=== PATIENT | male | born 1975 | race Caucasian/White ===

== ENCOUNTER 2018-11-24 17:30 | Emergency (ER) | payer MEDICAID, SELFPAY ==
--- NOTE | 2018-11-24 17:30 | EKG12_ITS ---
Test Reason : DIZZY Blood Pressure : / mmHG Vent. Rate : 095 BPM Atrial Rate : 095 BPM P-R Int : 166 ms QRS Dur : 078 ms QT Int : 350 ms P-R-T Axes : 063 -09 030 degrees QTc Int : 439 ms Normal sinus rhythm Normal ECG Confirmed by EZE SALVADOR, HAILE ([id number]), assistant editor DAVONTE KRAMER ([id number]) on 11/27/2018 4:45:01 PM Referred By: JOSEFINA/ZHOU Confirmed By:HAILE LOO MD
[2018-11-24 17:32] VITALS: BP 133/93; PULSE 97; RESP 22; TEMP 36.6; O2SAT 99; BMI 31.7
--- NOTE | 2018-11-24 17:42 | ED.RN ---
PT NOW STATES HE SLIPPED AND FELL ON SNOW AT WORK, HIT HEAD. PREVIOUSLY STATES HE BLACKED OUT' AND FELL. AWARE.
--- NOTE | 2018-11-24 17:45 | CT_ITS ---
STUDY: CT CERVICAL SPINE WITHOUT CONTRAST REASON FOR EXAM: Male, 42 years old. Trauma, syncope. RADIATION DOSAGE (If Supplied By Facility): CTDIvol = ( 23.10 ) mGy, DLP = ( 566.89 ) mGycm TECHNIQUE: High resolution transaxial imaging was performed without contrast material. Sagittal and coronal images were reconstructed. Individualized dose optimization techniques were used for this CT. COMPARISON: 11/04/2017. FINDINGS: Normal craniovertebral junction. Normal anterior atlantoaxial articulation. Normal odontoid process. There is straightening of the normal cervical lordosis. Normal vertebral bodies and posterior osseous elements. C2-3: Normal endplates. Normal disc height and morphology. Normal central canal and intervertebral neuroforamina. C3-4: Normal endplates. Normal disc height and morphology. Normal central canal and intervertebral neuroforamina. C4-5: Normal endplates. Normal disc height and morphology. Normal central canal and intervertebral neuroforamina. C5-6: Normal endplates. Normal disc height and morphology. Normal central canal and intervertebral neuroforamina. C6-7: Normal endplates. Normal disc height and morphology. Normal central canal and intervertebral neuroforamina. C7-T1: Normal endplates. Normal disc height and morphology. Normal central canal and intervertebral neuroforamina. Normal visualized soft tissue structures. Previously noted interstitial prominence in the lung apices is markedly improved compared to the prior examination. CT/Spine Cervical without Contras IMPRESSION: 1. No evidence of trauma. Unremarkable CT of the cervical spine. Electronically Signed: Frances Gonzalez MD at 18:56 EST Tel , Service support ,
--- NOTE | 2018-11-24 17:45 | CT_ITS ---
STUDY: CT BRAIN WITHOUT CONTRAST REASON FOR EXAM: Male, 42 years old. Trauma, syncope. RADIATION DOSAGE (If Supplied By Facility): CTDIvol = ( 44.99 ) mGy, DLP = ( 829.85 ) mGycm TECHNIQUE: Transaxial CT imaging of the brain was performed without administration of intravenous contrast material. Individualized dose optimization techniques were used for this CT. COMPARISON: 11/04/2017. FINDINGS: Normal soft tissue structures. Normal calvarium. Normal size ventricles and extra-axial spaces for the patient's age. Normal white matter tracts of the cerebral hemispheres. Normal basal ganglia and thalami. Normal brainstem. Normal cerebellum. There is no intracranial hemorrhage. There are no findings of an acute ischemic infarction. Normal visualized paranasal sinuses. CT/Brain/Head without Contrast IMPRESSION: Normal unenhanced CT scan of the brain. Electronically Signed: Frances Gonzalez MD at 18:44 EST Tel , Service support ,
--- NOTE | 2018-11-24 18:00 | ED.VISSUMM ---
- ER Visit Summary Date of Service: 11/24/18 Chief Complaint: Fall History of Present Illness: The patient is a 42 M presenting after a fall. Patient states he was walking on snow at work and slipped and fell. He states he hit the back of his head. He is unsure but believes he may have briefly lost consciousness. He had no vomiting. He complains of low back pain as well. Denies other complaints. Physical Examination: Vitals are stable. Patient is afebrile. Alert no acute distress. HEENT exam is unremarkable. Neck is nontender Lungs are clear and equal bilaterally. Heart is regular rate and rhythm. Abdomen is soft nontender nondistended. Back: Mild lumbar tenderness, no step off Extremities are unremarkable. Skin is warm and dry. No focal neurologic deficit. Remainder of exam is unremarkable. Emergency Department Course and Treatment: CT head and neck show no acute process. X-ray lumbar spine shows no acute process. On reevaluation, patient is feeling improved. He is advised to follow-up with [facility] care. Advised return to ED for worsening complaints. Disposition: Discharge home Impression: Status post mechanical fall, closed head injury, lumbar strain This note was generated with [employer] dictation software. It may contain incorrect words, spelling, and punctuation that were not noted in review of the chart prior to signing ED Disposition - Plan for ED Patient: Disposition: Home or Assisted Living Chief Complaint: Fall Instructions: ED Head Injury Closed Referrals: [facility] [GROUP OF PHYSICIANS] -
--- NOTE | 2018-11-24 18:07 | RAD_ITS ---
STUDY: X-RAY - LUMBAR SPINE REASON FOR EXAM: Male, 42 years old. Low back pain after fall. TECHNIQUE: 3 view(s) of the lumbar spine were obtained. COMPARISON: None FINDINGS: Normal lumbar lordosis. There is no substantial scoliosis. There is a normal alignment of the vertebrae. Normal vertebral bodies and endplates. There is minimal intervertebral disc space narrowing at L5-S1 with small osteophytes. There is mild diffuse facet sclerosis. The soft tissue structures are unremarkable. RAD/Lumbar Spine 2 or 3 Views IMPRESSION: Mild lower lumbar spondylosis with no acute finding. Electronically Signed: Patricio Naylor MD at 19:07 EST , Service support ,
--- NOTE | 2018-11-24 19:13 | ED.DEP ---
ED Disposition - Plan for ED Patient: Disposition: Home or Assisted Living Chief Complaint: Fall Instructions: ED Head Injury Closed Referrals: Corporate,[facility] [GROUP OF PHYSICIANS] -
--- NOTE | 2018-11-24 19:14 | DCINST.ED_ITS ---
ED Disposition - Plan for ED Patient: Disposition: Home or Assisted Living Chief Complaint: Fall Instructions: ED Head Injury Closed Referrals: Corporate,[facility] [GROUP OF PHYSICIANS] -
--- NOTE | 2018-11-24 19:29 | ED.RN ---
Employer database checked, not in database. PT informed. FROI completed.
[2018-11-24 19:34] VITALS: PULSE 82; RESP 16; O2SAT 100
== END 2018-11-24 19:34 | disposition home or self-care (01) ==
PROVIDERS: Emergency Provider Emergency Medicine
DX: S09.90XA Unspecified injury of head, initial encounter (principal); S39.012A Strain of muscle, fascia and tendon of lower back, initial encounter; W00.9XXA Unspecified fall due to ice and snow, initial encounter; Y93.01 Activity, walking, marching and hiking; Y92.9 Unspecified place or not applicable; Y99.0 Civilian activity done for income or pay; E11.9 Type 2 diabetes mellitus without complications; Z79.4 Long term (current) use of insulin; Z72.0 Tobacco use
CPT/HCPCS: 70450; 72100; 72125; 93005; 99284

== ENCOUNTER 2018-11-27 21:42 | Inpatient (IN) | payer MEDICAID, SELFPAY ==
[2018-11-27 21:43] VITALS: BP 121/87; PULSE 105; RESP 14; TEMP 37; O2SAT 98; BMI 31.6
--- NOTE | 2018-11-27 22:45 | ED.VISSUMM ---
- ER Visit Summary Date of Service: 11/27/18 Chief Complaint: Dental abscess History of Present Illness: The patient is a 42 M who states that about 1 week ago he began to have pain and swelling over the left jaw. For the past couple days the swelling is gotten significantly worse. He is trying to hold off until he can go to the [facility] dentist. Unfortunately the swelling and pain is gotten to the point where he needed to be seen. He denies any fevers. No cardiac history. He is a diabetic. He notes the pain extends down along the neck. Physical Examination: Afebrile vital signs are stable Gen: Well-nourished well-developed Head: Normocephalic atraumatic Eyes: Perrl EOMI ENT: TMs clear no rhinorrhea moist mucous membranes there is a large amount of swelling along the left lower jaw this extends under the mandible into the submental space and down onto the anterior left neck. There is no overlying erythema. There is evidence of obvious poor dentition with some teeth decayed down to the bones. There is no extension of the swelling into the oral cavity. No trismus. The floor of the mouth appears soft Neck: Supple no lymphadenopathy no JVD nontender CVS: Regular rate rhythm no murmurs normal S1-S2 Respiratory: No distress clear to auscultation bilaterally chest nontender Abdomen: Soft nontender nondistended normal bowel sounds no masses Back: Nontender Extremity: Nontender no edema Skin: Normal color no rash Neuro: alert orientated ?3 CN II-XII intact normal strength sensation reflexes gait cerebellar Psych: Normal affect normal mood Test Results: CT demonstrates a 4 x 3.5 cm submandibular mass with necrotic center. Concerning for abscess. There are reactive nodes around it. White count is slightly elevated. His blood glucoses in the 300s. Emergency Department Course and Treatment: She received pain and nausea medicine. He also received Unasyn. CT results were discussed with ENT Dr. Calderon as well as hospitalist Dr. Pantoja. Our plan is admission IV antibiotics and ENT evaluation. At this point I do not see any evidence of Ernesto's angina or airway compromise. Impression: 1. Submandibular abscess This note was generated with [employer].comation software. It may contain incorrect words, spelling, and punctuation that were not noted in review of the chart prior to signing ED Disposition - Plan for ED Patient: Chief Complaint: Dental Referrals: Care Physician,No Primary [Primary Care Provider] -
[2018-11-27] MEDS: Ondansetron 4 MG/2 ML Vial IV (22:51)
[2018-11-27] MEDS: Morphine 4 MG/ML Syringe IV (22:51)
[2018-11-27 22:54] VITALS: BP 124/77; PULSE 98; RESP 16; TEMP 36.7; O2SAT 97
[2018-11-27 23:04] LABS: Absolute Lymphocyte Count 2.04 X10^3/ul (0.83-4.51); Absolute Neutrophil Count 10.1 X10^3/uL (2.0-7.7); Basophil# 0.02 X10^3/uL; Basophil% 0.2 % (0-1); Eosinophil# 0.06 X10^3/uL; Eosinophils% 0.5 % (0-5); Hematocrit 40.8 % (40-54); Hemoglobin 14.5 g/dl (13.0-16.5); Lymphocyte # 2.04 X10^3/ul (4.0); Lymphocyte % 15.5 % (19-41); Mean Corp Hgb Conc 35.5 g/gl (32-36); Mean Corpuscular Hgb 28.7 pg (27.0-32.0); Mean Corpuscular Volume 80.6 fL (80-94); Monocyte# 0.91 X10^3/uL; Monocyte% 6.9 % (0-10); Neutrophil # 10.07 X10^3/uL (2.7-7.7); Neutrophil % 76.6 % (47-70); Platelet Count 238 K/mm3 (150-450); RBC Distribution Width CV 12.8 % (11.6-14.6); Red Blood Count 5.06 M/mm3 (4.6-6.2); White Blood Count 13.1 K/mm3 (4.4-11.0)
--- NOTE | 2018-11-27 23:11 | CT_ITS ---
STUDY: CT SOFT TISSUE NECK WITH CONTRAST REASON FOR EXAM: Male, 42 years old. RADIATION DOSAGE (If Supplied By Facility): CTDIvol = ( 20.94 ) mGy, DLP = ( 727.04 ) mGycm TECHNIQUE: The patient was scanned in a multi-detector CT scanner. High resolution transaxial imaging was performed following intravenous administration of 100 ml of Isovue 300 contrast material. Sagittal and coronal images were reconstructed. Individualized dose optimization techniques were used for this CT. COMPARISON: None. FINDINGS: Normal bilateral parotid glands. Normal bilateral senior technical manager spaces. Normal bilateral parapharyngeal spaces. Normal bilateral carotid spaces. In the left side submandibular space there is a focal inhomogeneous loculated appearing mass with peripheral enhancement and central lucency measures 4.0 x 2.6 x 3.5 cm with surrounding edema. There are numerous left greater than right reactive appearing neck soft tissue lymph nodes. The Normal visualized nasopharynx. Normal retropharyngeal space. Normal perivertebral space. Normal visualized bilateral faucial tonsils. The visualized tongue, tongue base and oropharynx are normal. At each level there are reactive appearing lymph nodes especially in the submandibular space and periparotid space. Normal epiglottis, bilateral vallecula and hypopharynx. The pre-epiglottic and paraglottic adipose spaces are normal. Normal visualized bilateral piriform sinuses, aryepiglottic folds, vocal cords, and arytenoid-cricoid articulations. Normal subglottic trachea. Normal bilateral lobes of the thyroid gland. There is a pattern of interstitial thickening groundglass opacity. Normal visualized paranasal sinuses. There is mild degenerative change in the cervical spine. There is poor dentition. Within the left mandible there are 2 broken appearing teeth which do not appear to have the dental roots within the bone possibly the soft tissues. There is a similar pattern in the right mandible. There are numerous dental caries especially on the left side there are numerous left-sided dental caries as well as multiple left side maxillary periodontal abscesses. CT/Soft Tissue Neck WITH Contrast IMPRESSION: There is a 4 x 2.6 x 3.5 necrotic appearing mass within the left side submandibular region which most likely represents an abscess however necrotic lymph node could have this appearance. Given the amount of edema and infected lymph node is thought to be more likely. This is complicated by a left greater than right multiple maxillary dental caries and periodontal abscesses. Multiple reactive lymph nodes throughout the neck soft tissues especially on the left side see image #69 of the coronal views. Electronically Signed: Kira Recio MD at 0:46 EST Tel , Service support ,
[2018-11-27 23:12] LABS: POSITIVE COUNT NO; POSITIVE DIFFERENTIAL NO; POSITIVE MORPHOLOGY NO
[2018-11-27 23:16] LABS: Anion Gap 10 (5-15); BUN 18 mg/dL (7-18); BUN/Creat Ratio 18.7 RATIO (10-20); Chloride 97 mmol/L (98-107); Creatinine, Serum 0.96 mg/dL (0.70-1.30); EST Glomerular Filtration Rate 90 mL/min (>60); Est Glom Filt Rate - Afr Amer 109 mL/min (>60); Estimated Creatinine Clearance 95.99 ml/min; Glucose 351 mg/dL (74-106); Potassium 4.2 mmol/L (3.5-5.1); Sodium Level 134 mmol/L (136-145)
[2018-11-28] VITALS (23 sets, daily range): BP systolic 112–141; BP diastolic 72–85; PULSE 81–117; RESP 12–22; TEMP 36.6–37.3; O2SAT 93–100; BMI 31.6
--- NOTE | 2018-11-28 00:30 | HP.PCM_ITS ---
Problem List (1) Submandibular abscess Status: Acute (2) Diabetes mellitus, type II Status: Chronic Qualifiers: Diabetes mellitus residential insulin use: with keno terminal operator use Diabetes mellitus complication status: with unspecified complications Qualified Code(s): E11.8 - Type 2 diabetes mellitus with unspecified complications; Z79.4 - USP (current) use of insulin (3) History of tobacco use Status: Chronic History of Present Illness Date of Admission: 11/28/18 Chief Complaint: L neck edema, pain The patient is a 42 y/o M w/ PMHx: Diabetes mellitus type II, History of Tobacco use, History prior abscess s/p I+D (primarily skin) who presents to the [facility] ED on 11/28/17 with history of onset small tender bump to the left lateral neck starting on 11/21/17 which he notes progressively enlarged and worsened with onset over the last 24 hours severe edema, erythema, difficulty swallowing, fevers as well as elevated blood sugars. He notes that he normally has been purchasing his insulin from [employer] however once he was able to obtain insurance he needs a prescription and is yet to do so with a primary care physician noting any falls at the [facility]. He also of note does have very poor dentition denies specifically any overt dental pain that then led to this. In the ED work- up included T 98.6, heart rate 105, BP 121/87, respiratory rate 14, 98% on room air, CBC with WBC 13.1, hemoglobin 14.5, platelet 238 with left shift, BMP with sodium 134, chloride 97, glucose 351, CT soft tissue of the neck with a 4 x 2.6 x 3.5 necrotic appearing mass within the left side of the submandibular region possibly client relations representative of an abscess however necrotic lymph node could have th is appearance as well, gated by left greater than right multiple maxillary dental caries and periodontal abscesses, multiple reactive lymph nodes throughout the neck soft tissues especially on the left side. In the ED patient administered Zofran, morphine, Unasyn therapies. ENT, Dr. Calderon consulted and amenable to evaluating patient. Past Medical History Past Medical History (Chronic Problems): Chronic Problems Diabetes mellitus, type II (Chronic) History of tobacco use (Chronic) Chest pain (Chronic) Allergies No Known Allergies Allergy (Verified 11/27/18 21:46) Home Medications: Ambulatory Orders Medication Instructions Recorded Insulin NPH/Reg 70/30 [Novolin 12 units SC TID 11/27/18 70/30] Surgical History: - - Patient notes several incision and drainage of abscesses otherwise no other surgical interventions. Psychiatric History: No pertinent psych hx Lives: Spouse/ Significant Other Smoking Status: Former smoker - Quit tobacco remotely, 25 years prior. Tobacco Use: Non-smoker Alcohol: None Drugs: None - *Family History Maternal History Items: Diabetes, Heart Disease, Hypertension Paternal History Items: Diabetes, Heart Disease, Hypertension Review of Systems Constitutional: Reports: Anorexia, Fever, Malaise, Weakness, Fatigue. Denies: Chills, Weight Change HEENT: Reports: Difficulty Swallowing, Head Aches, Sore Throat. Denies: Sinus Congestion, Sinus Drainage Cardiovascular: Denies: Chest Pain, Palpitations Respiratory: Denies: Cough, Shortness of breath at rest, Sputum production Gastrointestinal: Denies: Abdominal Pain, Nausea, Vomiting Genitourinary: Denies: Dysuria Musculoskeletal: Denies: Joint Pain, Joint Tenderness Skin: Reports: Skin Changes. Denies: Rash, Wounds Neurological: Denies: Numbness, Tingling, Focal weakness Psychiatric: Denies: Anxiety, Depression, Homicidal Ideations, Suicidal Ideations Hematologic/ Lymphatic: Denies: Easy Bruising, Easy Bleeding VTE Information - Inpt Only VTE Present on Admission: No VTE Mechan Device Prophylaxis: SCD's VTE Pharm Prophylaxis ordered?: No Reason prophylaxis not ordered:: Medical Contraindication - Holding for OR. Patient Problems: Active and Suspected Problems Submandibular abscess (Acute) Subjective: Seated upright in ED bed, fatigued, notable left-sided neck swelling and appears uncomfortable. Objective: Physical Examination: General: awake, alert, oriented x 3 and cooperative, seated upright in the ED bed, uncomfortable appearing. Skin: normal color, turgor, no icterus, cyanosis, minimal erythema to the left lateral neck with notable severe edema, firm lateral neck region, tenderness to palpation, trismus, severely poor dentition. HEENT: AT/NC, EOMI, PERRLA, dry MM, trismus present, severely poor dentition, see skin, no carotid bruits or JVD noted however left side of the neck is very distorted secondary to acute presentation as noted. Lungs: CTA bilaterally, moderate effort, mild decrease BL bases, no rales, ronchi or wheezing. Heart: Regular rate and rhythm; no gallop, rub audible. Abdomen: soft, obese, NTTP, ND, normal BS, no HSM. Extremities: no cyanosis, clubbing, or edema. Neurological: patient awake, alert, oriented x 3; cognitive function intact; pupils equally reactive to light and accomodation; cranial nerves II-XII grossly normal, moving all 4 extremities, no focal deficits, strength severely globally decreased secondary to acute presentation. Psychiatric: affect appears fatigued, no acute evidence of depressive or anxiety feelings. - Physical Exam Vital Signs Temp Pulse Resp BP Pulse Ox 98.1 F 98 16 124/77 H 97 11/27/18 22:54 11/27/18 22:54 11/27/18 22:54 11/27/18 22:54 11/27/18 22:54 Oxygen Delivery Method Room Air Weight: 208 lb Body Mass Index (BMI) 31.6 Laboratory Tests Past 24 Hrs 11/27/18 11/27/18 23:00 23:00 WBC 13.1 H RBC 5.06 Hgb 14.5 Hct 40.8 MCV 80.6 MCH 28.7 MCHC 35.5 RDW 12.8 RDW Differential 37.0 Plt Count 238 MPV 9.0 Immature Gran % (Auto) 0.300 Neut % (Auto) 76.6 H Lymph % (Auto) 15.5 L [place] % (Auto) 6.9 Eos % (Auto) 0.5 Baso % (Auto) 0.2 Absolute Neuts (auto) 10.1 H Absolute Lymphs (auto) 2.04 Total Counted Not Reportable Sodium 134 L Potassium 4.2 Chloride 97 L Carbon Dioxide 27.0 Anion Gap 10 BUN 18 Creatinine 0.96 Estim Creat Clear Calc 95.99 Est GFR (MDRD) Af Amer 109 Est GFR (MDRD) Non-Af 90 BUN/Creatinine Ratio 18.7 Glucose 351 H Calcium 9.0 Assessment/Plan All Active Problems Submandibular abscess (Acute) The patient is a 42 y/o M w/ PMHx: Diabetes mellitus type II, History of Tobacco use, History prior abscess s/p I+D (primarily skin) who presents to the [facility] ED on 11/28/17 with history of onset small tender bump to the left lateral neck starting on 11/21/17 which he notes progressively enlarged and worsened with onset over the last 24 hours severe edema, erythema, difficulty swallowing, fevers as well as elevated blood sugars. (1) Left Submandibular Suspected Abscess w/ Poor Dentition: Will admit to [facility] on telemetry for close airway monitoring, maintain on IV unasyn, ENT consulted and will evaluate today for suspected OR needs, continue HOB parameters, monitor erythema outline with VS checks, NPO status, IVFs, PRN pain and antiemetic regimen. (2) Diabetes mellitus type II with Hyperglycemia: We will initiate low dose twice daily Levemir, hemoglobin A1c pending, n.p.o. status with every 6 hours accu checks w/ ISS, nutrition consultation for education and teaching. (3) Obesity: Weight loss and lifestyle changes encouraged. (4) History of Tobacco use: Encourage continued cessation. (5) GERD: IV Famotidine. (6) DVT prophylaxis: SCD, holding chemoprophylaxis for likely operative intervention. Code Visit Inpatient E&M: 77874 Init Hosp L3
[2018-11-28] MEDS: Morphine 4 MG/ML Syringe IV (01:32)
[2018-11-28 01:53] LABS: Magnesium 1.8 mg/dL (1.6-2.6)
[2018-11-28] MEDS: 0.9% Normal Saline 1,000 ML 125 ML IV ×4 (02:17→17:56)
[2018-11-28] MEDS: Insulin Lispro 100 UNIT/ML INSULN.PEN SC ×4 (02:34→17:54)
[2018-11-28 02:40] LABS: Bedside Glucose 289 mg/dL (70-110)
[2018-11-28] MEDS: Acetaminophen 325 MG Tablet 650 MG PO (03:29)
[2018-11-28] MEDS: oxyCODONE 5 MG Tablet PO (03:29)
[2018-11-28 04:10] LABS: Bedside Glucose 298 mg/dL (70-110)
[2018-11-28 06:07] LABS: Absolute Lymphocyte Count 1.95 X10^3/ul (0.83-4.51); Absolute Neutrophil Count 10.8 X10^3/uL (2.0-7.7); Basophil# 0.02 X10^3/uL; Basophil% 0.1 % (0-1); Eosinophil# 0.06 X10^3/uL; Eosinophils% 0.4 % (0-5); Lymphocyte # 1.95 X10^3/ul (4.0); Lymphocyte % 13.9 % (19-41); Mean Corp Hgb Conc 33.3 g/gl (32-36); Mean Platelet Vol. 9.2 fl (6.2-12.0); Monocyte# 1.18 X10^3/uL; Monocyte% 8.4 % (0-10); Neutrophil # 10.77 X10^3/uL (2.7-7.7); Neutrophil % 76.9 % (47-70); Platelet Count 197 K/mm3 (150-450)
[2018-11-28 06:18] LABS: POSITIVE COUNT NO; POSITIVE DIFFERENTIAL NO; POSITIVE MORPHOLOGY NO
[2018-11-28 06:20] LABS: Anion Gap 8 (5-15); BUN 13 mg/dL (7-18); BUN/Creat Ratio 14.9 RATIO (10-20); Calcium,Total 8.4 mg/dL (8.5-10.1); Chloride 101 mmol/L (98-107); Creatinine, Serum 0.87 mg/dL (0.70-1.30); EST Glomerular Filtration Rate 101 mL/min (>60); Est Glom Filt Rate - Afr Amer 122 mL/min (>60); Estimated Creatinine Clearance 105.92 ml/min; Glucose 287 mg/dL (74-106); Sodium Level 134 mmol/L (136-145)
[2018-11-28] MEDS: 0.9% NaCl Peripheral Flush Adult/Peds IV ×2 (06:25→22:25)
[2018-11-28] MEDS: Morphine 2 MG/ML Syringe IV ×5 (06:25→22:24)
[2018-11-28 07:00] LABS: Bedside Glucose 285 mg/dL (70-110)
[2018-11-28] MEDS: Ondansetron 4 MG/2 ML Vial IV ×2 (07:29→16:11)
[2018-11-28 07:43] LABS: Hemoglobin A1c 13.4 % (4.2-6.3)
--- NOTE | 2018-11-28 08:21 | NURSING ---
pt has significant facial and submandibular swelling which has been marked with surgical marker-that area has enlarged since his admission at 0200-placed on continuous pox at this time-pt is able to speak, although speech is altered-pt also able to swallow his own saliva at this time-pox on room air is 94% at this time-pt recently medicated for pain/nausea-will monitor-pt instructed to notify staff at once for increased pain, difficulty swallowing or breathing
--- NOTE | 2018-11-28 10:30 | CASEMGMT ---
RN CM GRINDING MACHINE OPERATOR PORTABLE CM to room to meet with patient for initial transition planning/care coordination assessment. RN DANNA introduced self and role at [facility]. Pt voices understanding and consents to assessment at this time. Pt resting in bed in no distress at this time. Pt is A/O at this time and answers all questions appropriately. Care providers, pharmacy, and demographics verified at this time. PCP: No PCP. Given list of local PCP's and also list from [employer] Website. Preferred Pharmacy: [facility] Insurance/Prescription Benefit: [employer]. States he just got [employer] this year. was unable to afford insulin prior to getting [employer]. has glucometer @ home and all the supplies for glucometer but does not have any insulin. Will need scripts on discharge for insulin and pen needles. Living Will/HPOA: does not have LW or HCPOA and is interested in talking with SW to complete forms. Provided pt with AD information. Living Arrangements: Lives with his girlfriend/significant other, daughter and son. Independent with personal ADL's. Girlfriend does most of cooking and cleaning. Transportation: Pt states drives self and states no transportation concerns at this time. DME: Denies using any DME and denies needs. has the following DME: Pt states no need for further DME at this time. HHC/SNF: Has never been to a SNF or used HHC services. CM to follow for discharge planning/needs. Pt voices no further concerns/needs at this time. Advised pt to ask for CM if any further questions/concerns/needs arise. Voices understanding. PLAN: TBD. May need IV antibiotics and dressing changes on discharge. Dulce BARKER RN, CM
--- NOTE | 2018-11-28 11:09 | CASEMGMT ---
Insurance Review for In-Network Facilities for [facility]: [facility] ([facility]), [facility], [place], [facility], [facility], [facility] ([facility]), [facility], [facility], [facility], [facility], and . Dulce BSN RN CM
--- NOTE | 2018-11-28 11:33 | CASEMGMT ---
SW assisted pt in completing LW/POA forms, SW gave pt the originals and copies, and copies placed on the chart. SERGE Durant, STARCH CRAB
[2018-11-28 11:46] LABS: Bedside Glucose 233 mg/dL (70-110)
[2018-11-28] MEDS: Ketorolac 15 MG/ML Vial IV ×2 (11:46→18:22)
--- NOTE | 2018-11-28 13:27 | NURSING ---
report given to josé miguel hernandez icu and pt transported to icu bed 4 on 2l
--- NOTE | 2018-11-28 13:39 | PCM.PN.BLA ---
Progress Note Asked to see the patient at the request of Dr. Joseph for respiratory distress. HPI: 42 yo white male presented to the ER last night with worsening neck swelling. He has had this since November 20. He was seen at urgent care and placed on amoxicilin. It was recommended that he also see a dentist. He was admitted last night. Dr. Calderon had agreed to see him. I was then called for a worsening respiratory status. Dr. Calderon has not seen the patient. Past Medical History Past Medical History (Chronic Problems): Chronic Problems Diabetes mellitus, type II (Chronic) Allergies No Known Allergies Allergy (Verified 11/27/18 21:46) Home Medications: Ambulatory Orders Medication Instructions Recorded Insulin NPH/Reg [Novolin 12 units SC TID 11/27/18 70] Surgical History: - - Incision and Drainage of scrotal and right arm abscess Psychiatric History: No pertinent psych hx Lives: Spouse/ Significant Other Smoking Status: Former smoker - Quit tobacco remotely, 25 years prior. Tobacco Use: Non-smoker Alcohol: None Drugs: None - *Family History Maternal History Items: Diabetes, Heart Disease, Hypertension Paternal History Items: Diabetes, Heart Disease, Hypertension Review of Systems Constitutional: Reports: Anorexia, Fever, Malaise, Weakness, Fatigue. Denies: Chills, Weight Change HEENT: Reports: Difficulty Swallowing, Head Aches, Sore Throat. Denies: Sinus Congestion, Sinus Drainage Cardiovascular: Denies: Chest Pain, Palpitations Respiratory: Denies: Cough, Shortness of breath at rest, Sputum production Gastrointestinal: Denies: Abdominal Pain, Nausea, Vomiting Genitourinary: Denies: Dysuria Musculoskeletal: Denies: Joint Pain, Joint Tenderness Skin: Reports: Skin Changes. Denies: Rash, Wounds Neurological: Denies: Numbness, Tingling, Focal weakness Psychiatric: Denies: Anxiety, Depression, Homicidal Ideations, Suicidal Ideations Hematologic/ Lymphatic: Denies: Easy Bruising, Easy Bleeding PE: awake alert NAD No stridor No stertor nose-No purulence M/OP several carried broken teeth. Floor of mouth is soft. Tongue is not retro or superiorly displaced. Oropharynx is normal. Neck 7x7 cm area of fluctuance and induration. The skin is minimally erythematous. CT Neck- abscess in the left submandibular space. No airway compromise. A: Submandibular space abscess No current upper airway obstruction P: I will be bringing the patient to the OR for incision and drainage. He understands the risks of nerve, vascular injury, reaccumulation of abscess, need for further surgery, scar as well as unforseen complications. He agrees to the procedure and wishes to proceed.
--- NOTE | 2018-11-28 14:20 | NURSING ---
1420 OR nurses at bedside to take patient down to surgery
--- NOTE | 2018-11-28 14:52 | PCM.PN.HOSP ---
Patient Problems: Active and Suspected Problems Submandibular abscess (Acute) Subjective: The patient was admitted after midnight for left submandibular swelling progressively worsening since November 20. Last night, patient had CT neck which shows moderate-sized necrotic appearing mass in the left submandibular region most likely abscess with necrotic lymph nodes. Patient also has dental caries mainly left maxillary and periodontal abscesses. T-max 99.2 Fahrenheit. Patient has odynophagia mild pain or difficulty in swallowing saliva. Extent of swelling, pain, tenderness and induration has increased since admission. Swelling seems firm to hard in consistency. Patient also mild short of breath when seen in the morning but no respiratory distress or dyspnea. No stridor. The patient was again seen in afternoon. Vitals/I&O's: Vital Signs Temp Pulse Resp BP Pulse Ox 98.7 F 97 20 H 127/79 H 96 11/28/18 13:15 11/28/18 13:30 11/28/18 13:30 11/28/18 13:30 11/28/18 13:30 Oxygen Flow Rate (L/min) 2 Oxygen Delivery Method Nasal Cannula Weight: 208 lb 15.971 oz Body Mass Index (BMI) 31.6 Intake and Output for Last 24 Hours 11/26/18 11/27/18 11/28/18 23:59 23:59 23:59 Intake Total 1063 / 1063 Output Total 900 / 900 Balance 163 / 163 General: Alert, Oriented x3, Cooperative HEENT: Atraumatic, PERRLA, EOMI, Normocephalic Neck: Supple, No JVD, Negative Carotid Bruits, - - Moderate size, single, hard to form left submandibular swelling, tender to touch with surrounding cellulitis. On per oral exam, deep structures of pharynx could not be visualized including soft palate, posterior part of tongue or uvula. Lungs: Clear to auscultation, No rhonchi, No wheeze, No rales, Short of Breath - Looks mild short of breath, - - No stridor. Cardiovascular: Regular rate, Regular Rhythm, Normal S1, Normal S2, No murmurs Abdomen: Bowel Sounds Present, Soft, Non Tender, Non-Distended Extremities: No edema, Capillary Refill Less than 3 Seconds Skin: No rashes, No breakdown Musculoskeletal: No Tenderness to Palpation of Joints or Extremities, Arthritic Changes Neurological: Cranial nerves II-XII grossly intact Psych/Mental Status: Normal Affect, Appropriate Laboratory Results 11/27/18 23:00: WBC 13.1 H, RBC 5.06, Hgb 14.5, Hct 40.8, MCV 80.6, MCH 28.7, MCHC 35.5, RDW 12.8, RDW Differential 37.0, Plt Count 238, MPV 9.0, Immature Gran % (Auto) 0.300, Neut % (Auto) 76.6 H, Lymph % (Auto) 15.5 L, [place] % (Auto) 6.9, Eos % (Auto) 0.5, Baso % (Auto) 0.2, Absolute Neuts (auto) 10.1 H, Absolute Lymphs (auto) 2.04, Total Counted Not Reportable 11/27/18 23:00: Sodium 134 L, Potassium 4.2, Chloride 97 L, Carbon Dioxide 27.0, Anion Gap 10, BUN 18, Creatinine 0.96, Estim Creat Clear Calc 95.99, Est GFR (MDRD) Af Amer 109, Est GFR (MDRD) Non-Af 90, BUN/Creatinine Ratio 18.7, Glucose 351 H, Calcium 9.0 11/27/18 23:00: Magnesium 1.8 11/28/18 02:23: POC Glucose 289 H 11/28/18 04:07: POC Glucose 298 H 11/28/18 05:30: WBC 14.0 H, RBC 5.00, Hgb 14.0, Hct 42.0, MCV 84.0, MCH 28.0, MCHC 33.3, RDW 13.0, RDW Differential 39.0, Plt Count 197, MPV 9.2, Immature Gran % (Auto) 0.300, Neut % (Auto) 76.9 H, Lymph % (Auto) 13.9 L, [place] % (Auto) 8.4, Eos % (Auto) 0.4, Baso % (Auto) 0.1, Absolute Neuts (auto) 10.8 H, Absolute Lymphs (auto) 1.95, Total Counted Not Reportable 11/28/18 05:30: Sodium 134 L, Potassium 4.0, Chloride 101, Carbon Dioxide 25.0, Anion Gap 8, BUN 13, Creatinine 0.87, Estim Creat Clear Calc 105.92, Est GFR (MDRD) Af Amer 122, Est GFR (MDRD) Non-Af 101, BUN/Creatinine Ratio 14.9, Glucose 287 H, Calcium 8.4 L 11/28/18 05:30: Hemoglobin A1c 13.4 H 11/28/18 06:19: POC Glucose 285 H 11/28/18 11:35: POC Glucose 233 H Current Medications Acetaminophen (Tylenol) 650 mg PO Q6H PRN PRN PRN Reason: Non-cardiac pain (mod-severe) Last Admin: 11/28/18 03:29 Dose: 650 mg Dextrose (D50w Syringe) 0 gm IV X1 PRN; Protocol PRN Reason: Hypoglycemia Glucagon () 1 mg IM .X1 PRN PRN Reason: Hypoglycemia Hydralazine HCl (Apresoline Iv) 10 mg IV Q4H PRN PRN PRN Reason: SBP > 160 Sodium Chloride () 1,000 mls @ 125 mls/hr IV .Q8H [facility] Last Admin: 11/28/18 11:16 Dose: 125 mls/hr Ampicillin Sodium/Sulbactam (Sodium 3 gm/ Sodium Chloride) 112 mls @ 150 mls/hr IV Q6 [facility] Last Admin: 11/28/18 11:17 Dose: 150 mls/hr Famotidine 20 mg/ Sodium (Chloride) 10 mls @ 300 mls/hr IV Q12 [facility] Last Admin: 11/28/18 11:17 Dose: 300 mls/hr Clindamycin Phosphate 600 mg/ (Dextrose) 54 mls @ 100 mls/hr IV Q8 [facility] Last Admin: 11/28/18 12:04 Dose: 100 mls/hr Insulin Glargine (Lantus (Bkc)) 10 units SC BID [facility] Last Admin: 11/28/18 11:17 Dose: Not Given Insulin Human Lispro (Humalog Kwikpen (Bkc)) 0 unit SC Q6 [facility]; Protocol Last Admin: 11/28/18 11:36 Dose: 3 units Ketorolac Tromethamine (Toradol) 15 mg IV Q6 [facility] Stop: 12/03/18 11:31 Last Admin: 11/28/18 11:46 Dose: 15 mg Magnesium Hydroxide (Milk Of Magnesia) 30 ml PO DAILY PRN PRN PRN Reason: Constipation Morphine Sulfate () 2 - 4 mg IV Q3H PRN PRN PRN Reason: PAIN Last Admin: 11/28/18 11:00 Dose: 2 mg Morphine Sulfate () 2 - 4 mg IV Q3H PRN PRN PRN Reason: PAIN Ondansetron HCl (Zofran) 4 mg IV Q8H PRN PRN PRN Reason: NAUSEA/VOMITING Last Admin: 11/28/18 07:29 Dose: 4 mg Oxycodone HCl (Oxyir) 5 - 10 mg PO Q4H PRN PRN PRN Reason: SEVERE PAIN (6-10/10) Last Admin: 11/28/18 03:29 Dose: 10 mg Sodium Chloride () 5 - 15 ml IV UD PRN PRN Reason: SALINE FLUSH Last Admin: 11/28/18 06:25 Dose: 5 ml Medical Necessity - Tobacco Use Smoking Status: Former smoker Tobacco Use: Non-smoker Assessment/Plan All Active Problems Submandibular abscess (Acute) The patient is a 42-year-old gentleman with history of type 2 diabetes mellitus after he had severe pancreatitis and probably he had a kidney failure for which he required dialysis at that time was admitted with progressive worsening of left submandibular swelling since November 20. Earlier he was seen at urgent care and was given amoxicillin but he did not respond. He also has many dental caries mainly on the left molar worse than right molar. 1. Left submandibular mass most probably abscess secondary to dental caries/periodontal abscesses: CT neck was done in ER which showed 4 x 2.6 x 3.5 cm necrotic appearing mass left side mandible region most likely abscess with possibility of necrotic lymph nodes. Multiple maxillary dental caries and periodontal abscesses left greater than right. This has worsened since morning with increasing this extent of pain, tenderness extent of cellulitis and induration. Patient is also mild short of breath which as per H&P, was not yesterday. Patient is moved to ICU. The nurse also called for concern of shortness of breath and evaluation for airway obstruction. There is no signs or symptoms of upper airway obstruction. No stridor. This was discussed with Dr. Mcgee. This was discussed with Dr. Calderon and he said he is about 2 hours also at the facility and he is not available until evening. This was then communicated to Dr. Sagastume who agreed to see the patient. Later, patient was seen by Dr. Sagastume and plan is taking to OR. Continue IV Unasyn. Clindamycin added. IV Toradol for anti-inflammatory effect. (2) Diabetes mellitus type II with Hyperglycemia: Patient A1c is 13.4. Blood sugar is uncontrolled, came with 351 glucose. Accu-Chek at before meals and at bedtime and cover with long-acting and short-acting insulin. 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 (3) Obesity: Weight loss and lifestyle changes encouraged. (4) History of Tobacco use: Encourage continued cessation. (5) GERD: IV Famotidine. (6) DVT prophylaxis: SCD, holding chemoprophylaxis for likely operative intervention. Total time spent in taking care of the patient including discussion with consultants, and intesivitst and patient and family about 60 min. Clinical Impression(s) from Imaging Studies Soft Tissue Neck CT 11/27/18 23:11 IMPRESSION: There is a 4 x 2.6 x 3.5 necrotic appearing mass within the left side submandibular region which most likely represents an abscess however necrotic lymph node could have this appearance. Given the amount of edema and infected lymph node is thought to be more likely. This is complicated by a left greater than right multiple maxillary dental caries and periodontal abscesses. Multiple reactive lymph nodes throughout the neck soft tissues especially on the left side see image #69 of the coronal views. Laboratory Results 11/27/18 23:00: WBC 13.1 H, RBC 5.06, Hgb 14.5, Hct 40.8, MCV 80.6, MCH 28.7, MCHC 35.5, RDW 12.8, RDW Differential 37.0, Plt Count 238, MPV 9.0, Immature Gran % (Auto) 0.300, Neut % (Auto) 76.6 H, Lymph % (Auto) 15.5 L, [place] % (Auto) 6.9, Eos % (Auto) 0.5, Baso % (Auto) 0.2, Absolute Neuts (auto) 10.1 H, Absolute Lymphs (auto) 2.04, Total Counted Not Reportable 11/27/18 23:00: Sodium 134 L, Potassium 4.2, Chloride 97 L, Carbon Dioxide 27.0, Anion Gap 10, BUN 18, Creatinine 0.96, Estim Creat Clear Calc 95.99, Est GFR (MDRD) Af Amer 109, Est GFR (MDRD) Non-Af 90, BUN/Creatinine Ratio 18.7, Glucose 351 H, Calcium 9.0 11/27/18 23:00: Magnesium 1.8 11/28/18 02:23: POC Glucose 289 H 11/28/18 04:07: POC Glucose 298 H. 11/28/18 05:30: WBC 14.0 H, RBC 5.00, Hgb 14.0, Hct 42.0, MCV 84.0, MCH 28.0, MCHC 33.3, RDW 13.0, RDW Differential 39.0, Plt Count 197, MPV 9.2, Immature Gran % (Auto) 0.300, Neut % (Auto) 76.9 H, Lymph % (Auto) 13.9 L, [place] % (Auto) 8.4, Eos % (Auto) 0.4, Baso % (Auto) 0.1, Absolute Neuts (auto) 10.8 H, Absolute Lymphs (auto) 1.95, Total Counted Not Reportable 11/28/18 05:30: Sodium 134 L, Potassium 4.0, Chloride 101, Carbon Dioxide 25.0, Anion Gap 8, BUN 13, Creatinine 0.87, Estim Creat Clear Calc 105.92, Est GFR (MDRD) Af Amer 122, Est GFR (MDRD) Non-Af 101, BUN/Creatinine Ratio 14.9, Glucose 287 H, Calcium 8.4 L 11/28/18 05:30: Hemoglobin A1c 13.4 H 11/28/18 06:19: POC Glucose 285 H 11/28/18 11:35: POC Glucose 233 H Code Visit Inpatient E&M: 29587 Subs Hosp L3
--- NOTE | 2018-11-28 15:00 | PN_ITS ---
Patient Problems: Active and Suspected Problems Submandibular abscess (Acute) Subjective: The patient was admitted after midnight for left submandibular swelling progressively worsening since November 20. Last night, patient had CT neck which shows moderate-sized necrotic appearing mass in the left submandibular region most likely abscess with necrotic lymph nodes. Patient also has dental caries mainly left maxillary and periodontal abscesses. T-max 99.2 Fahrenheit. Patient has odynophagia mild pain or difficulty in swallowing saliva. Extent of swelling, pain, tenderness and induration has increased since admission. Swelling seems firm to hard in consistency. Patient also mild short of breath when seen in the morning but no respiratory distress or dyspnea. No stridor. The patient was again seen in afternoon. Vitals/I&O's: Vital Signs Temp Pulse Resp BP Pulse Ox 98.7 F 97 20 H 127/79 H 96 11/28/18 13:15 11/28/18 13:30 11/28/18 13:30 11/28/18 13:30 11/28/18 13:30 Oxygen Flow Rate (L/min) 2 Oxygen Delivery Method Nasal Cannula Weight: 208 lb 15.971 oz Body Mass Index (BMI) 31.6 Intake and Output for Last 24 Hours 11/26/18 11/27/18 11/28/18 23:59 23:59 23:59 Intake Total 1063 / 1063 Output Total 900 / 900 Balance 163 / 163 General: Alert, Oriented x3, Cooperative HEENT: Atraumatic, PERRLA, EOMI, Normocephalic Neck: Supple, No JVD, Negative Carotid Bruits, - - Moderate size, single, hard to form left submandibular swelling, tender to touch with surrounding cellulitis. On per oral exam, deep structures of pharynx could not be visualized including soft palate, posterior part of tongue or uvula. Lungs: Clear to auscultation, No rhonchi, No wheeze, No rales, Short of Breath - Looks mild short of breath, - - No stridor. Cardiovascular: Regular rate, Regular Rhythm, Normal S1, Normal S2, No murmurs Abdomen: Bowel Sounds Present, Soft, Non Tender, Non-Distended Extremities: No edema, Capillary Refill Less than 3 Seconds Skin: No rashes, No breakdown Musculoskeletal: No Tenderness to Palpation of Joints or Extremities, Arthritic Changes Neurological: Cranial nerves II-XII grossly intact Psych/Mental Status: Normal Affect, Appropriate Laboratory Results 11/27/18 23:00: WBC 13.1 H, RBC 5.06, Hgb 14.5, Hct 40.8, MCV 80.6, MCH 28.7, MCHC 35.5, RDW 12.8, RDW Differential 37.0, Plt Count 238, MPV 9.0, Immature Gra n % (Auto) 0.300, Neut % (Auto) 76.6 H, Lymph % (Auto) 15.5 L, [place] % (Auto) 6.9, Eos % (Auto) 0.5, Baso % (Auto) 0.2, Absolute Neuts (auto) 10.1 H, Absolute Lymphs (auto) 2.04, Total Counted Not Reportable 11/27/18 23:00: Sodium 134 L, Potassium 4.2, Chloride 97 L, Carbon Dioxide 27.0, Anion Gap 10, BUN 18, Creatinine 0.96, Estim Creat Clear Calc 95.99, Est GFR (MDRD) Af Amer 109, Est GFR (MDRD) Non-Af 90, BUN/Creatinine Ratio 18.7, Glucose 351 H, Calcium 9.0 11/27/18 23:00: Magnesium 1.8 11/28/18 02:23: POC Glucose 289 H 11/28/18 04:07: POC Glucose 298 H 11/28/18 05:30: WBC 14.0 H, RBC 5.00, Hgb 14.0, Hct 42.0, MCV 84.0, MCH 28.0, MCHC 33.3, RDW 13.0, RDW Differential 39.0, Plt Count 197, MPV 9.2, Immature Gran % (Auto) 0.300, Neut % (Auto) 76.9 H, Lymph % (Auto) 13.9 L, [place] % (Auto) 8.4, Eos % (Auto) 0.4, Baso % (Auto) 0.1, Absolute Neuts (auto) 10.8 H, Absolute Lymphs (auto) 1.95, Total Counted Not Reportable 11/28/18 05:30: Sodium 134 L, Potassium 4.0, Chloride 101, Carbon Dioxide 25.0, Anion Gap 8, BUN 13, Creatinine 0.87, Estim Creat Clear Calc 105.92, Est GFR (MDRD) Af Amer 122, Est GFR (MDRD) Non-Af 101, BUN/Creatinine Ratio 14.9, Glucose 287 H, Calcium 8.4 L 11/28/18 05:30: Hemoglobin A1c 13.4 H 11/28/18 06:19: POC Glucose 285 H 11/28/18 11:35: POC Glucose 233 H Current Medications Acetaminophen (Tylenol) 650 mg PO Q6H PRN PRN PRN Reason: Non-cardiac pain (mod-severe) Last Admin: 11/28/18 03:29 Dose: 650 mg Dextrose (D50w Syringe) 0 gm IV X1 PRN; Protocol PRN Reason: Hypoglycemia Glucagon () 1 mg IM .X1 PRN PRN Reason: Hypoglycemia Hydralazine HCl (Apresoline Iv) 10 mg IV Q4H PRN PRN PRN Reason: SBP > 160 Sodium Chloride () 1,000 mls @ 125 mls/hr IV .Q8H [facility] Last Admin: 11/28/18 11:16 Dose: 125 mls/hr Ampicillin Sodium/Sulbactam (Sodium 3 gm/ Sodium Chloride) 112 mls @ 150 mls/hr IV Q6 [facility] Last Admin: 11/28/18 11:17 Dose: 150 mls/hr Famotidine 20 mg/ Sodium (Chloride) 10 mls @ 300 mls/hr IV Q12 [facility] Last Admin: 11/28/18 11:17 Dose: 300 mls/hr Clindamycin Phosphate 600 mg/ (Dextrose) 54 mls @ 100 mls/hr IV Q8 [facility] Last Admin: 11/28/18 12:04 Dose: 100 mls/hr Insulin Glargine (Lantus (Bkc)) 10 units SC BID [facility] Last Admin: 11/28/18 11:17 Dose: Not Given Insulin Human Lispro (Humalog Kwikpen (Bkc)) 0 unit SC Q6 [facility]; Protocol Last Admin: 11/28/18 11:36 Dose: 3 units Ketorolac Tromethamine (Toradol) 15 mg IV Q6 [facility] Stop: 12/03/18 11:31 Last Admin: 11/28/18 11:46 Dose: 15 mg Magnesium Hydroxide (Milk Of Magnesia) 30 ml PO DAILY PRN PRN PRN Reason: Constipation Morphine Sulfate () 2 - 4 mg IV Q3H PRN PRN PRN Reason: PAIN Last Admin: 11/28/18 11:00 Dose: 2 mg Morphine Sulfate () 2 - 4 mg IV Q3H PRN PRN PRN Reason: PAIN Ondansetron HCl (Zofran) 4 mg IV Q8H PRN PRN PRN Reason: NAUSEA/VOMITING Last Admin: 11/28/18 07:29 Dose: 4 mg Oxycodone HCl (Oxyir) 5 - 10 mg PO Q4H PRN PRN PRN Reason: SEVERE PAIN (6-10/10) Last Admin: 11/28/18 03:29 Dose: 10 mg Sodium Chloride () 5 - 15 ml IV UD PRN PRN Reason: SALINE FLUSH Last Admin: 11/28/18 06:25 Dose: 5 ml Medical Necessity - Tobacco Use Smoking Status: Former smoker Tobacco Use: Non-smoker Assessment/Plan All Active Problems Submandibular abscess (Acute) The patient is a 42-year-old gentleman with history of type 2 diabetes mellitus after he had severe pancreatitis and probably he had a kidney failure for which he required dialysis at that time was admitted with progressive worsening of left submandibular swelling since November 20. Earlier he was seen at urgent care and was given amoxicillin but he did not respond. He also has many dental caries mainly on the left molar worse than right molar. 1. Left submandibular mass most probably abscess secondary to dental caries/periodontal abscesses: CT neck was done in ER which showed 4 x 2.6 x 3.5 cm necrotic appearing mass left side mandible region most likely abscess with possibility of necrotic lymph nodes. Multiple maxillary dental caries and periodontal abscesses left greater than right. This has worsened since morning with increasing this extent of pain, tenderness extent of cellulitis and induration. Patient is also mild short of breath which as per H&P, was not yesterday. Patient is moved to ICU. The nurse also called for concern of shortness of b reath and evaluation for airway obstruction. There is no signs or symptoms of upper airway obstruction. No stridor. This was discussed with Dr. Mcgee. This was discussed with Dr. Calderon and he said he is about 2 hours also at the facility and he is not available until evening. This was then communicated to Dr. Sagastume who agreed to see the patient. Later, patient was seen by Dr. Sagastume and plan is taking to OR. Continue IV Unasyn. Clindamycin added. IV Toradol for anti-inflammatory effect. (2) Diabetes mellitus type II with Hyperglycemia: Patient A1c is 13.4. Blood sugar is uncontrolled, came with 351 glucose. Accu-Chek at before meals and at bedtime and cover with long-acting and short-acting insulin. 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 (3) Obesity: Weight loss and lifestyle changes encouraged. (4) History of Tobacco use: Encourage continued cessation. (5) GERD: IV Famotidine. (6) DVT prophylaxis: SCD, holding chemoprophylaxis for likely operative intervention. Total time spent in taking care of the patient including discussion with consultants, and intesivitst and patient and family about 60 min. Clinical Impression(s) from Imaging Studies Soft Tissue Neck CT 11/27/18 23:11 IMPRESSION: There is a 4 x 2.6 x 3.5 necrotic appearing mass within the left side submandibular region which most likely represents an abscess however necrotic lymph node could have this appearance. Given the amount of edema and infected lymph node is thought to be more likely. This is complicated by a left greater than right multiple maxillary dental caries and periodontal abscesses. Multiple reactive lymph nodes throughout the neck soft tissues especially on the left side see image #69 of the coronal views. Laboratory Results 11/27/18 23:00: WBC 13.1 H, RBC 5.06, Hgb 14.5, Hct 40.8, MCV 80.6, MCH 28.7, MCHC 35.5, RDW 12.8, RDW Differential 37.0, Plt Count 238, MPV 9.0, Immature Gran % (Auto) 0.300, Neut % (Auto) 76.6 H, Lymph % (Auto) 15.5 L, [place] % (Auto) 6.9, Eos % (Auto) 0.5, Baso % (Auto) 0.2, Absolute Neuts (auto) 10.1 H, Absolute Lymphs (auto) 2.04, Total Counted Not Reportable 11/27/18 23:00: Sodium 134 L, Potassium 4.2, Chloride 97 L, Carbon Dioxide 27.0, Anion Gap 10, BUN 18, Creatinine 0.96, Estim Creat Clear Calc 95.99, Est GFR (MDRD) Af Amer 109, Est GFR (MDRD) Non-Af 90, BUN/Creatinine Ratio 18.7, Glucose 351 H, Calcium 9.0 11/27/18 23:00: Magnesium 1.8 11/28/18 02:23: POC Glucose 289 H 11/28/18 04:07: POC Glucose 298 H. 11/28/18 05:30: WBC 14.0 H, RBC 5.00, Hgb 14.0, Hct 42.0, MCV 84.0, MCH 28.0, MCHC 33.3, RDW 13.0, RDW Differential 39.0, Plt Count 197, MPV 9.2, Immature Gran % (Auto) 0.300, Neut % (Auto) 76.9 H, Lymph % (Auto) 13.9 L, [place] % (Auto) 8.4, Eos % (Auto) 0.4, Baso % (Auto) 0.1, Absolute Neuts (auto) 10.8 H, Absolute Lymphs (auto) 1.95, Total Counted Not Reportable 11/28/18 05:30: Sodium 134 L, Potassium 4.0, Chloride 101, Carbon Dioxide 25.0, Anion Gap 8, BUN 13, Creatinine 0.87, Estim Creat Clear Calc 105.92, Est GFR (MDRD) Af Amer 122, Est GFR (MDRD) Non-Af 101, BUN/Creatinine Ratio 14.9, Glucose 287 H, Calcium 8.4 L 11/28/18 05:30: Hemoglobin A1c 13.4 H 11/28/18 06:19: POC Glucose 285 H 11/28/18 11:35: POC Glucose 233 H Code Visit Inpatient E&M: 02120 Subs Hosp L3
--- NOTE | 2018-11-28 15:12 | PCM.OPRPT ---
Report of Operation Date of Procedure: 11/28/18 Pre-Operative Diagnosis: left neck abscess Post-Operative Diagnosis: same Surgery/Procedure Performed:: Incision and drainage of left sumbanibular space abscess Description of Surgical Findings:: copious pus Type of Anesthesia:: General Anesthesiologist: Galo Gardner Specimen's removed: none Estimated Blood Loss (mL): minimal Description of Procedure: The patient was taken to the OR on 11/28/18. He was given sufficient general endotracheal anesthesia. The larynx was examined during intubation with the glidescope and found to be normal. The left neck was prepped and draped steriley. 1% lidocaine with epinephrine (1:[id number]) was injected into the skin. An incision was made 2 finger breadths below the mandible. A 3 cm incision was made with a 15 blade. Hemostasis was achieved with monopolar cautery. Sharp dissection was carried down to the platysma. The platysma was then incised with a 15 blade. A Crile was then inserted into the submandibular space. There was immediate extrusion of pus. This was cultured. Next, I inserted my finger into the submandibular space and loculations were broken up with blunt dissection. I then finger explored posteriorly behind the angle of the mandible. All pus was suctioned from the wound. Next, I irrigated the wound with copious amounts of saline. Hemostasis was achieved. I then inserted a 1/2 inch yolanda into the submandibular space. This was sewn to the skin with 3-0 Nylon. A sterile dressing was then applied. The patient was then awoken and extubated in the OR. He was brought to the ICU in stable condition. Blood loss minimal. Replacement none. Sponge, needle and instrument count were correct at the end of the procedure.
[2018-11-28 17:03] LABS: M R Staph aureus DNA By PCR Negative (Negative); Probe Check PASS; Specimen Processing Control PASS
[2018-11-28 18:06] LABS: Bedside Glucose 219 mg/dL (70-110)
[2018-11-29] VITALS (20 sets, daily range): BP systolic 108–146; BP diastolic 41–79; PULSE 79–108; RESP 10–22; TEMP 36.2–36.8; O2SAT 92–100
[2018-11-29] MEDS: 0.9% NaCl Peripheral Flush Adult/Peds IV ×2 (00:26→02:32)
[2018-11-29] MEDS: Ketorolac 15 MG/ML Vial IV ×5 (00:27→23:36)
[2018-11-29] MEDS: Insulin Lispro 100 UNIT/ML INSULN.PEN SC ×5 (00:30→22:13)
[2018-11-29 01:16] LABS: Bedside Glucose 205 mg/dL (70-110)
[2018-11-29] MEDS: Morphine 2 MG/ML Syringe IV ×2 (02:31→09:17)
[2018-11-29] MEDS: 0.9% Normal Saline 1,000 ML 125 ML IV (03:50)
[2018-11-29 04:04] LABS: Absolute Lymphocyte Count 0.92 X10^3/ul (0.83-4.51); Absolute Neutrophil Count 11.9 X10^3/uL (2.0-7.7); Basophil# 0.02 X10^3/uL; Basophil% 0.1 % (0-1); Hematocrit 39.8 % (40-54); Hemoglobin 13.5 g/dl (13.0-16.5); Lymphocyte # 0.92 X10^3/ul (4.0); Lymphocyte % 6.6 % (19-41); Mean Corp Hgb Conc 33.9 g/gl (32-36); Mean Corpuscular Hgb 28.3 pg (27.0-32.0); Mean Corpuscular Volume 83.4 fL (80-94); Mean Platelet Vol. 8.9 fl (6.2-12.0); Monocyte# 1.12 X10^3/uL; Neutrophil # 11.89 X10^3/uL (2.7-7.7); Neutrophil % 84.8 % (47-70); POSITIVE COUNT NO; POSITIVE DIFFERENTIAL NO; POSITIVE MORPHOLOGY NO; Platelet Count 231 K/mm3 (150-450); RBC Distribution Width CV 12.8 % (11.6-14.6); RBC Distribution Width SD 38.5 fl (35.1-43.9); Red Blood Count 4.77 M/mm3 (4.6-6.2)
[2018-11-29 04:19] LABS: Anion Gap 7 (5-15); BUN 13 mg/dL (7-18); BUN/Creat Ratio 15.3 RATIO (10-20); Calcium,Total 8.8 mg/dL (8.5-10.1); Chloride 101 mmol/L (98-107); Creatinine, Serum 0.85 mg/dL (0.70-1.30); EST Glomerular Filtration Rate 104 mL/min (>60); Est Glom Filt Rate - Afr Amer 126 mL/min (>60); Estimated Creatinine Clearance 108.41 ml/min; Glucose 202 mg/dL (74-106); Potassium 4.3 mmol/L (3.5-5.1); Sodium Level 137 mmol/L (136-145)
--- NOTE | 2018-11-29 09:03 | PCM.PN.HOSP ---
Patient Problems: Active and Suspected Problems Submandibular abscess (Acute) Subjective: The patient had left submandibular abscess, I and D yesterday. No fever or chills. Heart rate is controlled in the 90s. Pulse ox 98% on 4 L of oxygen Vitals/I&O's: Vital Signs Temp Pulse Resp BP Pulse Ox 97.9 F 98 18 119/71 98 11/29/18 04:00 11/29/18 08:00 11/29/18 08:00 11/29/18 08:00 11/29/18 08:00 Oxygen Flow Rate (L/min) 4 Oxygen Delivery Method Nasal Cannula Weight: 209 lb 7.026 oz Body Mass Index (BMI) 31.6 Intake and Output for Last 24 Hours 11/27/18 11/28/18 11/29/18 23:59 23:59 23:59 Intake Total 1383 / 1383 2158 / 2158 Output Total 1250 / 1250 1000 / 1000 Balance 133 / 133 1158 / 1158 General: Alert, Oriented x3, Cooperative HEENT: Atraumatic, PERRLA, EOMI, Normocephalic Neck: Supple, No JVD, Negative Carotid Bruits Lungs: No rhonchi, No wheeze, No rales, Diminished, - - No audible wheezing or stridor Cardiovascular: Regular rate, Regular Rhythm, Normal S1, Normal S2, No murmurs Abdomen: Bowel Sounds Present, Soft, Non Tender, Non-Distended Extremities: No edema, Capillary Refill Less than 3 Seconds Skin: No rashes, No breakdown Musculoskeletal: No Tenderness to Palpation of Joints or Extremities, Arthritic Changes Neurological: Cranial nerves II-XII grossly intact Psych/Mental Status: Normal Affect, Appropriate Laboratory Results 11/28/18 11:35: POC Glucose 233 H 11/28/18 15:50: MRSA (PCR) Negative 11/28/18 17:52: POC Glucose 219 H 11/29/18 00:25: POC Glucose 205 H 11/29/18 03:55: WBC 14.0 H, RBC 4.77, Hgb 13.5, Hct 39.8 L, MCV 83.4, MCH 28.3, MCHC 33.9, RDW 12.8, RDW Differential 38.5, Plt Count 231, MPV 8.9, Immature Gran % (Auto) 0.500, Neut % (Auto) 84.8 H, Lymph % (Auto) 6.6 L, [place] % (Auto) 8.0, Eos % (Auto) 0.0, Baso % (Auto) 0.1, Absolute Neuts (auto) 11.9 H, Absolute Lymphs (auto) 0.92, Total Counted Not Reportable 11/29/18 03:55: Sodium 137, Potassium 4.3, Chloride 101, Carbon Dioxide 29.0, Anion Gap 7, BUN 13, Creatinine 0.85, Estim Creat Clear Calc 108.41, Est GFR (MDRD) Af Amer 126, Est GFR (MDRD) Non-Af 104, BUN/Creatinine Ratio 15.3, Glucose 202 H, Calcium 8.8 Current Medications Acetaminophen (Tylenol) 650 mg PO Q6H PRN PRN PRN Reason: Non-cardiac pain (mod-severe) Last Admin: 11/28/18 03:29 Dose: 650 mg Dextrose (D50w Syringe) 0 gm IV X1 PRN; Protocol PRN Reason: Hypoglycemia Glucagon () 1 mg IM .X1 PRN PRN Reason: Hypoglycemia Hydralazine HCl (Apresoline Iv) 10 mg IV Q4H PRN PRN PRN Reason: SBP > 160 Sodium Chloride () 1,000 mls @ 125 mls/hr IV .Q8H [facility] Last Admin: 11/29/18 03:50 Dose: 125 mls/hr Ampicillin Sodium/Sulbactam (Sodium 3 gm/ Sodium Chloride) 112 mls @ 150 mls/hr IV Q6 [facility] Last Admin: 11/29/18 06:44 Dose: 150 mls/hr Famotidine 20 mg/ Sodium (Chloride) 10 mls @ 300 mls/hr IV Q12 [facility] Last Admin: 11/28/18 22:25 Dose: 300 mls/hr Clindamycin Phosphate 600 mg/ (Dextrose) 54 mls @ 100 mls/hr IV Q8 [facility] Last Admin: 11/29/18 06:14 Dose: 100 mls/hr Insulin Glargine (Lantus (Bkc)) 15 units SC BID [facility] Last Admin: 11/29/18 00:30 Dose: 15 u Insulin Human Lispro (Humalog Kwikpen (Bkc)) 0 unit SC Q6 [facility]; Protocol Last Admin: 11/29/18 06:14 Dose: 3 u Ketorolac Tromethamine (Toradol) 15 mg IV Q6 [facility] Stop: 12/03/18 11:31 Last Admin: 11/29/18 06:16 Dose: 15 mg Magnesium Hydroxide (Milk Of Magnesia) 30 ml PO DAILY PRN PRN PRN Reason: Constipation Morphine Sulfate () 2 - 4 mg IV Q3H PRN PRN PRN Reason: PAIN Last Admin: 11/29/18 02:31 Dose: 2 mg Morphine Sulfate () 2 - 4 mg IV Q3H PRN PRN PRN Reason: PAIN Ondansetron HCl (Zofran) 4 mg IV Q8H PRN PRN PRN Reason: NAUSEA/VOMITING Last Admin: 11/28/18 16:11 Dose: 4 mg Oxycodone HCl (Oxyir) 5 - 10 mg PO Q4H PRN PRN PRN Reason: SEVERE PAIN (6-10/10) Last Admin: 11/28/18 03:29 Dose: 10 mg Sodium Chloride () 5 - 15 ml IV UD PRN PRN Reason: SALINE FLUSH Last Admin: 11/29/18 02:32 Dose: 15 ml Medical Necessity - Tobacco Use Smoking Status: Former smoker Tobacco Use: Non-smoker Assessment/Plan All Active Problems Submandibular abscess (Acute) The patient is a 42-year-old gentleman with history of type 2 diabetes mellitus after he had severe pancreatitis and probably he had a kidney failure for which he required dialysis at that time was admitted with progressive worsening of left submandibular swelling since November 20. Earlier he was seen at urgent care and was given amoxicillin but he did not respond. He also has many dental caries mainly on the left molar worse than right molar. 1. Left submandibular mass most probably abscess secondary to dental caries/periodontal abscesses: CT neck was done in ER which showed 4 x 2.6 x 3.5 cm necrotic appearing mass left side mandible region most likely abscess with possibility of necrotic lymph nodes. Multiple maxillary dental caries and periodontal abscesses left greater than right. There is no signs or symptoms of upper airway obstruction. No stridor. Postop day 1. Continue Unasyn. DC clindamycin. Follow culture. (2) Diabetes mellitus type II with Hyperglycemia: Patient A1c is 13.4. Blood sugar is uncontrolled, came with 351 glucose. Accu-Chek at before meals and at bedtime and cover with long-acting and short-acting insulin. Titrate up the insulin. 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 (3) Obesity: Weight loss and lifestyle changes encouraged. (4) History of Tobacco use: Encourage continued cessation. (5) GERD: IV Famotidine. (6) DVT prophylaxis: lovenox 40 mg sq daily Clinical Impression(s) from Imaging Studies Soft Tissue Neck CT 11/27/18 23:11 IMPRESSION: There is a 4 x 2.6 x 3.5 necrotic appearing mass within the left side submandibular region which most likely represents an abscess however necrotic lymph node could have this appearance. Given the amount of edema and infected lymph node is thought to be more likely. This is complicated by a left greater than right multiple maxillary dental caries and periodontal abscesses. Multiple reactive lymph nodes throughout the neck soft tissues especially on the left side see image #69 of the coronal views. Laboratory Results 11/28/18 11:35: POC Glucose 233 H 11/28/18 15:50: MRSA (PCR) Negative 11/28/18 17:52: POC Glucose 219 H 11/29/18 00:25: POC Glucose 205 H 11/29/18 03:55: WBC 14.0 H, RBC 4.77, Hgb 13.5, Hct 39.8 L, MCV 83.4, MCH 28.3, MCHC 33.9, RDW 12.8, RDW Differential 38.5, Plt Count 231, MPV 8.9, Immature Gran % (Auto) 0.500, Neut % (Auto) 84.8 H, Lymph % (Auto) 6.6 L, [place] % (Auto) 8.0, Eos % (Auto) 0.0, Baso % (Auto) 0.1, Absolute Neuts (auto) 11.9 H, Absolute Lymphs (auto) 0.92, Total Counted Not Reportable 11/29/18 03:55: Sodium 137, Potassium 4.3, Chloride 101, Carbon Dioxide 29.0, Anion Gap 7, BUN 13, Creatinine 0.85, Estim Creat Clear Calc 108.41, Est GFR (MDRD) Af Amer 126, Est GFR (MDRD) Non-Af 104, BUN/Creatinine Ratio 15.3, Glucose 202 H, Calcium 8.8 Active Medications Acetaminophen (Tylenol) 650 mg PO Q6H PRN PRN PRN Reason: Non-cardiac pain (mod-severe) Last Admin: 11/28/18 03:29 Dose: 650 mg Dextrose (D50w Syringe) 0 gm IV X1 PRN; Protocol PRN Reason: Hypoglycemia Glucagon () 1 mg IM .X1 PRN PRN Reason: Hypoglycemia Hydralazine HCl (Apresoline Iv) 10 mg IV Q4H PRN PRN PRN Reason: SBP > 160 Sodium Chloride () 1,000 mls @ 125 mls/hr IV .Q8H [facility] Last Admin: 11/29/18 03:50 Dose: 125 mls/hr Ampicillin Sodium/Sulbactam (Sodium 3 gm/ Sodium Chloride) 112 mls @ 150 mls/hr IV Q6 [facility] Last Admin: 11/29/18 06:44 Dose: 150 mls/hr Famotidine 20 mg/ Sodium (Chloride) 10 mls @ 300 mls/hr IV Q12 [facility] Last Admin: 11/28/18 22:25 Dose: 300 mls/hr Clindamycin Phosphate 600 mg/ (Dextrose) 54 mls @ 100 mls/hr IV Q8 [facility] Last Admin: 11/29/18 06:14 Dose: 100 mls/hr Insulin Glargine (Lantus (Bkc)) 15 units SC BID [facility] Last Admin: 11/29/18 00:30 Dose: 15 u Insulin Human Lispro (Humalog Kwikpen (Bkc)) 0 unit SC Q6 [facility]; Protocol Last Admin: 11/29/18 06:14 Dose: 3 u Ketorolac Tromethamine (Toradol) 15 mg IV Q6 [facility] Stop: 12/03/18 11:31 Last Admin: 11/29/18 06:16 Dose: 15 mg Magnesium Hydroxide (Milk Of Magnesia) 30 ml PO DAILY PRN PRN PRN Reason: Constipation Morphine Sulfate () 2 - 4 mg IV Q3H PRN PRN PRN Reason: PAIN Last Admin: 11/29/18 02:31 Dose: 2 mg Morphine Sulfate () 2 - 4 mg IV Q3H PRN PRN PRN Reason: PAIN Ondansetron HCl (Zofran) 4 mg IV Q8H PRN PRN PRN Reason: NAUSEA/VOMITING Last Admin: 11/28/18 16:11 Dose: 4 mg Oxycodone HCl (Oxyir) 5 - 10 mg PO Q4H PRN PRN PRN Reason: SEVERE PAIN (-08/22) Last Admin: 11/28/18 03:29 Dose: 10 mg Sodium Chloride () 5 - 15 ml IV UD PRN PRN Reason: SALINE FLUSH Last Admin: 11/29/18 02:32 Dose: 15 ml Code Visit Inpatient E&M: 56755 Subs Hosp L3
--- NOTE | 2018-11-29 09:08 | PN_ITS ---
Patient Problems: Active and Suspected Problems Submandibular abscess (Acute) Subjective: The patient had left submandibular abscess, I and D yesterday. No fever or chills. Heart rate is controlled in the 90s. Pulse ox 98% on 4 L of oxygen Vitals/I&O's: Vital Signs Temp Pulse Resp BP Pulse Ox 97.9 F 98 18 119/71 98 11/29/18 04:00 11/29/18 08:00 11/29/18 08:00 11/29/18 08:00 11/29/18 08:00 Oxygen Flow Rate (L/min) 4 Oxygen Delivery Method Nasal Cannula Weight: 209 lb 7.026 oz Body Mass Index (BMI) 31.6 Intake and Output for Last 24 Hours 11/27/18 11/28/18 11/29/18 23:59 23:59 23:59 Intake Total 1383 / 1383 2158 / 2158 Output Total 1250 / 1250 1000 / 1000 Balance 133 / 133 1158 / 1158 General: Alert, Oriented x3, Cooperative HEENT: Atraumatic, PERRLA, EOMI, Normocephalic Neck: Supple, No JVD, Negative Carotid Bruits Lungs: No rhonchi, No wheeze, No rales, Diminished, - - No audible wheezing or stridor Cardiovascular: Regular rate, Regular Rhythm, Normal S1, Normal S2, No murmurs Abdomen: Bowel Sounds Present, Soft, Non Tender, Non-Distended Extremities: No edema, Capillary Refill Less than 3 Seconds Skin: No rashes, No breakdown Musculoskeletal: No Tenderness to Palpation of Joints or Extremities, Arthritic Changes Neurological: Cranial nerves II-XII grossly intact Psych/Mental Status: Normal Affect, Appropriate Laboratory Results 11/28/18 11:35: POC Glucose 233 H 11/28/18 15:50: MRSA (PCR) Negative 11/28/18 17:52: POC Glucose 219 H 11/29/18 00:25: POC Glucose 205 H 11/29/18 03:55: WBC 14.0 H, RBC 4.77, Hgb 13.5, Hct 39.8 L, MCV 83.4, MCH 28.3, MCHC 33.9, RDW 12.8, RDW Differential 38.5, Plt Count 231, MPV 8.9, Immature Gran % (Auto) 0.500, Neut % (Auto) 84.8 H, Lymph % (Auto) 6.6 L, [place] % (Auto) 8.0, Eos % (Auto) 0.0, Baso % (Auto) 0.1, Absolute Neuts (auto) 11.9 H, Absolute Lymphs (auto) 0.92, Total Counted Not Reportable 11/29/18 03:55: Sodium 137, Potassium 4.3, Chloride 101, Carbon Dioxide 29.0, Anion Gap 7, BUN 13, Creatinine 0.85, Estim Creat Clear Calc 108.41, Est GFR (MDRD) Af Amer 126, Est GFR (MDRD) Non-Af 104, BUN/Creatinine Ratio 15.3, Glucose 202 H, Calcium 8.8 Current Medications Acetaminophen (Tylenol) 650 mg PO Q6H PRN PRN PRN Reason: Non-cardiac pain (mod-severe) Last Admin: 11/28/18 03:29 Dose: 650 mg Dextrose (D50w Syringe) 0 gm IV X1 PRN; Protocol PRN Reason: Hypoglycemia Glucagon () 1 mg IM .X1 PRN PRN Reason: Hypoglycemia Hydralazine HCl (Apresoline Iv) 10 mg IV Q4H PRN PRN PRN Reason: SBP > 160 Sodium Chloride () 1,000 mls @ 125 mls/hr IV .Q8H [facility] Last Admin: 11/29/18 03:50 Dose: 125 mls/hr Ampicillin Sodium/Sulbactam (Sodium 3 gm/ Sodium Chloride) 112 mls @ 150 mls/hr IV Q6 [facility] Last Admin: 11/29/18 06:44 Dose: 150 mls/hr Famotidine 20 mg/ Sodium (Chloride) 10 mls @ 300 mls/hr IV Q12 [facility] Last Admin: 11/28/18 22:25 Dose: 300 mls/hr Clindamycin Phosphate 600 mg/ (Dextrose) 54 mls @ 100 mls/hr IV Q8 [facility] Last Admin: 11/29/18 06:14 Dose: 100 mls/hr Insulin Glargine (Lantus (Bkc)) 15 units SC BID [facility] Last Admin: 11/29/18 00:30 Dose: 15 u Insulin Human Lispro (Humalog Kwikpen (Bkc)) 0 unit SC Q6 [facility]; Protocol Last Admin: 11/29/18 06:14 Dose: 3 u Ketorolac Tromethamine (Toradol) 15 mg IV Q6 [facility] Stop: 12/03/18 11:31 Last Admin: 11/29/18 06:16 Dose: 15 mg Magnesium Hydroxide (Milk Of Magnesia) 30 ml PO DAILY PRN PRN PRN Reason: Constipation Morphine Sulfate () 2 - 4 mg IV Q3H PRN PRN PRN Reason: PAIN Last Admin: 11/29/18 02:31 Dose: 2 mg Morphine Sulfate () 2 - 4 mg IV Q3H PRN PRN PRN Reason: PAIN Ondansetron HCl (Zofran) 4 mg IV Q8H PRN PRN PRN Reason: NAUSEA/VOMITING Last Admin: 11/28/18 16:11 Dose: 4 mg Oxycodone HCl (Oxyir) 5 - 10 mg PO Q4H PRN PRN PRN Reason: SEVERE PAIN (6-10/10) Last Admin: 11/28/18 03:29 Dose: 10 mg Sodium Chloride () 5 - 15 ml IV UD PRN PRN Reason: SALINE FLUSH Last Admin: 11/29/18 02:32 Dose: 15 ml Medical Necessity - Tobacco Use Smoking Status: Former smoker Tobacco Use: Non-smoker Assessment/Plan All Active Problems Submandibular abscess (Acute) The patient is a 42-year-old gentleman with history of type 2 diabetes mellitus after he had severe pancreatitis and probably he had a kidney failure for which he required dialysis at that time was admitted with progressive worsening of left submandibular swelling since November 20. Earlier he was seen at urgent care and was given amoxicillin but he did not respond. He also has many dental caries mainly on the left molar worse than right molar. 1. Left submandibular mass most probably abscess secondary to dental caries/periodontal abscesses: CT neck was done in ER which showed 4 x 2.6 x 3.5 cm necrotic appearing mass left side mandible region most likely abscess with possibility of necrotic lymph nodes. Multiple maxillary dental caries and periodontal abscesses left greater than right. There is no signs or symptoms of upper airway obstruction. No stridor. Postop day 1. Continue Unasyn. DC clindamycin. Follow culture. (2) Diabetes mellitus type II with Hyperglycemia: Patient A1c is 13.4. Blood sugar is uncontrolled, came with 351 glucose. Accu-Chek at before meals and at bedtime and cover with long-acting and short-acting insulin. Titrate up the insulin. 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 (3) Obesity: Weight loss and lifestyle changes encouraged. (4) History of Tobacco use: Encourage continued cessation. (5) GERD: IV Famotidine. (6) DVT prophylaxis: lovenox 40 mg sq daily Clinical Impression(s) from Imaging Studies Soft Tissue Neck CT 11/27/18 23:11 IMPRESSION: There is a 4 x 2.6 x 3.5 necrotic appearing mass within the left side submandibular region which most likely represents an abscess however necrotic lymph node could have this appearance. Given the amount of edema and infected lymph node is thought to be more likely. This is complicated by a left greater than right multiple maxillary dental caries and periodontal abscesses. Multiple reactive lymph nodes throughout the neck soft tissues especially on the left side see image #69 of the coronal views. Laboratory Results 11/28/18 11:35: POC Glucose 233 H 11/28/18 15:50: MRSA (PCR) Negative 11/28/18 17:52: POC Glucose 219 H 11/29/18 00:25: POC Glucose 205 H 11/29/18 03:55: WBC 14.0 H, RBC 4.77, Hgb 13.5, Hct 39.8 L, MCV 83.4, MCH 28.3, MCHC 33.9, RDW 12.8, RDW Differential 38.5, Plt Count 231, MPV 8.9, Immature Gran % (Auto) 0.500, Neut % (Auto) 84.8 H, Lymph % (Auto) 6.6 L, [place] % (Auto) 8.0, Eos % (Auto) 0.0, Baso % (Auto) 0.1, Absolute Neuts (auto) 11.9 H, Absolute Lymphs (auto) 0.92, Total Counted Not Reportable 11/29/18 03:55: Sodium 137, Potassium 4.3, Chloride 101, Carbon Dioxide 29.0, Anion Gap 7, BUN 13, Creatinine 0.85, Estim Creat Clear Calc 108.41, Est GFR (MDRD) Af Amer 126, Est GFR (MDRD) Non-Af 104, BUN/Creatinine Ratio 15.3, Glucose 202 H, Calcium 8.8 Active Medications Acetaminophen (Tylenol) 650 mg PO Q6H PRN PRN PRN Reason: Non-cardiac pain (mod-severe) Last Admin: 11/28/18 03:29 Dose: 650 mg Dextrose (D50w Syringe) 0 gm IV X1 PRN; Protocol PRN Reason: Hypoglycemia Glucagon () 1 mg IM .X1 PRN PRN Reason: Hypoglycemia Hydralazine HCl (Apresoline Iv) 10 mg IV Q4H PRN PRN PRN Reason: SBP > 160 Sodium Chloride () 1,000 mls @ 125 mls/hr IV .Q8H [facility] Last Admin: 11/29/18 03:50 Dose: 125 mls/hr Ampicillin Sodium/Sulbactam (Sodium 3 gm/ Sodium Chloride) 112 mls @ 150 mls/hr IV Q6 [facility] Last Admin: 11/29/18 06:44 Dose: 150 mls/hr Famotidine 20 mg/ Sodium (Chloride) 10 mls @ 300 mls/hr IV Q12 [facility] Last Admin: 11/28/18 22:25 Dose: 300 mls/hr Clindamycin Phosphate 600 mg/ (Dextrose) 54 mls @ 100 mls/hr IV Q8 [facility] Last Admin: 11/29/18 06:14 Dose: 100 mls/hr Insulin Glargine (Lantus (Bkc)) 15 units SC BID [facility] Last Admin: 11/29/18 00:30 Dose: 15 u Insulin Human Lispro (Humalog Kwikpen (Bkc)) 0 unit SC Q6 [facility]; Protocol Last Admin: 11/29/18 06:14 Dose: 3 u Ketorolac Tromethamine (Toradol) 15 mg IV Q6 [facility] Stop: 12/03/18 11:31 Last Admin: 11/29/18 06:16 Dose: 15 mg Magnesium Hydroxide (Milk Of Magnesia) 30 ml PO DAILY PRN PRN PRN Reason: Constipation Morphine Sulfate () 2 - 4 mg IV Q3H PRN PRN PRN Reason: PAIN Last Admin: 11/29/18 02:31 Dose: 2 mg Morphine Sulfate () 2 - 4 mg IV Q3H PRN PRN PRN Reason: PAIN Ondansetron HCl (Zofran) 4 mg IV Q8H PRN PRN PRN Reason: NAUSEA/VOMITING Last Admin: 11/28/18 16:11 Dose: 4 mg Oxycodone HCl (Oxyir) 5 - 10 mg PO Q4H PRN PRN PRN Reason: SEVERE PAIN (-08/22) Last Admin: 11/28/18 03:29 Dose: 10 mg Sodium Chloride () 5 - 15 ml IV UD PRN PRN Reason: SALINE FLUSH Last Admin: 11/29/18 02:32 Dose: 15 ml Code Visit Inpatient E&M: [id number] Subs Hosp L3
[2018-11-29] MEDS: oxyCODONE 5 MG Tablet PO ×4 (09:17→22:33)
--- NOTE | 2018-11-29 10:38 | CASEMGMT ---
Pt needs a letter faxed to [facility] stating pt is here([phone]). SW spoke w/pt, confirmed this with him what information is needed. SW faxed the letter to [facility] and gave the pt a copy. No further social service needs are anticipated at this time. SERGE Durant, VIDEO GAME DEVELOPER
[2018-11-29 11:11] LABS: Bedside Glucose 193 mg/dL (70-110)
--- NOTE | 2018-11-29 11:49 | PCM.PN.BLA ---
Progress Note Pt. feels much better. He denies pressure/pain. AVSS Gm negative bacteria. MRSA nasal swab negative Neck-drain in place. Less erythema of the skin. I could not express anything through/around the drain. A: POD #1 s/p incision and drainage of left submandibular abscess P: I will leave the drain in for now. Continue Unasyn ambulate Blood sugar and asthma control per medicine advance diet to regular (ADA) transfer to floor
[2018-11-29] MEDS: 0.9% Normal Saline 1,000 ML 75 ML IV (13:58)
[2018-11-29] MEDS: Piperacil/Tazobactam 3.375 GM/50 ML ML IV ×2 (16:13→21:12)
[2018-11-29 17:16] LABS: Bedside Glucose 265 mg/dL (70-110)
[2018-11-29] MEDS: Acetaminophen 325 MG Tablet 650 MG PO (18:27)
[2018-11-29] MEDS: 0.9% NaCl IVPB Med Flush (250 mL) 15 ML IV (21:10)
[2018-11-29 22:20] LABS: Bedside Glucose 245 mg/dL (70-110)
[2018-11-30] VITALS (8 sets, daily range): BP systolic 105–119; BP diastolic 67–75; PULSE 76–94; RESP 16–20; TEMP 36.4–37; O2SAT 88–98
[2018-11-30] MEDS: oxyCODONE 5 MG Tablet PO ×4 (02:46→16:29)
[2018-11-30 04:11] LABS: Bedside Glucose 193 mg/dL (70-110)
[2018-11-30] MEDS: Acetaminophen 325 MG Tablet 650 MG PO ×2 (04:20→14:24)
[2018-11-30] MEDS: Ketorolac 15 MG/ML Vial IV ×3 (05:44→23:38)
[2018-11-30] MEDS: Piperacil/Tazobactam 3.375 GM/50 ML ML IV ×3 (05:53→21:28)
[2018-11-30] MEDS: Insulin Lispro 100 UNIT/ML INSULN.PEN SC ×4 (06:35→21:29)
[2018-11-30 06:45] LABS: Bedside Glucose 257 mg/dL (70-110)
[2018-11-30] MEDS: 0.9% Normal Saline 1,000 ML 75 ML IV ×2 (07:11→20:50)
[2018-11-30 07:50] LABS: Absolute Lymphocyte Count 1.59 X10^3/ul (0.83-4.51); Absolute Neutrophil Count 6.1 X10^3/uL (2.0-7.7); Basophil# 0.02 X10^3/uL; Basophil% 0.2 % (0-1); Eosinophil# 0.14 X10^3/uL; Eosinophils% 1.6 % (0-5); Hemoglobin 12.3 g/dl (13.0-16.5); Lymphocyte # 1.59 X10^3/ul (4.0); Mean Corp Hgb Conc 33.2 g/gl (32-36); Mean Corpuscular Volume 84.3 fL (80-94); Mean Platelet Vol. 8.7 fl (6.2-12.0); Monocyte# 0.91 X10^3/uL; Monocyte% 10.3 % (0-10); Neutrophil % 69.3 % (47-70); POSITIVE COUNT NO; POSITIVE DIFFERENTIAL NO; POSITIVE MORPHOLOGY NO; Platelet Count 234 K/mm3 (150-450); RBC Distribution Width CV 12.9 % (11.6-14.6); Red Blood Count 4.39 M/mm3 (4.6-6.2); White Blood Count 8.8 K/mm3 (4.4-11.0)
[2018-11-30 08:01] LABS: Anion Gap 8 (5-15); BUN 20 mg/dL (7-18); BUN/Creat Ratio 20.3 RATIO (10-20); Calcium,Total 8.5 mg/dL (8.5-10.1); Chloride 100 mmol/L (98-107); Creatinine, Serum 0.99 mg/dL (0.70-1.30); EST Glomerular Filtration Rate 88 mL/min (>60); Est Glom Filt Rate - Afr Amer 106 mL/min (>60); Estimated Creatinine Clearance 93.08 ml/min; Glucose 247 mg/dL (74-106); Potassium 3.8 mmol/L (3.5-5.1); Sodium Level 134 mmol/L (136-145)
[2018-11-30] MEDS: Famotidine 20 MG Tablet PO ×2 (09:28→21:29)
[2018-11-30 13:11] LABS: Bedside Glucose 325 mg/dL (70-110)
--- NOTE | 2018-11-30 15:44 | PCM.PN.HOSP ---
Patient Problems: Active and Suspected Problems Submandibular abscess (Acute) Subjective: Patient's left submandibular and facial swelling is better. No fever or chills. Vitals/I&O's: Vital Signs Temp Pulse Resp BP Pulse Ox 98.6 F 92 18 119/72 95 11/30/18 14:19 11/30/18 14:19 11/30/18 14:19 11/30/18 14:19 11/30/18 14:19 Oxygen Flow Rate (L/min) 1 Oxygen Delivery Method Nasal Cannula Weight: 219 lb 12.814 oz Body Mass Index (BMI) 31.6 Intake and Output for Last 24 Hours 11/28/18 11/29/18 11/30/18 23:59 23:59 23:59 Intake Total 1383 / 1383 4221 / 4221 2530 / 2530 Output Total 1250 / 1250 1800 / 1800 1075 / 1075 Balance 133 / 133 2421 / 2421 1455 / 1455 General: Alert, Oriented x3, Cooperative HEENT: Atraumatic, PERRLA, EOMI, Normocephalic Neck: Supple, No JVD, Negative Carotid Bruits, - - Left submandibular swelling. has small drain under dressing. Dressing is dry. Patient able to open mouth more than yesterday Lungs: Clear to auscultation, Normal air movement Cardiovascular: Regular rate, Regular Rhythm, No murmurs Abdomen: Bowel Sounds Present, Soft, Non Tender, Non-Distended Extremities: No edema, Capillary Refill Less than 3 Seconds Skin: No rashes, No breakdown Musculoskeletal: No Tenderness to Palpation of Joints or Extremities Neurological: Cranial nerves II-XII grossly intact Psych/Mental Status: Normal Affect, Appropriate Microbiology Past 72 Hours 11/28/18 14:49 Submandibular Abscess Gram Stain - Final 11/28/18 14:49 Submandibular Abscess Wound Culture - Preliminary Gram negative tanvi Laboratory Results 11/29/18 06:12: POC Glucose 193 H 11/29/18 16:15: POC Glucose 265 H 11/29/18 21:21: POC Glucose 245 H 11/30/18 06:34: POC Glucose 257 H 11/30/18 07:18: WBC 8.8, RBC 4.39 L, Hgb 12.3 L, Hct 37.0 L, MCV 84.3, MCH 28.0, MCHC 33.2, RDW 12.9, RDW Differential 39.0, Plt Count 234, MPV 8.7, Immature Gran % (Auto) 0.600, Neut % (Auto) 69.3, Lymph % (Auto) 18.0 L, [place] % (Auto) 10.3 H, Eos % (Auto) 1.6, Baso % (Auto) 0.2, Absolute Neuts (auto) 6.1, Absolute Lymphs (auto) 1.59, Total Counted Not Reportable 11/30/18 07:18: Sodium 134 L, Potassium 3.8, Chloride 100, Carbon Dioxide 26.0, Anion Gap 8, BUN 20 H, Creatinine 0.99, Estim Creat Clear Calc 93.08, Est GFR (MDRD) Af Amer 106, Est GFR (MDRD) Non-Af 88, BUN/Creatinine Ratio 20.3 H, Glucose 247 H, Calcium 8.5 11/30/18 12:21: POC Glucose 325 H Current Medications Acetaminophen (Tylenol) 650 mg PO Q6H PRN PRN PRN Reason: Non-cardiac pain (mod-severe) Last Admin: 11/30/18 14:24 Dose: 650 mg Dextrose (D50w Syringe) 0 gm IV X1 PRN; Protocol PRN Reason: Hypoglycemia Famotidine (Pepcid) 20 mg PO BID [facility] Last Admin: 11/30/18 09:28 Dose: 20 mg Glucagon () 1 mg IM .X1 PRN PRN Reason: Hypoglycemia Hydralazine HCl (Apresoline Iv) 10 mg IV Q4H PRN PRN PRN Reason: SBP > 160 Sodium Chloride () 1,000 mls @ 75 mls/hr IV .[id number] [facility] Last Admin: 11/30/18 07:11 Dose: 75 mls/hr Piperacillin Sod/Tazobactam Sod (Zosyn) 3.375 gm in 50 mls @ 12.5 mls/hr IV Q8 [facility] Last Admin: 11/30/18 14:13 Dose: 12.5 mls/hr Sodium Chloride () 250 mls @ 15 mls/hr IV .[id number] PRN PRN Reason: SALINE FLUSH Last Admin: 11/29/18 21:10 Dose: 15 mls/hr Insulin Glargine (Lantus (Bkc)) 20 units SC BID [facility] Last Admin: 11/30/18 09:29 Dose: 20 u Insulin Human Lispro (Humalog Kwikpen (Bk)) 0 unit SC ACHS [facility]; Protocol Last Admin: 11/30/18 12:23 Dose: 8 u Ketorolac Tromethamine (Toradol) 15 mg IV Q6 [facility] Stop: 12/03/18 11:31 Last Admin: 11/30/18 12:22 Dose: Not Given Magnesium Hydroxide (Milk Of Magnesia) 30 ml PO DAILY PRN PRN PRN Reason: Constipation Morphine Sulfate () 2 - 4 mg IV Q3H PRN PRN PRN Reason: PAIN Last Admin: 11/29/18 09:17 Dose: 2 mg Morphine Sulfate () 2 - 4 mg IV Q3H PRN PRN PRN Reason: PAIN Ondansetron HCl (Zofran) 4 mg IV Q8H PRN PRN PRN Reason: NAUSEA/VOMITING Last Admin: 11/28/18 16:11 Dose: 4 mg Oxycodone HCl (Oxyir) 5 - 10 mg PO Q4H PRN PRN PRN Reason: SEVERE PAIN (6-10/10) Last Admin: 11/30/18 12:27 Dose: 5 mg Sodium Chloride () 5 - 15 ml IV UD PRN PRN Reason: SALINE FLUSH Last Admin: 11/29/18 02:32 Dose: 15 ml Medical Necessity - Tobacco Use Smoking Status: Former smoker Tobacco Use: Non-smoker Assessment/Plan All Active Problems Submandibular abscess (Acute) The patient is a 42-year-old gentleman with history of type 2 diabetes mellitus after he had severe pancreatitis and probably he had a kidney failure for which he required dialysis at that time was admitted with progressive worsening of left submandibular swelling since November 20. Earlier he was seen at urgent care and was given amoxicillin but he did not respond. He also has many dental caries mainly on the left molar worse than right molar. 1. Left submandibular mass most probably abscess secondary to dental caries/periodontal abscesses: CT neck was done in ER which showed 4 x 2.6 x 3.5 cm necrotic appearing mass left side mandible region most likely abscess with possibility of necrotic lymph nodes. Multiple maxillary dental caries and periodontal abscesses left greater than right. There is no signs or symptoms of upper airway obstruction. No stridor. Postop day 2. Preliminary Gram stain of wound culture shows gram-negative rods. Based on that, antibiotic was changed to from Unasyn to Zosyn on 11/29. Discussed with ID today and agree with the plan. Follow the culture tomorrow. (2) Diabetes mellitus type II with Hyperglycemia: Patient A1c is 13.4. Blood sugar is uncontrolled, came with 351 glucose. Accu-Chek at before meals and at bedtime and cover with long-acting and short-acting insulin. Titrate up the insulin. 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 (3) Obesity: Weight loss and lifestyle changes encouraged. (4) History of Tobacco use: Encourage continued cessation. (5) GERD: IV Famotidine. (6) DVT prophylaxis: lovenox 40 mg sq daily Clinical Impression(s) from Imaging Studies Soft Tissue Neck CT 11/27/18 23:11 IMPRESSION: There is a 4 x 2.6 x 3.5 necrotic appearing mass within the left side submandibular region which most likely represents an abscess however necrotic lymph node could have this appearance. Given the amount of edema and infected lymph node is thought to be more likely. This is complicated by a left greater than right multiple maxillary dental caries and periodontal abscesses. Multiple reactive lymph nodes throughout the neck soft tissues especially on the left side see image #69 of the coronal views. Microbiology Past 72 Hours 11/28/18 14:49 Submandibular Abscess Gram Stain - Final 11/28/18 14:49 Submandibular Abscess Wound Culture - Preliminary Gram negative tanvi Laboratory Results 11/29/18 06:12: POC Glucose 193 H 11/29/18 16:15: POC Glucose 265 H 11/29/18 21:21: POC Glucose 245 H 11/30/18 06:34: POC Glucose 257 H 11/30/18 07:18: WBC 8.8, RBC 4.39 L, Hgb 12.3 L, Hct 37.0 L, MCV 84.3, MCH 28.0, MCHC 33.2, RDW 12.9, RDW Differential 39.0, Plt Count 234, MPV 8.7, Immature Gran % (Auto) 0.600, Neut % (Auto) 69.3, Lymph % (Auto) 18.0 L, [place] % (Auto) 10.3 H, Eos % (Auto) 1.6, Baso % (Auto) 0.2, Absolute Neuts (auto) 6.1, Absolute Lymphs (auto) 1.59, Total Counted Not Reportable 11/30/18 07:18: Sodium 134 L, Potassium 3.8, Chloride 100, Carbon Dioxide 26.0, Anion Gap 8, BUN 20 H, Creatinine 0.99, Estim Creat Clear Calc 93.08, Est GFR (MDRD) Af Amer 106, Est GFR (MDRD) Non-Af 88, BUN/Creatinine Ratio 20.3 H, Glucose 247 H, Calcium 8.5 11/30/18 12:21: POC Glucose 325 H Active Medications Acetaminophen (Tylenol) 650 mg PO Q6H PRN PRN PRN Reason: Non-cardiac pain (mod-severe) Last Admin: 11/28/18 03:29 Dose: 650 mg Dextrose (D50w Syringe) 0 gm IV X1 PRN; Protocol PRN Reason: Hypoglycemia Glucagon () 1 mg IM .X1 PRN PRN Reason: Hypoglycemia Hydralazine HCl (Apresoline Iv) 10 mg IV Q4H PRN PRN PRN Reason: SBP > 160 Sodium Chloride () 1,000 mls @ 125 mls/hr IV .Q8H [facility] Last Admin: 11/29/18 03:50 Dose: 125 mls/hr Ampicillin Sodium/Sulbactam (Sodium 3 gm/ Sodium Chloride) 112 mls @ 150 mls/hr IV Q6 [facility] Last Admin: 11/29/18 06:44 Dose: 150 mls/hr Famotidine 20 mg/ Sodium (Chloride) 10 mls @ 300 mls/hr IV Q12 [facility] Last Admin: 11/28/18 22:25 Dose: 300 mls/hr Clindamycin Phosphate 600 mg/ (Dextrose) 54 mls @ 100 mls/hr IV Q8 [facility] Last Admin: 11/29/18 06:14 Dose: 100 mls/hr Insulin Glargine (Lantus (Bkc)) 15 units SC BID [facility] Last Admin: 11/29/18 00:30 Dose: 15 u Insulin Human Lispro (Humalog Kwikpen (Bkc)) 0 unit SC Q6 [facility]; Protocol Last Admin: 11/29/18 06:14 Dose: 3 u Ketorolac Tromethamine (Toradol) 15 mg IV Q6 [facility] Stop: 12/03/18 11:31 Last Admin: 11/29/18 06:16 Dose: 15 mg Magnesium Hydroxide (Milk Of Magnesia) 30 ml PO DAILY PRN PRN PRN Reason: Constipation Morphine Sulfate () 2 - 4 mg IV Q3H PRN PRN PRN Reason: PAIN Last Admin: 11/29/18 02:31 Dose: 2 mg Morphine Sulfate () 2 - 4 mg IV Q3H PRN PRN PRN Reason: PAIN Ondansetron HCl (Zofran) 4 mg IV Q8H PRN PRN PRN Reason: NAUSEA/VOMITING Last Admin: 11/28/18 16:11 Dose: 4 mg Oxycodone HCl (Oxyir) 5 - 10 mg PO Q4H PRN PRN PRN Reason: SEVERE PAIN (6-10/10) Last Admin: 11/28/18 03:29 Dose: 10 mg Sodium Chloride () 5 - 15 ml IV UD PRN PRN Reason: SALINE FLUSH Last Admin: 11/29/18 02:32 Dose: 15 ml Code Visit Inpatient E&M: 83056 Subs Hosp L2
--- NOTE | 2018-11-30 15:48 | PN_ITS ---
Patient Problems: Active and Suspected Problems Submandibular abscess (Acute) Subjective: Patient's left submandibular and facial swelling is better. No fever or chills. Vitals/I&O's: Vital Signs Temp Pulse Resp BP Pulse Ox 98.6 F 92 18 119/72 95 11/30/18 14:19 11/30/18 14:19 11/30/18 14:19 11/30/18 14:19 11/30/18 14:19 Oxygen Flow Rate (L/min) 1 Oxygen Delivery Method Nasal Cannula Weight: 219 lb 12.814 oz Body Mass Index (BMI) 31.6 Intake and Output for Last 24 Hours 11/28/18 11/29/18 11/30/18 23:59 23:59 23:59 Intake Total 1383 / 1383 4221 / 4221 2530 / 2530 Output Total 1250 / 1250 1800 / 1800 1075 / 1075 Balance 133 / 133 2421 / 2421 1455 / 1455 General: Alert, Oriented x3, Cooperative HEENT: Atraumatic, PERRLA, EOMI, Normocephalic Neck: Supple, No JVD, Negative Carotid Bruits, - - Left submandibular swelling. has small drain under dressing. Dressing is dry. Patient able to open mouth more than yesterday Lungs: Clear to auscultation, Normal air movement Cardiovascular: Regular rate, Regular Rhythm, No murmurs Abdomen: Bowel Sounds Present, Soft, Non Tender, Non-Distended Extremities: No edema, Capillary Refill Less than 3 Seconds Skin: No rashes, No breakdown Musculoskeletal: No Tenderness to Palpation of Joints or Extremities Neurological: Cranial nerves II-XII grossly intact Psych/Mental Status: Normal Affect, Appropriate Microbiology Past 72 Hours 11/28/18 14:49 Submandibular Abscess Gram Stain - Final 11/28/18 14:49 Submandibular Abscess Wound Culture - Preliminary Gram negative tanvi Laboratory Results 11/29/18 06:12: POC Glucose 193 H 11/29/18 16:15: POC Glucose 265 H 11/29/18 21:21: POC Glucose 245 H 11/30/18 06:34: POC Glucose 257 H 11/30/18 07:18: WBC 8.8, RBC 4.39 L, Hgb 12.3 L, Hct 37.0 L, MCV 84.3, MCH 28.0, MCHC 33.2, RDW 12.9, RDW Differential 39.0, Plt Count 234, MPV 8.7, Immature Gran % (Auto) 0.600, Neut % (Auto) 69.3, Lymph % (Auto) 18.0 L, [place] % (Auto) 10.3 H, Eos % (Auto) 1.6, Baso % (Auto) 0.2, Absolute Neuts (auto) 6.1, Absolute Lymphs (auto) 1.59, Total Counted Not Reportable 11/30/18 07:18: Sodium 134 L, Potassium 3.8, Chloride 100, Carbon Dioxide 26.0, Anion Gap 8, BUN 20 H, Creatinine 0.99, Estim Creat Clear Calc 93.08, Est GFR (MDRD) Af Amer 106, Est GFR (MDRD) Non-Af 88, BUN/Creatinine Ratio 20.3 H, Glucose 247 H, Calcium 8.5 11/30/18 12:21: POC Glucose 325 H Current Medications Acetaminophen (Tylenol) 650 mg PO Q6H PRN PRN PRN Reason: Non-cardiac pain (mod-severe) Last Admin: 11/30/18 14:24 Dose: 650 mg Dextrose (D50w Syringe) 0 gm IV X1 PRN; Protocol PRN Reason: Hypoglycemia Famotidine (Pepcid) 20 mg PO BID [facility]PL[facility] BY [facility] Last Admin: 11/30/18 09:28 Dose: 20 mg Glucagon () 1 mg IM .X1 PRN PRN Reason: Hypoglycemia Hydralazine HCl (Apresoline Iv) 10 mg IV Q4H PRN PRN PRN Reason: SBP > 160 Sodium Chloride () 1,000 mls @ 75 mls/hr IV .[id number] REPLACED BY [facility] Last Admin: 11/30/18 07:11 Dose: 75 mls/hr Piperacillin Sod/Tazobactam Sod (Zosyn) 3.375 gm in 50 mls @ 12.5 mls/hr IV Q8 [facility]PL[facility] Last Admin: 11/30/18 14:13 Dose: 12.5 mls/hr Sodium Chloride () 250 mls @ 15 mls/hr IV .[id number] PRN PRN Reason: SALINE FLUSH Last Admin: 11/29/18 21:10 Dose: 15 mls/hr Insulin Glargine (Lantus (Bkc)) 20 units SC BID [facility]PL[facility] Last Admin: 11/30/18 09:29 Dose: 20 u Insulin Human Lispro (Humalog Kwikpen (Bk)) 0 unit SC ACHS [facility]PL[facility]; Protocol Last Admin: 11/30/18 12:23 Dose: 8 u Ketorolac Tromethamine (Toradol) 15 mg IV Q6 [facility] Stop: 12/03/18 11:31 Last Admin: 11/30/18 12:22 Dose: Not Given Magnesium Hydroxide (Milk Of Magnesia) 30 ml PO DAILY PRN PRN PRN Reason: Constipation Morphine Sulfate () 2 - 4 mg IV Q3H PRN PRN PRN Reason: PAIN Last Admin: 11/29/18 09:17 Dose: 2 mg Morphine Sulfate () 2 - 4 mg IV Q3H PRN PRN PRN Reason: PAIN Ondansetron HCl (Zofran) 4 mg IV Q8H PRN PRN PRN Reason: NAUSEA/VOMITING Last Admin: 11/28/18 16:11 Dose: 4 mg Oxycodone HCl (Oxyir) 5 - 10 mg PO Q4H PRN PRN PRN Reason: SEVERE PAIN (6-10/10) Last Admin: 11/30/18 12:27 Dose: 5 mg Sodium Chloride () 5 - 15 ml IV UD PRN PRN Reason: SALINE FLUSH Last Admin: 11/29/18 02:32 Dose: 15 ml Medical Necessity - Tobacco Use Smoking Status: Former smoker Tobacco Use: Non-smoker Assessment/Plan All Active Problems Submandibular abscess (Acute) The patient is a 42-year-old gentleman with history of type 2 diabetes mellitus after he had severe pancreatitis and probably he had a kidney failure for which he required dialysis at that time was admitted with progressive worsening of left submandibular swelling since November 20. Earlier he was seen at urgent care and was given amoxicillin but he did not respond. He also has many dental caries mainly on the left molar worse than right molar. 1. Left submandibular mass most probably abscess secondary to dental caries/periodontal abscesses: CT neck was done in ER which showed 4 x 2.6 x 3.5 cm necrotic appearing mass left side mandible region most likely abscess with possibility of necrotic lymph nodes. Multiple maxillary dental caries and periodontal abscesses left greater than right. There is no signs or symptoms of upper airway obstruction. No stridor. Postop day 2. Preliminary Gram stain of wound culture shows gram-negative rods. Based on that, antibiotic was changed to from Unasyn to Zosyn on 11/29. Discussed with ID today and agree with the plan. Follow the culture tomorrow. (2) Diabetes mellitus type II with Hyperglycemia: Patient A1c is 13.4. Blood sugar is uncontrolled, came with 351 glucose. Accu-Chek at before meals and at bedtime and cover with long-acting and short-acting insulin. Titrate up the insulin. 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 (3) Obesity: Weight loss and lifestyle changes encouraged. (4) History of Tobacco use: Encourage continued cessation. (5) GERD: IV Famotidine. (6) DVT prophylaxis: lovenox 40 mg sq daily Clinical Impression(s) from Imaging Studies Soft Tissue Neck CT 11/27/18 23:11 IMPRESSION: There is a 4 x 2.6 x 3.5 necrotic appearing mass within the left side submandibular region which most likely represents an abscess however necrotic lymph node could have this appearance. Given the amount of edema and infected lymph node is thought to be more likely. This is complicated by a left greater than right multiple maxillary dental caries and periodontal abscesses. Multiple reactive lymph nodes throughout the neck soft tissues especially on the left side see image #69 of the coronal views. Microbiology Past 72 Hours 11/28/18 14:49 Submandibular Abscess Gram Stain - Final 11/28/18 14:49 Submandibular Abscess Wound Culture - Preliminary Gram negative tanvi Laboratory Results 11/29/18 06:12: POC Glucose 193 H 11/29/18 16:15: POC Glucose 265 H 11/29/18 21:21: POC Glucose 245 H 11/30/18 06:34: POC Glucose 257 H 11/30/18 07:18: WBC 8.8, RBC 4.39 L, Hgb 12.3 L, Hct 37.0 L, MCV 84.3, MCH 28.0, MCHC 33.2, RDW 12.9, RDW Differential 39.0, Plt Count 234, MPV 8.7, Immature Gran % (Auto) 0.600, Neut % (Auto) 69.3, Lymph % (Auto) 18.0 L, [place] % (Auto) 10.3 H, Eos % (Auto) 1.6, Baso % (Auto) 0.2, Absolute Neuts (auto) 6.1, Absolute Lymphs (auto) 1.59, Total Counted Not Reportable 11/30/18 07:18: Sodium 134 L, Potassium 3.8, Chloride 100, Carbon Dioxide 26.0, Anion Gap 8, BUN 20 H, Creatinine 0.99, Estim Creat Clear Calc 93.08, Est GFR (MDRD) Af Amer 106, Est GFR (MDRD) Non-Af 88, BUN/Creatinine Ratio 20.3 H, Glucose 247 H, Calcium 8.5 11/30/18 12:21: POC Glucose 325 H Active Medications Acetaminophen (Tylenol) 650 mg PO Q6H PRN PRN PRN Reason: Non-cardiac pain (mod-severe) Last Admin: 11/28/18 03:29 Dose: 650 mg Dextrose (D50w Syringe) 0 gm IV X1 PRN; Protocol PRN Reason: Hypoglycemia Glucagon () 1 mg IM .X1 PRN PRN Reason: Hypoglycemia Hydralazine HCl (Apresoline Iv) 10 mg IV Q4H PRN PRN PRN Reason: SBP > 160 Sodium Chloride () 1,000 mls @ 125 mls/hr IV .Q8H REPLACED BY [facility] Last Admin: 11/29/18 03:50 Dose: 125 mls/hr Ampicillin Sodium/Sulbactam (Sodium 3 gm/ Sodium Chloride) 112 mls @ 150 mls/hr IV Q6 REPLACED BY [facility] Last Admin: 11/29/18 06:44 Dose: 150 mls/hr Famotidine 20 mg/ Sodium (Chloride) 10 mls @ 300 mls/hr IV Q12 REPLACED BY [facility] Last Admin: 11/28/18 22:25 Dose: 300 mls/hr Clindamycin Phosphate 600 mg/ (Dextrose) 54 mls @ 100 mls/hr IV Q8 REPLACED BY [facility] Last Admin: 11/29/18 06:14 Dose: 100 mls/hr Insulin Glargine (Lantus (Bkc)) 15 units SC BID REPLACED BY [facility] Last Admin: 11/29/18 00:30 Dose: 15 u Insulin Human Lispro (Humalog Kwikpen (Bkc)) 0 unit SC Q6 REPLACED BY [facility]; Protocol Last Admin: 11/29/18 06:14 Dose: 3 u Ketorolac Tromethamine (Toradol) 15 mg IV Q6 REPLACED BY [facility] Stop: 12/03/18 11:31 Last Admin: 11/29/18 06:16 Dose: 15 mg Magnesium Hydroxide (Milk Of Magnesia) 30 ml PO DAILY PRN PRN PRN Reason: Constipation Morphine Sulfate () 2 - 4 mg IV Q3H PRN PRN PRN Reason: PAIN Last Admin: 11/29/18 02:31 Dose: 2 mg Morphine Sulfate () 2 - 4 mg IV Q3H PRN PRN PRN Reason: PAIN Ondansetron HCl (Zofran) 4 mg IV Q8H PRN PRN PRN Reason: NAUSEA/VOMITING Last Admin: 11/28/18 16:11 Dose: 4 mg Oxycodone HCl (Oxyir) 5 - 10 mg PO Q4H PRN PRN PRN Reason: SEVERE PAIN (6-10/10) Last Admin: 11/28/18 03:29 Dose: 10 mg Sodium Chloride () 5 - 15 ml IV UD PRN PRN Reason: SALINE FLUSH Last Admin: 11/29/18 02:32 Dose: 15 ml Code Visit Inpatient E&M: [id number] Subs Hosp L2
--- NOTE | 2018-11-30 16:36 | PCM.PN.BLA ---
Progress Note The patient is complaining of a left tooth ache. His neck feels better avss wbc = 8.8 awake alert nad neck-dressing removed. Drain without any drainage. Drain was removed. 1/2 inch plain gauze was packed into the wound. A new dressing was placed. Less induration of the skin. No erythema. wound- gram negative rods A: POD #2 s/p incision and drainage of left submandibular abscess. Drain now removed and the wound was packed P: continue zosyn. Follow the cultures adjust with ID as necessary. Change the packing daily. He may be discharged from my standpoint whenever he is medically stable. Follow up with me in 2 weeks.
[2018-11-30 16:55] LABS: Bedside Glucose 237 mg/dL (70-110)
[2018-11-30 21:31] LABS: Bedside Glucose 286 mg/dL (70-110)
[2018-12-01 02:00] VITALS: BP 125/88; PULSE 78; RESP 18; TEMP 36.4; O2SAT 95
[2018-12-01] MEDS: Piperacil/Tazobactam 3.375 GM/50 ML ML IV (05:24)
[2018-12-01] MEDS: Ketorolac 15 MG/ML Vial IV (05:24)
[2018-12-01] MEDS: Insulin Lispro 100 UNIT/ML INSULN.PEN SC (06:47)
[2018-12-01 06:55] LABS: Bedside Glucose 241 mg/dL (70-110)
[2018-12-01 07:00] VITALS: O2SAT 95
[2018-12-01 07:32] LABS: Absolute Lymphocyte Count 1.74 X10^3/ul (0.83-4.51); Absolute Neutrophil Count 5.4 X10^3/uL (2.0-7.7); Basophil# 0.02 X10^3/uL; Basophil% 0.3 % (0-1); Eosinophil# 0.14 X10^3/uL; Eosinophils% 1.8 % (0-5); Hematocrit 35.5 % (40-54); Lymphocyte # 1.74 X10^3/ul (4.0); Lymphocyte % 21.9 % (19-41); Mean Corp Hgb Conc 33.8 g/gl (32-36); Mean Corpuscular Hgb 28.2 pg (27.0-32.0); Mean Corpuscular Volume 83.3 fL (80-94); Mean Platelet Vol. 8.9 fl (6.2-12.0); Monocyte# 0.57 X10^3/uL; Monocyte% 7.2 % (0-10); Neutrophil # 5.43 X10^3/uL (2.7-7.7); POSITIVE COUNT NO; POSITIVE DIFFERENTIAL NO; POSITIVE MORPHOLOGY NO; Platelet Count 206 K/mm3 (150-450); RBC Distribution Width CV 12.9 % (11.6-14.6); RBC Distribution Width SD 38.9 fl (35.1-43.9); Red Blood Count 4.26 M/mm3 (4.6-6.2)
[2018-12-01 07:50] VITALS: BP 117/81; PULSE 88; RESP 16; TEMP 36.6; O2SAT 94
[2018-12-01] MEDS: Famotidine 20 MG Tablet PO (07:55)
[2018-12-01 08:00] LABS: Bedside Glucose 205 mg/dL (70-110)
--- NOTE | 2018-12-01 09:56 | NURSING ---
taught girlfriend how to do dressing changes. girlfriend stated she can do it.
--- NOTE | 2018-12-01 10:11 | PCM.DC ---
- Discharge Diagnoses Current Active Problems: Current Active and Chronic Problems Submandibular abscess (Acute) Diabetes mellitus, type II (Chronic) History of tobacco use (Chronic) You will use the following diet at home:: Regular Your food should be the consistency of: Regular Discharge Activity: May not drive while taking narcotic pain medications. Weight Bearing Status: Weight bearing as tolerated Call your doctor if you observe: Fever of 101 or Higher, Inability to urinate, Shortness of breath, Swelling in the ankles, Chest pain, Prolonged hiccoughing, Increased palpitations (irregular heartbeat) Additional Instructions: CHANGE LEFT SUBMANDIBULAR I& D PACKING DAILY. Allergies/Adverse Reactions: Allergies No Known Allergies Allergy (Verified 11/27/18 21:46) Medications to take at Discharge Amoxicillin/Potassium Clav [Augmentin 875-125 Tablet] 1 each PO BID #14 tablet 12/01/18 Insulin NPH/Reg 70/30 [Novolin 70/30] 18 units SC TID #1 vial 12/01/18 Naproxen 1 tab PO BID PRN PRN #0 12/01/18 The following prescriptions were given: Amoxicillin/Potassium Clav [Augmentin 875-125 Tablet] 1 each PO BID #14 tablet Insulin NPH/Reg 70/30 [Novolin 70/30] 18 units SC TID #1 vial Primary Care Physician: Care Physician,No Primary [Primary Care Provider] - Please follow up with your Primary Care Physician in: in 1-2 week to control DM-2 Test Results: Test results from this visit will be discussed in further detail at your follow-up appointment, if applicable. Please Follow Up With: Jose Antonio Sagastume MD When: in 2 weeks Please Follow Up With: Harish Gorman MD
--- NOTE | 2018-12-01 10:16 | DCINST_ITS ---
- Discharge Diagnoses Current Active Problems: Current Active and Chronic Problems Submandibular abscess (Acute) Diabetes mellitus, type II (Chronic) History of tobacco use (Chronic) You will use the following diet at home:: Regular Your food should be the consistency of: Regular Discharge Activity: May not drive while taking narcotic pain medications. Weight Bearing Status: Weight bearing as tolerated Call your doctor if you observe: Fever of 101 or Higher, Inability to urinate, Shortness of breath, Swelling in the ankles, Chest pain, Prolonged hiccoughing, Increased palpitations (irregular heartbeat) Additional Instructions: CHANGE LEFT SUBMANDIBULAR I& D PACKING DAILY. Allergies/Adverse Reactions: Allergies No Known Allergies Allergy (Verified 11/27/18 21:46) Medications to take at Discharge Amoxicillin/Potassium Clav [Augmentin 875-125 Tablet] 1 each PO BID #14 tablet 12/01/18 Insulin NPH/Reg 70/30 [Novolin 70/30] 18 units SC TID #1 vial 12/01/18 Naproxen 1 tab PO BID PRN PRN #0 12/01/18 The following prescriptions were given: Amoxicillin/Potassium Clav [Augmentin 875-125 Tablet] 1 each PO BID #14 tablet Insulin NPH/Reg 70/30 [Novolin 70/30] 18 units SC TID #1 vial Primary Care Physician: Care Physician,No Primary [Primary Care Provider] - Please follow up with your Primary Care Physician in: in 1-2 week to control DM- 2 Test Results: Test results from this visit will be discussed in further detail at your follow- up appointment, if applicable. Please Follow Up With: Jose Antonio Sagastume MD When: in 2 weeks Please Follow Up With: Harish Gorman MD
--- NOTE | 2018-12-01 10:16 | DS.PCM_ITS ---
Discharge Date and Diagnosis Date of Admission: 11/28/18 Date of Discharge: 12/01/18 - Primary Discharge Diagnosis Active and Suspected Problems Submandibular abscess (Acute) - Secondary Discharge Diagnosis Chronic Problems Diabetes mellitus, type II (Chronic) History of tobacco use (Chronic) Chest pain (Chronic) Hospital Course and Treatment Summary of Care Provided: [] The patient is a 42-year-old gentleman with history of type 2 diabetes mellitus after he had severe pancreatitis and probably he had a kidney failure for which he required dialysis at that time was admitted with progressive worsening of left submandibular swelling since November 20. Earlier he was seen at urgent care and was given amoxicillin but he did not respond. He also has many dental caries mainly on the left molar worse than right molar. 1. Left submandibular mass most probably abscess secondary to dental caries/periodontal abscesses: CT neck was done in ER which showed 4 x 2.6 x 3.5 cm necrotic appearing mass left side mandible region most likely abscess with possibility of necrotic lymph nodes. Multiple maxillary dental caries and periodontal abscesses left greater than right. There was no signs or symptoms of upper airway obstruction. No stridor. Postop day 3. Preliminary Gram stain of wound culture shows gram-negative rods, most probably Salmonella. Based on that, antibiotic was changed to from Unasyn to Zosyn on 11/29. Discussed with ID Dr. Gorman and we agree on Augmentin 875 mg twice daily for 7 more days. Augmentin will cover Salmonella and a naerobes. (2) Diabetes mellitus type II with Hyperglycemia: Patient A1c is 13.4. Blood sugar was controlled. Accu-Chek at before meals and at bedtime and cover with long-acting and short-acting insulin. Titrate up the insulin. 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 Refill was given for insulin NPH/regular 70/30, 18 units subcutaneous 3 times daily with holding parameters. Scripts given for insulin needles. Follow with the PCP to further titrate the dose of insulin as per the glucose checks. (3) Obesity: Weight loss and lifestyle changes encouraged. (4) History of Tobacco use: Encourage continued cessation. (5) GERD: IV Famotidine. (6) DVT prophylaxis: lovenox 40 mg sq daily Discharge medication reconciliation done. Discharge follow-up instructions completed. Discharge process discussed with the patient and all questions were answered to patient's satisfaction. Follow-up with ENT Dr. Sagastume in 2 weeks. Follow-up with the ID in 1-2 weeks for wound culture. Total time spent, exact 35 minutes on discharge meds reconciliation, examination, review of imaging and blood test and discussion with the patient on follow-up instructions. Subjective: Seen and examined. Left submandibular swelling has much improved. No significant tenderness. No fever or chills. - Physical Exam General: Alert, Oriented x3, Cooperative HEENT: Atraumatic, PERRLA, EOMI, Normocephalic, - - Left submandibular swelling has decreased in size. Half inch plain gauze was packed yesterday. Packing to be changed daily. Drain was removed on 11/30/2018. Neck: Supple, No JVD, Negative Carotid Bruits Lungs: Clear to auscultation, Normal air movement Cardiovascular: Regular rate, Regular Rhythm, Normal S1, Normal S2, No murmurs Abdomen: Bowel Sounds Present, Soft, Non Tender Extremities: No edema, Capillary Refill Less than 3 Seconds Skin: No rashes, No breakdown Musculoskeletal: No Tenderness to Palpation of Joints or Extremities Neurological: Cranial nerves II-XII grossly intact, Deep Tendon Reflexes 2+/4 and Symmetrical, Neuro grossly intact, Motor Exam 5/5 strength throughout Psych/Mental Status: Normal Affect, Appropriate Vital Signs Temp Pulse Resp BP Pulse Ox 97.9 F 88 16 117/81 H 94 12/01/18 07:50 12/01/18 07:50 12/01/18 07:50 12/01/18 07:50 12/01/18 07:50 Oxygen Flow Rate (L/min) 1 Oxygen Delivery Method Room Air Weight: 223 lb 8.78 oz Body Mass Index (BMI) 31.6 Intake and Output for Last 24 Hours 11/29/18 11/30/18 12/01/18 23:59 23:59 23:59 Intake Total 4221 / 4221 4173 / 4173 615 / 615 Output Total 1800 / 1800 1425 / 1425 Balance 2421 / 2421 2748 / 2748 615 / 615 Microbiology Past 72 Hours 11/28/18 14:49 Gram Stain - Final Submandibular Abscess Wound Culture - Preliminary Gram negative tanvi Laboratory Tests Past 24 Hrs 12/01/18 06:55 WBC 8.0 RBC 4.26 L Hgb 12.0 L Hct 35.5 L MCV 83.3 MCH 28.2 MCHC 33.8 RDW 12.9 RDW Differential 38.9 Plt Count 206 MPV 8.9 Immature Gran % (Auto) 0.800 Neut % (Auto) 68.0 Lymph % (Auto) 21.9 [place] % (Auto) 7.2 Eos % (Auto) 1.8 Baso % (Auto) 0.3 Absolute Neuts (auto) 5.4 Absolute Lymphs (auto) 1.74 Total Counted Not Reportable POC Glucose 12/01/18 12/01/18 11/30/18 07:47 06:47 21:23 POC Glucose 205 H 241 H 286 H 11/30/18 11/30/18 16:35 12:21 POC Glucose 237 H 325 H Discharge Activity: May not drive while taking narcotic pain medications. Weight Bearing Status: Weight bearing as tolerated Call your doctor if you observe: Fever of 101 or Higher, Inability to urinate, Shortness of breath, Swelling in the ankles, Chest pain, Prolonged hiccoughing, Increased palpitations (irregular heartbeat) Home Medications: Medications to take at Discharge Amoxicillin/Potassium Clav [Augmentin 875-125 Tablet] 1 each PO BID #14 tablet 12/01/18 Insulin NPH/Reg 70/30 [Novolin 70/30] 18 units SC TID #1 vial 12/01/18 Naproxen 1 tab PO BID PRN PRN #0 12/01/18 Following Prescrptions Were Given to Patient: Amoxicillin/Potassium Clav [Augmentin 875-125 Tablet] 1 each PO BID #14 tablet Insulin NPH/Reg 70/30 [Novolin 70/30] 18 units SC TID #1 vial Primary Care Physician: Care Physician,No Primary [Primary Care Provider] - Please follow up with your Primary Care Physician in: in 1-2 week to control DM- 2 Please Follow Up With: Jose Antonio Sagastume MD When: in 2 weeks Please Follow Up With: Harish Gorman MD When: in 1 week Medical Necessity - Tobacco Use Smoking Status: Former smoker Tobacco Use: Non-smoker Meaningful Use Info Meaningful Use Diagnoses (Choose all that apply): None applicable Code Visit Inpatient E&M: 86445 Disch Hosp
== END 2018-12-01 11:28 | disposition home or self-care (01) | DRG 98 ==
LOC: ED 22:37 → MS2 11-28 01:32 → ICU 11-28 13:28 → MS2 11-29 13:49
PROVIDERS: Otolaryngology; Admitting Provider Family Medicine; Emergency Provider Emergency Medicine; Visit Provider Internal Medicine
PROC: 0J910ZZ Drainage of Face Subcutaneous Tissue and Fascia, Open Approach (ICD-10-PCS; CPT 42440; principal; 2018-11-28 13:00)
DX: K12.2 Cellulitis and abscess of mouth (principal); E11.65 Type 2 diabetes mellitus with hyperglycemia; K05.219 Aggressive periodontitis, localized, unspecified severity; K02.9 Dental caries, unspecified; E66.9 Obesity, unspecified; Z87.891 Personal history of nicotine dependence; Z68.31 Body mass index [BMI] 31.0-31.9, adult; Z79.4 Long term (current) use of insulin
CPT/HCPCS: 36415; 70491; 80048; 82962; 83036; 83735; 85025; 87070; 87075; 87077; 87186; 87205; 87641; 97802; 99282; J7030; J7040; J7050; Q9967; A4216; J0295; J2405; J3490

== ENCOUNTER 2019-07-17 00:08 | Inpatient (IN) | payer MEDICAID, SELFPAY ==
[2018-12-25 09:28] VITALS: BMI 31.6
[2019-07-17] VITALS (9 sets, daily range): BP systolic 107–135; BP diastolic 54–78; PULSE 70–99; RESP 16–20; TEMP 36.1–36.9; O2SAT 92–98; BMI 32.8; BMI 33.0
--- NOTE | 2019-07-17 00:32 | ED.DCSUM_ITS ---
History of Present Illness Chief Complaint: Abd Pain Narrative: This patient is a 43-year-old male who presents with sudden onset abdominal pain. This began about 1 hour ago. He states it just hurts and is unable to characterize the pain. It is all in the left lower quadrant and is nonradiating. It is severe. He had a small episode of emesis. He denies fevers diarrhea or any urinary symptoms such as dysuria frequency urgency. No history of prior similar symptoms. No history of kidney stones. No abdominal surgeries. He has a type II diabetic and denies any other medical history. Past Medical History - Allergies and Home Meds Allergies/Adverse Reactions: Allergies No Known Allergies Allergy (Verified 12/25/18 14:42) Primary Care Physician: Paris Chilel MD [Primary Care Provider] - Past Medical History: - - Diabetes Surgical History: - Smoking Status: Current every day smoker - Family History Maternal Family History: Family History (Last Reviewed 12/25/18 @ 14:44 by Dee Raygoza) Father Diabetes Mother CVA (cerebral vascular accident) Seizures Hypertension Family History: Reports: Diabetes, Heart Disease, Hypertension Paternal Family History: Family History (Last Reviewed 12/25/18 @ 14:44 by Dee Raygoza) Father Diabetes Mother CVA (cerebral vascular accident) Seizures Hypertension Family History: Reports: Diabetes, Heart Disease, Hypertension Review of Systems All systems negative except as indicated General: Denies: Fever Cardiovascular: Denies: Chest pain Respiratory: Denies: Dyspnea Gastrointestinal: Reports: Abdominal pain, Nausea, Vomiting. Denies: Diarrhea Genitourinary: Denies: Dysuria, Hematuria, Frequency Physical Exam Vital Signs/Narrative: Vital Signs Temp Pulse Resp BP Pulse Ox 07/17/19 00:08 96.9 F L 80 20 H 135/70 H 94 General: Well nourished Head: Normocephalic Eyes: EOMI ENT: Moist mucous membranes Neck: Supple Cardiovascular: Regular rate, Regular rhythm Respiratory: No distress, CTA bilaterally Abdomen: Soft, - - Left sided mid to lower abdominal tenderness without guarding without rebound Back: Nontender. Negative for: CVA tenderness Skin: Normal color Neurological: Alert Psychological: Normal affect Diagnostic/Tx/Re-eval Impressions Abdomen/Pelvis CT 07/17/19 00:32 IMPRESSION: 1. Mild acute pancreatitis, primarily involving the pancreatic body and tail, with no evidence of pseudocyst formation. 2. Ptotic midline right kidney. Electronically Signed: Uriel Flower MD at 1:25 EDT Tel , Service support , 07/17/19 00:32 Abdomen/Pelvis without Cont [CT] Stat Laboratory Results 07/17/19 07/17/19 07/17/19 00:41 00:41 00:50 WBC 16.2 H RBC 5.61 Hgb 17.7 H Hct 46.3 MCV 82.5 MCH 31.5 MCHC 38.2 H RDW Std Deviation 37.6 RDW Coeff of Wil 12.5 Plt Count 269 MPV 8.8 Immature Gran % (Auto) 0.400 Neut % (Auto) 64.1 Lymph % (Auto) 15.3 L [place] % (Auto) 17.5 H Eos % (Auto) 2.2 Baso % (Auto) 0.5 Absolute Neuts (auto) 10.4 H Absolute Lymphs (auto) 2.48 Nucleated RBC % 0 Sodium 134 L Potassium 4.5 Chloride 99 Carbon Dioxide 22.0 Anion Gap 13 BUN 20 H Creatinine 1.34 H Estim Creat Clear Calc 70.35 Est GFR (MDRD) Af Amer 74 Est GFR (MDRD) Non-Af 61 BUN/Creatinine Ratio 14.9 Glucose 455 H* Calcium 8.9 Total Bilirubin 0.50 AST 24 ALT 37 Alkaline Phosphatase 118 H Total Protein 7.9 Albumin 3.6 Globulin 4.3 H Albumin/Globulin Ratio 0.8 L Lipase 20235 H Urine Color Yellow Urine Clarity Clear Urine pH 6.0 Ur Specific [place] 1.015 Urine Protein 15 H Urine Glucose (UA) 1000 H Urine Ketones 5 H Urine Occult Blood 25 H Urine Nitrite Negative Urine Bilirubin Negative Urine Urobilinogen Normal Ur Leukocyte Esterase Negative Urine RBC 0-5 SEEN Urine WBC 0-5 SEEN Ur Squamous Epith Cells 0-5 SEEN Urine Bacteria RARE Urine Mucus 0 SEEN - Medical Decision Making Patient was initially treated with IV fluids morphine Zofran. He continued to complain of significant pain and was given IV Dilaudid with transient relief. His CT was read as mild pancreatitis. Labs returned as notable above with lipase of 10,314. Lab noted that his specimen was severely lipemic. I added on triglycerides which returned at 1341. This is likely the cause of his pancreatitis. He was given additional IV fluids as well as subcutaneous insulin. He continued to complain of pain and was given IV Toradol with market relief. Patient was discussed with the hospitalist and will be admitted. They requested that I speak to nephrology regarding possible dialysis. I spoke to Dr. Peterson who is on-call for nephrology who did not feel that patient required dialysis at this time. ED Disposition - Plan for ED Patient: Disposition: Acute Care Hospital [facility] Diagnosis: Pancreatitis Referrals: Paris Chilel MD [Primary Care Provider] -
--- NOTE | 2019-07-17 00:32 | CT_ITS ---
STUDY: CT ABDOMEN AND PELVIS WITHOUT CONTRAST REASON FOR EXAM: Male, 43 years old. Left-sided abdominal RADIATION DOSAGE (If Supplied By Facility): CTDIvol = ( 15.62 ) mGy, DLP = ( 850.92 ) mGycm TECHNIQUE: Transaxial images were obtained from the dome of the diaphragm to the symphysis pubis without oral contrast, and without intravenous contrast. Sagittal and coronal images were reconstructed. Individualized dose optimization techniques were used for this CT. COMPARISON: None. FINDINGS: Lung bases demonstrate mild dependent atelectasis versus scar formation. Normal visualized heart. Normal pericardium. Normal liver. Normal gallbladder and extrahepatic biliary system. Normal spleen. There is mild peripancreatic inflammatory stranding around involving the body and tail. No peripancreatic fluid collection. Normal bilateral adrenal glands. A ptopic midline right kidney is noted. No focal parenchymal lesion. No hydronephrosis. Normal left kidney. Normal ureters. Normal visualized stomach. Normal small intestine. Normal colon. The appendix is visualized and appears normal. Normal abdominal aorta. Normal inferior vena cava. Normal retroperitoneum. Normal urinary bladder. Normal abdominal wall. Normal osseous structures. CT/Abdomen/Pelvis without Cont IMPRESSION: 1. Mild acute pancreatitis, primarily involving the pancreatic body and tail, with no evidence of pseudocyst formation. 2. Ptotic midline right kidney. Electronically Signed: Uriel Flower MD at 1:25 EDT Tel , Service support ,
[2019-07-17] MEDS: Ondansetron 4 MG/2 ML Vial IV (00:35)
[2019-07-17] MEDS: 0.9% Normal Saline 1,000 ML 1000 ML IV (00:35)
[2019-07-17] MEDS: Morphine 4 MG/ML Syringe IV (00:35)
[2019-07-17 00:53] LABS: Absolute Lymphocyte Count 2.48 X10^3/uL (0.83-4.51); Absolute Neutrophil Count 10.4 X10^3/uL (2.0-7.7); Basophil# 0.08 X10^3/uL; Basophil% 0.5 % (0-1); Eosinophil# 0.35 X10^3/uL; Eosinophils% 2.2 % (0-5); Hematocrit 46.3 % (40-54); Lymphocyte # 2.48 X10^3/ul (4.0); Lymphocyte % 15.3 % (19-41); Mean Corpuscular Volume 82.5 fL (80-94); Mean Platelet Vol. 8.8 fl (6.2-12.0); Monocyte# 2.83 X10^3/uL; Monocyte% 17.5 % (0-10); NRBC Flagged by Analyzer 0 % (0-5); Neutrophil # 10.39 X10^3/uL (2.7-7.7); Neutrophil % 64.1 % (47-70); POSITIVE COUNT YES; POSITIVE DIFFERENTIAL YES; POSITIVE MORPHOLOGY YES; Platelet Count 269 K/mm3 (150-450); RBC Distribution Width CV 12.5 % (11.6-14.6); RBC Distribution Width SD 37.6 fl (35.1-43.9); Red Blood Count 5.61 M/mm3 (4.6-6.2); White Blood Count 16.2 K/mm3 (4.4-11.0)
[2019-07-17 00:54] LABS: Mucous, Urine 0 SEEN /hpf (<or=2+)
[2019-07-17 00:56] LABS: Color, Urine Yellow (Yellow); Glucose, Dipstick 1000 mg/dl (Normal); Ketone-Dipstick 5 mg/dl (Negative); Leukocyte Esterase-Dipstick Negative /ul (Negative); Nitrite-Dipstick Negative (Negative); Occult Blood-Urine 25 /ul (Negative); Protein-Dipstick 15 mg/dl (Negative); Specific Gravity, Urine 1.015 (1.002-1.030); Urine Bilirubin Dipstick Negative (Negative); Urine Clarity Clear (Clear); Urine Urobilinogen Normal (Normal)
[2019-07-17 01:03] LABS: Bacteria RARE /hpf (None Seen); Red Blood Cells-Urine 0-5 SEEN /hpf (0-5); Squamous Epithelial Cells - UA 0-5 SEEN /hpf (0-5); White Blood Cells 0-5 SEEN /hpf (0-5)
[2019-07-17 01:28] LABS: Hemoglobin 17.7 g/dL (13.0-16.5); Mean Corpuscular Hgb 31.5 pg (27.0-32.0)
[2019-07-17 01:29] LABS: Differential Indicated SCAN CRITERIA MET; Mean Corp Hgb Conc 38.2 g/dL (32-36)
[2019-07-17] MEDS: HYDROmorphone 1 MG/ML Syringe IV (01:41)
--- NOTE | 2019-07-17 01:58 | ED.RN ---
lab called with critical lab results. glucose 455. Dr. Hewitt made aware no new orders at this time
[2019-07-17 03:32] LABS: ALB/GLOB Ratio 0.8 RATIO (0.9-2.4); AST(SGOT) 24 U/L (15-37); Alanine Aminotransfer ALT/SGPT 37 U/L (16-61); Albumin, Serum 3.6 g/dL (3.2-5.0); Alkaline Phosphatase 118 U/L (45-117); Anion Gap 13 (5-15); BUN 20 mg/dL (7-18); BUN/Creat Ratio 14.9 RATIO (10-20); Calcium,Total 8.9 mg/dL (8.5-10.1); Chloride 99 mmol/L (98-107); Creatinine, Serum 1.34 mg/dL (0.70-1.30); EST Glomerular Filtration Rate 61 mL/min (>60); Est Glom Filt Rate - Afr Amer 74 mL/min (>60); Estimated Creatinine Clearance 70.35 ml/min; Globulin 4.3 g/dL (2.2-4.2); Glucose 455 mg/dL (74-106); Lipase 10314 U/L (73-393); Potassium 4.5 mmol/L (3.5-5.1); Protein, Total 7.9 g/dL (6.4-8.2); Sodium Level 134 mmol/L (136-145)
--- NOTE | 2019-07-17 03:46 | ED.RN ---
see down time charting 2 am to 4 am
--- NOTE | 2019-07-17 03:49 | ED.RN ---
REST OF PT CHART IS ON PAPER DUE TO DOWNTIME.
--- NOTE | 2019-07-17 04:07 | HP.PCM_ITS ---
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 His symptoms started about 35-40minutes after eating cheese steaks. Associated with his symptoms is nausea. Fearing that the cheese steak was causing his abdomen pain he induced vomiting with his finger x 2 times. He describes the pain as someone punching him. The pain is relieved a little by patient rocking himself in the bed. The pain is aggravated when he lies on his left side. The pain is non radiating. It has progressively been worsening. He is afraid of eating as even drinking so much water worsens his pain. He can tolerate drinking only a little water. Laboratory studies showed lipase of greater than 10,000. His blood was also noted to be severely lipemic so triglycerides were checked which was 1,341. CT was read as mild acute pancreatitis. No diarrhea. No fevers. No prior abdominal surgeries. Patient was initially treated with IV fluids and morphine with minimal change in pain. He was then given IV Dilaudid with transient relief and then IV Toradol. He is also been out of his long acting and short acting insulin for about 3 days. Glucose was 455 and he was given subcutaneous insulin. He has been out of his insulin because of financial issues and a change in his insurance. He has appointment scheduled with job and family services to help with his financial condition. Past Medical History Past Medical History (Chronic Problems): Chronic Problems (Last Reviewed 12/25/18 @ 14:44 by Dee Raygoza) Diabetes mellitus, type II (Chronic) History of tobacco use (Chronic) Chest pain (Chronic) Allergies No Known Allergies Allergy (Verified 12/25/18 14:42) Home Medications: Ambulatory Orders Medication Instructions Recorded Blood Sugar Diagnostic [FreeStyle 0 .ROUTE .MEDSUPPLY 07/17/19 Test] Blood Sugar Diagnostic [ReliOn 0 .ROUTE .MEDSUPPLY 07/17/19 Prime Test Strips] Insulin Glargine,Hum.rec.anlog 24 unit SUBCUT DAILY 07/17/19 [Basaglar KwikPen U-100 Insulin] Insulin Lispro [Humalog KwikPen 6 unit SUBCUT TID 07/17/19 Insulin] Lancets [Freestyle Lancets] 0 .ROUTE .MEDSUPPLY 07/17/19 Pen Needle, Diabetic [Pen Needle] 0 .ROUTE .MEDSUPPLY 07/17/19 Surgical History: Surgical History (Last Reviewed 07/17/19 @ 05:25 by aMged Rock MD) history of abscess removal x3 Surgical History: - Psychiatric History: No pertinent psych hx Lives: With Family Smoking Status: Current every day smoker Tobacco Use: Cigarettes Alcohol: None - *Family History Maternal Family History: Family History (Last Reviewed 07/17/19 @ 05:25 by Maged Rock MD) Father Diabetes Mother CVA (cerebral vascular accident) Seizures Hypertension History Items: Diabetes, Heart Disease, Hypertension Paternal Family History: Family History (Last Reviewed 07/17/19 @ 05:25 by Maged Rock MD) Father Diabetes Mother CVA (cerebral vascular accident) Seizures Hypertension History Items: Diabetes, Heart Disease, Hypertension Review of Systems Constitutional: Denies: Chills, Fever, Weight Change HEENT: Denies: Head Aches, Sinus Congestion, Sinus Drainage Cardiovascular: Denies: Chest Pain, Palpitations Respiratory: Denies: Cough, Shortness of breath at rest, Sputum production Gastrointestinal: Reports: Abdominal Pain, Nausea, Vomiting - Self-induced x2 Genitourinary: Denies: Dysuria Musculoskeletal: Denies: Joint Pain, Joint Tenderness Skin: Denies: Rash, Wounds Neurological: Denies: Numbness, Tingling, Focal weakness Psychiatric: Denies: Anxiety, Depression, Homicidal Ideations, Suicidal Ideations Hematologic/ Lymphatic: Denies: Easy Bruising, Easy Bleeding VTE Information - Inpt Only VTE Present on Admission: No VTE Mechan Device Prophylaxis: None VTE Pharm Prophylaxis ordered?: Yes Patient Problems: Active and Suspected Problems (Last Reviewed 12/25/18 @ 14:44 by Dee Raygoza) Pancreatitis (Acute) Acute hyperglycemia (Acute) - Physical Exam General: Alert, Oriented x3, Cooperative HEENT: Atraumatic, PERRLA, EOMI, Normocephalic Neck: Supple, No JVD, Negative Carotid Bruits Lungs: Clear to auscultation, Normal air movement Cardiovascular: Regular rate, No murmurs Abdomen: Bowel Sounds Present, Soft, Obese, Tender - Left lower quadrant Extremities: No edema, Capillary Refill Less than 3 Seconds Skin: No rashes, No breakdown Musculoskeletal: No Tenderness to Palpation of Joints or Extremities Neurological: Cranial nerves II-XII grossly intact Psych/Mental Status: Normal Affect, Appropriate Vital Signs Temp Pulse Resp BP Pulse Ox 96.9 F L 70 16 107/78 98 07/17/19 00:08 07/17/19 01:40 07/17/19 01:40 07/17/19 01:40 07/17/19 01:40 Oxygen Delivery Method Room Air Weight: 100.698 kg Body Mass Index (BMI) 32.8 Intake and Output for Last 24 Hours 07/15/19 07/16/19 07/17/19 23:59 23:59 23:59 Intake Total 1000 / 1000 Balance 1000 / 1000 Laboratory Tests Past 24 Hrs 07/17/19 07/17/19 07/17/19 00:41 00:41 00:41 WBC 16.2 H RBC 5.61 Hgb 17.7 H Hct 46.3 MCV 82.5 MCH 31.5 MCHC 38.2 H RDW Std Deviation 37.6 RDW Coeff of Wil 12.5 Plt Count 269 MPV 8.8 Immature Gran % (Auto) 0.400 Neut % (Auto) 64.1 Lymph % (Auto) 15.3 L [place] % (Auto) 17.5 H Eos % (Auto) 2.2 Baso % (Auto) 0.5 Absolute Neuts (auto) 10.4 H Absolute Lymphs (auto) 2.48 Nucleated RBC % 0 Sodium 134 L Potassium 4.5 Chloride 99 Carbon Dioxide 22.0 Anion Gap 13 BUN 20 H Creatinine 1.34 H Estim Creat Clear Calc 70.35 Est GFR (MDRD) Af Amer 74 Est GFR (MDRD) Non-Af 61 BUN/Creatinine Ratio 14.9 Glucose 455 H* Calcium 8.9 Total Bilirubin 0.50 AST 24 ALT 37 Alkaline Phosphatase 118 H Total Protein 7.9 Albumin 3.6 Globulin 4.3 H Albumin/Globulin Ratio 0.8 L Triglycerides Pending Lipase 57341 H Urine Color Urine Clarity Urine pH Ur Specific [place] Urine Protein Urine Glucose (UA) Urine Ketones Urine Occult Blood Urine Nitrite Urine Bilirubin Urine Urobilinogen Ur Leukocyte Esterase Urine RBC Urine WBC Ur Squamous Epith Cells Urine Bacteria Urine Mucus 07/17/19 00:50 WBC RBC Hgb Hct MCV MCH MCHC RDW Std Deviation RDW Coeff of Wil Plt Count MPV Immature Gran % (Auto) Neut % (Auto) Lymph % (Auto) [place] % (Auto) Eos % (Auto) Baso % (Auto) Absolute Neuts (auto) Absolute Lymphs (auto) Nucleated RBC % Sodium Potassium Chloride Carbon Dioxide Anion Gap BUN Creatinine Estim Creat Clear Calc Est GFR (MDRD) Af Amer Est GFR (MDRD) Non-Af BUN/Creatinine Ratio Glucose Calcium Total Bilirubin AST ALT Alkaline Phosphatase Total Protein Albumin Globulin Albumin/Globulin Ratio Triglycerides Lipase Urine Color Yellow Urine Clarity Clear Urine pH 6.0 Ur Specific [place] 1.015 Urine Protein 15 H Urine Glucose (UA) 1000 H Urine Ketones 5 H Urine Occult Blood 25 H Urine Nitrite Negative Urine Bilirubin Negative Urine Urobilinogen Normal Ur Leukocyte Esterase Negative Urine RBC 0-5 SEEN Urine WBC 0-5 SEEN Ur Squamous Epith Cells 0-5 SEEN Urine Bacteria RARE Urine Mucus 0 SEEN Assessment/Plan All Active Problems (Last Reviewed 12/25/18 @ 14:44 by Dee Raygoza) Pancreatitis (Acute) Acute hyperglycemia (Acute) Patient is a 43 year old with a significant medical history of DM; hypertriglyceridemia induced pancreatitis s/p apheresis who came in with sudden onset left lower abdominal pain 35-40minutes after eating cheese steaks; and with nausea; and found to have severely elevated glucose; lipase and triglyceride consistent with likely triglyceride induced pancreatitis. Acute Pancreatitis Likely etiologies from high triglycerides. Discussed emergency department doctor to notify nephrology. Per conversation between emergency department doctor and weapons system instrument mechanic, Dr. Peterson, patient is not a candidate of apheresis at this time. Patient denies alcoholism. We will keep patient n.p.o. and will check ultrasound of gallbladder. Patient does not have hypercalcemia. Reportedly at the emergency department Toradol could hold the patient's pain better than Dilaudid and morphine. Order to give patient PRN Toradol first and then if no relief morphine IV. Give normal saline the emergency department. We will continue patient on lactated Ringer's at 250 mL's per hour. Trend BMP. Diabetes mellitus with acute hyperglycemia. He reports home regimen of prandial insulin 12 units 3 times daily; and Basaglar 24 units daily. Reportedly he ran out of all insulin about 3 days ago. He could not afford new insulin because of insurance changes and finances. While n.p.o. we will start patient on long-acting insulin 10 units daily. Accu- Chek every 4 hours with correction scale insulin. On discharge patient may need help requiring insulin before his appointment with job and family services. Case management consult. Asthma Stable Reportedly he has not been able to afford his inhaler. PRN albuterol ordered here. Tobacco abuse Reportedly patient used to chew tobacco but after submandibular abscess and surgery he stopped chewing tobacco. He smokes cigarettes. He reported that he does not inhale the smoke. Smoking cessation discussed. The patient is welcoming to nicotine patch. Nicotine patch prescribed. DVT prophylaxis Subcutaneous Lovenox Code Visit Inpatient E&M: 95281 Init Hosp L3
--- NOTE | 2019-07-17 04:08 | US_ITS ---
STUDY: ABDOMINAL ULTRASOUND - RIGHT UPPER QUADRANT REASON FOR VISIT: Male, 43 years old. History of pancreatitis. TECHNIQUE: Ultrasound evaluation of the right upper quadrant was performed with real-time and static flores-scale imaging. TECHNICAL QUALITY: Adequate. COMPARISON: Comparison is made with prior ultrasound of the abdomen dated September 19, [address] scan done the pelvis dated July 17, 2019. FINDINGS: Liver: The liver is slightly enlarged and measures 18.4 cm. There is normal echogenicity of the liver. The bile ducts are within normal limits. There is hepatic color flow. The direction of portal flow is hepatopetal. There is no demonstrated mass lesion. Gallbladder: Normal distended gallbladder. The gallbladder wall measures 3.0 mm. There is a negative sonographic Meier's sign. There is no pericholecystic fluid. There are no gallstones. Common Bile Duct (C.B.D.): The common bile duct measures 3.1 mm. Pancreas: Normal size of the head, body and tail of the pancreas. There is increased echogenicity of the pancreas. There is no demonstrated pancreatic mass or cyst. Right Kidney: Normal size of the right kidney. The right kidney lies within the pelvis. The right kidney measures 11.8 cm x 4.3 cm x 4.3 cm. Normal renal cortex. The right cortex measures cm. There is no demonstrated renal mass or cyst. There is no right hydronephrosis. US/Abdomen Limited IMPRESSION: Mild hepatomegaly. Right pelvic kidney. Electronically Signed: Griffin Brito, at 11:22 EDT , Service support ,
[2019-07-17 04:14] LABS: Triglycerides 1341 mg/dL
[2019-07-17 04:34] LABS: Differential Comment SCANNED
[2019-07-17] MEDS: Lactated Ringers 1,000 ML 250 ML IV ×4 (04:37→16:28)
[2019-07-17 05:36] LABS: Bedside Glucose 388 mg/dL (70-110)
[2019-07-17] MEDS: 0.9% NaCl Peripheral Flush Adult/Peds IV ×3 (05:44→16:22)
[2019-07-17] MEDS: Insulin Lispro 100 UNIT/ML INSULN.PEN SC ×5 (05:45→21:41)
[2019-07-17] MEDS: Morphine 2 MG/ML Syringe IV ×2 (05:45→13:01)
[2019-07-17] MEDS: Ketorolac 15 MG/ML Vial IV ×2 (08:35→16:22)
[2019-07-17 10:16] LABS: Bedside Glucose 286 mg/dL (70-110)
[2019-07-17] MEDS: Enoxaparin 40 MG/0.4 ML Syringe SC (10:18)
[2019-07-17 10:41] LABS: Anion Gap 6 (5-15); BUN 17 mg/dL (7-18); BUN/Creat Ratio 12.8 RATIO (10-20); Calcium,Total 7.5 mg/dL (8.5-10.1); Chloride 99 mmol/L (98-107); Creatinine, Serum 1.33 mg/dL (0.70-1.30); EST Glomerular Filtration Rate 62 mL/min (>60); Est Glom Filt Rate - Afr Amer 75 mL/min (>60); Estimated Creatinine Clearance 70.88 ml/min; Glucose 377 mg/dL (74-106); Sodium Level 129 mmol/L (136-145)
--- NOTE | 2019-07-17 11:57 | PCM.PN.BLA ---
Progress Note Patient was admitted this morning with abdominal pain and is being managed as acute pancreatitis secondary to hypertriglyceridemia. He was seen and examined. Still complains of abdominal discomfort. Denies any vomiting. Blood sugars are uncontrolled Will start patient on statins Continue on IV fluids, n.p.o. status, continue on Lantus 10 units subcu, increase sliding scale to them to high dose insulin sliding scale Repeat blood work in a.m., including lipid profile If still high, will start patient on insulin drip and consider transfer for apheresis
[2019-07-17] MEDS: Atorvastatin Calcium 80 MG Tablet PO (13:10)
--- NOTE | 2019-07-17 13:38 | CASEMGMT ---
Assessment- Completed with patient Living situation- Patient lives with his significant other and 2 children in a 2 story home. PCP: Dr Chilel Specialists: None Pharmacy: [facility] DME: None ADL's/IADL's: Independent in all activities Past SNF/rehab: No Past HH: No LW: No POA: No Plan: SW spoke with patient about self pay status. He said he missed a meeting he was supposed to have with [employer] so they stopped his Medicaid. He said he has an appt next week to re-instate his Medicaid. He said he had some of his insulin left and when he ran out he was going to go to [facility] and get the over the counter insulin, but he ended up in the hospital. He denies any further d/c needs. SW will follow and assist with d/c meds if necessary. Luisa SLADE MSW
[2019-07-17 14:55] LABS: Pathologist Review Reviewed
[2019-07-17 14:56] LABS: Bedside Glucose 236 mg/dL (70-110)
[2019-07-17 15:02] LABS: Anion Gap 5 (5-15); BUN 15 mg/dL (7-18); BUN/Creat Ratio 13.4 RATIO (10-20); Calcium,Total 7.9 mg/dL (8.5-10.1); Chloride 102 mmol/L (98-107); Creatinine, Serum 1.12 mg/dL (0.70-1.30); EST Glomerular Filtration Rate 76 mL/min (>60); Est Glom Filt Rate - Afr Amer 91 mL/min (>60); Estimated Creatinine Clearance 84.17 ml/min; Glucose 322 mg/dL (74-106); Potassium 3.9 mmol/L (3.5-5.1); Sodium Level 134 mmol/L (136-145)
[2019-07-17 18:01] LABS: Bedside Glucose 215 mg/dL (70-110)
[2019-07-17 22:06] LABS: Bedside Glucose 249 mg/dL (70-110)
[2019-07-18] VITALS (14 sets, daily range): BP systolic 114–135; BP diastolic 57–80; PULSE 90–104; RESP 16–31; TEMP 36.7–37.1; O2SAT 92–97
[2019-07-18] MEDS: Insulin Lispro 100 UNIT/ML INSULN.PEN SC ×4 (02:06→14:19)
[2019-07-18 02:16] LABS: Bedside Glucose 201 mg/dL (70-110)
[2019-07-18 06:01] LABS: Bedside Glucose 181 mg/dL (70-110)
[2019-07-18 07:03] LABS: Absolute Lymphocyte Count 2.13 X10^3/uL (0.83-4.51); Absolute Neutrophil Count 11.5 X10^3/uL (2.0-7.7); Basophil# 0.03 X10^3/uL; Basophil% 0.2 % (0-1); Eosinophil# 0.19 X10^3/uL; Eosinophils% 1.3 % (0-5); Hematocrit 45.2 % (40-54); Lymphocyte # 2.13 X10^3/ul (4.0); Lymphocyte % 14.6 % (19-41); Mean Corp Hgb Conc 35.4 g/dL (32-36); Mean Corpuscular Hgb 29.4 pg (27.0-32.0); Mean Corpuscular Volume 83.1 fL (80-94); Mean Platelet Vol. 9.5 fl (6.2-12.0); Monocyte% 4.8 % (0-10); NRBC Flagged by Analyzer 0 % (0-5); Neutrophil # 11.49 X10^3/uL (2.7-7.7); Neutrophil % 78.6 % (47-70); Platelet Count 240 K/mm3 (150-450); RBC Distribution Width CV 12.9 % (11.6-14.6); RBC Distribution Width SD 38.7 fl (35.1-43.9); Red Blood Count 5.44 M/mm3 (4.6-6.2); White Blood Count 14.6 K/mm3 (4.4-11.0)
[2019-07-18] MEDS: Ketorolac 15 MG/ML Vial IV ×2 (08:42→23:06)
[2019-07-18] MEDS: 0.9% NaCl Peripheral Flush Adult/Peds IV ×2 (08:43→20:09)
[2019-07-18] MEDS: Enoxaparin 40 MG/0.4 ML Syringe SC (09:03)
[2019-07-18 10:11] LABS: Bedside Glucose 231 mg/dL (70-110)
[2019-07-18 10:43] LABS: ALB/GLOB Ratio 0.8 RATIO (0.9-2.4); AST(SGOT) 31 U/L (15-37); Alanine Aminotransfer ALT/SGPT 28 U/L (16-61); Alkaline Phosphatase 96 U/L (45-117); Anion Gap 8 (5-15); BUN 10 mg/dL (7-18); BUN/Creat Ratio 12.8 RATIO (10-20); Chloride 102 mmol/L (98-107); Cholesterol 265 mg/dL (200); Creatinine, Serum 0.78 mg/dL (0.70-1.30); EST Glomerular Filtration Rate 114 mL/min (>60); Est Glom Filt Rate - Afr Amer 138 mL/min (>60); Estimated Creatinine Clearance 120.85 ml/min; Globulin 3.7 g/dL (2.2-4.2); Glucose 216 mg/dL (74-106); High Density Lipoprotein 28 mg/dL; Lipase 569 U/L (73-393); Protein, Total 6.7 g/dL (6.4-8.2); Sodium Level 134 mmol/L (136-145); Triglycerides 1379 mg/dL
--- NOTE | 2019-07-18 13:59 | PN_ITS ---
<Massimo Smith - Last Filed: 07/18/19 13:59> Patient Problems: Active and Suspected Problems (Last Reviewed 12/25/18 @ 14:44 by Dee Raygoza) Pancreatitis (Acute) Acute hyperglycemia (Acute) Subjective: Pt was feeling much better this AM with no pain. He attempted to have a BM this AM and did develop mild LLQ pain, however he feels much better than when he came in. No SOB/Cough. No fever/chills. No Nausea/vomiting. Hx of hypertriglyceridemia pancreatitis, for which he has had aphoresis. He strongly prefers not to have this. He requests to advance his diet today. - Physical Exam General: Alert, Oriented x3, Cooperative HEENT: Atraumatic, PERRLA, EOMI, Normocephalic Neck: Supple, No JVD, Negative Carotid Bruits Lungs: Clear to auscultation, Normal air movement Cardiovascular: Regular rate, No murmurs Abdomen: Bowel Sounds Present, Soft, Tender - mild diffuse pain, worse LLQ. Extremities: No edema, Capillary Refill Less than 3 Seconds Skin: No rashes, No breakdown Musculoskeletal: No Tenderness to Palpation of Joints or Extremities Neurological: Cranial nerves II-XII grossly intact Psych/Mental Status: Normal Affect, Appropriate, Alert and oriented to time, place, person, mood and affect Vital Signs Temp Pulse Resp BP Pulse Ox 98.1 F 90 18 118/57 L 95 07/18/19 08:15 07/18/19 08:15 07/18/19 08:15 07/18/19 08:15 07/18/19 10:19 Oxygen Flow Rate (L/min) 2 Oxygen Delivery Method Room Air Weight: 223 lb 12.307 oz Body Mass Index (BMI) 33.0 Intake and Output for Last 24 Hours 07/16/19 07/17/19 07/18/19 23:59 23:59 23:59 Intake Total 4889.16 / 4889.16 Output Total 550 / 550 Balance 4339.16 / 4339.16 Laboratory Tests Past 24 Hrs 07/17/19 07/17/19 07/18/19 00:41 14:00 06:45 WBC RBC Hgb Hct MCV MCH MCHC RDW Std Deviation RDW Coeff of Wil Plt Count MPV Immature Gran % (Auto) Neut % (Auto) Lymph % (Auto) [place] % (Auto) Eos % (Auto) Baso % (Auto) Absolute Neuts (auto) Absolute Lymphs (auto) Nucleated RBC % Diff Path Review Reviewed Sodium 134 L Cancelled Potassium 3.9 Cancelled Chloride 102 Cancelled Carbon Dioxide 27.0 Cancelled Anion Gap 5 Cancelled BUN 15 Cancelled Creatinine 1.12 Cancelled Estim Creat Clear Calc 84.17 Cancelled Est GFR (MDRD) Af Amer 91 Cancelled Est GFR (MDRD) Non-Af 76 Cancelled BUN/Creatinine Ratio 13.4 Cancelled Glucose 322 H Cancelled Calcium 7.9 L Cancelled Total Bilirubin Cancelled AST Cancelled ALT Cancelled Alkaline Phosphatase Cancelled Total Protein Cancelled Albumin Cancelled Globulin Cancelled Albumin/Globulin Ratio Cancelled Triglycerides Cancelled Cholesterol Cancelled LDL Cholesterol Cancelled VLDL Cholesterol Cancelled HDL Cholesterol Cancelled Lipase Cancelled 07/18/19 07/18/19 06:45 09:05 WBC 14.6 H RBC 5.44 Hgb 16.0 Hct 45.2 MCV 83.1 MCH 29.4 MCHC 35.4 RDW Std Deviation 38.7 RDW Coeff of Wil 12.9 Plt Count 240 MPV 9.5 Immature Gran % (Auto) 0.500 Neut % (Auto) 78.6 H Lymph % (Auto) 14.6 L [place]odd[place] % (Auto) 4.8 Eos % (Auto) 1.3 Baso % (Auto) 0.2 Absolute Neuts (auto) 11.5 H Absolute Lymphs (auto) 2.13 Nucleated RBC % 0 Diff Path Review Sodium 134 L Potassium 4.0 Chloride 102 Carbon Dioxide 24.0 Anion Gap 8 BUN 10 Creatinine 0.78 Estim Creat Clear Calc 120.85 Est GFR (MDRD) Af Amer 138 Est GFR (MDRD) Non-Af 114 BUN/Creatinine Ratio 12.8 Glucose 216 H Calcium 8.0 L Total Bilirubin 1.80 H AST 31 ALT 28 Alkaline Phosphatase 96 Total Protein 6.7 Albumin 3.0 L Globulin 3.7 Albumin/Globulin Ratio 0.8 L Triglycerides 1379 H Cholesterol 265 H LDL Cholesterol TNP VLDL Cholesterol TNP HDL Cholesterol 28 L Lipase 569 H POC Glucose 07/18/19 07/18/19 07/18/19 09:52 05:54 02:05 POC Glucose 231 H 181 H 201 H 07/17/19 07/17/19 07/17/19 21:39 17:49 14:48 POC Glucose 249 H 215 H 236 H Medical Necessity - Tobacco Use Smoking Status: Current every day smoker Tobacco Use: Cigarettes Assessment/Plan All Active Problems (Last Reviewed 12/25/18 @ 14:44 by Dee Raygoza) Pancreatitis (Acute) Acute hyperglycemia (Acute) 1. Acute hypertriglyceridemia pancreatitis - this likely occurred 2/2 him stopping his insulin therapy 5 days prior to presentation. He states that he missed a medicaid meeting so his coverage was pulled. He ran out of insulin and could not afford to refill it due to this. He has been restarted on insulin and this will be titrated. He has a meeting in a week to reinstate his coverage, and should be able to get medications filled after that. We may be able to provide him with medications for home to cover until he gets medicaid back. Otherwise, he states he can afford to get the NPH/humulin 70/30 from [facility]. -Recheck trigs in AM. Lip down. -continue q4h ssi plus titrate up lantus dose. -WBC improved. -Pain greatly improved -Advance to clears. -plan to continue atorvastatin at DC. 2. DMt2 - plan as above. 3. HLD - FLP not accurate due to high trigs. statin started as above. DVT ppx: lovenox DC planning: trend trigs. Carefully advance diet. As above will likely need temporary medication assistance until he can get medicaid reinstated. This patient was seen by Massimo Smith PA-C under the supervision of Dr. Chung. <Sandy Chung - Last Filed: 07/18/19 16:32> - Physical Exam Vital Signs Temp Pulse Resp BP Pulse Ox 98.4 F 97 18 128/78 H 97 07/18/19 14:15 07/18/19 14:15 07/18/19 14:15 07/18/19 14:15 07/18/19 14:15 Oxygen Flow Rate (L/min) 2 Oxygen Delivery Method Room Air Weight: 101.5 kg Body Mass Index (BMI) 33.0 Intake and Output for Last 24 Hours 07/16/19 07/17/19 07/18/19 23:59 23:59 23:59 Intake Total 4889.16 / 4889.16 Output Total 550 / 550 Balance 4339.16 / 4339.16 Laboratory Tests Past 24 Hrs 07/18/19 07/18/19 07/18/19 06:45 06:45 09:05 WBC 14.6 H RBC 5.44 Hgb 16.0 Hct 45.2 MCV 83.1 MCH 29.4 MCHC 35.4 RDW Std Deviation 38.7 RDW Coeff of Wil 12.9 Plt Count 240 MPV 9.5 Immature Gran % (Auto) 0.500 Neut % (Auto) 78.6 H Lymph % (Auto) 14.6 L [place] % (Auto) 4.8 Eos % (Auto) 1.3 Baso % (Auto) 0.2 Absolute Neuts (auto) 11.5 H Absolute Lymphs (auto) 2.13 Nucleated RBC % 0 Sodium Cancelled 134 L Potassium Cancelled 4.0 Chloride Cancelled 102 Carbon Dioxide Cancelled 24.0 Anion Gap Cancelled 8 BUN Cancelled 10 Creatinine Cancelled 0.78 Estim Creat Clear Calc Cancelled 120.85 Est GFR (MDRD) Af Amer Cancelled 138 Est GFR (MDRD) Non-Af Cancelled 114 BUN/Creatinine Ratio Cancelled 12.8 Glucose Cancelled 216 H Calcium Cancelled 8.0 L Total Bilirubin Cancelled 1.80 H AST Cancelled 31 ALT Cancelled 28 Alkaline Phosphatase Cancelled 96 Total Protein Cancelled 6.7 Albumin Cancelled 3.0 L Globulin Cancelled 3.7 Albumin/Globulin Ratio Cancelled 0.8 L Triglycerides Cancelled 1379 H Cholesterol Cancelled 265 H LDL Cholesterol Cancelled TNP VLDL Cholesterol Cancelled TNP HDL Cholesterol Cancelled 28 L Lipase Cancelled 569 H 07/18/19 14:45 WBC RBC Hgb Hct MCV MCH MCHC RDW Std Deviation RDW Coeff of Wil Plt Count MPV Immature Gran % (Auto) Neut % (Auto) Lymph % (Auto) [place] % (Auto) Eos % (Auto) Baso % (Auto) Absolute Neuts (auto) Absolute Lymphs (auto) Nucleated RBC % Sodium 135 L Potassium 3.7 Chloride 102 Carbon Dioxide 29.0 Anion Gap 4 L BUN 10 Creatinine 0.78 Estim Creat Clear Calc 120.85 Est GFR (MDRD) Af Amer 139 Est GFR (MDRD) Non-Af 114 BUN/Creatinine Ratio 12.8 Glucose 203 H Calcium 8.0 L Total Bilirubin AST ALT Alkaline Phosphatase Total Protein Albumin Globulin Albumin/Globulin Ratio Triglycerides Cholesterol LDL Cholesterol VLDL Cholesterol HDL Cholesterol Lipase POC Glucose 07/18/19 07/18/19 07/18/19 16:08 14:16 09:52 POC Glucose 155 H 180 H 231 H 07/18/19 07/18/19 07/17/19 05:54 02:05 21:39 POC Glucose 181 H 201 H 249 H 07/17/19 17:49 POC Glucose 215 H Assessment/Plan This patient was seen in conjunction with ANIBAL Torres. I have independently interviewed and examined the patient and reviewed pertinent historical, laboratory, and other data. Please refer to ANIBAL Torres note for his patient's presentation, findings, and recommendations. I have reviewed and his note and concur with his documentation Patient feels much improved. He denied any abdominal discomfort. He is tolerating liquid diet. Denied any nausea or vomiting or diarrhea. Vitals are stable. Physical Exam: Gen: Comfortable, not pale, not jaundiced, flat affect CVS:HS I +II, regular, no murmurs RESP: Clinically clear to auscultation GI: BS present and normal, soft, mild left-sided abdominal tenderness mostly in the left upper quadrant and lower quadrant EXT:No edema ASSESSMENT: 1. Acute hypertriglyceridemia pancreatitis, history of aapheresis 4 years ago 2. Type II DM 3. Hypertriglyceridemia 4. DVT prophylaxis with Lovenox subcu Plan: Change patient to stepdown status Insulin drip at 0.1 units/kg; not for DKA-no titration intended Continue to monitor blood sugars q. 1h BMP every 4 to monitor for electrolyte imbalances Check lipid profile twice daily Stop insulin drip when triglycerides are less than 500 Code Visit Inpatient E&M: 86924 Subs Hosp L2
[2019-07-18 14:25] LABS: Bedside Glucose 180 mg/dL (70-110)
[2019-07-18] MEDS: Dextrose 5%/0.9% NaCl 1,000 ML 150 ML IV (15:59)
[2019-07-18 16:15] LABS: Bedside Glucose 155 mg/dL (70-110)
[2019-07-18 16:22] LABS: Anion Gap 4 (5-15); BUN 10 mg/dL (7-18); BUN/Creat Ratio 12.8 RATIO (10-20); Chloride 102 mmol/L (98-107); Creatinine, Serum 0.78 mg/dL (0.70-1.30); EST Glomerular Filtration Rate 114 mL/min (>60); Est Glom Filt Rate - Afr Amer 139 mL/min (>60); Estimated Creatinine Clearance 120.85 ml/min; Glucose 203 mg/dL (74-106); Potassium 3.7 mmol/L (3.5-5.1); Sodium Level 135 mmol/L (136-145)
[2019-07-18 17:00] LABS: Bedside Glucose 193 mg/dL (70-110)
[2019-07-18 18:10] LABS: Bedside Glucose 127 mg/dL (70-110)
[2019-07-18 19:05] LABS: Anion Gap 4 (5-15); BUN 9 mg/dL (7-18); BUN/Creat Ratio 10.3 RATIO (10-20); Calcium,Total 8.2 mg/dL (8.5-10.1); Chloride 104 mmol/L (98-107); Creatinine, Serum 0.88 mg/dL (0.70-1.30); EST Glomerular Filtration Rate 100 mL/min (>60); Est Glom Filt Rate - Afr Amer 122 mL/min (>60); Estimated Creatinine Clearance 107.12 ml/min; Glucose 113 mg/dL (74-106); Potassium 3.7 mmol/L (3.5-5.1); Sodium Level 136 mmol/L (136-145)
[2019-07-18 19:11] LABS: Bedside Glucose 75 mg/dL (70-110)
[2019-07-18 19:30] LABS: Triglycerides 1155 mg/dL
[2019-07-18] MEDS: Albuterol 2.5 MG/3 ML VIAL.NEB. INHALATION (19:30)
[2019-07-18] MEDS: Dextrose 50%-Water 25 GM/50 ML DISP.SYRIN IV (20:09)
[2019-07-18] MEDS: Furosemide 40 MG/4 ML Vial IV (20:09)
[2019-07-18 20:51] LABS: Bedside Glucose 119 mg/dL (70-110)
[2019-07-18] MEDS: Atorvastatin Calcium 80 MG Tablet PO (21:05)
[2019-07-18 21:11] LABS: Bedside Glucose 152 mg/dL (70-110)
[2019-07-18 22:06] LABS: Bedside Glucose 96 mg/dL (70-110)
[2019-07-18 22:10] LABS: High Density Lipoprotein 27 mg/dL
[2019-07-18 22:12] LABS: Cholesterol 291 mg/dL (200); Triglycerides 1082 mg/dL
[2019-07-18 23:11] LABS: Bedside Glucose 106 mg/dL (70-110)
[2019-07-18 23:32] LABS: Anion Gap 7 (5-15); BUN 7 mg/dL (7-18); BUN/Creat Ratio 7.7 RATIO (10-20); Calcium,Total 8.1 mg/dL (8.5-10.1); Chloride 101 mmol/L (98-107); Creatinine, Serum 0.91 mg/dL (0.70-1.30); EST Glomerular Filtration Rate 96 mL/min (>60); Est Glom Filt Rate - Afr Amer 116 mL/min (>60); Estimated Creatinine Clearance 103.59 ml/min; Glucose 123 mg/dL (74-106); Potassium 3.7 mmol/L (3.5-5.1); Sodium Level 135 mmol/L (136-145)
[2019-07-19] VITALS (21 sets, daily range): BP systolic 106–126; BP diastolic 66–93; PULSE 72–91; RESP 14–24; TEMP 36.1–37; O2SAT 92–97
[2019-07-19 00:11] LABS: Bedside Glucose 124 mg/dL (70-110)
[2019-07-19 01:06] LABS: Bedside Glucose 124 mg/dL (70-110)
[2019-07-19 02:16] LABS: Bedside Glucose 125 mg/dL (70-110)
[2019-07-19 03:06] LABS: Bedside Glucose 150 mg/dL (70-110)
[2019-07-19 03:15] LABS: Absolute Neutrophil Count 7.7 X10^3/uL (2.0-7.7); Basophil# 0.05 X10^3/uL; Basophil% 0.5 % (0-1); Eosinophil# 0.19 X10^3/uL; Eosinophils% 1.8 % (0-5); Hematocrit 43.1 % (40-54); Hemoglobin 15.1 g/dL (13.0-16.5); Lymphocyte % 19.5 % (19-41); Mean Corpuscular Hgb 29.2 pg (27.0-32.0); Mean Corpuscular Volume 83.4 fL (80-94); Mean Platelet Vol. 9.2 fl (6.2-12.0); Monocyte# 0.67 X10^3/uL; Monocyte% 6.2 % (0-10); NRBC Flagged by Analyzer 0 % (0-5); Neutrophil # 7.71 X10^3/uL (2.7-7.7); Neutrophil % 71.6 % (47-70); Platelet Count 161 K/mm3 (150-450); RBC Distribution Width SD 39.2 fl (35.1-43.9); Red Blood Count 5.17 M/mm3 (4.6-6.2); White Blood Count 10.8 K/mm3 (4.4-11.0)
[2019-07-19] MEDS: Dextrose 5%/0.9% NaCl 1,000 ML 75 ML IV (03:23)
[2019-07-19 04:06] LABS: Bedside Glucose 141 mg/dL (70-110)
[2019-07-19 04:15] LABS: Albumin, Serum 2.7 g/dL (3.2-5.0); BUN 7 mg/dL (7-18); Creatinine, Serum 0.87 mg/dL (0.70-1.30); EST Glomerular Filtration Rate 101 mL/min (>60); Est Glom Filt Rate - Afr Amer 122 mL/min (>60); Estimated Creatinine Clearance 108.35 ml/min; Globulin 3.4 g/dL (2.2-4.2); Glucose 141 mg/dL (74-106); Protein, Total 6.1 g/dL (6.4-8.2)
[2019-07-19 04:16] LABS: ALB/GLOB Ratio 0.8 RATIO (0.9-2.4); AST(SGOT) 21 U/L (15-37); Alanine Aminotransfer ALT/SGPT 25 U/L (16-61); Alkaline Phosphatase 98 U/L (45-117); Anion Gap 11 (5-15); Calcium,Total 7.5 mg/dL (8.5-10.1); Chloride 102 mmol/L (98-107); Cholesterol 307 mg/dL (200); High Density Lipoprotein 29 mg/dL; Lipase 223 U/L (73-393); Sodium Level 139 mmol/L (136-145); Triglycerides 920 mg/dL
[2019-07-19] MEDS: Potassium Chloride 40 MEQ in Dextrose 5%/0.9% NaCl 1,000 ML 75 ML IV (05:08)
[2019-07-19 05:25] LABS: Bedside Glucose 119 mg/dL (70-110)
[2019-07-19 06:06] LABS: Bedside Glucose 127 mg/dL (70-110)
[2019-07-19 07:01] LABS: Bedside Glucose 105 mg/dL (70-110)
[2019-07-19] MEDS: Enoxaparin 40 MG/0.4 ML Syringe SC (08:12)
[2019-07-19 08:36] LABS: Bedside Glucose 154 mg/dL (70-110)
[2019-07-19 09:06] LABS: Bedside Glucose 163 mg/dL (70-110)
[2019-07-19 09:32] LABS: Anion Gap 6 (5-15); BUN 8 mg/dL (7-18); BUN/Creat Ratio 9.8 RATIO (10-20); Calcium,Total 8.2 mg/dL (8.5-10.1); Chloride 104 mmol/L (98-107); Creatinine, Serum 0.81 mg/dL (0.70-1.30); EST Glomerular Filtration Rate 109 mL/min (>60); Est Glom Filt Rate - Afr Amer 132 mL/min (>60); Estimated Creatinine Clearance 116.38 ml/min; Glucose 106 mg/dL (74-106); Potassium 3.5 mmol/L (3.5-5.1); Sodium Level 137 mmol/L (136-145)
[2019-07-19 11:00] LABS: Bedside Glucose 109 mg/dL (70-110)
[2019-07-19 11:06] LABS: Bedside Glucose 185 mg/dL (70-110)
[2019-07-19 12:15] LABS: Bedside Glucose 189 mg/dL (70-110)
--- NOTE | 2019-07-19 12:24 | CASEMGMT ---
Addendum entered by Luisa Killian 07/19/19 15:17: DORIS let patient know about medications at [facility] pharmacy and that [facility] can assist 1 time a year. SW let him know someone will have to go to pharmacy tomorrow and last picker the medications before 1p. Luisa MARTÍNEZ Original Note: Patient will be discharged on insulin and he does not have insurance. SW will utilize [facility] prescription assistance program. He will be discharged tomorrow, which is Monday so physician sent his prescriptions to [facility] Pharmacy today. Someone will have to go to [facility] Pharmacy Saturday before 1p to last picker the prescriptions. DORIS passed this along to RN. Luisa MARTÍNEZ
[2019-07-19 13:00] LABS: Bedside Glucose 179 mg/dL (70-110)
[2019-07-19 13:19] LABS: Anion Gap 7 (5-15); BUN 8 mg/dL (7-18); BUN/Creat Ratio 8.6 RATIO (10-20); Calcium,Total 8.1 mg/dL (8.5-10.1); Chloride 103 mmol/L (98-107); Cholesterol 254 mg/dL (200); Creatinine, Serum 0.93 mg/dL (0.70-1.30); EST Glomerular Filtration Rate 94 mL/min (>60); Est Glom Filt Rate - Afr Amer 114 mL/min (>60); Estimated Creatinine Clearance 101.36 ml/min; Glucose 177 mg/dL (74-106); High Density Lipoprotein 27 mg/dL; Potassium 3.9 mmol/L (3.5-5.1); Sodium Level 136 mmol/L (136-145); Triglycerides 483 mg/dL
--- NOTE | 2019-07-19 13:46 | PN_ITS ---
Patient Problems: Active and Suspected Problems (Last Reviewed 12/25/18 @ 14:44 by Dee Raygoza) Pancreatitis (Acute) Acute hyperglycemia (Acute) Subjective: Patient was seen and examined. He feels improved. He is able to tolerate his diet with any problems. Started on insulin drip for hypertriglyceridemia. Had episodes of hypoglycemia, resolved with D50 and with increase in his diet. Vitals/I&O's: Vital Signs Temp Pulse Resp BP Pulse Ox 98.3 F 80 20 H 106/66 93 07/19/19 12:00 07/19/19 12:00 07/19/19 12:00 07/19/19 12:00 07/19/19 12:00 Oxygen Flow Rate (L/min) 2 Oxygen Delivery Method Room Air Weight: 101.5 kg Body Mass Index (BMI) 33.0 Finger Stick Blood Glucose 189 Intake and Output for Last 24 Hours 07/17/19 07/18/19 07/19/19 23:59 23:59 23:59 Intake Total 4889.16 / 4889.16 986.48 / 1144.22 1259.94 / 1259.94 Output Total 550 / 550 1200 / 1200 Balance 4339.16 / 4339.16 -213.52 / -55.78 1259.94 / 1259.94 General: Alert, Oriented x3, Cooperative, No apparent distress HEENT: Atraumatic, PERRLA, EOMI, Normocephalic Oral: Moist Mucosa Neck: Supple Lungs: Clear to auscultation, Normal air movement Cardiovascular: Regular rate, Regular Rhythm, Normal S1, Normal S2, No murmurs Abdomen: Bowel Sounds Present, Soft, Non Tender, Non-Distended, No Hepato- splenomegaly Extremities: No edema Skin: No rashes Musculoskeletal: No Tenderness to Palpation of Joints or Extremities Lymphatic: No Cervical, Supraclavicular, or Inguinal Adenopathy Neurological: Cranial nerves II-XII grossly intact, Neuro grossly intact Psych/Mental Status: Normal Affect, Appropriate Laboratory Results 07/18/19 14:16: POC Glucose 180 H 07/18/19 14:45: Sodium 135 L, Potassium 3.7, Chloride 102, Carbon Dioxide 29.0, Anion Gap 4 L, BUN 10, Creatinine 0.78, Estim Creat Clear Calc 120.85, Est GFR (MDRD) Af Amer 139, Est GFR (MDRD) Non-Af 114, BUN/Creatinine Ratio 12.8, Glucose 203 H, Calcium 8.0 L 07/18/19 16:08: POC Glucose 155 H 07/18/19 16:56: POC Glucose 193 H 07/18/19 18:03: POC Glucose 127 H 07/18/19 18:20: Sodium 136, Potassium 3.7, Chloride 104, Carbon Dioxide 28.0, Anion Gap 4 L, BUN 9, Creatinine 0.88, Estim Creat Clear Calc 107.12, Est GFR (MDRD) Af Amer 122, Est GFR (MDRD) Non-Af 100, BUN/Creatinine Ratio 10.3, Glucose 113 H, Calcium 8.2 L 07/18/19 18:20: Triglycerides 1155 H 07/18/19 18:20: Triglycerides 1082 H, Cholesterol 291 H, LDL Cholesterol TNP, VLDL Cholesterol TNP, HDL Cholesterol 27 L 07/18/19 19:03: POC Glucose 75 07/18/19 20:00: POC Glucose 119 H 07/18/19 21:04: POC Glucose 152 H 07/18/19 22:01: POC Glucose 96 07/18/19 22:52: Sodium 135 L, Potassium 3.7, Chloride 101, Carbon Dioxide 27.0, Anion Gap 7, BUN 7, Creatinine 0.91, Estim Creat Clear Calc 103.59, Est GFR (MDRD) Af Amer 116, Est GFR (MDRD) Non-Af 96, BUN/Creatinine Ratio 7.7 L, Glucose 123 H, Calcium 8.1 L 07/18/19 23:05: POC Glucose 106 07/19/19 00:04: POC Glucose 124 H 07/19/19 01:01: POC Glucose 124 H 07/19/19 01:59: POC Glucose 125 H 07/19/19 02:55: WBC 10.8, RBC 5.17, Hgb 15.1, Hct 43.1, MCV 83.4, MCH 29.2, MCHC 35.0, RDW Std Deviation 39.2, RDW Coeff of Wil 13.0, Plt Count 161, MPV 9.2, Immature Gran % (Auto) 0.400, Neut % (Auto) 71.6 H, Lymph % (Auto) 19.5, [place] % (Auto) 6.2, Eos % (Auto) 1.8, Baso % (Auto) 0.5, Absolute Neuts (auto) 7.7, Absolute Lymphs (auto) 2.10, Nucleated RBC % 0 07/19/19 02:55: Sodium 139, Potassium 3.0 L, Chloride 102, Carbon Dioxide 26.0, Anion Gap 11, BUN 7, Creatinine 0.87, Estim Creat Clear Calc 108.35, Est GFR (MDRD) Af Amer 122, Est GFR (MDRD) Non-Af 101, BUN/Creatinine Ratio 8.0 L, Glucose 141 H, Calcium 7.5 L, Total Bilirubin 1.30 H, AST 21, ALT 25, Alkaline Phosphatase 98, Total Protein 6.1 L, Albumin 2.7 L, Globulin 3.4, Albumin/Globulin Ratio 0.8 L, Triglycerides 920 H, Cholesterol 307 H, LDL Cholesterol TNP, VLDL Cholesterol TNP, HDL Cholesterol 29 L, Lipase 223 07/19/19 02:59: POC Glucose 150 H 07/19/19 04:01: POC Glucose 141 H 07/19/19 05:00: POC Glucose 119 H 07/19/19 06:00: POC Glucose 127 H 07/19/19 06:43: Sodium 137, Potassium 3.5, Chloride 104, Carbon Dioxide 27.0, Anion Gap 6, BUN 8, Creatinine 0.81, Estim Creat Clear Calc 116.38, Est GFR (MDRD) Af Amer 132, Est GFR (MDRD) Non-Af 109, BUN/Creatinine Ratio 9.8 L, Glucose 106, Calcium 8.2 L 07/19/19 06:56: POC Glucose 105 07/19/19 08:09: POC Glucose 154 H 07/19/19 09:01: POC Glucose 163 H 07/19/19 09:57: POC Glucose 109 07/19/19 10:58: POC Glucose 185 H 07/19/19 11:03: Sodium 136, Potassium 3.9, Chloride 103, Carbon Dioxide 26.0, Anion Gap 7, BUN 8, Creatinine 0.93, Estim Creat Clear Calc 101.36, Est GFR (MDRD) Af Amer 114, Est GFR (MDRD) Non-Af 94, BUN/Creatinine Ratio 8.6 L, Glucose 177 H, Calcium 8.1 L, Triglycerides 483 H, Cholesterol 254 H, LDL Cholesterol TNP, VLDL Cholesterol TNP, HDL Cholesterol 27 L 07/19/19 11:56: POC Glucose 189 H 07/19/19 12:58: POC Glucose 179 H Current Medications Albuterol Sulfate (Ventolin Aerosols) 2.5 mg INHALATION Q2H PRN PRN PRN Reason: sob/wheezing Last Admin: 07/18/19 19:30 Dose: 2.5 mg Documented by: Atorvastatin Calcium (Lipitor) 80 mg PO QHS [facility] Last Admin: 07/18/19 21:05 Dose: 80 mg Documented by: Dextrose (D50w Syringe) 0 gm IV X1 PRN; Protocol PRN Reason: Hypoglycemia Dextrose (D50w Syringe) 0 gm IV X1 PRN; Protocol PRN Reason: Hypoglycemia Enoxaparin Sodium (Lovenox) 40 mg SC DAILY@1000 [facility]CI Last Admin: 07/19/19 08:12 Dose: 40 mg Documented by: Glucagon () 1 mg IM .X1 PRN PRN Reason: Hypoglycemia Glucagon () 1 mg IM .X1 PRN PRN Reason: Hypoglycemia Guaifenesin (Mucinex) 600 mg PO BID PRN PRN Reason: COUGH Insulin Glargine (Lantus (Bkc)) 24 units SC QHS [facility] Insulin Human Lispro (Humalog Kwikpen (Bkc)) 6 unit SC BREAKFAST [facility]CI Insulin Human Lispro (Humalog Kwikpen (Bkc)) 6 unit SC DINNER [facility]CI Insulin Human Lispro (Humalog Kwikpen (Bkc)) 6 unit SC LUNCH [facility]CI Insulin Human Lispro (Humalog Kwikpen (Bkc)) 0 unit SC ACHS [facility]; Protocol Ketorolac Tromethamine (Toradol) 15 mg IV Q6H PRN PRN PRN Reason: PAIN Stop: 07/22/19 04:06 Last Admin: 07/18/19 23:06 Dose: 15 mg Documented by: Nicotine (Nicoderm Cq (Pbkc)) 21 mg TRANSDERM. DAILY [facility] Last Admin: 07/19/19 08:12 Dose: 21 mg Documented by: Ondansetron HCl (Zofran) 4 mg IV Q8H PRN PRN PRN Reason: NAUSEA/VOMITING Sodium Chloride () 10 - 40 ml IV UD PRN PRN Reason: SALINE FLUSH Last Admin: 07/18/19 20:09 Dose: 20 ml Documented by: Medical Necessity - Tobacco Use Smoking Status: Current every day smoker Tobacco Use: Cigarettes Assessment/Plan All Active Problems (Last Reviewed 12/25/18 @ 14:44 by Dee Raygoza) Pancreatitis (Acute) Acute hyperglycemia (Acute) 1. Acute hypertriglyceridemia pancreatitis, history of apheresis 4 years ago, admitting triglyceride of 1349 Started on insulin drip, triglycerides this morning is 483, insulin drip discontinued Continue on statins, repeat lipid profile in a.m. 2. Type II DM, off insulin drip, will resume on home insulin Lantus with pre- meal lispro, continue with blood sugar checks with insulin sliding scale 3. Hypokalemia, resolved, recheck in a.m. 4. DVT prophylaxis with Lovenox subcu Code Visit Inpatient E&M: 78665 Subs Hosp L2
[2019-07-19] MEDS: Insulin Lispro 100 UNIT/ML INSULN.PEN SC ×2 (16:21→23:14)
[2019-07-19] MEDS: Insulin Lispro 100 UNIT/ML INSULN.PEN 6 UNIT SC (16:21)
[2019-07-19 16:41] LABS: Bedside Glucose 168 mg/dL (70-110)
[2019-07-19] MEDS: Atorvastatin Calcium 80 MG Tablet PO (23:13)
[2019-07-19 23:26] LABS: Bedside Glucose 257 mg/dL (70-110)
[2019-07-20 03:00] VITALS: PULSE 83
[2019-07-20 04:20] VITALS: BP 100/69; PULSE 79; RESP 16; TEMP 36.6; O2SAT 93
[2019-07-20 06:18] LABS: Anion Gap 9 (5-15); BUN 10 mg/dL (7-18); BUN/Creat Ratio 11.8 RATIO (10-20); Calcium,Total 8.3 mg/dL (8.5-10.1); Chloride 104 mmol/L (98-107); Cholesterol 336 mg/dL (200); Creatinine, Serum 0.85 mg/dL (0.70-1.30); EST Glomerular Filtration Rate 104 mL/min (>60); Est Glom Filt Rate - Afr Amer 126 mL/min (>60); Glucose 227 mg/dL (74-106); High Density Lipoprotein 24 mg/dL; Potassium 4.4 mmol/L (3.5-5.1); Sodium Level 138 mmol/L (136-145); Triglycerides 743 mg/dL
[2019-07-20 07:00] VITALS: PULSE 83
[2019-07-20 07:35] VITALS: O2SAT 91
[2019-07-20 08:01] VITALS: BP 106/71; PULSE 84; RESP 14; TEMP 36.6; O2SAT 93
[2019-07-20] MEDS: Insulin Lispro 100 UNIT/ML INSULN.PEN SC (08:07)
[2019-07-20] MEDS: Insulin Lispro 100 UNIT/ML INSULN.PEN 6 UNIT SC (08:07)
[2019-07-20] MEDS: Enoxaparin 40 MG/0.4 ML Syringe SC (08:08)
[2019-07-20 08:16] LABS: Bedside Glucose 232 mg/dL (70-110)
--- NOTE | 2019-07-20 11:22 | DCINST_ITS ---
- Discharge Diagnoses Current Active Problems: Current Active and Chronic Problems (Last Reviewed 12/25/18 @ 14:44 by Dee Raygoza) Pancreatitis (Acute) Acute hyperglycemia (Acute) You will use the following diet at home:: Calorie/Carbohydrate Controlled (specify 1200, 1400, etc) - 1800 meg/day, Other - Very low fat, low carb, low calorie Your food should be the consistency of: Regular Your liquids should be the consistency of: Regular/Thin Discharge Activity: Return to Normal Activity Allergies/Adverse Reactions: Allergies No Known Allergies Allergy (Verified 12/25/18 14:42) Medications to take at Discharge Blood Sugar Diagnostic [Freestyle Test Strips] 0 .ROUTE .MEDSUPPLY 07/17/19 Blood Sugar Diagnostic [Relion Prime Test Strips] 0 .ROUTE .MEDSUPPLY 07/17/19 Lancets [Freestyle Lancets] 0 .ROUTE .MEDSUPPLY 07/17/19 Atorvastatin Calcium [Lipitor] 80 mg PO QHS 30 Days #30 tab 07/19/19 Nicotine [Nicoderm Cq] 21 mg TRANSDERM. DAILY 30 Days #30 patch 07/19/19 Pen Needle, Diabetic [Pen Needle] 1 ndl SUBCUT ACHS #1 box 07/19/19 Insulin Glargine [Lantus SoloStar Pen] 24 units SUBCUT QHS #1 pen 07/20/19 Insulin Lispro [Humalog KwikPen] 6 unit SUBCUT TID #1 insuln.pen 07/20/19 The following prescriptions were given: Insulin Lispro [Humalog KwikPen] 6 unit SUBCUT TID #1 insuln.pen Transmission Status: Pending to [facility] Insulin Glargine [Lantus SoloStar Pen] 24 units SUBCUT QHS #1 pen Transmission Status: Pending to [facility] Atorvastatin Calcium [Lipitor] 80 mg PO QHS 30 Days #30 tab Transmission Status: Received by [facility] Nicotine [Nicoderm Cq] 21 mg TRANSDERM. DAILY 30 Days #30 patch Pen Needle, Diabetic [Pen Needle] 1 ndl SUBCUT ACHS #1 box Transmission Status: Received by [facility] Primary Care Physician: Paris Chilel MD [Primary Care Provider] - Please follow up with your Primary Care Physician in: 1 week Test Results: Test results from this visit will be discussed in further detail at your follow- up appointment, if applicable. Proposed Discharge Date: 07/20/19
--- NOTE | 2019-07-20 14:19 | PCM.DC.SUM ---
<Massimo Smith - Last Filed: 07/20/19 14:19> Discharge Date and Diagnosis Date of Admission: 07/17/19 Date of Discharge: 07/20/19 - Primary Discharge Diagnosis Acute pancreatitis 2/2 hypertriglyceridemia T2DM with poor control HLD Nicotine abuse - Secondary Discharge Diagnosis Chronic Problems (Last Reviewed 12/25/18 @ 14:44 by Dee Raygoza) Diabetes mellitus, type II (Chronic) History of tobacco use (Chronic) Chest pain (Chronic) Hospital Course and Treatment Imaging Results: CT/Abdomen/Pelvis without Cont IMPRESSION: 1. Mild acute pancreatitis, primarily involving the pancreatic body and tail, with no evidence of pseudocyst formation. 2. Ptotic midline right kidney. US/Abdomen Limited IMPRESSION: Mild hepatomegaly. Right pelvic kidney. Operations: None Procedures: None Summary of Care Provided: Hospital Course: The patient is a 43 year old M with past medical history of poorly controlled diabetes, pancreatitis secondary to hypertriglyceridemia that has previously required a pheresis, who presented to the emergency room with severe abdominal pain similar to prior episodes of pancreatitis. He had severely elevated lipase as well as triglycerides of 1300, and CT of the abdomen consistent with pancreatitis. He was admitted to the PCU for acute pancreatitis secondary to hypertriglyceridemia, he was placed on insulin, statin, and given supportive care with IV fluids and made n.p.o. He did well overnight with improvement in his nausea vomiting abdominal pain. Is able to be advanced to clears without difficulty. His triglycerides were slow to respond to treatment. He was temporarily placed on an insulin drip. This was able to be discontinued and he was transitioned back to his home insulin doses. He admitted that he had stopped taking short and long-acting insulin about a week prior. This was because he is insurance lapsed and he cannot afford to fill his prescription. He had a plan to have his insurance reinstated at a meeting in the next several weeks. As we were able to slowly advance his diet back to normal diet with restrictions on greasy and fatty foods, and limited caloric and carbohydrate intake, and as he had no further abdominal pain, nausea or vomiting, we felt him appropriate for discharge. We were able to provide him with a months worth of insulin at his per previous home dose to cover him until he is able to get his insurance back. He was also prescribed liptor and fenofibrate. He was discharged home in stable condition. He will need follow-up with his PCP in 1 week. This patient was seen by Massimo Smith PA-C under the supervision of Doctor Sheldon. [] - Physical Exam General: Alert, Oriented x3, Cooperative HEENT: Atraumatic, PERRLA, EOMI, Normocephalic Neck: Supple, No JVD, Negative Carotid Bruits Lungs: Clear to auscultation, Normal air movement Cardiovascular: Regular rate, No murmurs Abdomen: Bowel Sounds Present, Soft, Non Tender Extremities: No edema, Capillary Refill Less than 3 Seconds Skin: No rashes, No breakdown Musculoskeletal: No Tenderness to Palpation of Joints or Extremities Neurological: Cranial nerves II-XII grossly intact Psych/Mental Status: Normal Affect, Appropriate, Alert and oriented to time, place, person, mood and affect Vital Signs Temp Pulse Resp BP Pulse Ox 97.8 F 84 14 106/71 93 07/20/19 08:01 07/20/19 08:01 07/20/19 08:01 07/20/19 08:01 07/20/19 08:01 Oxygen Flow Rate (L/min) 2 Oxygen Delivery Method Room Air Weight: 223 lb 12.307 oz Body Mass Index (BMI) 33.0 Finger Stick Blood Glucose 189 Intake and Output for Last 24 Hours 07/18/19 07/19/19 07/20/19 23:59 23:59 23:59 Intake Total 986.48 / 1144.22 3050.97 / 3050.97 200 / 200 Output Total 1200 / 1200 Balance -213.52 / -55.78 3050.97 / 3050.97 200 / 200 Laboratory Tests Past 24 Hrs 07/20/19 05:25 Sodium 138 Potassium 4.4 Chloride 104 Carbon Dioxide 25.0 Anion Gap 9 BUN 10 Creatinine 0.85 Estim Creat Clear Calc 110.90 Est GFR (MDRD) Af Amer 126 Est GFR (MDRD) Non-Af 104 BUN/Creatinine Ratio 11.8 Glucose 227 H Calcium 8.3 L Triglycerides 743 H Cholesterol 336 H LDL Cholesterol TNP VLDL Cholesterol TNP HDL Cholesterol 24 L POC Glucose 07/20/19 07/19/19 07/19/19 08:06 23:12 16:17 POC Glucose 232 H 257 H 168 H Discharge Diet: Low fat/ Low Cholesterol, 1800 Calorie Control Diet, 2000 mg Sodium Diet, - - low fat diet Discharge Activity: Return to Normal Activity Home Medications: Medications to take at Discharge Blood Sugar Diagnostic [Freestyle Test Strips] 0 .ROUTE .MEDSUPPLY 07/17/19 Blood Sugar Diagnostic [Relion Prime Test Strips] 0 .ROUTE .MEDSUPPLY 07/17/19 Lancets [Freestyle Lancets] 0 .ROUTE .MEDSUPPLY 07/17/19 Atorvastatin Calcium [Lipitor] 80 mg PO QHS 30 Days #30 tab 07/19/19 Nicotine [Nicoderm Cq] 21 mg TRANSDERM. DAILY 30 Days #30 patch 07/19/19 Pen Needle, Diabetic [Pen Needle] 1 ndl SUBCUT ACHS #1 box 07/19/19 Fenofibrate 50 mg PO DAILY #30 cap 07/20/19 Insulin Glargine [Lantus SoloStar Pen] 24 units SUBCUT QHS #1 pen 07/20/19 Insulin Lispro [Humalog KwikPen] 6 unit SUBCUT TID #1 insuln.pen 07/20/19 Following Prescrptions Were Given to Patient: Fenofibrate 50 mg PO DAILY #30 cap Transmission Status: Received by [facility] Insulin Lispro [Humalog KwikPen] 6 unit SUBCUT TID #1 insuln.pen Transmission Status: Received by [facility] Insulin Glargine [Lantus SoloStar Pen] 24 units SUBCUT QHS #1 pen Transmission Status: Received by [facility] Atorvastatin Calcium [Lipitor] 80 mg PO QHS 30 Days #30 tab Transmission Status: Received by [facility] Nicotine [Nicoderm Cq] 21 mg TRANSDERM. DAILY 30 Days #30 patch Pen Needle, Diabetic [Pen Needle] 1 ndl SUBCUT ACHS #1 box Transmission Status: Received by [facility] Primary Care Physician: Paris Chilel MD [Primary Care Provider] - Please follow up with your Primary Care Physician in: 1 week Please Follow Up With: Paris Chilel MD Disposition: Home Minutes spent on discharge:: 35 Patient Condition:: Stable Medical Necessity - Tobacco Use Smoking Status: Current every day smoker Tobacco Use: Cigarettes Meaningful Use Info Meaningful Use Diagnoses (Choose all that apply): None applicable <[place] - Last Filed: 07/20/19 14:52> Discharge Date and Diagnosis - Secondary Discharge Diagnosis Chronic Problems (Last Reviewed 12/25/18 @ 14:44 by Dee Raygoza) Diabetes mellitus, type II (Chronic) History of tobacco use (Chronic) Chest pain (Chronic) Hospital Course and Treatment Summary of Care Provided: This patient was seen in conjunction with ANIBAL Torres. I have independently interviewed and examined the patient and reviewed pertinent historical, laboratory, and other data. Please refer to ANIBAL Torres note for his patient's presentation, findings, and recommendations. I have reviewed and his note and concur with his documentation 43-year-old male with past medical history of type II DM, insulin-dependent, history of triglyceride-induced pancreatitis status post apheresis, who presented to the emergency room with severe abdominal pain. Admitted to having missed a couple of days of his insulin as well as he has been eating lots of cheese sticks. He had elevated lipase more than 10,000 on admission, his triglycerides was 1349. CT scan of the abdomen showed acute pancreatitis. Patient was admitted to the telemetry floor and started on IV fluids and conservative management for acute pancreatitis. Patient was started on statins and insulin. His repeat lipase was 563. His triglycerides remained elevated at 1379. Patient was started on insulin drip with improvement in his triglyceride 12/17/1982. He was taken off the insulin drip and continued on his home insulin. Social work and case management were consulted to assist with medication assistance at discharge. Patient was given 1 month supply of his insulins. He continued to improve and was gradually advanced on his diet. Seen by dietitian and a low-fat diet as well as moderate exercises with recommended On the day of discharge, patient was seen and examined. He denied any complaints. Physical Exam: Gen: Appears comfortable, not pale, not jaundiced CVS:HS I +II, regular, no murmurs RESP: CTA GI: BS present and normal, soft, nontender, no palpable organs EXT:No edema LATH TIER: Grossly intact - Physical Exam Vital Signs Temp Pulse Resp BP Pulse Ox 97.8 F 84 14 106/71 93 07/20/19 08:01 07/20/19 08:01 07/20/19 08:01 07/20/19 08:01 07/20/19 08:01 Oxygen Flow Rate (L/min) 2 Oxygen Delivery Method Room Air Weight: 101.5 kg Body Mass Index (BMI) 33.0 Finger Stick Blood Glucose 189 Intake and Output for Last 24 Hours 07/18/19 07/19/19 07/20/19 23:59 23:59 23:59 Intake Total 986.48 / 1144.22 3050.97 / 3050.97 200 / 200 Output Total 1200 / 1200 Balance -213.52 / -55.78 3050.97 / 3050.97 200 / 200 Laboratory Tests Past 24 Hrs 07/20/19 05:25 Sodium 138 Potassium 4.4 Chloride 104 Carbon Dioxide 25.0 Anion Gap 9 BUN 10 Creatinine 0.85 Estim Creat Clear Calc 110.90 Est GFR (MDRD) Af Amer 126 Est GFR (MDRD) Non-Af 104 BUN/Creatinine Ratio 11.8 Glucose 227 H Calcium 8.3 L Triglycerides 743 H Cholesterol 336 H LDL Cholesterol TNP VLDL Cholesterol TNP HDL Cholesterol 24 L POC Glucose 07/20/19 07/19/19 07/19/19 08:06 23:12 16:17 POC Glucose 232 H 257 H 168 H Code Visit Inpatient E&M: 84656 Disch Hosp
--- NOTE | 2019-07-22 15:19 | CASEMGMT ---
ANTONIO CM DC PHONE CALL DC DATE: 07/21/19 DC Disposition: Home Diagnosis on Discharge: pancreatitis LACE/STRATA: 09/15 Attempted call to phone. Voicemail is full and cannot leave message. Lilly HAGENN RN ACM
== END 2019-07-20 11:45 | disposition home or self-care (01) | DRG 440 ==
LOC: ED 03:50 → PCU 04:08
PROVIDERS: Physician Assistant; Admitting Provider Hospitalist; Emergency Provider Emergency Medicine; Family Provider Internal Medicine; PCP Internal Medicine; Visit Provider Internal Medicine
DX: K85.90 Acute pancreatitis without necrosis or infection, unspecified (principal); E11.65 Type 2 diabetes mellitus with hyperglycemia; E78.1 Pure hyperglyceridemia; E87.6 Hypokalemia; E78.5 Hyperlipidemia, unspecified; F17.210 Nicotine dependence, cigarettes, uncomplicated; Z79.4 Long term (current) use of insulin
CPT/HCPCS: 36415; 74176; 76705; 80048; 80053; 80061; 81001; 82962; 83690; 84478; 85025; 94640; 97803; 99284; 99406; J7030; J7120; A4216; J1940; J2405

== ENCOUNTER → 2019-08-15 11:49 | Outpatient (CLI) | payer MEDICAID, SELFPAY ==
[2019-08-14 16:48] VITALS: BMI 33.0
[2019-08-15 14:20] LABS: Cholesterol 110 mg/dL (200); High Density Lipoprotein 26 mg/dL; Lipase 141 U/L (73-393); Triglycerides 228 mg/dL; Very Low Density Lipoprotein 46 mg/dL (5-40)
[2019-08-15 14:24] LABS: Microalbumin,Random Urine 27.6 mg/L (NO RANGE EST.); Microalbumin:Creatinine Ratio 13.7 mg/g CRE (<30 mg/g CRE)
== END ==
PROVIDERS: Family Provider Internal Medicine; PCP Internal Medicine; Visit Provider Nurse Practitioner Family
DX: K85.90 Acute pancreatitis without necrosis or infection, unspecified (principal); E11.9 Type 2 diabetes mellitus without complications; E78.5 Hyperlipidemia, unspecified
CPT/HCPCS: 36415; 80061; 82043; 82570; 83690

== ENCOUNTER 2020-01-23 11:19 | Outpatient (RCR) | payer MEDICAID, SELFPAY ==
[2020-01-07 14:51] VITALS: BMI 33.0
== END 2020-01-23 23:59 | disposition home or self-care (01) ==
LOC: DC 11:19
PROVIDERS: PCP Internal Medicine; Visit Provider Nurse Practitioner Family
DX: Z71.3 Dietary counseling and surveillance (principal); E11.9 Type 2 diabetes mellitus without complications
CPT/HCPCS: G0108

== ENCOUNTER 2020-01-24 21:59 | Inpatient (IN) | payer MEDICAID, SELFPAY ==
[2020-01-07 14:51] VITALS: BMI 33.0
[2020-01-24 21:59] VITALS: BP 109/60; PULSE 88; RESP 18; TEMP 36.1; O2SAT 96; BMI 32.0
--- NOTE | 2020-01-24 22:09 | ED.DCSUM_ITS ---
History of Present Illness Chief Complaint: Abd Pain Detail of Chief Complaint: Acute epigastric left upper quadrant pain with nausea and vomiting Informant: Patient Onset: Yesterday Context: Sudden Onset Timing: Continuous, Waxes and wanes Quality: Pain Location: Epigastrium and left upper quadrant Current Severity: Moderate Maximum Severity: Severe Worsened by: Nothing Relieved by: Nothing Associated Symptoms: Nausea and vomiting x2 Narrative: Patient is a 44-year-old male with history of diabetes, elevated triglycerides, hypertension and pancreatitis secondary to elevated triglyceride levels. He has had 2 prior admissions for pancreatitis. He states this pain feels similar. He denies cardiac or respiratory symptoms. He denies fever or chills. He denies dysuria, frequency, urgency or hematuria. He has taken nothing for the pain nor anything for the nausea or vomiting. Prior similar symptoms: Yes Recent Illness/Hospitalization: No - Past Medical History (1) Hypertension Status: Chronic (2) Hypertriglyceridemia Status: Chronic (3) Pancreatitis Status: Chronic (4) Diabetes mellitus, type II Status: Chronic Past Medical History - Allergies and Home Meds Allergies/Adverse Reactions: Allergies No Known Allergies Allergy (Verified 01/24/20 22:02) Primary Care Physician: Paris Chilel MD [Primary Care Provider] - Prior records reviewed: Yes Surgical History: - Lives: Roommate Smoking Status: Former smoker - States has not had a cigarette in 3 weeks. Alcohol: None Drugs: None - Family History Maternal Family History: Family History (Last Reviewed 12/26/19 @ 14:16 by Bebe Richardson) Father Diabetes Mother CVA (cerebral vascular accident) Seizures Hypertension Family History: Reports: Diabetes, Heart Disease, Hypertension Paternal Family History: Family History (Last Reviewed 12/26/19 @ 14:16 by Bebe Richardson) Father Diabetes Mother CVA (cerebral vascular accident) Seizures Hypertension Family History: Reports: Diabetes, Heart Disease, Hypertension Review of Systems General: Denies: Chills, Fever, Malaise, Subjective, Sweats, Weight loss, - ENT: Denies: Rhinorrhea, Sore throat Cardiovascular: Denies: Chest pain, Palpitations Respiratory: Denies: Dyspnea, Cough, Dyspnea on exertion Gastrointestinal: Reports: Abdominal pain, Nausea, Vomiting. Denies: Diarrhea, Constipation, Melena, Hematochezia, -, - Genitourinary: Denies: Dysuria, Hematuria, Frequency Musculoskeletal: Denies: Myalgias, Arthralgias, Neck pain, Back pain, Swelling, Extremity Pain, -, - Skin: Denies: Rash, Wounds Neurological: Denies: Headache, Weakness, Numbness Endocrine: Denies: Polyuria, Polydipsia Physical Exam Vital Signs/Narrative: Vital Signs Temp Pulse Resp BP Pulse Ox 01/24/20 21:59 97 F L 88 18 109/60 96 General: Well developed, Obese, No Acute Distress, Acute Distress Head: Normocephalic, Atraumatic Eyes: Perrl, EOMI. Negative for: Pale conjunctiva, Scleral icterus ENT: No rhinorrhea, TM's clear. Negative for: Nasal congestion, Sinus tenderness Neck: Supple, Nontender, No lymphadenopathy, No JVD Cardiovascular: Regular rate, Regular rhythm, No murmurs, Normal S1, Normal S2 Respiratory: No distress, CTA bilaterally, Chest nontender Abdomen: Soft, Nondistended, No masses, Tender, Guarding - Epigastrium and left upper quadrant, Hypoactive bowel sounds. Negative for: Nontender, Normal bowel sounds, Hepatomegaly, Splenomegaly, Mass, Pulsatile mass, Ventral hernia, Umbilical hernia Rectal: Deferred Back: Nontender, Normal Inspection. Negative for: CVA tenderness Extremities: Nontender, No edema Skin: Normal color, No rash, No Trauma. Negative for: Cyanosis, Diaphoresis, Jaundice Neurological: Alert, Oriented x3, Cranial nerves II-XII grossly intact, Normal Strength, Normal Sensation, Normal Gait Psychological: Normal affect, Normal Mood Diagnostic/Tx/Re-eval 01/25/20 00:00 Abdomen/Pelvis WITH Contrast [CT] Stat Laboratory Results 01/24/20 01/24/20 22:17 22:17 WBC 15.7 H RBC 5.80 Hgb 17.4 H Hct 47.5 MCV 81.9 MCH 30.0 MCHC 36.6 H RDW Std Deviation 38.2 RDW Coeff of Wil 13.1 Plt Count 280 MPV 9.3 Immature Gran % (Auto) 0.800 Neut % (Auto) 72.6 H Lymph % (Auto) 18.9 L [place] % (Auto) 5.6 Eos % (Auto) 1.7 Baso % (Auto) 0.4 Absolute Neuts (auto) 11.4 H Absolute Lymphs (auto) 2.98 Nucleated RBC % 0 Sodium Cancelled Potassium Cancelled Chloride Cancelled Carbon Dioxide Cancelled Anion Gap Cancelled BUN Cancelled Creatinine Cancelled Estim Creat Clear Calc Cancelled Est GFR (MDRD) Af Amer Cancelled Est GFR (MDRD) Non-Af Cancelled BUN/Creatinine Ratio Cancelled Glucose Cancelled Calcium Cancelled Total Bilirubin Cancelled AST Cancelled ALT Cancelled Alkaline Phosphatase Cancelled Total Protein Cancelled Albumin Cancelled Globulin Cancelled Albumin/Globulin Ratio Cancelled Lipase Cancelled White count is elevated with shift. There is no bandemia. Lab informed me that the lipase is normal. The hemolysis is probably secondary to the lipemia. Because of the amount of pain with nausea vomiting elevated white count CT of the abdomen pelvis was ordered to determine cause of his pain and reason for leukocytosis. Case was turned over to the night physician Dr. Topher Toro. - Medical Decision Making Based on patient's history and physical exam IV was established. He received IV antiemetic and opiate analgesia. Appropriate blood work was obtained to assess for pancreatitis. And to rule out other causes. Because of elevated white count with significant upper abdominal pain and normal lipase CT of the abdomen and pelvis was obtained with contrast. ED Disposition - Plan for ED Patient: Referrals: Paris Chilel MD [Primary Care Provider] -
[2020-01-24] MEDS: Ondansetron 4 MG/2 ML Vial IV (22:20)
[2020-01-24] MEDS: Morphine 4 MG/ML Syringe IV (22:20)
[2020-01-24 22:29] LABS: Absolute Lymphocyte Count 2.98 X10^3/uL (0.83-4.51); Absolute Neutrophil Count 11.4 X10^3/uL (2.0-7.7); Basophil# 0.07 X10^3/uL; Basophil% 0.4 % (0-1); Eosinophil# 0.26 X10^3/uL; Eosinophils% 1.7 % (0-5); Hematocrit 47.5 % (40-54); Hemoglobin 17.4 g/dL (13.0-16.5); Lymphocyte # 2.98 X10^3/ul (4.0); Lymphocyte % 18.9 % (19-41); Mean Corp Hgb Conc 36.6 g/dL (32-36); Mean Corpuscular Volume 81.9 fL (80-94); Mean Platelet Vol. 9.3 fl (6.2-12.0); Monocyte# 0.88 X10^3/uL; Monocyte% 5.6 % (0-10); NRBC Flagged by Analyzer 0 % (0-5); Neutrophil # 11.43 X10^3/uL (2.7-7.7); Neutrophil % 72.6 % (47-70); Platelet Count 280 K/mm3 (150-450); RBC Distribution Width CV 13.1 % (11.6-14.6); RBC Distribution Width SD 38.2 fl (35.1-43.9); White Blood Count 15.7 K/mm3 (4.4-11.0)
[2020-01-24 23:02] VITALS: BP 124/75; PULSE 81; RESP 18; TEMP 36.8; O2SAT 93
[2020-01-24] MEDS: morphine 8 MG/ML Syringe 6 MG IV (23:33)
[2020-01-24 23:45] VITALS: O2SAT 89
[2020-01-24 23:59] VITALS: BP 113/76; PULSE 78; RESP 20; TEMP 36.9; O2SAT 95
[2020-01-25] VITALS (12 sets, daily range): BP systolic 98–126; BP diastolic 54–87; PULSE 76–88; RESP 13–20; TEMP 36.4–37.1; O2SAT 92–97; BMI 31.6
--- NOTE | 2020-01-25 | CT_ITS ---
STUDY: CT ABDOMEN AND PELVIS WITH CONTRAST REASON FOR EXAM: Male, 44 years old. N/V SINCE YESTERDAY, ELEVATED WBC, MID TO LEFT SIDE ABD PAIN, HX CHRONIC PANCREATITIS, DIAB, HTN RADIATION DOSAGE (If Supplied By Facility): CTDIvol = ( 15.75 ) mGy, DLP = ( 1203.90 ) mGycm TECHNIQUE: Transaxial images were obtained from the dome of the diaphragm to the symphysis pubis without oral contrast. Oral and amp; IV Gastrografin and amp; 100mL Isovue-300 was administered. Sagittal and coronal images were reconstructed. Individualized dose optimization techniques were used for this CT. COMPARISON: None. FINDINGS: Lung bases reveal bilateral lower lobe, middle lobe and right lower lobe diffuse interstitial opacities consistent with interstitial pneumonitis. There is mild bilateral subpleural atelectasis. This appears slightly progressed in the interval. The visualized portions of the heart are within normal limits. Normal liver. Normal gallbladder and extrahepatic biliary system. Mild splenomegaly, spleen measuring 16.4 cm in AP dimension otherwise normal spleen. There is diffuse enlargement of the pancreas with tal-pancreatic edema suggesting acute pancreatitis. Normal bilateral adrenal glands. Doses of the right kidney otherwise normal right kidney. Normal left kidney. Normal visualized stomach. Normal small intestine. Normal colon. The appendix is visualized and appears normal. Normal abdominal aorta. Normal inferior vena cava. Normal retroperitoneum. Normal urinary bladder. Normal visualized prostate gland. Normal abdominal wall. Normal osseous structures. CT/Abdomen/Pelvis WITH Contrast IMPRESSION: Pancreatitis as described. No evidence of necrosis, cyst or mass. No abscess. No acute appendicitis. No bowel obstruction. Electronically Signed: Nilda Payton MD at 1:51 EDT , Service support ,
[2020-01-25 00:16] LABS: ALB/GLOB Ratio 0.7 RATIO (0.9-2.4); Albumin, Serum 2.9 g/dL (3.2-5.0); Alkaline Phosphatase 83 U/L (45-117); Anion Gap 4 (5-15); BUN 12 mg/dL (7-18); BUN/Creat Ratio 13.4 RATIO (10-20); Calcium,Total 7.7 mg/dL (8.5-10.1); Chloride 102 mmol/L (98-107); EST Glomerular Filtration Rate 97 mL/min (>60); Est Glom Filt Rate - Afr Amer 118 mL/min (>60); Estimated Creatinine Clearance 103.65 ml/min; Glucose 335 mg/dL (74-106); Lipase 185 U/L (73-393); Protein, Total 6.9 g/dL (6.4-8.2); Sodium Level 132 mmol/L (136-145)
[2020-01-25 01:35] LABS: Alanine Aminotransfer ALT/SGPT 39 U/L (16-61)
--- NOTE | 2020-01-25 02:11 | PCM.HP.STD ---
Problem List (1) Acute pancreatitis Status: Acute Qualifiers: Pancreatitis type: unspecified pancreatitis type (2) Acute bronchitis, unspecified Status: Suspected Qualifiers: Bronchitis organism: unspecified organism Qualified Code(s): J20.9 - Acute bronchitis, unspecified (3) Hypertension Status: Chronic Qualifiers: Hypertension type: essential hypertension Qualified Code(s): I10 - Essential (primary) hypertension (4) Hypertriglyceridemia Status: Chronic (5) Diabetes mellitus, type II Status: Chronic Qualifiers: Diabetes mellitus longterm insulin use: with adjunct faculty for medical terminology use Diabetes mellitus complication status: with other specified complication Qualified Code(s): E11.69 - Type 2 diabetes mellitus with other specified complication; Z79.4 - longterm (current) use of insulin (6) History of tobacco use Status: Chronic History of Present Illness Date of Admission: 01/25/20 Chief Complaint: Abdominal pain The patient is a 44 y/o M w/ PMHx: Tobacco use, History of Pancreatitis secondary to hypertriglyceridemia, Diabetes mellitus type I, HTN, HLD, Obesity, Asthma who presents to the [facility] ED on 01/24/20 with history of onset acute left upper quadrant although primarily epigastric region abdominal pain, 10/10 severity, sharp with associated nausea and occasional emesis noted to wax and wane x 24 hours ranging from severe to moderate in nature with no improvement with any specific interventions noting that it feels similar to prior presentations with pancreatitis prompting ED presentation for evaluation. Patient does state that he was recently ill approximately 2 weeks prior with upper respiratory infection with cough, mildly productive with fever and chills at that time but notes it is improved although some coughing still noted while in the ED. Work-up in the ED included T 97, heart rate 88, BP 109/60, respiratory rate 18, 96% on room air, CBC with WBC 15.7, hemoglobin 17.4, platelet 280 with left shift, CMP with sodium 132, glucose 335, lipase 185, CT abdomen and pelvis with bilateral lower lobe, middle lobe and right lower lobe diffuse interstitial opacities consistent with interstitial pneumonitis, mild bilateral subpleural atelectasis, mild splenomegaly, diffuse enlargement of the pancreas and peripancreatic edema suggestive of acute pancreatitis with no evidence of necrosis, cyst or mass. In the ED patient ministered Zofran, morphine x 2 rounds, normal saline. Past Medical History Past Medical History (Chronic Problems): Chronic Problems (Last Reviewed 12/26/19 @ 14:19 by Bebe Richardson) Hypertension (Chronic) Hypertriglyceridemia (Chronic) Asthma (Chronic) Pancreatitis (Chronic) Diabetes (Chronic) Pancreatitis (Chronic) Diabetes mellitus, type II (Chronic) History of tobacco use (Chronic) Chest pain (Chronic) Medical History: Medical History (Last Reviewed 12/26/19 @ 14:19 by Bebe Richardson) Asthma (Chronic) J45.909 Pancreatitis (Chronic) K85.90 Diabetes (Chronic) E11.9 Allergies No Known Allergies Allergy (Verified 01/24/20 22:02) Home Medications: Ambulatory Orders Medication Instructions Recorded Blood Sugar Diagnostic [Relion 0 .ROUTE .MEDSUPPLY 07/17/19 Prime Test Strips] Lancets [Freestyle Lancets] 0 .ROUTE .MEDSUPPLY 07/17/19 Pen Needle, Diabetic [Pen Needle] 1 ndl SUBCUT ACHS #1 box 07/19/19 albuterol sulfate 90 mcg/actuation 2 puff INHALATION Q6H 08/14/19 aerosol inhaler atorvastatin 80 mg tablet 80 mg PO QHS 30 Days #90 tab 08/14/19 blood sugar diagnostic See Rx Instructions .ROUTE 08/14/19 .MEDSUPPLY #100 ea blood-glucose meter See Rx Instructions .ROUTE 08/14/19 .MEDSUPPLY #1 ea lancets 28 gauge See Rx Instructions .ROUTE 08/14/19 .MEDSUPPLY #200 ea fenofibrate 54 mg tablet 54 mg PO DAILY #90 tab 08/15/19 pen needle, diabetic 31 gauge x See Rx Instructions .ROUTE 08/16/1903/28 .MEDSUPPLY #100 ea insulin glargine 100 unit/mL (3 30 unit SUBCUT QHS 90 Days #27 ml 09/11/19 mL) subcutaneous pen lisinopril 2.5 mg tablet 2.5 mg PO DAILY #90 tab 09/11/19 insulin syringe-needle U-100 0.3 See Rx Instructions .ROUTE 11/01/19 mL 31 gauge x 03/28 .MEDSUPPLY #100 ea insulin lispro 100 unit/mL 12 unit SC QAC #15 ml 01/07/20 subcutaneous pen Surgical History: Surgical History (Last Reviewed 12/26/19 @ 14:16 by Bebe Richardson) history of abscess removal x3 Surgical History: - - Prior I+D x 3. Psychiatric History: No pertinent psych hx Lives: Roommate Smoking Status: Former smoker - Patient quit ~ 3 weeks prior to current presentation. Tobacco Use: Cigarettes Alcohol: None Drugs: None - *Family History Maternal Family History: Family History (Last Reviewed 12/26/19 @ 14:16 by Bebe Richardson) Father Diabetes Mother CVA (cerebral vascular accident) Seizures Hypertension History Items: Diabetes, Heart Disease, Hypertension Paternal Family History: Family History (Last Reviewed 12/26/19 @ 14:16 by Bebe Richardson) Father Diabetes Mother CVA (cerebral vascular accident) Seizures Hypertension History Items: Diabetes, Heart Disease, Hypertension Review of Systems Constitutional: Reports: Malaise, Weakness, Fatigue. Denies: Chills, Fever, Weight Change HEENT: Denies: Head Aches, Sinus Congestion, Sinus Drainage Cardiovascular: Denies: Chest Pain, Palpitations Respiratory: Reports: Cough - 2 weeks prior, improved., Shortness of Breath - 2 weeks prior, improved., Shortness of breath upon exertion - 2 weeks prior, improved., Sputum production - 2 weeks prior, improved.. Denies: Shortness of breath at rest Gastrointestinal: Reports: Abdominal Pain, Nausea, Vomiting Genitourinary: Denies: Dysuria Musculoskeletal: Reports: Back Pain, Joint Pain. Denies: Joint Tenderness Skin: Denies: Rash, Wounds Neurological: Denies: Numbness, Tingling, Focal weakness Psychiatric: Denies: Anxiety, Depression, Homicidal Ideations, Suicidal Ideations Hematologic/ Lymphatic: Denies: Easy Bruising, Easy Bleeding VTE Information - Inpt Only VTE Present on Admission: No VTE Mechan Device Prophylaxis: SCD's VTE Pharm Prophylaxis ordered?: Yes Patient Problems: Active and Suspected Problems (Last Reviewed 12/26/19 @ 14:19 by Bebe Richardson) Acute pancreatitis (Acute) Abdominal pain (Acute) Subjective: Seated upright in ED bed, fatigued appearing, no acute distress. Objective: Physical Examination: General: awake, alert, oriented x 3 and cooperative, seated upright in the ED bed, fatigued appearance. Skin: normal color, turgor, no icterus, cyanosis. HEENT: AT/NC, EOMI, PERRLA, mildly dry MM, no carotid bruits or JVD noted. Lungs: Diminished breath sounds throughout, greater bases, some coughing elicited with deep inspiratory requests, no rales, ronchi or wheezing. Heart: Regular rate and rhythm; no gallop, rub audible. Abdomen: soft, primarily epigastric discomfort with palpation, no rebound or guarding specifically, ND, normal BS, no HSM. Extremities: no cyanosis, clubbing, or edema. Neurological: patient awake, alert, oriented x 3; cognitive function intact; pupils equally reactive to light and accomodation; cranial nerves II-XII grossly normal, moving all 4 extremities, no focal deficits, strength moderately global decrease secondary to acute presentation. Psychiatric: affect appears fatigued, no acute evidence of depressive or anxiety feelings. - Physical Exam Vitals/I&O's: Vital Signs Temp Pulse Resp BP Pulse Ox 98.7 F 81 15 105/75 94 01/25/20 01:00 01/25/20 01:48 01/25/20 01:48 01/25/20 01:48 01/25/20 01:48 Oxygen Flow Rate (L/min) 2 Oxygen Delivery Method Nasal Cannula Weight: 217 lb Body Mass Index (BMI) 32.0 Finger Stick Blood Glucose 189 Intake and Output for Last 24 Hours 01/23/20 01/24/20 01/25/20 23:59 23:59 23:59 Intake Total 500 / 500 Balance 500 / 500 Laboratory Results 01/24/20 22:17: WBC 15.7 H, RBC 5.80, Hgb 17.4 H, Hct 47.5, MCV 81.9, MCH 30.0, MCHC 36.6 H, RDW Std Deviation 38.2, RDW Coeff of Wil 13.1, Plt Count 280, MPV 9.3, Immature Gran % (Auto) 0.800, Neut % (Auto) 72.6 H, Lymph % (Auto) 18.9 L, Wake % (Auto) 5.6, Eos % (Auto) 1.7, Baso % (Auto) 0.4, Absolute Neuts (auto) 11.4 H, Absolute Lymphs (auto) 2.98, Nucleated RBC % 0 01/24/20 22:17: Sodium Cancelled, Potassium Cancelled, Chloride Cancelled, Carbon Dioxide Cancelled, Anion Gap Cancelled, BUN Cancelled, Creatinine Cancelled, Estim Creat Clear Calc Cancelled, Est GFR (MDRD) Af Amer Cancelled, Est GFR (MDRD) Non-Af Cancelled, BUN/Creatinine Ratio Cancelled, Glucose Cancelled, Calcium Cancelled, Total Bilirubin Cancelled, AST Cancelled, ALT Cancelled, Alkaline Phosphatase Cancelled, Total Protein Cancelled, Albumin Cancelled, Globulin Cancelled, Albumin/Globulin Ratio Cancelled, Lipase Cancelled 01/24/20 23:02: Sodium 132 L, Potassium TNP, Chloride 102, Carbon Dioxide 26.0, Anion Gap 4 L, BUN 12, Creatinine 0.90, Estim Creat Clear Calc 103.65, Est GFR (MDRD) Af Amer 118, Est GFR (MDRD) Non-Af 97, BUN/Creatinine Ratio 13.4, Glucose 335 H, Calcium 7.7 L, Total Bilirubin 0.90, AST TNP, ALT 39, Alkaline Phosphatase 83, Total Protein 6.9, Albumin 2.9 L, Globulin 4.0, Albumin/Globulin Ratio 0.7 L, Lipase 185 Assessment/Plan All Active Problems (Last Reviewed 12/26/19 @ 14:19 by Bebe Richardson) Acute pancreatitis (Acute) Abdominal pain (Acute) Acute hyperglycemia (Acute) The patient is a 44 y/o M w/ PMHx: Tobacco use, History of Pancreatitis secondary to hypertriglyceridemia, Diabetes mellitus type I, HTN, HLD, Obesity, Asthma who presents to the [facility] ED on 01/24/20 with history of onset acute left upper quadrant although primarily epigastric region abdominal pain, 10/10 severity, sharp with associated nausea and occasional emesis noted to wax and wane x 24 hours ranging from severe to moderate in nature with no improvement with any specific interventions noting that it feels similar to prior presentations with pancreatitis. 1. Acute pancreatitis w/ abdominal pain, N/V: Will admit to [facility], maintain on IVFs, NPO, IV protonix, IV/po pain control, trend lipase, CMP. 07/17/2019 abdominal ultrasound no obvious gallbladder disease with CT abdomen pelvis at that time demonstrating mild acute pancreatitis primarily involving the pancreatic body and tail with no evidence of pseudocyst formation now w/ repeat CT as noted w/ diffuse enlargement of the pancreas and peripancreatic edema suggestive of acute pancreatitis with no evidence of necrosis, cyst or mass. Patient has denied alcohol consumption is a risk for pancreatitis. FLP obtained 08/15/2019 with triglycerides 228, total cholesterol 110, LDL 38, VLDL 46, HDL 26. Requesting repeat FLP in AM. Given recurrent presentation and triglycerides really not that marketed may need to consider upper endoscopy as additional evaluation for etiology for pancreatitis. 2. Incidental pneumonitis likely secondary to Recent Acute Viral Syndrome/bronchitis: CT abdomen pelvis with concurrently noted bilateral lower lobe, middle lobe and right lower lobe diffuse interstitial opacities consistent with interstitial pneumonitis as well as mild bilateral subpleural atelectasis, will encourage head of bed, I-S, PRN albuterol and ATC duoneb therapies with continued oxygen with wean as tolerated to room air. 3. Diabetes mellitus type I: Continue home insulin regimen, NPO status given presentation, while NPO q 6 hour accu checks w/ ISS. Patient has upcoming visit noted with Dr. Klnie, endocrinology on 02/20/2020. 4. Hypertension: Continue home regimen including lisinopril, PRN hydralazine. 5. Hyperlipidemia with Notable hypertriglyceridemia: Continue home statin and fenofibrate regimen. AM FLP. 6. Chronic asthma: We will encourage head of bed, I-S, PRN albuterol. 7. Tobacco Abuse: Encouraged continued cessation as notes ~ 3 weeks tobacco cigarette free, inpatient consultation per RT, NR if desired. 8. GERD: Maintained on IV protonix as noted. 9. DVT prophylaxis: SCDs, Lovenox. Inpatient E&M: 12352 Init Hosp L3
[2020-01-25] MEDS: Morphine 4 MG/ML Syringe IV (02:31)
[2020-01-25] MEDS: 0.9% Normal Saline 1,000 ML 150 ML IV ×3 (02:39→19:35)
--- NOTE | 2020-01-25 02:46 | ED.VISSUMM ---
- ER Visit Summary Date of Service: 01/25/20 Chief Complaint: [] History of Present Illness: The patient is a 44 M [] Physical Examination: [] Test Results: [] Emergency Department Course and Treatment: Patient signed out to me follow-up on CT scan. Results noted acute pancreatitis. His labs were normal. History of 2 episodes of pancreatitis in the past due to high triglyceride. Denies alcohol history. Reevaluation still reports 8 out of 10 pain. Additional morphine given along with IV fluids continued. I spoke with hospitalist, Dr. Pantoja for admission. Treatment Plan: [] Disposition: Admission Impression: 1. Acute pancreatitis 2. Abdominal pain This note was generated with [employer] dictation software. It may contain incorrect words, spelling, and punctuation that were not noted in review of the chart prior to signing ED Disposition - Plan for ED Patient: Disposition: Acute Care [facility] Diagnosis: Acute pancreatitis, Abdominal pain
[2020-01-25] MEDS: 0.9% Normal Saline 1,000 ML 999 ML IV (04:42)
[2020-01-25] MEDS: Ketorolac 15 MG/ML Vial IV ×3 (04:42→20:04)
[2020-01-25] MEDS: Ondansetron 4 MG/2 ML Vial IV (04:42)
[2020-01-25] MEDS: 0.9% Saline Lock 10 ML Syringe IV ×2 (04:43→04:49)
[2020-01-25] MEDS: Insulin Lispro 100 UNIT/ML INSULN.PEN SC ×4 (06:39→22:23)
[2020-01-25 06:41] LABS: Bedside Glucose 247 mg/dL (70-110)
[2020-01-25 07:10] LABS: Absolute Lymphocyte Count 2.61 X10^3/uL (0.83-4.51); Absolute Neutrophil Count 12.1 X10^3/uL (2.0-7.7); Basophil# 0.04 X10^3/uL; Basophil% 0.2 % (0-1); Eosinophil# 0.16 X10^3/uL; Hematocrit 45.7 % (40-54); Hemoglobin 15.6 g/dL (13.0-16.5); Lymphocyte # 2.61 X10^3/ul (4.0); Lymphocyte % 16.2 % (19-41); Mean Corp Hgb Conc 34.1 g/dL (32-36); Mean Corpuscular Hgb 28.4 pg (27.0-32.0); Mean Corpuscular Volume 83.1 fL (80-94); Mean Platelet Vol. 9.3 fl (6.2-12.0); Monocyte# 1.13 X10^3/uL; NRBC Flagged by Analyzer 0 % (0-5); Neutrophil # 12.07 X10^3/uL (2.7-7.7); Platelet Count 225 K/mm3 (150-450); RBC Distribution Width CV 13.5 % (11.6-14.6); RBC Distribution Width SD 40.5 fl (35.1-43.9); White Blood Count 16.1 K/mm3 (4.4-11.0)
[2020-01-25] MEDS: Ipratropium/Albuterol Sulfate 3 ML AMPUL.NEB INHALATION ×3 (07:15→19:54)
[2020-01-25 09:19] LABS: ALB/GLOB Ratio 0.8 RATIO (0.9-2.4); AST(SGOT) 29 U/L (15-37); Alanine Aminotransfer ALT/SGPT 32 U/L (16-61); Albumin, Serum 3.1 g/dL (3.2-5.0); Alkaline Phosphatase 82 U/L (45-117); Anion Gap 6 (5-15); BUN 10 mg/dL (7-18); BUN/Creat Ratio 12.3 RATIO (10-20); Calcium,Total 8.2 mg/dL (8.5-10.1); Chloride 103 mmol/L (98-107); Cholesterol 188 mg/dL (200); Creatinine, Serum 0.81 mg/dL (0.70-1.30); EST Glomerular Filtration Rate 109 mL/min (>60); Est Glom Filt Rate - Afr Amer 132 mL/min (>60); Estimated Creatinine Clearance 115.17 ml/min; Glucose 284 mg/dL (74-106); High Density Lipoprotein 22 mg/dL; Lipase 280 U/L (73-393); Potassium 4.8 mmol/L (3.5-5.1); Protein, Total 7.1 g/dL (6.4-8.2); Sodium Level 136 mmol/L (136-145); Triglycerides 942 mg/dL
[2020-01-25] MEDS: Enoxaparin 40 MG/0.4 ML Syringe SC (10:13)
[2020-01-25] MEDS: Fenofibrate 48 MG Tablet PO (10:13)
[2020-01-25 12:26] LABS: Bedside Glucose 237 mg/dL (70-110)
--- NOTE | 2020-01-25 15:12 | CM.UR ---
RN CM Assessment Introduced role of RN CM to patient. Patient is alert and able to participate in RN CM Assessment. Care providers, pharmacy, and demographics verified. No family at bedside. Presentation: abd pain Admit Dx: Acute pancreatitis Re-Admit: no Barriers/Issues: none PCP: Dr. Chilel Preferred Pharmacy: [facility] Insurance: [facility] medicaid Rx Benefit: Yes LNOK: Alessio, Son LW/HPOA: None, declines additional information Living Arrangements: 2 story home with significant other and 2 children. ADL?s: independent Transportation: independent, denies any transportation concerns. DME: None DME co: no preference HHC: None SNF: None Goal: Home DC PLAN: Home Katharina Barajas RN, CCM.
[2020-01-25 16:26] LABS: Bedside Glucose 197 mg/dL (70-110)
[2020-01-25] MEDS: Atorvastatin Calcium 80 MG Tablet PO (22:22)
[2020-01-25 22:36] LABS: Bedside Glucose 250 mg/dL (70-110)
[2020-01-26 02:21] VITALS: BP 109/62; PULSE 94; RESP 16; TEMP 36.8; O2SAT 93
[2020-01-26] MEDS: 0.9% Normal Saline 1,000 ML 150 ML IV ×2 (02:24→09:13)
[2020-01-26] MEDS: Ketorolac 15 MG/ML Vial IV (05:04)
[2020-01-26] MEDS: Insulin Lispro 100 UNIT/ML INSULN.PEN SC (06:49)
[2020-01-26 07:06] LABS: Bedside Glucose 240 mg/dL (70-110)
[2020-01-26 07:27] VITALS: PULSE 90; RESP 18; O2SAT 91
[2020-01-26] MEDS: Ipratropium/Albuterol Sulfate 3 ML AMPUL.NEB INHALATION (07:27)
[2020-01-26 07:50] VITALS: BP 104/63; PULSE 89; RESP 16; TEMP 36.4; O2SAT 94
[2020-01-26] MEDS: Enoxaparin 40 MG/0.4 ML Syringe SC (08:06)
[2020-01-26] MEDS: Fenofibrate 145 MG Tablet PO (08:06)
[2020-01-26] MEDS: Lisinopril 2.5 MG Tablet PO (08:08)
--- NOTE | 2020-01-26 10:49 | PCM.DC ---
- Discharge Diagnoses Current Active Problems: Current Active and Chronic Problems (Last Reviewed 12/26/19 @ 14:19 by Bebe Richardson) Acute pancreatitis (Acute) Abdominal pain (Acute) You will use the following diet at home:: Calorie/Carbohydrate Controlled (specify 1200, 1400, etc) - low fat Your food should be the consistency of: Regular Your liquids should be the consistency of: Regular/Thin Discharge Activity: Return to Normal Activity Call your doctor if you observe: Fever of 101 or Higher, Shortness of breath, Dizziness, Fainting spells, Swelling in the ankles, Chest pain, Increased palpitations (irregular heartbeat) Allergies/Adverse Reactions: Allergies No Known Allergies Allergy (Verified 01/25/20 04:40) Medications to take at Discharge Blood Sugar Diagnostic [Relion Prime Test Strips] 0 .ROUTE .MEDSUPPLY 07/17/19 Lancets [Freestyle Lancets] 0 .ROUTE .MEDSUPPLY 07/17/19 Pen Needle, Diabetic [Pen Needle] 1 ndl SUBCUT ACHS #1 box 07/19/19 albuterol sulfate 90 mcg/actuation aerosol inhaler 2 puff INHALATION Q6H PRN 08/14/19 atorvastatin 80 mg tablet 80 mg PO QHS 30 Days #90 tab 08/14/19 blood sugar diagnostic See Rx Instructions .ROUTE .MEDSUPPLY #100 ea 08/14/19 blood-glucose meter See Rx Instructions .ROUTE .MEDSUPPLY #1 ea 08/14/19 lancets 28 gauge See Rx Instructions .ROUTE .MEDSUPPLY #200 ea 08/14/19 pen needle, diabetic 31 gauge x 03/28 See Rx Instructions .ROUTE .MEDSUPPLY #100 ea 08/16/19 insulin glargine 100 unit/mL (3 mL) subcutaneous pen 30 unit SUBCUT QHS 90 Days #27 ml 09/11/19 lisinopril 2.5 mg tablet 2.5 mg PO DAILY #90 tab 09/11/19 insulin syringe-needle U-100 0.3 mL 31 gauge x 5 See Rx Instructions .ROUTE .MEDSUPPLY #100 ea 11/01/19 insulin lispro 100 unit/mL subcutaneous pen 12 unit SC QAC #15 ml 01/07/20 Fenofibrate [Tricor] 145 mg PO DAILY@0800 #30 tab 01/26/20 The following prescriptions were given: Fenofibrate [Tricor] 145 mg PO DAILY@0800 #30 tab Transmission Status: Pending to [id number] Primary Care Physician: Paris Chilel MD [Primary Care Provider] - Please follow up with your Primary Care Physician in: 3-5 days Test Results: Test results from this visit will be discussed in further detail at your follow-up appointment, if applicable.
--- NOTE | 2020-01-26 10:52 | DS.PCM_ITS ---
Discharge Date and Diagnosis - Problem List Patient Problems: Active and Suspected Problems (Last Reviewed 12/26/19 @ 14:19 by Bebe Richardson) Acute pancreatitis (Acute) Abdominal pain (Acute) Date of Admission: 01/25/20 Date of Discharge: 01/26/20 - Primary Discharge Diagnosis Active and Suspected Problems (Last Reviewed 12/26/19 @ 14:19 by Bebe Richardson) Acute pancreatitis (Acute) Abdominal pain (Acute) - Secondary Discharge Diagnosis Chronic Problems (Last Reviewed 12/26/19 @ 14:19 by Bebe Richardson) Hypertension (Chronic) Hypertriglyceridemia (Chronic) Asthma (Chronic) Pancreatitis (Chronic) Diabetes (Chronic) Pancreatitis (Chronic) Diabetes mellitus, type II (Chronic) History of tobacco use (Chronic) Chest pain (Chronic) Hospital Course and Treatment Imaging Results: CT Abd/Pelvis: IMPRESSION: Pancreatitis as described. No evidence of necrosis, cyst or mass. No abscess. No acute appendicitis. No bowel obstruction. Consults: None Operations: None Procedures: None Summary of Care Provided: Per HPI: The patient is a 44 y/o M w/ PMHx: Tobacco use, History of Pancreatitis secondary to hypertriglyceridemia, Diabetes mellitus type I, HTN, HLD, Obesity, Asthma who presents to the [facility] ED on 01/24/20 with history of onset acute left upper quadrant although primarily epigastric region abdominal pain, 10/10 severity, sharp with associated nausea and occasional emesis noted to wax and wane x 24 hours ranging from severe to moderate in nature with no improvement with any specific interventions noting that it feels similar to prior presentations with pancreatitis prompting ED presentation for evaluation. Patient does state that he was recently ill approximately 2 weeks prior with upper respiratory infection with cough, mildly productive with fever and chills at that time but notes it is improved although some coughing still noted while in the ED. Work-up in the ED included T 97, heart rate 88, BP 109/60, respiratory rate 18, 96% on room air, CBC with WBC 15.7, hemoglobin 17.4, platelet 280 with left shift, CMP with sodium 132, glucose 335, lipase 185, CT abdomen and pelvis with bilateral lower lobe, middle lobe and right lower lobe diffuse interstitial opacities consistent with interstitial pneumonitis, mild bilateral subpleural atelectasis, mild splenomegaly, diffuse enlargement of the pancreas and peripancreatic edema suggestive of acute pancreatitis with no evidence of necrosis, cyst or mass. In the ED patient ministered Zofran, morphine x 2 rounds, normal saline. Hospital Course: 1. Acute pancreatitis secondary to hypertriglyceridemia/incidental pneumonitis likely secondary to an acute viral [id number] male with recurrent pancreatitis presents with another episode of pancreatitis likely related to hypertriglyceridemia as his triglycerides were greater than 900. His fenofibrate was increased to 145 mg p.o. which he was discharged on. Yesterday he felt much better want to go home however at that time he had not tried to eat yet. So he had both dinner last night and breakfast this morning and states that his pain is completely normal. He denies having any fever and vital signs confirm that, will obtain a CBC just to make sure that his white count is trending down however this should hold up and discharge. He states that he is feeling fine and he will absolutely wants to go home today. I did discuss with him the risks and benefits of discharge today and the type of diet that he can follow which is a low-fat diet, he expressed understanding and states that he will follow-up with his primary care doctor this week if he can get in. As for his incidental pneumonitis, no treatment is necessary at this time as he is not short of breath or coughing, he did have a viral illness about 2 weeks ago that has been resolving. 2. His other medical diagnoses were evaluated and his home medications were continued where appropriate Patient Problems: Active and Suspected Problems (Last Reviewed 12/26/19 @ 14:19 by Bebe Richardson) Acute pancreatitis (Acute) Abdominal pain (Acute) - Physical Exam Vitals/I&O's: Vital Signs Temp Pulse Resp BP Pulse Ox 97.6 F L 89 16 104/63 94 01/26/20 07:50 01/26/20 07:50 01/26/20 07:50 01/26/20 07:50 01/26/20 07:50 Oxygen Flow Rate (L/min) 2 Oxygen Delivery Method Room Air Weight: 213 lb 13.574 oz Body Mass Index (BMI) 31.6 Finger Stick Blood Glucose 189 Intake and Output for Last 24 Hours 01/24/20 01/25/20 01/26/20 23:59 23:59 23:59 Intake Total 500 / 500 3667.5 / 3667.5 2252.5 / 2252.5 Output Total 800 / 800 1000 / 1000 Balance 500 / 500 2867.5 / 2867.5 1252.5 / 1252.5 General: Alert, Oriented x3, Cooperative, No apparent distress HEENT: Atraumatic, PERRLA, EOMI, Normocephalic Oral: Moist Mucosa Neck: Supple, No JVD Lungs: Clear to auscultation, Normal air movement, No rhonchi, No wheeze, No rales, Diminished Cardiovascular: Regular rate, Regular Rhythm, Normal S1, Normal S2, No murmurs Abdomen: Soft, Non Tender, Non-Distended, No Hepato-splenomegaly Extremities: No edema, Capillary Refill Less than 3 Seconds Skin: No rashes, No breakdown Neurological: Neuro grossly intact, Sensory exam intact to light touch and pain Psych/Mental Status: Normal Affect, Appropriate Laboratory Results 01/25/20 12:12: POC Glucose 237 H 01/25/20 16:14: POC Glucose 197 H 01/25/20 22:21: POC Glucose 250 H 01/26/20 06:46: POC Glucose 240 H Current Medications Acetaminophen (Tylenol) 650 mg PO Q6H PRN PRN PRN Reason: Pain Score 1-10/Temp > 100.7 F Al Hydroxide/Mg Hydroxide (Mylanta Ii) 30 ml PO Q6H PRN PRN PRN Reason: Gastric Burning Albuterol Sulfate (Ventolin Aerosols) 2.5 mg INHALATION Q2H PRN PRN PRN Reason: Dyspnea, wheezing Albuterol/Ipratropium (Duoneb) 3 ml INHALATION Q6HWA.RT [facility] Last Admin: 01/26/20 07:27 Dose: 3 ml Documented by: Atorvastatin Calcium (Lipitor) 80 mg PO QHS [facility] Last Admin: 01/25/20 22:22 Dose: 80 mg Documented by: Enoxaparin Sodium (Lovenox) 40 mg SC DAILY [facility] Last Admin: 01/26/20 08:06 Dose: 40 mg Documented by: Fenofibrate (Tricor) 145 mg PO DAILY@0800 [facility] Last Admin: 01/26/20 08:06 Dose: 145 mg Documented by: Glucagon () 1 mg IM .X1 PRN PRN Reason: Hypoglycemia Guaifenesin (Robitussin) 20 ml PO Q4H PRN PRN PRN Reason: COUGH Hydralazine HCl (Apresoline Iv) 10 mg IV Q4H PRN PRN PRN Reason: SBP > 160 Hydromorphone HCl (Dilaudid Inj) 0.5 mg IV Q4H PRN PRN PRN Reason: Pain Score 6-10/10 Sodium Chloride () 1,000 mls @ 150 mls/hr IV .Q6H40M [facility] Last Admin: 01/26/20 09:13 Dose: 150 mls/hr Documented by: Pantoprazole Sodium 40 mg/ (Sodium Chloride) 110 mls @ 330 mls/hr IV Q12 [facility] Last Infusion: 01/26/20 08:33 Dose: Infused Documented by: Dextrose (Dextrose 10%-Water) 250 mls @ 999 mls/hr IV .Q16M PRN; Protocol PRN Reason: HYPOGLYCEMIA Insulin Glargine (Lantus ([facility])) 30 units SC QHS [facility] Last Admin: 01/25/20 22:23 Dose: 30 units Documented by: Insulin Human Lispro (Humalog Kwikpen ([facility])) 0 unit SC [facility]; Protocol Last Admin: 01/26/20 06:49 Dose: 3 units Documented by: Ketorolac Tromethamine (Toradol ([facility])) 15 mg IV Q8H [facility] Stop: 01/26/20 12:31 Last Admin: 01/26/20 05:04 Dose: 15 mg Documented by: Lisinopril (Zestril) 2.5 mg PO DAILY [facility] Last Admin: 01/26/20 08:08 Dose: 2.5 mg Documented by: Magnesium Hydroxide (Milk Of Magnesia) 30 ml PO DAILY PRN PRN PRN Reason: Constipation Ondansetron HCl (Zofran) 4 mg IV Q8H PRN PRN PRN Reason: NAUSEA/VOMITING Last Admin: 01/25/20 04:42 Dose: 4 mg Documented by: Oxycodone HCl (Oxyir) 10 mg PO Q4H PRN PRN PRN Reason: Pain Score 4-5/10 Prochlorperazine Edisylate (Compazine Iv) 5 mg IV Q4H PRN PRN PRN Reason: Breakthrough nausea/vomiting Psyllium Hydrophilic Mucilloid (Metamucil) 1 packet PO DAILY PRN PRN PRN Reason: Constipation Senna/Docusate Sodium (Senokot-S, Snehal-Colace) 2 tablet PO BID PRN PRN PRN Reason: Constipation Sodium Chloride () 10 - 40 ml IV UD PRN PRN Reason: SALINE FLUSH Last Admin: 01/25/20 04:49 Dose: 10 ml Documented by: Temazepam (Restoril) 15 mg PO QHS PRN PRN PRN Reason: INSOMNIA Throat Lozenges (Cepacol Sore Throat Lozenge) 1 lozenge MUCOUS MEM Q2H PRN PRN PRN Reason: SORE THROAT Discharge Activity: Return to Normal Activity Call your doctor if you observe: Fever of 101 or Higher, Shortness of breath, Dizziness, Fainting spells, Swelling in the ankles, Chest pain, Increased palpitations (irregular heartbeat) Home Medications: Medications to take at Discharge Blood Sugar Diagnostic [Relion Prime Test Strips] 0 .ROUTE .MEDSUPPLY 07/17/19 Lancets [Freestyle Lancets] 0 .ROUTE .MEDSUPPLY 07/17/19 Pen Needle, Diabetic [Pen Needle] 1 ndl SUBCUT ACHS #1 box 07/19/19 albuterol sulfate 90 mcg/actuation aerosol inhaler 2 puff INHALATION Q6H PRN 08/14/19 atorvastatin 80 mg tablet 80 mg PO QHS 30 Days #90 tab 08/14/19 blood sugar diagnostic See Rx Instructions .ROUTE .MEDSUPPLY #100 ea 08/14/19 blood-glucose meter See Rx Instructions .ROUTE .MEDSUPPLY #1 ea 08/14/19 lancets 28 gauge See Rx Instructions .ROUTE .MEDSUPPLY #200 ea 08/14/19 pen needle, diabetic 31 gauge x 03/28 See Rx Instructions .ROUTE .MEDSUPPLY #100 ea 08/16/19 insulin glargine 100 unit/mL (3 mL) subcutaneous pen 30 unit SUBCUT QHS 90 Days #27 ml 09/11/19 lisinopril 2.5 mg tablet 2.5 mg PO DAILY #90 tab 09/11/19 insulin syringe-needle U-100 0.3 mL 31 gauge x 03/28 See Rx Instructions .ROUTE .MEDSUPPLY #100 ea 11/01/19 insulin lispro 100 unit/mL subcutaneous pen 12 unit SC QAC #15 ml 02/25/20 Fenofibrate [Tricor] 145 mg PO DAILY@0800 #30 tab 01/26/20 Following Prescrptions Were Given to Patient: Fenofibrate [Tricor] 145 mg PO DAILY@0800 #30 tab Transmission Status: Pending to [id number] Primary Care Physician: Paris Chilel MD [Primary Care Provider] - Please follow up with your Primary Care Physician in: 3-5 days Disposition: Home Minutes spent on discharge:: 35 Patient Condition:: Stable Medical Necessity - Tobacco Use Smoking Status: Former smoker Tobacco Use: Cigarettes Meaningful Use Info Meaningful Use Diagnoses (Choose all that apply): None applicable Inpatient E&M: 55276 Disch Hosp
[2020-01-26 11:17] LABS: Absolute Neutrophil Count 4.7 X10^3/uL (2.0-7.7); Basophil% 0.4 % (0-1); Eosinophils% 3.5 % (0-5); Hematocrit 41.3 % (40-54); Hemoglobin 13.8 g/dL (13.0-16.5); Lymphocyte # 2.33 X10^3/ul (4.0); Mean Corp Hgb Conc 33.4 g/dL (32-36); Mean Corpuscular Hgb 27.9 pg (27.0-32.0); Mean Corpuscular Volume 83.6 fL (80-94); Mean Platelet Vol. 9.2 fl (6.2-12.0); Monocyte% 5.4 % (0-10); Neutrophil # 4.67 X10^3/uL (2.7-7.7); Neutrophil % 60.1 % (47-70); Platelet Count 208 K/mm3 (150-450); RBC Distribution Width CV 13.6 % (11.6-14.6); RBC Distribution Width SD 41.7 fl (35.1-43.9); Red Blood Count 4.94 M/mm3 (4.6-6.2); White Blood Count 7.8 K/mm3 (4.4-11.0)
[2020-01-26 11:18] LABS: Absolute Lymphocyte Count 2.33 X10^3/uL (0.83-4.51); Basophil# 0.03 X10^3/uL; Eosinophil# 0.27 X10^3/uL; Monocyte# 0.42 X10^3/uL; NRBC Flagged by Analyzer 0 % (0-5)
== END 2020-01-26 11:21 | disposition home or self-care (01) | DRG 282 ==
LOC: ED 01-25 00:07 → MS3 01-25 02:40
PROVIDERS: Emergency Medicine; Admitting Provider Family Medicine; Emergency Provider Emergency Medicine; PCP Internal Medicine; Visit Provider Family Medicine
DX: K85.90 Acute pancreatitis without necrosis or infection, unspecified (principal); E78.1 Pure hyperglyceridemia; J45.909 Unspecified asthma, uncomplicated; I10 Essential (primary) hypertension; J18.9 Pneumonia, unspecified organism; E11.9 Type 2 diabetes mellitus without complications; Z87.891 Personal history of nicotine dependence; Z79.4 Long term (current) use of insulin
CPT/HCPCS: 36415; 74177; 80053; 80061; 82962; 83690; 85025; 94640; 97802; 99251; 99283; 99406; J7030; Q9967; A4216; G0463; J2405

== ENCOUNTER 2020-05-12 09:59 | Emergency (ER) | payer MEDICAID, SELFPAY ==
[2020-01-25 04:23] VITALS: BMI 31.6
[2020-05-12 09:59] VITALS: BP 138/93; PULSE 95; RESP 18; TEMP 36.3; O2SAT 97; BMI 32.5
--- NOTE | 2020-05-12 10:12 | CT_ITS ---
STUDY: CT ABDOMEN AND PELVIS WITH CONTRAST REASON FOR EXAM: Male, 44 years old. ABD PAIN, N/V, PANCREATITIS RADIATION DOSAGE (If Supplied By Facility): CTDIvol = ( 16.24 ) mGy, DLP = ( 1208.27 ) mGycm TECHNIQUE: Transaxial images were obtained from the dome of the diaphragm to the symphysis pubis without oral contrast. IV 100mL Isovue-300 was administered. Sagittal and coronal images were reconstructed. Individualized dose optimization techniques were used for this CT. COMPARISON: Comparison is made with prior study dated January 25, 2020. FINDINGS: Minimal residual increased markings at the lung bases. This has improved as compared to prior study. The visualized portions of the heart are within normal limits. There is decreased attenuation of the liver consistent with steatosis. Mild megaly. Normal gallbladder and extrahepatic biliary system. There is mild splenomegaly. Normal pancreas. Normal bilateral adrenal glands. There is a right pelvic kidney. This goes along the midline. Normal left kidney. There is a small hiatal hernia. There is a 2.5 cm x 3.9 cm diverticulum in the second portion of the duodenum. Normal small intestine. Normal colon. The appendix is visualized and appears normal. Normal abdominal aorta. Normal inferior vena cava. There is borderline retroperitoneal lymphadenopathy with enlarged nodes no greater than 10mm in the short axis diameter. Normal urinary bladder. Normal abdominal wall. Normal osseous structures. CT/Abdomen/Pelvis W IV Cont ONLY IMPRESSION: Mild hepatosplenomegaly. Fatty infiltration of the liver. 2.5 cm x 3.9 cm diverticulum in the second portion of the duodenum. Right pelvic kidney. Electronically Signed: Griffin Brito, at 11:22 EDT , Service support ,
[2020-05-12] MEDS: 0.9% Normal Saline 1,000 ML 1000 ML IV (10:22)
[2020-05-12] MEDS: Ondansetron 4 MG/2 ML Vial IV (10:22)
[2020-05-12] MEDS: Morphine 4 MG/ML Syringe IV (10:22)
[2020-05-12 10:25] LABS: Absolute Lymphocyte Count 2.48 X10^3/uL (0.83-4.51); Absolute Neutrophil Count 9.1 X10^3/uL (2.0-7.7); Basophil# 0.04 X10^3/uL; Basophil% 0.3 % (0-1); Eosinophil# 0.14 X10^3/uL; Eosinophils% 1.1 % (0-5); Hematocrit 50.5 % (40-54); Hemoglobin 17.3 g/dL (13.0-16.5); Lymphocyte # 2.48 X10^3/ul (4.0); Lymphocyte % 19.9 % (19-41); Mean Corp Hgb Conc 34.3 g/dL (32-36); Mean Corpuscular Hgb 28.5 pg (27.0-32.0); Mean Corpuscular Volume 83.3 fL (80-94); Mean Platelet Vol. 9.2 fl (6.2-12.0); Monocyte# 0.69 X10^3/uL; Monocyte% 5.5 % (0-10); NRBC Flagged by Analyzer 0 % (0-5); Neutrophil % 72.9 % (47-70); Platelet Count 219 K/mm3 (150-450); RBC Distribution Width CV 12.7 % (11.6-14.6); RBC Distribution Width SD 38.1 fl (35.1-43.9); Red Blood Count 6.06 M/mm3 (4.6-6.2); White Blood Count 12.5 K/mm3 (4.4-11.0)
[2020-05-12 10:32] LABS: Prothrombin Time (Protime)PT. 12.5 SECONDS (11.7-14.9)
[2020-05-12 10:33] LABS: Partial Thromboplast Time 28.8 Seconds (24.1-36.2)
[2020-05-12 10:54] LABS: ALB/GLOB Ratio 0.8 RATIO (0.9-2.4); AST(SGOT) 21 U/L (15-37); Alanine Aminotransfer ALT/SGPT 35 U/L (16-61); Albumin, Serum 3.8 g/dL (3.2-5.0); Alkaline Phosphatase 103 U/L (45-117); Anion Gap 8 (5-15); BUN 14 mg/dL (7-18); BUN/Creat Ratio 14.5 RATIO (10-20); Calcium,Total 8.8 mg/dL (8.5-10.1); Chloride 98 mmol/L (98-107); Creatinine, Serum 0.97 mg/dL (0.70-1.30); EST Glomerular Filtration Rate 89 mL/min (>60); Est Glom Filt Rate - Afr Amer 108 mL/min (>60); Estimated Creatinine Clearance 96.17 ml/min; Globulin 4.5 g/dL (2.2-4.2); Glucose 325 mg/dL (74-106); Lipase 246 U/L (73-393); Potassium 4.4 mmol/L (3.5-5.1); Protein, Total 8.3 g/dL (6.4-8.2); Sodium Level 133 mmol/L (136-145)
--- NOTE | 2020-05-12 11:42 | ED.DCSUM_ITS ---
- ER Visit Summary Date of Service: 05/12/20 Chief Complaint: Abdominal pain History of Present Illness: The patient is a 44 M with periumbilical and epigastric abdominal pain. Symptoms started yesterday and were worse today. Associate with nausea vomiting. Similar symptoms in the past with pancreatitis. He also has a history of diabetes, hypertension, hyperlipidemia. Denies any urinary symptoms. Denies any weakness or numbness. Denies fevers or chills. Physical Examination: Afebrile and vital signs unremarkable. Patient appears uncomfortable but not toxic or in distress. Skin is normal in color without pallor or jaundice. Heart regular rate and rhythm. No respiratory distress. Abdomen is tender in the epigastric and periumbilical regions. Skin is normal. Test Results: White count is 12.5. He has had intermittent elevated white counts. Sodium 133, glucose 325, total bilirubin 1.9. He has had elevated bilirubins. Lipase normal. Coags normal. CT showed mild hepatosplenomegaly, fatty liver, duodenal diverticulum, and right pelvic kidney. Emergency Department Course and Treatment: Patient was treated with fluids, morphine, Zofran while awaiting results. Work-up as above was all fairly u nremarkable. Nothing to explain his epigastric pain or periumbilical pain. Patient was advised that his numbers may change. His imaging results may change based on the progression of his illness. If he has new or worsening issues, he should return. He will be prescribed Zofran and naproxen. Monitor for new or worsening issues. Follow-up with primary care for recheck and repeat blood work. Return right away if worse. Treatment Plan: As above Disposition: Discharge Impression: Abdominal pain This note was generated with [employer] dictation software. It may contain incorrect words, spelling, and punctuation that were not noted in review of the chart prior to signing ED Disposition - Plan for ED Patient: Referrals: Paris Chilel MD [Primary Care Provider] -
--- NOTE | 2020-05-12 11:44 | ED.DEP ---
ED Disposition - Plan for ED Patient: Instructions: ED Unknown Causes of Abdominal Pain Male Prescriptions: Naproxen [Naprosyn] 500 mg PO BID PRN #20 tab Prescription Printed Ondansetron [Zofran Odt] 4 mg PO Q8H PRN PRN #10 tab PRN Reason: Nausea Prescription Printed Referrals: Parsi Chilel MD [Primary Care Provider] -
[2020-05-12 11:53] VITALS: BP 139/80; PULSE 79; RESP 16; O2SAT 98
--- NOTE | 2020-05-12 11:54 | ED.RN ---
IV DC'ED, CATHETER INTACT, SMALL GAUZE DRESSING PLACED. DISCHARGE INSTRUCTIONS GIVEN TO AND REVIEWED WITH PATIENT, PATIENT DENIES QUESTIONS OR CONCERNS AND VOICES UNDERSTANDING OF DISCHARGE INSTRUCTIONS. PT AMBULATES OUT OF ROOM WITHOUT DIFFICULTY.
== END 2020-05-12 11:54 | disposition home or self-care (01) ==
LOC: ED 10:52
PROVIDERS: Emergency Provider Emergency Medicine; PCP Internal Medicine
DX: R10.13 Epigastric pain (principal); I10 Essential (primary) hypertension; E78.5 Hyperlipidemia, unspecified; E11.9 Type 2 diabetes mellitus without complications; Z79.4 Long term (current) use of insulin
CPT/HCPCS: 74177; 80053; 83690; 85025; 85610; 85730; 96361; 96374; 96375; 99283; J7030; A4216; J2405

== ENCOUNTER 2020-09-06 02:49 | Emergency (ER) | payer MEDICAID, SELFPAY ==
[2020-09-06 02:50] VITALS: BP 121/86; PULSE 100; RESP 19; TEMP 36.1; O2SAT 96; BMI 30.9
--- NOTE | 2020-09-06 03:38 | ED.VISSUMM ---
- ER Visit Summary Date of Service: 09/06/20 Chief Complaint: Abdominal pain History of Present Illness: The patient is a 44 M who presents with abdominal pain that is been getting worse for the past 2 days. Patient states the pain became acutely worse tonight. Patient describes the pain as stabbing. Patient states the pain is over the left mid abdomen. Patient states the pain feels similar to prior episodes of pancreatitis. Patient admits to nausea but denies any vomiting. Patient denies any diarrhea, melena, or hematochezia. Patient denies any dysuria or hematuria. Patient admits to subjective fevers but did not take his temperature. Patient states nothing makes his pain better or worse. Physical Examination: Vital signs are stable. Patient is afebrile. Patient is in no acute distress. Oral mucosa is pink and moist. Neck is supple. Trachea is midline. There is no JVD. Heart was regular rate and rhythm. Lungs are clear and equal bilaterally. Abdomen is soft. Bowel sounds are normal. There is left mid abdominal tenderness. There is no rebound or guarding noted. Cranial nerves II through XII are intact. There are no focal motor or sensory deficits noted. Extremities are intact. There is no calf tenderness or edema. Test Results: CBC shows a mild leukocytosis of 13.8. Comprehensive metabolic profile showed an elevated glucose of 566. Sodium was 123 and chloride was 91. CO2 was slightly low at 18. Anion gap was normal. Lipase was slightly elevated at 760. Urinalysis showed ketones of 150 but no evidence of urinary tract infection. Serum ketones were negative. Emergency Department Course and Treatment: Patient was given IV fluids, morphine, and Zofran here. Patient was given a dose of Humalog here. Patient was feeling better on reevaluation. Patient was instructed to follow-up with his primary care physician in 5 to 7 days. Patient was instructed to eat a bland diet and avoid sugars. Patient understood and was agreeable with the plan. All questions were answered. Disposition: Discharge home Impression: 1. Abdominal pain 2. Hyperglycemia This note was generated with [employer] software. It may contain incorrect words, spelling, and punctuation that were not noted in review of the chart prior to signing ED Disposition - Plan for ED Patient: Disposition: Home or Assisted Living Diagnosis: Abdominal pain, Acute hyperglycemia, Diabetes mellitus, type II Instructions: ED Diabetic Hyperglycemia, ED Unknown Causes of Abdominal Pain Male Referrals: Paris Chilel MD [Primary Care Provider] - 3-5 Days
[2020-09-06] MEDS: Morphine 4 MG/ML Syringe IV (03:47)
[2020-09-06] MEDS: 0.9% Normal Saline 1,000 ML 1000 ML IV (03:47)
[2020-09-06] MEDS: Ondansetron 4 MG/2 ML Vial IV (03:47)
[2020-09-06 03:54] LABS: Absolute Lymphocyte Count 2.67 X10^3/uL (0.83-4.51); Absolute Neutrophil Count 11.8 X10^3/uL (2.0-7.7); Basophil# 0.04 X10^3/uL; Basophil% 0.3 % (0-1); Eosinophil# 0.24 X10^3/uL; Eosinophils% 1.5 % (0-5); Lymphocyte # 2.67 X10^3/ul (4.0); Lymphocyte % 17.1 % (19-41); Monocyte# 0.76 X10^3/uL; Monocyte% 4.9 % (0-10); Neutrophil # 11.79 X10^3/uL (2.7-7.7); Neutrophil % 75.7 % (47-70)
[2020-09-06 04:37] LABS: Bacteria 0 SEEN /hpf (None Seen); Mucous, Urine 0 SEEN /hpf (<or=2+); Red Blood Cells-Urine 0 SEEN /hpf (0-5); White Blood Cells 0 SEEN /hpf (0-5)
[2020-09-06 04:42] LABS: Color, Urine Yellow (Yellow); Glucose, Dipstick 1000 mg/dl (Normal); Leukocyte Esterase-Dipstick 25 /ul (Negative); Nitrite-Dipstick Negative (Negative); Occult Blood-Urine 10 /ul (Negative); Protein-Dipstick Negative (Negative); Specific Gravity, Urine 1.015 (1.002-1.030); Urine Bilirubin Dipstick Negative (Negative); Urine Clarity Clear (Clear); Urine Urobilinogen Normal (Normal)
[2020-09-06 04:46] LABS: Ketone-Dipstick 150 mg/dl (Negative); Squamous Epithelial Cells - UA 0-5 SEEN /hpf (0-5)
[2020-09-06 04:54] LABS: Mean Platelet Vol. 10.6 fl (6.2-12.0)
[2020-09-06 04:55] VITALS: BP 135/91; PULSE 91; RESP 15; O2SAT 91
[2020-09-06 04:56] LABS: POSITIVE COUNT NO; POSITIVE MORPHOLOGY NO
[2020-09-06 04:57] LABS: Hemoglobin 15.9 g/dL (13.0-16.5); Red Blood Count 5.61 M/mm3 (4.6-6.2); White Blood Count 13.8 K/mm3 (4.4-11.0)
[2020-09-06 04:58] LABS: Hematocrit 46.4 % (40-54); Mean Corp Hgb Conc 34.3 g/dL (32-36); Mean Corpuscular Hgb 28.3 pg (27.0-32.0); Mean Corpuscular Volume 82.7 fL (80-94); Platelet Count 261 K/mm3 (150-450); RBC Distribution Width CV 37.6 % (11.6-14.6); RBC Distribution Width SD 12.5 fl (35.1-43.9)
[2020-09-06 05:36] LABS: Alanine Aminotransfer ALT/SGPT 36 U/L (16-61); Anion Gap 14 (5-15); Chloride 91 mmol/L (98-107); Creatinine, Serum 1.39 mg/dL (0.70-1.30); EST Glomerular Filtration Rate 59 mL/min (>60); Est Glom Filt Rate - Afr Amer 71 mL/min (>60); Estimated Creatinine Clearance 67.11 ml/min; Glucose 566 mg/dL (74-106); Lipase 760 U/L (73-393); Potassium 4.6 mmol/L (3.5-5.1); Sodium Level 123 mmol/L (136-145)
[2020-09-06 05:40] LABS: ALB/GLOB Ratio 0.7 RATIO (0.9-2.4); AST(SGOT) 41 U/L (15-37); Albumin, Serum 3.3 g/dL (3.2-5.0); Alkaline Phosphatase 118 U/L (45-117); BUN 11 mg/dL (7-18); BUN/Creat Ratio 7.9 RATIO (10-20); Calcium,Total 8.7 mg/dL (8.5-10.1); Globulin 4.5 g/dL (2.2-4.2); Protein, Total 7.8 g/dL (6.4-8.2)
[2020-09-06] MEDS: Insulin Lispro 100 UNIT/ML INSULN.PEN 15 UNIT SC (05:58)
[2020-09-06] MEDS: Acetaminophen 500 MG Tablet 1000 MG PO (06:02)
[2020-09-06 06:50] LABS: Bedside Glucose 289 mg/dL (70-110)
[2020-09-06 06:55] VITALS: BP 130/78; PULSE 90; RESP 16; O2SAT 97
== END 2020-09-06 06:56 | disposition home or self-care (01) ==
PROVIDERS: Emergency Provider Emergency Medicine; PCP Internal Medicine
DX: R10.9 Unspecified abdominal pain (principal); E11.65 Type 2 diabetes mellitus with hyperglycemia; F17.200 Nicotine dependence, unspecified, uncomplicated; Z79.4 Long term (current) use of insulin
CPT/HCPCS: 80053; 81001; 82009; 82962; 83690; 85025; 96374; 96375; 99282; J7030; A4216; J2405

== ENCOUNTER 2021-01-12 01:40 | Emergency (ER) | payer MEDICAID, SELFPAY ==
[2021-01-12 01:40] VITALS: BP 128/74; PULSE 94; RESP 18; TEMP 36.9; O2SAT 96; BMI 30.9
--- NOTE | 2021-01-12 01:51 | RAD_ITS ---
STUDY: X-RAY CHEST REASON FOR EXAM: Male, 45 years old. cough TECHNIQUE: Single AP portable view of the chest. COMPARISON: 11/04/2017 FINDINGS: Adequately inflated lungs with stable chronic interstitial lung markings. No acute airspace disease. There is no demonstrated pleural abnormality. Normal size heart. Normal mediastinum and courtney. Normal visualized pulmonary arteries. Normal visualized aortic arch and descending thoracic aorta. Normal visualized thoracic spine. Normal visualized ribs, clavicles, and shoulders. There is no demonstrated abnormality of the visualized soft tissue structures of the upper abdomen. RAD/Chest 1 View (Portable) IMPRESSION: No acute findings Electronically Signed: Aleksander Thurston DO at 2:27 EST Tel , Service support ,
--- NOTE | 2021-01-12 01:52 | ED.DCSUM_ITS ---
History of Present Illness Chief Complaint: General Illness Informant: Patient Onset: Yesterday Context: Gradual Onset Current Severity: Mild Maximum Severity: Moderate Narrative: Patient presents secondary to feeling ill. He states he woke on the morning of January 11 with body aches and feeling dizzy. He did have some vomiting. No diarrhea. He states he felt like he was running a fever but when he touched his face he felt cold. No temperature was taken. He reports a mild cough. - Past Medical History (1) Asthma Status: Chronic (2) Diabetes Status: Chronic (3) Hypertension Status: Chronic (4) Hypertriglyceridemia Status: Chronic (5) Pancreatitis Status: Chronic Past Medical History - Allergies and Home Meds Allergies/Adverse Reactions: Allergies No Known Allergies Allergy (Verified 01/12/21 01:43) Primary Care Physician: Paris Chilel MD [Primary Care Provider] - Prior records reviewed: Yes Surgical History: - - Prior I+D x 3. Lives: Spouse/ Significant Other Smoking Status: Former smoker - Family History Maternal Family History: Family History (Last Reviewed 12/26/19 @ 14:16 by Bebe Richardson) Father Diabetes Mother CVA (cerebral vascular accident) Seizures Hypertension Family History: Reports: Diabetes, Heart Disease, Hypertension Paternal Family History: Family History (Last Reviewed 12/26/19 @ 14:16 by Bebe Richardson) Father Diabetes Mother CVA (cerebral vascular accident) Seizures Hypertension Family History: Reports: Diabetes, Heart Disease, Hypertension Review of Systems General: Denies: Chills, Fever Eyes: Denies: Visual changes - bilaterally ENT: Denies: Bilateral ear pain Cardiovascular: Denies: Chest pain Respiratory: Reports: Cough. Denies: Dyspnea Gastrointestinal: Reports: Abdominal pain, Nausea, Vomiting. Denies: Diarrhea Genitourinary: Denies: Dysuria Musculoskeletal: Reports: Myalgias. Denies: Swelling, Extremity Pain Skin: Denies: Rash Neurological: Denies: Headache Hematologic: Denies: Easy bruising, Easy bleeding Allergy: Denies: Uticaria Physical Exam Vital Signs/Narrative: Vital Signs Temp Pulse Resp BP Pulse Ox 01/12/21 01:40 98.4 F 94 18 128/74 H 96 Inital Vital Signs reviewed: Yes General: Well nourished, Well developed Head: Normocephalic ENT: Moist mucous membranes Neck: Supple Cardiovascular: Regular rate, Regular rhythm Respiratory: No distress, CTA bilaterally Abdomen: Soft, Nontender, Hypoactive bowel sounds Extremities: Nontender Skin: Normal color Neurological: Alert, Oriented x3 Psychological: Normal affect Diagnostic/Tx/Re-eval Chest X-Ray - ED: 1 View, Read by ED Physician, Normal, Heart, Lungs, Mediastinum Impressions Chest X-Ray 01/12/21 01:51 IMPRESSION: No acute findings Electronically Signed: Aleksander Thurston DO at 2:27 EST Tel , Service support , 01/12/21 01:51 Chest 1 View (Portable) [RAD] Stat 01/12/21 02:05 Mucosa - Nose SARS-CoV-2 Antigen (Rapid) - Final Laboratory Results 01/12/21 01/12/21 01/12/21 02:00 02:00 02:33 WBC 16.5 H RBC 5.38 Hgb 15.5 Hct 41.9 MCV 82.2 MCH 29.9 MCHC 37.0 H RDW Std Deviation 37.2 RDW Coeff of Wil 12.3 Plt Count 296 MPV 9.1 Immature Gran % (Auto) 0.600 Neut % (Auto) 69.4 Lymph % (Auto) 13.5 L [place] % (Auto) 15.2 H Eos % (Auto) 0.8 Baso % (Auto) 0.5 Absolute Neuts (auto) 11.4 H Absolute Lymphs (auto) 2.23 Nucleated RBC % 0 Differential Comment SCANNED Diff Path Review May foll Atypical Lymphocytes RARE Sodium 129 L Potassium 4.1 Chloride 93 L Carbon Dioxide 22.0 Anion Gap 14 BUN 17 Creatinine 1.08 Estim Creat Clear Calc 85.47 Est GFR (MDRD) Af Amer 95 Est GFR (MDRD) Non-Af 78 BUN/Creatinine Ratio 15.7 Glucose 472 H* Calcium 8.5 Total Bilirubin 1.00 Direct Bilirubin 0.09 AST 20 ALT 35 Alkaline Phosphatase 98 Total Protein 7.3 Albumin 3.4 Globulin 3.9 Lipase 400 H Urine Color Yellow Urine Clarity Clear Urine pH 6.0 Ur Specific [place] 1.015 Urine Protein Negative Urine Glucose (UA) 1000 H Urine Ketones 50 H Urine Occult Blood 10 H Urine Nitrite Negative Urine Bilirubin Negative Urine Urobilinogen Normal Ur Leukocyte Esterase Negative Urine RBC 0-5 SEEN Urine WBC 0 SEEN Ur Squamous Epith Cells 0 SEEN Urine Bacteria 0 SEEN Urine Mucus 0 SEEN - Medical Decision Making Patient was given a dose of Toradol and Zofran. Blood sugar did return elevated at 470. He was given a liter of IV fluid. On repeat exam patient states he feels much improved. Blood sugars dropped 100 points. He states he would rather take his insulin at home. Repeat abdominal examination reveals no focal tenderness. Lungs are clear on auscultation. Patient be given a prescription for Zofran and will follow up with his PCP. Return instructions are provided. ED Disposition - Plan for ED Patient: Disposition: Home or Assisted Living Diagnosis: Hyperglycemia, Viral syndrome, Vomiting Instructions: ED Vomiting (Adult), ED Viral Syndrome (Adult), ED Diabetic Hyperglycemia Prescriptions: Ondansetron [Zofran Odt] 4 mg PO Q8H PRN PRN #10 tab PRN Reason: Nausea Transmission Status: Pending to [id number] Referrals: Paris Chilel MD [Primary Care Provider] - 3-5 Days if not improving
[2021-01-12 02:06] LABS: Absolute Lymphocyte Count 2.23 X10^3/uL (0.83-4.51); Absolute Neutrophil Count 11.4 X10^3/uL (2.0-7.7); Basophil# 0.09 X10^3/uL; Basophil% 0.5 % (0-1); Eosinophil# 0.13 X10^3/uL; Eosinophils% 0.8 % (0-5); Lymphocyte # 2.23 X10^3/ul (4.0); Lymphocyte % 13.5 % (19-41); Mean Corpuscular Volume 82.2 fL (80-94); Mean Platelet Vol. 9.1 fl (6.2-12.0); Monocyte% 15.2 % (0-10); NRBC Flagged by Analyzer 0 % (0-5); Neutrophil # 11.44 X10^3/uL (2.7-7.7); Neutrophil % 69.4 % (47-70); POSITIVE COUNT YES; POSITIVE DIFFERENTIAL YES; POSITIVE MORPHOLOGY YES; Platelet Count 296 K/mm3 (150-450); RBC Distribution Width CV 12.3 % (11.6-14.6); RBC Distribution Width SD 37.2 fl (35.1-43.9); Red Blood Count 5.38 M/mm3 (4.6-6.2); White Blood Count 16.5 K/mm3 (4.4-11.0)
[2021-01-12] MEDS: Ondansetron 4 MG/2 ML Vial IV (02:09)
[2021-01-12] MEDS: Ketorolac 30 MG/ML Syringe IV (02:10)
[2021-01-12 02:40] LABS: Bacteria 0 SEEN /hpf (None Seen); Mucous, Urine 0 SEEN /hpf (<or=2+); Squamous Epithelial Cells - UA 0 SEEN /hpf (0-5); White Blood Cells 0 SEEN /hpf (0-5)
[2021-01-12 02:42] LABS: Color, Urine Yellow (Yellow); Glucose, Dipstick 1000 mg/dl (Normal); Ketone-Dipstick 50 mg/dl (Negative); Leukocyte Esterase-Dipstick Negative /ul (Negative); Nitrite-Dipstick Negative (Negative); Occult Blood-Urine 10 /ul (Negative); Protein-Dipstick Negative (Negative); Specific Gravity, Urine 1.015 (1.002-1.030); Urine Bilirubin Dipstick Negative (Negative); Urine Clarity Clear (Clear); Urine Urobilinogen Normal (Normal)
[2021-01-12 02:51] LABS: Red Blood Cells-Urine 0-5 SEEN /hpf (0-5)
[2021-01-12 02:58] LABS: AST(SGOT) 20 U/L (15-37); Alanine Aminotransfer ALT/SGPT 35 U/L (16-61); Albumin, Serum 3.4 g/dL (3.2-5.0); Alkaline Phosphatase 98 U/L (45-117); Anion Gap 14 (5-15); BUN 17 mg/dL (7-18); BUN/Creat Ratio 15.7 RATIO (10-20); Bilirubin, Direct 0.09 mg/dL (0.00-0.30); Calcium,Total 8.5 mg/dL (8.5-10.1); Chloride 93 mmol/L (98-107); Creatinine, Serum 1.08 mg/dL (0.70-1.30); EST Glomerular Filtration Rate 78 mL/min (>60); Est Glom Filt Rate - Afr Amer 95 mL/min (>60); Estimated Creatinine Clearance 85.47 ml/min; Globulin 3.9 g/dL (2.2-4.2); Glucose 472 mg/dL (74-106); Lipase 400 U/L (73-393); Potassium 4.1 mmol/L (3.5-5.1); Protein, Total 7.3 g/dL (6.4-8.2); Sodium Level 129 mmol/L (136-145)
[2021-01-12 02:59] LABS: Differential Indicated SCAN CRITERIA MET
[2021-01-12 03:00] LABS: Hemoglobin 15.5 g/dL (13.0-16.5)
[2021-01-12 03:29] LABS: Differential Comment SCANNED
[2021-01-12] MEDS: 0.9% Normal Saline 1,000 ML 999 ML IV (03:29)
[2021-01-12 03:32] LABS: Atypical Lymphocyte RARE %
[2021-01-12 04:19] VITALS: BP 107/74; PULSE 75; RESP 15; O2SAT 95
[2021-01-12 05:06] VITALS: BP 105/76; PULSE 82; RESP 15; O2SAT 93
[2021-01-12 05:06] LABS: Bedside Glucose 378 mg/dL (70-110)
[2021-01-12 07:25] LABS: Hematocrit 44.2 % (40-54); Mean Corp Hgb Conc 35.1 g/dL (32-36); Mean Corpuscular Hgb 28.8 pg (27.0-32.0)
[2021-01-12 13:20] LABS: Pathologist Review Reviewed
== END 2021-01-12 05:09 | disposition home or self-care (01) ==
PROVIDERS: Emergency Provider Emergency Medicine; PCP Internal Medicine
DX: R73.9 Hyperglycemia, unspecified (principal); B34.9 Viral infection, unspecified; R11.10 Vomiting, unspecified; Z87.891 Personal history of nicotine dependence
CPT/HCPCS: 71045; 80048; 80076; 81001; 82962; 83690; 85025; 87426; 96374; 96375; 99284; J7030; A4216; J2405

== ENCOUNTER 2021-08-13 17:06 | Inpatient (IN) | payer MEDICAID, SELFPAY ==
[2021-08-13] VITALS (11 sets, daily range): BP systolic 104–128; BP diastolic 63–79; PULSE 79–96; RESP 14–35; TEMP 35.8–37.3; O2SAT 82–97; BMI 28.0; BMI 27.3
--- NOTE | 2021-08-13 18:05 | EKG12_ITS ---
Test Reason : CP Blood Pressure : / mmHG Vent. Rate : 089 BPM Atrial Rate : 089 BPM P-R Int : 148 ms QRS Dur : 080 ms QT Int : 378 ms P-R-T Axes : 073 093 050 degrees QTc Int : 459 ms Normal sinus rhythm Inferior infarct , age undetermined Poor R wave progression Abnormal ECG Confirmed by LIANA SALVADOR, TEGAN ([id number]), index editor PACO GLASS ([id number]) on 08/16/2021 1:16:12 PM Referred By: SHAE Confirmed By:TEGAN GAINES MD
[2021-08-13 18:13] LABS: Hematocrit 45.2 % (40-54); Hemoglobin 15.7 g/dL (13.0-16.5); Mean Corp Hgb Conc 34.7 g/dL (32-36); Mean Corpuscular Hgb 27.7 pg (27.0-32.0); Mean Corpuscular Volume 79.9 fL (80-94); POSITIVE MORPHOLOGY YES; Platelet Count 124 K/mm3 (150-450); RBC Distribution Width CV 13.6 % (11.6-14.6); RBC Distribution Width SD 39.7 fl (35.1-43.9); Red Blood Count 5.66 M/mm3 (4.6-6.2); White Blood Count 5.8 K/mm3 (4.4-11.0)
--- NOTE | 2021-08-13 18:20 | RAD_ITS ---
EXAM: XR CHEST, 1 VIEW CLINICAL INDICATION: cough TECHNIQUE: Frontal view of the chest. This report was created using [employer] report generation technology. COMPARISON: 01-31 FINDINGS: LUNGS AND PLEURAL SPACES: Pneumonia. Diffuse bilateral infiltrates. No pneumothorax. No effusion. HEART: Unremarkable. Cardiac silhouette not enlarged. MEDIASTINUM: Central airways and mediastinal contour are unremarkable. BONES/JOINTS: Unremarkable. SOFT TISSUES: Unremarkable. RAD/Chest 1 View (Portable) IMPRESSION: Pneumonia. Electronically Signed: Federico Ibanez MD at 18:35 EDT , Service support ,
[2021-08-13 18:24] LABS: ALB/GLOB Ratio 0.5 RATIO (0.9-2.4); AST(SGOT) 41 U/L (15-37); Alanine Aminotransfer ALT/SGPT 24 U/L (16-61); Albumin, Serum 2.7 g/dL (3.2-5.0); Alkaline Phosphatase 92 U/L (45-117); Anion Gap 17 (5-15); BUN 16 mg/dL (7-18); Calcium,Total 8.8 mg/dL (8.5-10.1); Chloride 86 mmol/L (98-107); Creatinine, Serum 0.94 mg/dL (0.70-1.30); EST Glomerular Filtration Rate 92 mL/min (>60); Est Glom Filt Rate - Afr Amer 111 mL/min (>60); Estimated Creatinine Clearance 98.19 ml/min; Globulin 5.2 g/dL (2.2-4.2); Glucose 313 mg/dL (74-106); Potassium 3.8 mmol/L (3.5-5.1); Protein, Total 7.9 g/dL (6.4-8.2); Sodium Level 124 mmol/L (136-145)
[2021-08-13 18:30] LABS: Lactic Acid 2.4 mmol/L (0.4-1.9)
[2021-08-13] MEDS: dexAMETHasone 10 MG/ML Vial IV (18:38)
[2021-08-13 18:57] LABS: Scan Smear per Review Criteria MANUAL DIFF
[2021-08-13 18:58] LABS: Differential Indicated MANUAL DIFF
[2021-08-13 19:03] LABS: Atypical Lymphocyte RARE %; Blast 1 % (0-0); Lymphocyte 8 % (19-41); Monocyte 9 % (0-10); Neutrophil-Band 25 % (0-5); Neutrophil-Segmented 57 % (47-70); Platelet Estimate SLT DEC (ADEQ); Red Cell Morphology NORM C+C NORMAL (NORM C&C); Total Cells Counted 100 (MANUAL DIFF)
[2021-08-13 19:06] LABS: Absolute Lymphocyte Count 0.46 X10^3/uL (0.83-4.51); Absolute Neutrophil Count 4.8 X10^3/uL (2.0-7.7)
[2021-08-13 19:11] LABS: Allen Test Positive; Base Excess -6 mmol/L (-2 to +2); Bicarbonate 18.4 mmol/L (22-26); Blood Gas Specimen Type ART; O2 Delivery Device Cannula; PO2 77 mmHG (75-100); SITE L Radial; SO2 96 % (95-99); Total Carbon Dioxide 19 mmol/L; pCO2 27.5 mmHg (35-45); pH 7.43 (7.35-7.45)
--- NOTE | 2021-08-13 19:21 | EX.ED.DYSGE1 ---
HPI History of Present Illness Chief Complaint: Shortness of Breath Informant: patient Onset/Context/Timing Onset: Days (Onset August 11) Context: Sudden Onset Timing: Continuous and Waxes and wanes Quality: Respiratory, GI and generalized Location: Previously documented Current Severity: Moderate Maximum Severity: Severe Worsened by: Dyspnea on exertion Relieved by: Nothing Associated Symptoms Associated Symptoms: Per HPI Narrative Narrative: Patient is a 45-year-old male with history of type 2 diabetes, pancreatitis, hypertriglyceridemia, tobacco abuse and asthma who presents with symptoms consistent with Covid. States onset of symptoms was August 11. He complains of headache, myalgias, arthralgias. He reports headache without photophobia or neck pain. He reports rhinorrhea, congestion and sore throat. He denies auditory or ocular symptoms. He does have loss of smell. He denies pleuritic chest pain. Does report shortness of breath and shortness of breath with activity. He denies history of VTE. Denies leg pain, swelling discoloration. He does report GI symptoms. He states he has not had any to eat or drink in 24 hours. He has not checked his blood sugar. Prior similar symptoms: No Recent Illness/Hospitalization: No [facility] Medical History (Updated 08/13/21 @ 22:[address] Clifton Warren MD) Asthma Diabetes Pancreatitis Home Medications blood sugar diagnostic 07/17/19 [History Last Taken Unknown] lancets 07/17/19 [History Last Taken Unknown] pen needle, diabetic #1 box 07/19/19 [Rx Last Taken Unknown] atorvastatin 80 mg tablet 80 mg PO QHS 30 Days #90 tab 08/14/19 [Rx Last Taken 01/24/20 17:00] blood sugar diagnostic #100 ea 08/14/19 [Rx Last Taken Unknown] blood-glucose meter #1 ea 08/14/19 [Rx Last Taken Unknown] lancets 28 gauge #200 ea 08/14/19 [Rx Last Taken Unknown] insulin syringe-needle U-100 0.3 mL 31 gauge x 03/28 #100 ea 11/01/19 [Rx Last Taken Unknown] albuterol sulfate 90 mcg/actuation aerosol inhaler 2 puff INHALATION Q6H PRN #8.5 g 08/19/20 [Rx Last Taken Unknown] fenofibrate nanocrystallized 145 mg tablet 145 mg PO DAILY@0800 #90 tab 08/19/20 [Rx Last Taken Unknown] insulin glargine 100 unit/mL (3 mL) subcutaneous pen 30 unit SUBCUT QHS 90 Days #27 ml 08/19/20 [Rx Last Taken Unknown] insulin lispro 100 unit/mL subcutaneous pen 15 unit SUBCUT QA #15 ml 08/19/20 [Rx Last Taken Unknown] lisinopril 2.5 mg tablet 2.5 mg PO DAILY #90 tab 08/19/20 [Rx Last Taken Unknown] pen needle, diabetic 31 gauge x 5/16 #100 ea 08/19/20 [Rx Last Taken Unknown] Allergy/AdvReac Type Severity Reaction Status Date / Time No Known Allergies Allergy Verified 08/13/21 17:15 Family History Father Diabetes Mother CVA (cerebral vascular accident) Seizures Hypertension Surgical History history of abscess removal Social History Smoking Status: Former smoker how long ago did patient quit smokin Months ago ( 07/01) alcohol intake: never substance use type: does not use what type of physical activity do you participate in: none seatbelt use: always do you feel safe at home: Yes ROS ROS ED Constitutional Constitutional ED: Reports chills, fever(s), subjective and sweats; Denies weight loss Eyes Eyes: Denies blurry vision, change in vision or diplopia ENT ENT ED: Reports ear pain, rhinorrhea and sore throat Cardiovascular Cardiovascular: Reports palpitations; Denies chest pain, orthopnea or paroxysmal nocturnal dyspnea Respiratory/Chest Respiratory/Chest: Reports cough, dyspnea and dyspnea on exertion; Denies orthopnea, paroxysmal nocturnal dyspnea or sputum Gastrointestinal Gastrointestinal: Reports abdominal pain, diarrhea and nausea; Denies constipation or melena Genitourinary Genitourinary ED: Denies dysuria, hematuria or urinary frequency Musculoskeletal Musculoskeletal: Reports arthralgias and myalgias; Denies back pain or neck pain Integumentary Denies rash Neurologic Neurologic: Reports headache(s) and weakness; Denies paresthesias Endocrine Endocrinology: Denies polydipsia, polyphagia or polyuria Allergic/Immunologic Allergic/Immunologic ED: Denies urticaria EXAM Physical Exam Const Vital Signs: 08/13/21 17:15 08/13/21 17:49 08/13/21 17:55 Temperature 98.9 F 98.9 F Temperature Source Temporal Temporal Pulse Rate 95 91 Respiratory Rate 21 H 28 H Respiratory Effort Short of Breath Respiratory Depth Deep Respiratory Pattern Tachypnea Blood Pressure 123/74 H 123/74 H Blood Pressure Mean 90 90 Pulse Ox 82 95 Oxygen Delivery Method Room Air Nasal Cannula Room Air Oxygen Flow Rate (L/min) 4 08/13/21 18:22 08/13/21 19:55 08/13/21 20:40 Temperature 97.6 F L 98.5 F 99.2 F H Temperature Source Temporal Temporal Oral Pulse Rate 96 89 84 Respiratory Rate 25 H 35 H 29 H Respiratory Effort Respiratory Depth Respiratory Pattern Blood Pressure 128/79 H 120/73 121/72 H Blood Pressure Mean 95 88 88 Pulse Ox 97 91 95 Oxygen Delivery Method Nasal Cannula Nasal Cannula Nasal Cannula Oxygen Flow Rate (L/min) 4 5 5 08/13/21 21:42 Temperature 98.9 F Temperature Source Oral Pulse Rate 80 Respiratory Rate 35 H Respiratory Effort Respiratory Depth Respiratory Pattern Blood Pressure 110/63 Blood Pressure Mean 78 Pulse Ox 94 Oxygen Delivery Method Nasal Cannula Oxygen Flow Rate (L/min) 5 Positive well nourished and well developed General Appearance ED: well developed, diaphoretic and other Patient does not appear well. He is breathing much more rapidly than 25 times a minute. HEENT HEENT Narrative: Head is atraumatic normocephalic. Nares patent. Ears normal. Posterior pharyngeal erythema exudate. Mucosa is dry. Eyes PERRL and EOMs intact bilaterally General Eye ED: Negative for pale conjunctiva or scleral icterus Neck no lymphadenopathy, supple and no JVD General: Negative for tenderness Chest Wall inspection of chest normal and palpation of chest normal Resp No normal respiratory effort and No clear to auscultation bilaterally Auscultation: rales bilateral base Cardio regular rhythm, S1 normal heart sound, S2 normal heart sound and no murmurs Rate: tachycardic GI normal to inspection, nondistended, normoactive bowel sounds and non-distended Palpation: soft and tender other (Minimal diffuse) Back/Spine no CVA tenderness Thoracic Spine / Upper Back: Negative for paraspinal muscle tenderness Extremity normal to inspection General Extremety ED: Negative for edema or tenderness General Extremity: Negative for edema Neuro oriented x3, CN's II-XII intact bilaterally and no sensory deficits noted Sensorium / Orientation: Negative for alert Motor Exam: strength 5/5 throughout Psych mental status grossly normal Skin no rashes or lesions noted and no wounds MDM MDM MDM Narrative Medical decision making narrative: Concern patient has Covid. ABG was obtained assess acid-base status specialist is diabetic and his PO2. CBC to assess white count and H&H. Electrolyte panel was obtained to assess anion gap, glucose and potassium since he is complaining of diarrhea. He will receive a fluid bolus. Chest x-ray to confirm suspicion for Covid pneumonia. Lab Data Attestation: I reviewed the patient's lab results. Lab results narrative: White count is normal however lab is reporting 1 blast cell. There is 57 neutrophils 25 bands. Sodium is 124. Will obtain serum and urine osmole to assess for SIADH. Lactate is elevated 2.4. ABG reveals a metabolic acidosis with respiratory compensation and an increased AA gradient. Labs: Laboratory Results - last 24 hr 08/13/21 08/13/21 08/13/21 17:40 17:40 17:40 WBC 5.8 RBC 5.66 Hgb 15.7 Hct 45.2 MCV 79.9 L MCH 27.7 MCHC 34.7 RDW Std Deviation 39.7 RDW Coeff of Wil 13.6 Plt Count 124 L MPV 10.0 Immature Gran % (Auto) DIESEL ENGINE ERECTOR Neut % (Auto) DIESEL ENGINE ERECTOR Lymph % (Auto) DIESEL ENGINE ERECTOR Noble % (Auto) DIESEL ENGINE ERECTOR Eos % (Auto) DIESEL ENGINE ERECTOR Baso % (Auto) DIESEL ENGINE ERECTOR Absolute Neuts (auto) 4.8 Absolute Lymphs (auto) 0.46 L Total Counted 100 Neutrophils % (Manual) 57 Band Neutrophils % 25 H Lymphocytes % (Manual) 8 L Monocytes % (Manual) 9 Blast Cells % 1 H* Nucleated RBC % DIESEL ENGINE ERECTOR Diff Path Review May foll Atypical Lymphocytes RARE Platelet Estimate SLT DEC RBC Morphology NORM C+C Sodium 124 L Potassium 3.8 Chloride 86 L Carbon Dioxide 21.0 Anion Gap 17 H BUN 16 Creatinine 0.94 Estim Creat Clear Calc 98.19 Est GFR (MDRD) Af Amer 111 Est GFR (MDRD) Non-Af 92 BUN/Creatinine Ratio 17.0 Glucose 313 H Serum Osmolality Lactic Acid 2.4 H* Calcium 8.8 Total Bilirubin 1.20 H AST 41 H ALT 24 Alkaline Phosphatase 92 Total Protein 7.9 Albumin 2.7 L Globulin 5.2 H Albumin/Globulin Ratio 0.5 L Urine Osmolality 08/13/21 08/13/21 20:27 21:39 WBC RBC Hgb Hct MCV MCH MCHC RDW Std Deviation RDW Coeff of Wil Plt Count MPV Immature Gran % (Auto) Neut % (Auto) Lymph % (Auto) [place] % (Auto) Eos % (Auto) Baso % (Auto) Absolute Neuts (auto) Absolute Lymphs (auto) Total Counted Neutrophils % (Manual) Band Neutrophils % Lymphocytes % (Manual) Monocytes % (Manual) Blast Cells % Nucleated RBC % Diff Path Review Atypical Lymphocytes Platelet Estimate RBC Morphology Sodium Potassium Chloride Carbon Dioxide Anion Gap BUN Creatinine Estim Creat Clear Calc Est GFR (MDRD) Af Amer Est GFR (MDRD) Non-Af BUN/Creatinine Ratio Glucose Serum Osmolality 288 Lactic Acid Calcium Total Bilirubin AST ALT Alkaline Phosphatase Total Protein Albumin Globulin Albumin/Globulin Ratio Urine Osmolality 869 ABG Data ABG results: ABG 08/13/21 19:05 Specimen Type ART Sample Site L Radial pH 7.43 Bicarbonate Actual 18.4 L Total CO2 19 Base Excess -6 L O2 Saturation 96 ABG pCO2 27.5 L ABG pO2 77 Vickey Test Positive O2 Delivery Device Cannula Liter Flow 4.0 Radiography Chest X-Ray - ED: 1 View (Bilateral interstitial pneumonia consistent with Covid. Since she has bands will obtain blood cultures and will start antibiotics since the Covid test is not available.) Diagnostic Testing: Radiology Impression Chest X-Ray 08/13/21 18:20 IMPRESSION: Pneumonia. Electronically Signed: Federico Ibanez MD at 18:35 EDT , Service support , EKG Initial EKG: Attestation: I personally reviewed and interpreted this EKG as follows: Interpretation: Sinus Rhythm (Normal sinus rhythm rate of 89. DC interval 148 ms. Cures duration 80 ms per QT duration 378 ms. [employer] is normal. The computer is reading inferior infarct of undetermined age. This is artifact.) Critical Care Time Critical Care Time: Yes Critical care time (excluding procedures): 30-74 minutes (37 minutes), Including time spent: (History, physical, documentation, patient laboratory results and x-ray, initiation of therapy), Discussing w/Patient &/or Family/Application Support Manager, Discussing w/Consultants and Arranging Admission or Transfer Discharge Plan Dx/Rx/DC Orders Clinical Impression: Pneumonia due to 2019-nCoV, Severe sepsis with acute organ dysfunction, Acute hyponatremia, SIADH (syndrome of inappropriate ADH production) Disposition Disposition: Acute Care [facility]
[2021-08-13 21:11] LABS: Osmolality, Serum 288 mOsm/KG (275-295)
[2021-08-13 22:00] LABS: Osmolality, Urine 869 mOsm/KG
[2021-08-13 22:08] LABS: Reflex Lactate? Y
--- NOTE | 2021-08-13 22:31 | HP.PCM.HOS_ITS ---
HPI - General General Date of Admission: 08/13/21 Date of Service: 08/13/21 Chief Complaint: Covid-like symptoms HPI Narrative MICHAEL DIGGS, is a 45 M with a significant history of diabetes mellitus who presents to emergency department with 4-day history of progressively worsening covid-like symptoms. He describes symptoms as shortness of breath; dry cough; fatigue; malaise; subjective fever; chills; post emesis cough; chest pressure; d iarrhea; dysgeusia and anorexia. He denies anosmia. Patient is unvaccinated for COVID-19 virus. [facility] Medical History Asthma Diabetes Pancreatitis Home Medications blood sugar diagnostic 07/17/19 [History Last Taken Unknown] lancets 07/17/19 [History Last Taken Unknown] pen needle, diabetic #1 box 07/19/19 [Rx Last Taken Unknown] atorvastatin 80 mg tablet 80 mg PO QHS 30 Days #90 tab 08/14/19 [Rx Last Taken 01/24/20 17:00] blood sugar diagnostic #100 ea 08/14/19 [Rx Last Taken Unknown] blood-glucose meter #1 ea 08/14/19 [Rx Last Taken Unknown] lancets 28 gauge #200 ea 08/14/19 [Rx Last Taken Unknown] insulin syringe-needle U-100 0.3 mL 31 gauge x 5/16 #100 ea 11/01/19 [Rx Last Taken Unknown] albuterol sulfate 90 mcg/actuation aerosol inhaler 2 puff INHALATION Q6H PRN #8.5 g 08/19/20 [Rx Last Taken Unknown] fenofibrate nanocrystallized 145 mg tablet 145 mg PO DAILY@0800 #90 tab 08/19/20 [Rx Last Taken Unknown] insulin glargine 100 unit/mL (3 mL) subcutaneous pen 30 unit SUBCUT QHS 90 Days #27 ml 08/19/20 [Rx Last Taken Unknown] insulin lispro 100 unit/mL subcutaneous pen 15 unit SUBCUT QAC #15 ml 08/19/20 [Rx Last Taken Unknown] lisinopril 2.5 mg tablet 2.5 mg PO DAILY #90 tab 08/19/20 [Rx Last Taken Unknown] pen needle, diabetic 31 gauge x 5/16 #100 ea 08/19/20 [Rx Last Taken Unknown] Allergy/AdvReac Type Severity Reaction Status Date / Time No Known Allergies Allergy Verified 08/13/21 17:15 Family History Father Diabetes Mother CVA (cerebral vascular accident) Seizures Hypertension Surgical History history of abscess removal Social History Smoking Status: Former smoker how long ago did patient quit smokin Months ago ( 07/01) alcohol intake: never substance use type: does not use what type of physical activity do you participate in: none seatbelt use: always do you feel safe at home: Yes ROS ROS Narrative Constitutional: Reports subjective fever, chills, fatigue, anorexia. Denies change in weight Eyes: Denies blurry vision, change in eye color, change in vision, discharge from eye(s), double vision, erythema, eye pain, loss of vision or other HEENT: Denies abnormal hearing, dysphagia, ear pain, epistaxis, , hearing loss, nasal congestion, nasal discharge, post nasal drip, sinus pressure, sore throat or other Cardiovascular: Reports chest pressure denies chest pain. Denies palpitation. Respiratory/Chest: Reports dry cough. Reports shortness of breath Gastrointestinal: Reports vomiting. Reports diarrhea. Denies abdominal pain. Genitourinary: Denies burning urination, difficulty urinating, dysuria, hematuria, nocturia, urinary frequency, urinary hesitancy, urinary incontinence, urinary urgency or other Musculoskeletal: Reports myalgia. Denies arthralgias. Neurologic: Denies abnormal gait, abnormal speech, confusion, disequilibrium, dizziness, focal weakness, headache(s), numbness, paresthesias, seizure-like activity, seizures, syncope, tingling, tremor(s) or other Psychiatric: Denies anxiety, depression, homicidal ideation, suicidal ideation or other Endocrinology: Denies change in body appearance, cold intolerance, excessive sweating, heat intolerance, polydipsia, polyuria or other Hematologic/Lymphatic: Denies anemia, easy bleeding, easy bruising, lymphadenopathy or other Integumentary: Denies rashes Allergic/Immunologic: Denies rhinitis, hives, eczema, asthma or other Vital Signs Vital Signs Vital Signs: 08/13/21 17:15 08/13/21 17:49 08/13/21 17:55 Temperature 98.9 F 98.9 F Temperature Source Temporal Temporal Pulse Rate 95 91 Respiratory Rate 21 H 28 H Respiratory Effort Short of Breath Respiratory Depth Deep Respiratory Pattern Tachypnea Blood Pressure 123/74 H 123/74 H Blood Pressure Mean 90 90 Pulse Ox 82 95 Oxygen Delivery Method Room Air Nasal Cannula Room Air Oxygen Flow Rate (L/min) 4 08/13/21 18:22 08/13/21 19:55 08/13/21 20:40 Temperature 97.6 F L 98.5 F 99.2 F H Temperature Source Temporal Temporal Oral Pulse Rate 96 89 84 Respiratory Rate 25 H 35 H 29 H Respiratory Effort Respiratory Depth Respiratory Pattern Blood Pressure 128/79 H 120/73 121/72 H Blood Pressure Mean 95 88 88 Pulse Ox 97 91 95 Oxygen Delivery Method Nasal Cannula Nasal Cannula Nasal Cannula Oxygen Flow Rate (L/min) 4 5 5 08/13/21 21:42 08/13/21 22:29 Temperature 98.9 F 98.5 F Temperature Source Oral Oral Pulse Rate 80 82 Respiratory Rate 35 H 25 H Respiratory Effort Respiratory Depth Respiratory Pattern Blood Pressure 110/63 113/76 Blood Pressure Mean 78 88 Pulse Ox 94 93 Oxygen Delivery Method Nasal Cannula Nasal Cannula Oxygen Flow Rate (L/min) 5 5 Weight Weight: 86.183 kg Body Mass Index (BMI) 28.0 Physical Exam Narrative Physical exam: General: Patient looks sick. Head: Normocephalic, atraumatic, no tenderness Eyes: PERRLA, EOMI ENT, no trauma, moist mucous membranes, no rhinorrhea Neck: Nontender, full range of motion, no spinal tenderness, deformities, step- off CVS: Regular rate and rhythm. S1-S2 present. No murmur, gallop or rub. Respiratory : Tachypnea and rales. Abdomen: Soft, nontender, nondistended, normal bowel sounds, no masses : Deferred Back: Nontender, no CVA tenderness, no midline spinal tenderness, deformities, step-offs Extremities: Nontender full range of motion, no trauma Skin: Normal color, no trauma, abrasions Neuro: Alert, oriented, cranial nerves II through XII grossly intact. Psychiatry: Normal mood. Normal affect. Results Lab / Micro Data Result Diagrams: 08/13/21 17:40 08/13/21 17:40 Labs: Laboratory Results - last 24 hr 08/13/21 17:40: WBC 5.8, RBC 5.66, Hgb 15.7, Hct 45.2, MCV 79.9 L, MCH 27.7, MCHC 34.7, RDW Std Deviation 39.7, RDW Coeff of Wil 13.6, Plt Count 124 L, MPV 10.0, Immature Gran % (Auto) WIRE HARNESS DESIGN ENGINEER, Neut % (Auto) WIRE HARNESS DESIGN ENGINEER, Lymph % (Auto) WIRE HARNESS DESIGN ENGINEER, [place] % (Auto) WIRE HARNESS DESIGN ENGINEER, Eos % (Auto) WIRE HARNESS DESIGN ENGINEER, Baso % (Auto) WIRE HARNESS DESIGN ENGINEER, Absolute Neuts (auto) 4.8, Absolu te Lymphs (auto) 0.46 L, Total Counted 100, Neutrophils % (Manual) 57, Band N eutrophils % 25 H, Lymphocytes % (Manual) 8 L, Monocytes % (Manual) 9, Blast Cells % 1 H*, Nucleated RBC % WIRE HARNESS DESIGN ENGINEER, Diff Path Review May foll, Atypical Lymphocytes RARE, Platelet Estimate SLT DEC, RBC Morphology NORM C+C 08/13/21 17:40: Sodium 124 L, Potassium 3.8, Chloride 86 L, Carbon Dioxide 21.0, Anion Gap 17 H, BUN 16, Creatinine 0.94, Estim Creat Clear Calc 98.19, Est GFR (MDRD) Af Amer 111, Est GFR (MDRD) Non-Af 92, BUN/Creatinine Ratio 17.0, Glucose 313 H, Calcium 8.8, Total Bilirubin 1.20 H, AST 41 H, ALT 24, Alkaline Phosphatase 92, Total Protein 7.9, Albumin 2.7 L, Globulin 5.2 H, Albumin/Globulin Ratio 0.5 L 08/13/21 17:40: Lactic Acid 2.4 H* 08/13/21 20:27: Serum Osmolality 288 08/13/21 21:39: Urine Osmolality 869 Micro: Microbiology 08/13/21 21:15 Nasal Secretion SARS-CoV-2 Antigen (Rapid) - Final SARS-CoV-2 (COVID 19) ABG Data ABG results: ABG 08/13/21 19:05 Specimen Type ART Sample Site L Radial pH 7.43 Bicarbonate Actual 18.4 L Total CO2 19 Base Excess -6 L O2 Saturation 96 ABG pCO2 27.5 L ABG pO2 77 Vickey Test Positive O2 Delivery Device Cannula Liter Flow 4.0 Radiology Impression Chest X-Ray 08/13/21 18:20 IMPRESSION: Pneumonia. Electronically Signed: Federico Ibanez MD at 18:35 EDT , Service support , Assessment & Plan Assessment/Plan (1) Severe sepsis with acute organ dysfunction: (2) Pneumonia due to 2019-nCoV: (3) Acute hyponatremia: (4) SIADH (syndrome of inappropriate ADH production): (5) Diabetes: QUALIFIERS: Diabetes mellitus complication status: with other specified complication Diabetes mellitus remote computer terminal operator insulin use: unspecified remote computer terminal operator insulin use status Diabetes mellitus type: type 2 Qualified Code(s): E11.69 - Type 2 diabetes mellitus with other specified complication PLAN: Severe sepsis with acute organ dysfunction secondary to pneumonia due to COVID-19 virus/Acute hypoxemic respiratory failure secondary to SARS- COV 2 Oxygen saturation of 82% on room air requiring supplemental oxygen by nasal cannula. Supplemental oxygen continued. Tachypnea with respiratory rate as high as 35. Actual chest x-ray image was independently interpreted. Bilateral infiltrates noted. Rapid Covid antigen positive at the emergency department. Received Decadron at the emergency department and continued. Estimated creatinine clearance is 98.19. AST is mildly elevated at 41. ALT is 24. Total bilirubin 1.2. Liver biochemistry is appropriate to begin remdesivir. Remde sivir ordered. Trend CMP. CBC showed white count of 5.8. Bandemia of 25%. Report also showed blast cells of 1%. [facility] doctor reportedly called lab and reported that the 1% blast cell was an error. Lactic acid 2.4; trend D-dimer ordered. Procalcitonin ordered. Received ceftriaxone and azithromycin at the emergency department. With bandemia ceftriaxone and azithromycin will be continued. Received Decadron at the emergency department and continued. Tylenol for fever Mucinex ordered. Loperamide for diarrhea. Hyponatremia Review of emergent department labs showed sodium of 124. Corrected for glucose sodium is 127. Likely secondary to SIADH Check uric acid urine osmolarity and serum sodium ordered in the ED Check urine sodium Urine osmolality 869. Serum osmolality 288. Urine osmolality fits SIADH. However urine sodium is low for SIADH Placed on fluid restriction. Gentle normal saline ordered. Trend BMP. Diabetes mellitus Patient with hyperglycemia on presentation With Decadron anticipate blood glucose will increase. Home basal insulin continued. Accu-Chek QA CHS with correction scale insulin ordered. Lisinopril continued. Blood pressure is appropriate. Hyperlipidemia Fenofibrate continue. DVT prophylaxis: Subcutaneous Lovenox ordered. Charges/Coding Visit Charges Inpatient E&M: 32086 Init Hosp L3
[2021-08-13 22:40] LABS: Urine Sodium 11 mmol/L (Not Establ.)
[2021-08-13 23:05] LABS: Lactic Acid 1.2 mmol/L (0.4-1.9)
--- NOTE | 2021-08-13 23:14 | PCS.PANDOC ---
PANDEMIC DOCUMENTATION INITIATED: Date: 06/28/2021 Time: 190
[2021-08-13] MEDS: 0.9% Normal Saline 1,000 ML 60 ML IV (23:18)
[2021-08-13 23:34] LABS: Procalcitonin 0.36 ng/mL (0.00-0.09)
[2021-08-14] VITALS (9 sets, daily range): BP systolic 93–104; BP diastolic 57–68; PULSE 65–79; RESP 18–28; TEMP 35.6–36.5; O2SAT 93–96
[2021-08-14] MEDS: Acetaminophen 325 MG Tablet 650 MG PO ×3 (00:12→12:44)
[2021-08-14] MEDS: guaiFENesin 1,200 MG Tablet 1200 MG PO ×3 (00:37→20:59)
[2021-08-14] MEDS: Glucagon 1 MG/ML Syringe IM (00:38)
[2021-08-14 01:01] LABS: D-Dimer Quantitative (DVT/PE) 4.26 FEU/ug/m (0.27-0.49)
--- NOTE | 2021-08-14 03:23 | NURSING ---
EMERGENCY DOCUMENTATION
--- NOTE | 2021-08-14 03:27 | NURSING ---
PT TAKEN TO CT SCAN FOR ELEVATED DDIMER
--- NOTE | 2021-08-14 03:49 | CT_ITS ---
STUDY: CTA CHEST REASON FOR EXAM: Male, 45 years old. Elevated d-dimer, cough RADIATION DOSAGE (If Supplied By Facility): CTDIvol = ( 12.79 ) mGy, DLP = ( 426.15 ) mGycm TECHNIQUE: The examination was performed with the intravenous administration of IV 100mL Isovue-370. Post-processing of the angiographic images was performed, with multiplanar reformation and 3D reconstruction. Individualized dose optimization techniques were used for this CT. COMPARISON: None. FINDINGS: Normal enhancement of the main pulmonary artery and right and left pulmonary arteries. Normal enhancement of the bilateral peripheral pulmonary arteries. There is no demonstrated pulmonary embolism. Normal thoracic aorta and visualized great vessels. There is no demonstrated aortic dissection. Normal heart and pericardium. Normal mediastinum. Prominent bilateral hilar lymph nodes, likely reactive. Normal visualized trachea and bronchi. The lungs are well expanded. Diffuse bilateral patchy and groundglass densities with intralobular septal thickening. Normal pleura. Normal chest wall structures. Normal osseous structures. Normal visualized upper abdomen. CT/CTA Chest W/WO Contrast IMPRESSION: Diffuse bilateral multifocal pneumonia. Normal CTA chest examination, without a demonstrated pulmonary embolism or arterial dissection. Electronically Signed: Narinder Reeder MD at 5:45 EDT Tel , Service support ,
[2021-08-14 07:00] LABS: Absolute Lymphocyte Count 1.05 X10^3/uL (0.83-4.51); Absolute Neutrophil Count 3.4 X10^3/uL (2.0-7.7); Basophil# 0.04 X10^3/uL; Basophil% 0.8 % (0-1); Hemoglobin 14.6 g/dL (13.0-16.5); Lymphocyte # 1.05 X10^3/ul (0.83-4.51); Lymphocyte % 21.3 % (19-41); Mean Corp Hgb Conc 32.4 g/dL (32-36); Mean Corpuscular Volume 83.3 fL (80-94); Mean Platelet Vol. 9.6 fl (6.2-12.0); Monocyte# 0.35 X10^3/uL; Monocyte% 7.1 % (0-10); NRBC Flagged by Analyzer 0 % (0-5); Neutrophil % 68.8 % (47-70); POSITIVE MORPHOLOGY YES; Platelet Count 133 K/mm3 (150-450); RBC Distribution Width CV 13.8 % (11.6-14.6); RBC Distribution Width SD 41.8 fl (35.1-43.9); White Blood Count 4.9 K/mm3 (4.4-11.0)
[2021-08-14 07:26] LABS: ALB/GLOB Ratio 0.5 RATIO (0.9-2.4); AST(SGOT) 35 U/L (15-37); Alanine Aminotransfer ALT/SGPT 22 U/L (16-61); Albumin, Serum 2.3 g/dL (3.2-5.0); Alkaline Phosphatase 85 U/L (45-117); Anion Gap 17 (5-15); BUN 21 mg/dL (7-18); BUN/Creat Ratio 20.8 RATIO (10-20); Calcium,Total 8.7 mg/dL (8.5-10.1); Chloride 90 mmol/L (98-107); Creatinine, Serum 1.01 mg/dL (0.70-1.30); EST Glomerular Filtration Rate 84 mL/min (>60); Est Glom Filt Rate - Afr Amer 102 mL/min (>60); Estimated Creatinine Clearance 91.39 ml/min; Globulin 4.9 g/dL (2.2-4.2); Glucose 355 mg/dL (74-106); Potassium 4.6 mmol/L (3.5-5.1); Protein, Total 7.2 g/dL (6.4-8.2); Sodium Level 129 mmol/L (136-145)
[2021-08-14 07:30] LABS: Differential Indicated SCAN CRITERIA MET
--- NOTE | 2021-08-14 07:52 | PCM.PN.HOSP ---
Subjective Subjective And admitted with generalized flulike symptoms of headache, myalgia, arthralgia, rhinorrhea and sore throat. Shortness of breath and dyspnea on exertion and dry cough, subjective fever, GI symptoms vomiting, dysgeusia and anorexia. Multiple comorbidities including type 2 diabetes mellitus, pancreatitis, hypertriglyceridemia, cigarette smoking and asthma. Patient on 4 L of oxygen. Objective Data Objective Data Vital Signs: Vital Signs Temp Pulse Resp BP Pulse Ox 97.2 F L 74 20 H 104/57 L 95 08/14/21 07:00 08/14/21 07:00 08/14/21 07:00 08/14/21 07:00 08/14/21 07:00 Oxygen Flow Rate (L/min) 4 Oxygen Delivery Method Nasal Cannula Weight: 185 lb 10.067 oz Body Mass Index (BMI) 27.3 Intake & Output: Intake and Output for Last 24 Hours 08/12/21 08/13/21 08/14/21 23:59 23:59 23:59 Intake Total 805 / 805 1050 / 1050 Output Total 1450 / 1450 Balance 805 / 805 -400 / -400 Lab / Micro Data Result Diagrams: 08/14/21 06:50 08/14/21 06:50 Labs: Laboratory Results - last 24 hr 08/13/21 17:40: WBC 5.8, RBC 5.66, Hgb 15.7, Hct 45.2, MCV 79.9 L, MCH 27.7, MCHC 34.7, RDW Std Deviation 39.7, RDW Coeff of Wil 13.6, Plt Count 124 L, MPV 10.0, Immature Gran % (Auto) ULTIMATE HOOPS SCOREBOARD OPERATOR, Neut % (Auto) ULTIMATE HOOPS SCOREBOARD OPERATOR, Lymph % (Auto) ULTIMATE HOOPS SCOREBOARD OPERATOR, [place] % (Auto) ULTIMATE HOOPS SCOREBOARD OPERATOR, Eos % (Auto) ULTIMATE HOOPS SCOREBOARD OPERATOR, Baso % (Auto) ULTIMATE HOOPS SCOREBOARD OPERATOR, Absolute Neuts (auto) 4.8, Absolute Lymphs (auto) 0.46 L, Total Counted 100, Neutrophils % (Manual) 57, Band Neutrophils % 25 H, Lymphocytes % (Manual) 8 L, Monocytes % (Manual) 9, Blast Cells % 1 H*, Nucleated RBC % ULTIMATE HOOPS SCOREBOARD OPERATOR, Diff Path Review May foll, Atypical Lymphocytes RARE, Platelet Estimate SLT DEC, RBC Morphology NORM C+C 08/13/21 17:40: Sodium 124 L, Potassium 3.8, Chloride 86 L, Carbon Dioxide 21.0, Anion Gap 17 H, BUN 16, Creatinine 0.94, Estim Creat Clear Calc 98.19, Est GFR (MDRD) Af Amer 111, Est GFR (MDRD) Non-Af 92, BUN/Creatinine Ratio 17.0, Glucose 313 H, Calcium 8.8, Total Bilirubin 1.20 H, AST 41 H, ALT 24, Alkaline Phosphatase 92, Total Protein 7.9, Albumin 2.7 L, Globulin 5.2 H, Albumin/Globulin Ratio 0.5 L 08/13/21 17:40: Lactic Acid 2.4 H* 08/13/21 17:40: Uric Acid 4.0 08/13/21 17:50: D-Dimer Quant (PE/DVT) 4.26 H* 08/13/21 20:27: Serum Osmolality 288 08/13/21 20:27: Procalcitonin 0.36 H 08/13/21 21:39: Urine Osmolality 869 08/13/21 21:39: Ur Random Sodium 11 08/13/21 22:33: Lactic Acid 1.2 08/14/21 06:50: WBC 4.9, RBC 5.40, Hgb 14.6, Hct 45.0, MCV 83.3, MCH 27.0, MCHC 32.4 D, RDW Std Deviation 41.8, RDW Coeff of Wil 13.8, Plt Count 133 L, MPV 9.6, Immature Gran % (Auto) 2.000 H, Neut % (Auto) 68.8, Lymph % (Auto) 21.3, [place] % (Auto) 7.1, Eos % (Auto) 0.0, Baso % (Auto) 0.8, Absolute Neuts (auto) 3.4, Absolute Lymphs (auto) 1.05, Nucleated RBC % 0 08/14/21 06:50: Sodium 129 L, Potassium 4.6, Chloride 90 L, Carbon Dioxide 22.0, Anion Gap 17 H, BUN 21 H, Creatinine 1.01, Estim Creat Clear Calc 91.39, Est GFR (MDRD) Af Amer 102, Est GFR (MDRD) Non-Af 84, BUN/Creatinine Ratio 20.8 H, Glucose 355 H, Calcium 8.7, Total Bilirubin 0.70, AST 35, ALT 22, Alkaline Phosphatase 85, Total Protein 7.2, Albumin 2.3 L, Globulin 4.9 H, Albumin/Globulin Ratio 0.5 L Micro: Microbiology 08/13/21 21:15 Nasal Secretion SARS-CoV-2 Antigen (Rapid) - Final SARS-CoV-2 (COVID 19) ABG Data ABG results: ABG 08/13/21 19:05 Specimen Type ART Sample Site L Radial pH 7.43 Bicarbonate Actual 18.4 L Total CO2 19 Base Excess -6 L O2 Saturation 96 ABG pCO2 27.5 L ABG pO2 77 Vickey Test Positive O2 Delivery Device Cannula Liter Flow 4.0 Radiography Diagnostic Testing: Radiology Impression Chest X-Ray 08/13/21 18:20 IMPRESSION: Pneumonia. Electronically Signed: Federico Ibanez MD at 18:35 EDT , Service support , Chest CTA 08/14/21 03:49 IMPRESSION: Diffuse bilateral multifocal pneumonia. Normal CTA chest examination, without a demonstrated pulmonary embolism or arterial dissection. Electronically Signed: Narinder Reeder MD at 5:45 EDT Tel , Service support , Physical Exam Narrative General: Alert, Oriented x3, Cooperative HEENT: Atraumatic, PERRLA, EOMI, Normocephalic Oral: No Gingival or Mucosal Lesions/ Ulcerations Neck: Supple, No JVD, Negative Carotid Bruits Lungs: Mild respiratory distress. Air entry diminished in bilateral lung bases. Bibasilar crepitations present. Cardiovascular: Regular rate, Regular Rhythm, Normal S1, Normal S2, No murmurs Abdomen: Bowel Sounds Present, Soft, Non Tender, Non-Distended : No renal angle tenderness. No suprapubic tenderness. Extremities: No edema, Capillary Refill Less than 3 Seconds Skin: No rashes, No breakdown Musculoskeletal: No Tenderness to Palpation of Joints or Extremities Neurological: Cranial nerves II-XII grossly intact, DTR 2+/4 and Symmetrical, Neuro grossly intact Psych/Mental Status: Normal Affect, Appropriate. Assessment & Plan Assessment/Plan (1) Severe sepsis with acute organ dysfunction: (2) Pneumonia due to 2019-nCoV: (3) Acute hyponatremia: (4) SIADH (syndrome of inappropriate ADH production): (5) Diabetes: QUALIFIERS: Diabetes mellitus complication status: with other specified complication Diabetes mellitus extermination supervisor insulin use: unspecified extermination supervisor insulin use status Diabetes mellitus type: type 2 Qualified Code(s): E11.69 - Type 2 diabetes mellitus with other specified complication PLAN: 1. Severe sepsis with acute organ dysfunction (respiratory failure with tachypnea and hypoxia and respiratory distress) secondary to pneumonia due to COVID-19 virus/Acute hypoxemic respiratory failure secondary to SARS- COV 2: On Decadron and IV remdesivir. Discussed with ID Dr. Uriel Eisenberg currently he does not meet criteria for baricitinib. CBC shows bandemia 25%, blast cell 1% suggestive of marked left shift from severe sepsis. Lactic acid and D-dimer elevated. Procalcitonin elevated 0.36. On ceftriaxone and azithromycin. Mucinex incentive spirometry and Pep. 2. Hypotonic hypovolemic hyponatremia: Urine osmolarity very high as compared to serum sodium suggestive of severe dehydration or SIADH. Lisinopril discontinued as blood pressure is on lower side. 1 L normal saline bolus ordered. Urine sodium 11, on lower side. 1 L of normal saline bolus ordered. Repeat BMP. If there is appropriate increase in serum sodium, hyponatremia is due to hypovolemia as it fits the clinical scenario. Diabetes mellitus type II: On Decadron. Home basal insulin continued. Accu-Chek QA CHS with correction scale insulin ordered. Hyperlipidemia Fenofibrate held. DVT prophylaxis: Subcutaneous Lovenox ordered. Charges/Coding Visit Charges Inpatient E&M: 35456 Subs Hosp L2
[2021-08-14] MEDS: Insulin Lispro 100 UNIT/ML INSULN.PEN SC ×4 (09:01→20:58)
[2021-08-14] MEDS: Insulin Lispro 100 UNIT/ML INSULN.PEN 15 UNIT SC ×3 (09:01→17:03)
[2021-08-14] MEDS: dexAMETHasone 2 MG TABLET 6 MG PO (09:02)
[2021-08-14] MEDS: Enoxaparin 30 MG/0.3 ML Syringe SC ×2 (09:02→20:59)
[2021-08-14] MEDS: 0.9% Normal Saline 1,000 ML 999 ML IV (09:02)
[2021-08-14 09:25] LABS: Bedside Glucose 404 mg/dL (70-110)
[2021-08-14 10:10] LABS: Differential Comment SCANNED; Reactive Lymphocyte 1+
[2021-08-14 13:01] LABS: Bedside Glucose 332 mg/dL (70-110)
--- NOTE | 2021-08-14 13:15 | CASEMGMT ---
RN DANNA SYSTEM VALIDATION ENGINEER CM to room to meet with patient for initial transition planning/care coordination assessment. ANTONIO CLAY introduced self and role at [facility]. Pt voices understanding and consents to assessment at this time. Pt sitting up in recliner chair in no distress at this time. Pt is A/O at this time and answers all questions appropriately. Care providers, pharmacy, and demographics verified/updated at this time. PCP: Dr Chiell Specialists: none Preferred Pharmacy: [facility] Insurance: [facility] Prescription Benefit: Yes Living Will/HPOA: Pt does not currently have LW/HCPOA and declines info at this time. Pt made aware that he can contact SW as an out-pt and make appt in the future if he decides he would like to talk with someone about this or would like to utilize [facility] social work for advanced directive completion. LNOK: Pt has 2 sons and 2 dtrs. Pt states he would want his son, Alessio to be POA Living Arrangements: Lives w/his son, Alessio, in one-story home w/no steps to enter. Pt states his son has not been ill. Family can assist w/bringing groceries/supplies if needed. Pt independent prior to recent illness w/COVID. Transportation: Pt states drives self and states no transportation concerns at this time. Son also drives. DME: States has the following DME: Pt does not have pulse ox. RN DANNA recommended he get a pulse ox. Pt states he used to have a glucometer, but lost it. Pt may need oxygen @ d/c. Discussed this w/pt. He was made aware [facility] is only DME co in network w/his insurance and pt agreeable to same. Pt states no need for further DME at this time. HHC/SNF: No hx of either. Pt declines need for HHC. Pt wishes to return home and states has no concerns with going home at time of discharge. CM to follow for home oxygen needs and any further discharge planning/needs. Pt voices no further concerns/needs at this time. Advised pt to ask for CM if any further questions/concerns/needs arise. Voices understanding. PLAN: Home w/discharge plans in place. Pt may need home Oxygen @ d/c. [facility] only DME co in network w/pt's insurance. Green sheet on chart w/instructions for Home O2 set up, if pt qualifies for O2 @ d/c. Pt may need script for glucometer. Dulce BSN RN CM
[2021-08-14] MEDS: 0.9% Normal Saline 1,000 ML 60 ML IV (15:23)
[2021-08-14 16:19] LABS: Anion Gap 12 (5-15); BUN 22 mg/dL (7-18); BUN/Creat Ratio 31.9 RATIO (10-20); Calcium,Total 8.5 mg/dL (8.5-10.1); Chloride 96 mmol/L (98-107); Creatinine, Serum 0.69 mg/dL (0.70-1.30); EST Glomerular Filtration Rate 131 mL/min (>60); Est Glom Filt Rate - Afr Amer 159 mL/min (>60); Estimated Creatinine Clearance 133.77 ml/min; Glucose 312 mg/dL (74-106); Potassium 4.1 mmol/L (3.5-5.1); Sodium Level 131 mmol/L (136-145)
[2021-08-14 17:15] LABS: Bedside Glucose 287 mg/dL (70-110)
[2021-08-14] MEDS: Atorvastatin Calcium 80 MG Tablet PO (20:59)
[2021-08-14] MEDS: MELATONIN 3 MG TABLET PO (21:10)
[2021-08-14] MEDS: INHALER, ASSIST DEVICES 1 EACH SPACER INHALATION (21:12)
[2021-08-14 21:36] LABS: Bedside Glucose 295 mg/dL (70-110)
[2021-08-15] VITALS (12 sets, daily range): BP systolic 90–113; BP diastolic 61–68; PULSE 59–73; RESP 16–23; TEMP 36.1–36.9; O2SAT 89–96
[2021-08-15] MEDS: Benzonatate 100 MG Capsule PO ×2 (00:41→19:58)
[2021-08-15] MEDS: Ondansetron 4 MG/2 ML Vial IV (00:41)
[2021-08-15] MEDS: 0.9% Saline Lock 10 ML Syringe IV (00:48)
[2021-08-15 06:01] LABS: Absolute Lymphocyte Count 1.24 X10^3/uL (0.83-4.51); Absolute Neutrophil Count 9.7 X10^3/uL (2.0-7.7); Basophil# 0.03 X10^3/uL; Basophil% 0.2 % (0-1); Hematocrit 39.7 % (40-54); Hemoglobin 13.3 g/dL (13.0-16.5); Lymphocyte # 1.24 X10^3/ul (0.83-4.51); Lymphocyte % 10.3 % (19-41); Mean Corp Hgb Conc 33.5 g/dL (32-36); Mean Corpuscular Hgb 27.4 pg (27.0-32.0); Mean Corpuscular Volume 81.7 fL (80-94); Mean Platelet Vol. 9.6 fl (6.2-12.0); Monocyte# 0.87 X10^3/uL; Monocyte% 7.2 % (0-10); NRBC Flagged by Analyzer 0 % (0-5); Neutrophil # 9.74 X10^3/uL (2.7-7.7); Neutrophil % 80.8 % (47-70); POSITIVE MORPHOLOGY YES; Platelet Count 182 K/mm3 (150-450); RBC Distribution Width SD 40.9 fl (35.1-43.9); Red Blood Count 4.86 M/mm3 (4.6-6.2); White Blood Count 12.1 K/mm3 (4.4-11.0)
[2021-08-15] MEDS: 0.9% Normal Saline 1,000 ML 60 ML IV (06:04)
[2021-08-15 06:15] LABS: Differential Indicated SCAN CRITERIA MET
[2021-08-15 06:30] LABS: ALB/GLOB Ratio 0.5 RATIO (0.9-2.4); AST(SGOT) 28 U/L (15-37); Alanine Aminotransfer ALT/SGPT 19 U/L (16-61); Albumin, Serum 2.1 g/dL (3.2-5.0); Alkaline Phosphatase 72 U/L (45-117); Anion Gap 8 (5-15); BUN 16 mg/dL (7-18); BUN/Creat Ratio 28.4 RATIO (10-20); Calcium,Total 8.6 mg/dL (8.5-10.1); Chloride 99 mmol/L (98-107); Creatinine, Serum 0.56 mg/dL (0.70-1.30); EST Glomerular Filtration Rate 165 mL/min (>60); Est Glom Filt Rate - Afr Amer 200 mL/min (>60); Estimated Creatinine Clearance 164.83 ml/min; Globulin 4.2 g/dL (2.2-4.2); Glucose 320 mg/dL (74-106); Potassium 3.9 mmol/L (3.5-5.1); Protein, Total 6.3 g/dL (6.4-8.2); Sodium Level 132 mmol/L (136-145)
[2021-08-15 06:42] LABS: Differential Comment SCANNED
[2021-08-15] MEDS: Insulin Lispro 100 UNIT/ML INSULN.PEN 15 UNIT SC ×2 (08:42→11:18)
[2021-08-15] MEDS: Insulin Lispro 100 UNIT/ML INSULN.PEN SC ×4 (08:43→21:10)
[2021-08-15] MEDS: dexAMETHasone 2 MG TABLET 6 MG PO (08:44)
[2021-08-15] MEDS: guaiFENesin 1,200 MG Tablet 1200 MG PO (08:44)
[2021-08-15] MEDS: Enoxaparin 30 MG/0.3 ML Syringe SC ×2 (08:44→21:09)
[2021-08-15 09:06] LABS: Bedside Glucose 284 mg/dL (70-110)
[2021-08-15] MEDS: Acetaminophen 325 MG Tablet 650 MG PO ×2 (11:24→19:58)
[2021-08-15 11:35] LABS: Bedside Glucose 372 mg/dL (70-110)
--- NOTE | 2021-08-15 13:55 | PCM.PN.HOSP ---
Subjective Subjective On 15 L of oxygen. Patient short of breath. Objective Data Objective Data Vital Signs: Vital Signs Temp Pulse Resp BP Pulse Ox 98.5 F 73 20 H 98/68 93 08/15/21 08:00 08/15/21 08:00 08/15/21 08:00 08/15/21 08:00 08/15/21 08:00 Oxygen Flow Rate (L/min) 15 Oxygen Delivery Method Nasal Cannula Weight: 185 lb 10.067 oz Body Mass Index (BMI) 27.3 Intake & Output: Intake and Output for Last 24 Hours 08/13/21 08/14/21 08/15/21 23:59 23:59 23:59 Intake Total 805 / 805 4262 / 4262 1541 / 1541 Output Total 2775 / 2775 800 / 800 Balance 805 / 805 1487 / 1487 741 / 741 Lab / Micro Data Result Diagrams: 08/15/21 05:36 08/15/21 05:36 Labs: Laboratory Results - last 24 hr 08/14/21 15:35: Sodium 131 L, Potassium 4.1, Chloride 96 L, Carbon Dioxide 23.0, Anion Gap 12, BUN 22 H, Creatinine 0.69 L, Estim Creat Clear Calc 133.77, Est GFR (MDRD) Af Amer 159, Est GFR (MDRD) Non-Af 131, BUN/Creatinine Ratio 31.9 H, Glucose 312 H, Calcium 8.5 08/14/21 17:00: POC Glucose 287 H 08/14/21 20:57: POC Glucose 295 H 08/15/21 05:36: WBC 12.1 H, RBC 4.86, Hgb 13.3, Hct 39.7 L, MCV 81.7, MCH 27.4, MCHC 33.5, RDW Std Deviation 40.9, RDW Coeff of Wil 14.0, Plt Count 182, MPV 9.6, Immature Gran % (Auto) 1.500 H, Neut % (Auto) 80.8 H, Lymph % (Auto) 10.3 L, [place] % (Auto) 7.2, Eos % (Auto) 0.0, Baso % (Auto) 0.2, Absolute Neuts (auto) 9.7 H, Absolute Lymphs (auto) 1.24, Nucleated RBC % 0, Differential Comment SCANNED 08/15/21 05:36: Sodium 132 L, Potassium 3.9, Chloride 99, Carbon Dioxide 25.0, Anion Gap 8, BUN 16, Creatinine 0.56 L, Estim Creat Clear Calc 164.83, Est GFR (MDRD) Af Amer 200, Est GFR (MDRD) Non-Af 165, BUN/Creatinine Ratio 28.4 H, Glucose 320 H, Calcium 8.6, Total Bilirubin 0.60, AST 28, ALT 19, Alkaline Phosphatase 72, Total Protein 6.3 L, Albumin 2.1 L, Globulin 4.2, Albumin/Globulin Ratio 0.5 L 08/15/21 08:34: POC Glucose 284 H 08/15/21 11:17: POC Glucose 372 H Micro: Microbiology 08/13/21 21:15 Nasal Secretion SARS-CoV-2 Antigen (Rapid) - Final SARS-CoV-2 (COVID 19) Physical Exam Narrative General: Alert, Oriented x3, Cooperative HEENT: Atraumatic, PERRLA, EOMI, Normocephalic Oral: No Gingival or Mucosal Lesions/ Ulcerations Neck: Supple, No JVD, Negative Carotid Bruits Lungs: Air entry diminished in bilateral lung bases. Bilateral crepitations present. Mild respiratory distress with tachypnea and hypoxia Cardiovascular: Regular rate, Regular Rhythm, Normal S1, Normal S2, No murmurs Abdomen: Bowel Sounds Present, Soft, Non Tender, Non-Distended : No renal angle tenderness. No suprapubic tenderness. Extremities: No edema, Capillary Refill Less than 3 Seconds Skin: No rashes, No breakdown Musculoskeletal: No Tenderness to Palpation of Joints or Extremities Neurological: Cranial nerves II-XII grossly intact, DTR 2+/4 and Symmetrical, Neuro grossly intact Psych/Mental Status: Normal Affect, Appropriate. Assessment & Plan Assessment/Plan (1) Severe sepsis with acute organ dysfunction: (2) Pneumonia due to 2019-nCoV: (3) Acute hyponatremia: (4) SIADH (syndrome of inappropriate ADH production): (5) Diabetes: QUALIFIERS: Diabetes mellitus type: type 2 Diabetes mellitus custodial insulin use: unspecified custodial insulin use status Diabetes mellitus complication status: with other specified complication Qualified Code(s): E11.69 - Type 2 diabetes mellitus with other specified complication PLAN: 1. Severe sepsis with acute organ dysfunction (respiratory failure with tachypnea and hypoxia and respiratory distress) secondary to pneumonia due to COVID-19 virus/Acute hypoxemic respiratory failure secondary to SARS- COV 2: On Decadron and IV remdesivir. Discussed with ID Dr. Uriel Eisenberg currently he does not meet criteria for baricitinib. CBC shows bandemia 25%, blast cell 1% suggestive of marked left shift from severe sepsis. Lactic acid and D-dimer elevated. Procalcitonin elevated 0.36. On ceftriaxone and azithromycin. Mucinex incentive spirometry and Pep. 08/15: Leukocytosis 2. Hypotonic hypovolemic hyponatremia: Urine osmolarity very high as compared to serum sodium suggestive of severe dehydration or SIADH. Lisinopril discontinued as blood pressure is on lower side. 1 L normal saline bolus ordered. Urine sodium 11, on lower side. 1 L of normal saline bolus given. Serum sodium 132. His previous serum sodium on baseline also 132 and 133 in April 2020 and January 2020. 3. Diabetes mellitus type II: On Decadron. Home basal insulin continued. Glucose is high. Insulin dose titrated up. Accu-Chek QA CHS with correction scale insulin ordered. Hyperlipidemia Fenofibrate held. DVT prophylaxis: Subcutaneous Lovenox ordered. Charges/Coding Visit Charges Inpatient E&M: 02710 Subs Hosp L2
[2021-08-15] MEDS: 0.9% Normal Saline 1,000 ML 100 ML IV (14:28)
[2021-08-15] MEDS: Insulin Lispro 100 UNIT/ML INSULN.PEN 22 UNIT SC (16:53)
[2021-08-15 17:00] LABS: Bedside Glucose 270 mg/dL (70-110)
[2021-08-15] MEDS: Atorvastatin Calcium 80 MG Tablet PO (21:09)
[2021-08-15 21:40] LABS: Bedside Glucose 306 mg/dL (70-110)
[2021-08-16] VITALS (11 sets, daily range): BP systolic 93–107; BP diastolic 65–73; PULSE 58–81; RESP 15–20; TEMP 36.1–37; O2SAT 92–95
[2021-08-16] MEDS: 0.9% Normal Saline 1,000 ML 60 ML IV ×2 (04:33→17:42)
[2021-08-16] MEDS: guaiFENesin 10 ML UDC (200MG/10ML) PO (06:20)
[2021-08-16 06:30] LABS: Bedside Glucose 320 mg/dL (70-110)
[2021-08-16 07:42] LABS: Absolute Lymphocyte Count 1.06 X10^3/uL (0.83-4.51); Absolute Neutrophil Count 6.3 X10^3/uL (2.0-7.7); Basophil# 0.03 X10^3/uL; Basophil% 0.4 % (0-1); Hematocrit 37.4 % (40-54); Hemoglobin 12.5 g/dL (13.0-16.5); Lymphocyte # 1.06 X10^3/ul (0.83-4.51); Lymphocyte % 12.6 % (19-41); Mean Corp Hgb Conc 33.4 g/dL (32-36); Mean Corpuscular Hgb 27.9 pg (27.0-32.0); Mean Corpuscular Volume 83.5 fL (80-94); Mean Platelet Vol. 9.4 fl (6.2-12.0); Monocyte# 0.76 X10^3/uL; NRBC Flagged by Analyzer 0 % (0-5); Neutrophil # 6.33 X10^3/uL (2.7-7.7); Neutrophil % 75.1 % (47-70); POSITIVE MORPHOLOGY YES; Platelet Count 203 K/mm3 (150-450); RBC Distribution Width SD 42.7 fl (35.1-43.9); Red Blood Count 4.48 M/mm3 (4.6-6.2); White Blood Count 8.4 K/mm3 (4.4-11.0)
[2021-08-16 07:47] LABS: Differential Indicated SCAN CRITERIA MET
[2021-08-16 08:10] LABS: ALB/GLOB Ratio 0.5 RATIO (0.9-2.4); AST(SGOT) 25 U/L (15-37); Alanine Aminotransfer ALT/SGPT 20 U/L (16-61); Albumin, Serum 2.1 g/dL (3.2-5.0); Alkaline Phosphatase 73 U/L (45-117); Anion Gap 10 (5-15); BUN 12 mg/dL (7-18); BUN/Creat Ratio 20.2 RATIO (10-20); Calcium,Total 8.3 mg/dL (8.5-10.1); Chloride 99 mmol/L (98-107); Creatinine, Serum 0.59 mg/dL (0.70-1.30); EST Glomerular Filtration Rate 156 mL/min (>60); Est Glom Filt Rate - Afr Amer 188 mL/min (>60); Estimated Creatinine Clearance 156.45 ml/min; Glucose 311 mg/dL (74-106); Potassium 3.6 mmol/L (3.5-5.1); Protein, Total 6.1 g/dL (6.4-8.2); Sodium Level 135 mmol/L (136-145)
[2021-08-16 08:22] LABS: Platelet Estimate ADEQUATE (ADEQ); Red Cell Morphology NORM C+C NORMAL (NORM C&C)
[2021-08-16] MEDS: dexAMETHasone 2 MG TABLET 6 MG PO (09:37)
[2021-08-16] MEDS: Insulin Lispro 100 UNIT/ML INSULN.PEN SC ×4 (09:38→20:53)
[2021-08-16] MEDS: Insulin Lispro 100 UNIT/ML INSULN.PEN 22 UNIT SC ×3 (09:38→17:39)
[2021-08-16] MEDS: Enoxaparin 30 MG/0.3 ML Syringe SC ×2 (09:39→20:52)
[2021-08-16 09:50] LABS: Bedside Glucose 325 mg/dL (70-110)
[2021-08-16 10:06] LABS: Hemoglobin A1c > 14.0 % (3.8-5.6)
[2021-08-16 11:21] LABS: Bedside Glucose 368 mg/dL (70-110)
--- NOTE | 2021-08-16 13:44 | PCM.CONS.GEN ---
Assessment & Plan Assessment/Plan (1) Pneumonia due to 2019-nCoV: PLAN: With hypoxia. Sx started 08/11. Isolate for 20 days, ending 08/30/21. Recommend vaccine once out of isol. On dex, remdesivir. Feeling better, O2 down to 8L. CT neg for PE. A1c over 14. Will stop azithro/ceftriaxone. Will follow, thank you HPI Consult Data Date of Consult: 08/16/21 HPI Narrative HPI Narrative: MICHAEL DIGGS, is a 45 M who presented 08/13 with sx starting 08/11, c/o headache, aches, congestion, change in taste, cough. Works with [employer], unvaccinated. Admitted, started on dex, remdesivir, azithro/ceftriaxone. Feeling better. Full ROS performed and neg except as noted above. [facility] Medical History Asthma Diabetes Pancreatitis Home Medications blood sugar diagnostic 07/17/19 [History Last Taken Unknown] lancets 07/17/19 [History Last Taken Unknown] pen needle, diabetic #1 box 07/19/19 [Rx Last Taken Unknown] atorvastatin 80 mg tablet 80 mg PO QHS 30 Days #90 tab 08/14/19 [Rx Last Taken 01/24/20 17:00] blood sugar diagnostic #100 ea 08/14/19 [Rx Last Taken Unknown] blood-glucose meter #1 ea 08/14/19 [Rx Last Taken Unknown] lancets 28 gauge #200 ea 08/14/19 [Rx Last Taken Unknown] insulin syringe-needle U-100 0.3 mL 31 gauge x 16 #100 ea 11/01/19 [Rx Last Taken Unknown] albuterol sulfate 90 mcg/actuation aerosol inhaler 2 puff INHALATION Q6H PRN #8.5 g 08/19/20 [Rx Last Taken Unknown] fenofibrate nanocrystallized 145 mg tablet 145 mg PO DAILY@0800 #90 tab 08/19/20 [Rx Last Taken Unknown] insulin glargine 100 unit/mL (3 mL) subcutaneous pen 30 unit SUBCUT QHS 90 Days #27 ml 08/19/20 [Rx Last Taken Unknown] insulin lispro 100 unit/mL subcutaneous pen 15 unit SUBCUT QAC #15 ml 08/19/20 [Rx Last Taken Unknown] lisinopril 2.5 mg tablet 2.5 mg PO DAILY #90 tab 08/19/20 [Rx Last Taken Unknown] pen needle, diabetic 31 gauge x 03/28 #100 ea 08/19/20 [Rx Last Taken Unknown] Allergy/AdvReac Type Severity Reaction Status Date / Time No Known Allergies Allergy Verified 08/13/21 17:15 Family History Father Diabetes Mother CVA (cerebral vascular accident) Seizures Hypertension Surgical History history of abscess removal Social History Smoking Status: Former smoker how long ago did patient quit smokin Months ago ( 07/01) alcohol intake: never substance use type: does not use what type of physical activity do you participate in: none seatbelt use: always do you feel safe at home: Yes Physical Exam Const alert, oriented x3 and no apparent distress General Appearance: cooperative Exam Limitations: no limitations HEENT normocephalic and head/scalp atraumatic Eyes PERRL and EOMs intact bilaterally Neck supple and No nodes Resp clear to auscultation bilaterally Auscultation: diminished lung sounds Cardio regular rate and regular rhythm GI normal to inspection, nondistended, normoactive bowel sounds Extremity no clubbing, cyanosis or edema Skin no rashes or lesions noted Neuro CN's II-XII intact bilaterally Lab / Micro Data Result Diagrams: 08/16/21 07:20 08/16/21 07:20 Labs: Laboratory Results - last 24 hr 08/15/21 16:52: POC Glucose 270 H 08/15/21 21:08: POC Glucose 306 H 08/16/21 06:24: POC Glucose 320 H 08/16/21 07:20: WBC 8.4, RBC 4.48 L, Hgb 12.5 L, Hct 37.4 L, MCV 83.5, MCH 27.9, MCHC 33.4, RDW Std Deviation 42.7, RDW Coeff of Wil 14.0, Plt Count 203, MPV 9.4, Immature Gran % (Auto) 2.900 H, Neut % (Auto) 75.1 H, Lymph % (Auto) 12.6 L, [place] % (Auto) 9.0, Eos % (Auto) 0.0, Baso % (Auto) 0.4, Absolute Neuts (auto) 6.3, Absolute Lymphs (auto) 1.06, Nucleated RBC % 0, Platelet Estimate ADEQUATE, RBC Morphology NORM C+C 08/16/21 07:20: Sodium 135 L, Potassium 3.6, Chloride 99, Carbon Dioxide 26.0, Anion Gap 10, BUN 12, Creatinine 0.59 L, Estim Creat Clear Calc 156.45, Est GFR (MDRD) Af Amer 188, Est GFR (MDRD) Non-Af 156, BUN/Creatinine Ratio 20.2 H, Glucose 311 H, Calcium 8.3 L, Total Bilirubin 0.70, AST 25, ALT 20, Alkaline Phosphatase 73, Total Protein 6.1 L, Albumin 2.1 L, Globulin 4.0, Albumin/Globulin Ratio 0.5 L 08/16/21 07:20: Hemoglobin A1c > 14.0 H 08/16/21 09:29: POC Glucose 325 H 08/16/21 11:01: POC Glucose 368 H
--- NOTE | 2021-08-16 13:45 | PN.HOSP_ITS ---
Subjective Subjective Patient seen and examined. He thinks he is doing much better and feels his shortness of breath has improved. He was to be discharged home in the next 24 to 48 hours because he feels he is well enough. Of note, patient was on 10 L of oxygen at time of review. He denies any chest pain, palpitations, dizziness, na usea vomiting or diarrhea. Review of systems otherwise negative. Objective Data Objective Data Vital Signs: Vital Signs Temp Pulse Resp BP Pulse Ox 98.6 F 81 18 105/73 93 08/16/21 09:30 08/16/21 09:30 08/16/21 09:30 08/16/21 09:30 08/16/21 09:50 Oxygen Flow Rate (L/min) 8 Oxygen Delivery Method Nasal Cannula Weight: 185 lb 10.067 oz Body Mass Index (BMI) 27.3 Intake & Output: Intake and Output for Last 24 Hours 08/14/21 08/15/21 08/16/21 23:59 23:59 23:59 Intake Total 4262 / 4262 2857.67 / 3057.67 1150 / 1150 Output Total 2775 / 2775 800 / 1500 1200 / 1200 Balance 1487 / 1487 2057.67 / 1557.67 -50 / -50 Lab / Micro Data Result Diagrams: 08/16/21 07:20 08/16/21 07:20 Labs: Laboratory Results - last 24 hr 08/15/21 16:52: POC Glucose 270 H 08/15/21 21:08: POC Glucose 306 H 08/16/21 06:24: POC Glucose 320 H 08/16/21 07:20: WBC 8.4, RBC 4.48 L, Hgb 12.5 L, Hct 37.4 L, MCV 83.5, MCH 27.9, MCHC 33.4, RDW Std Deviation 42.7, RDW Coeff of Wil 14.0, Plt Count 203, MPV 9. 4, Immature Gran % (Auto) 2.900 H, Neut % (Auto) 75.1 H, Lymph % (Auto) 12.6 L, [place] % (Auto) 9.0, Eos % (Auto) 0.0, Baso % (Auto) 0.4, Absolute Neuts (auto) 6.3, Absolute Lymphs (auto) 1.06, Nucleated RBC % 0, Platelet Estimate ADEQUATE, RBC Morphology NORM C+C 08/16/21 07:20: Sodium 135 L, Potassium 3.6, Chloride 99, Carbon Dioxide 26.0, Anion Gap 10, BUN 12, Creatinine 0.59 L, Estim Creat Clear Calc 156.45, Est GFR (MDRD) Af Amer 188, Est GFR (MDRD) Non-Af 156, BUN/Creatinine Ratio 20.2 H, Glucose 311 H, Calcium 8.3 L, Total Bilirubin 0.70, AST 25, ALT 20, Alkaline Phosphatase 73, Total Protein 6.1 L, Albumin 2.1 L, Globulin 4.0, Albumin/Globulin Ratio 0.5 L 08/16/21 07:20: Hemoglobin A1c > 14.0 H 08/16/21 09:29: POC Glucose 325 H 08/16/21 11:01: POC Glucose 368 H Micro: Microbiology 08/13/21 21:15 Nasal Secretion SARS-CoV-2 Antigen (Rapid) - Final SARS-CoV-2 (COVID 19) Physical Exam Const alert, oriented x3 and no apparent distress Exam Limitations: no limitations HEENT head/scalp atraumatic and moist oral mucous membranes Head and Scalp: normocephalic Eyes PERRL and EOMs intact bilaterally Neck no lymphadenopathy and supple Resp Resp Narrative: diminished breath sounds bibasally, no wheezes or crackles. On 10L of oxygen by nasal canula Cardio regular rate, regular rhythm, S1 normal heart sound, S2 normal heart sound and no murmurs GI normal to inspection, nondistended, normoactive bowel sounds, soft to palpation, non-tender and non-distended Extremity normal to inspection, full ROM and no clubbing, cyanosis or edema Peripheral Pulses: Yes pulses 2+ throughout Skin no rashes or lesions noted Neuro oriented x3, CN's II-XII intact bilaterally and moves all extremities Sensorium / Orientation: awake and alert Psych Psych Narrative: agitated Assessment & Plan Assessment/Plan (1) Pneumonia due to 2019-nCoV: (2) Acute respiratory failure with hypoxia: PLAN: #Acute hypoxic respiratory failure due to covid 19 pneumonia * on remdesivir and decadron * ID on board * on 10L of oxygen today; was on 15L previously * titrate oxygen to maintain sats >90% * breathing treatment with bronchodilators. Titrate oxygen to maintain sats >90% * on ceftriaxone and azithromycin for superimposed pneumonia; these were discontinued per ID * per ID, to isolate for 20 days, starting 08/11/2021/ * #COVID 19 pneumonia: as above #Acute hypotonic hypovolemic hyponatremia: resolving. Na is 135 today #Type 2 Diabetes melllitus * on home insulin lantus 30 units QHS * ISS. Accuchecks ACHS * * #Hyperlipidemia: on statin. #Hypertension: on lisinopril. DVT prophylaxis: lovenox Charges/Coding Visit Charges Inpatient E&M: 47870 Subs Hosp L3
[2021-08-16 14:46] LABS: Pathologist Review Reviewed
[2021-08-16 17:51] LABS: Bedside Glucose 399 mg/dL (70-110)
[2021-08-16] MEDS: Atorvastatin Calcium 80 MG Tablet PO (20:52)
[2021-08-16] MEDS: Acetaminophen 325 MG Tablet 650 MG PO (21:03)
[2021-08-16 22:20] LABS: Bedside Glucose 331 mg/dL (70-110)
[2021-08-17] VITALS (8 sets, daily range): BP systolic 101–122; BP diastolic 68–79; PULSE 62–75; RESP 16–20; TEMP 35.9–36.8; O2SAT 85–96
[2021-08-17 07:06] LABS: Absolute Lymphocyte Count 1.35 X10^3/uL (0.83-4.51); Absolute Neutrophil Count 5.8 X10^3/uL (2.0-7.7); Basophil# 0.05 X10^3/uL; Basophil% 0.6 % (0-1); Hematocrit 36.9 % (40-54); Hemoglobin 12.2 g/dL (13.0-16.5); Lymphocyte # 1.35 X10^3/ul (0.83-4.51); Lymphocyte % 16.2 % (19-41); Mean Corp Hgb Conc 33.1 g/dL (32-36); Mean Corpuscular Hgb 27.5 pg (27.0-32.0); Mean Corpuscular Volume 83.1 fL (80-94); Mean Platelet Vol. 9.4 fl (6.2-12.0); Monocyte% 8.4 % (0-10); NRBC Flagged by Analyzer 0 % (0-5); Neutrophil % 69.9 % (47-70); POSITIVE MORPHOLOGY YES; Platelet Count 227 K/mm3 (150-450); RBC Distribution Width CV 13.9 % (11.6-14.6); RBC Distribution Width SD 42.1 fl (35.1-43.9); Red Blood Count 4.44 M/mm3 (4.6-6.2); White Blood Count 8.3 K/mm3 (4.4-11.0)
[2021-08-17 07:17] LABS: Differential Indicated SCAN CRITERIA MET
[2021-08-17 07:45] LABS: ALB/GLOB Ratio 0.6 RATIO (0.9-2.4); AST(SGOT) 27 U/L (15-37); Alanine Aminotransfer ALT/SGPT 23 U/L (16-61); Albumin, Serum 2.1 g/dL (3.2-5.0); Alkaline Phosphatase 77 U/L (45-117); Anion Gap 5 (5-15); BUN 10 mg/dL (7-18); BUN/Creat Ratio 14.1 RATIO (10-20); Calcium,Total 7.6 mg/dL (8.5-10.1); Chloride 100 mmol/L (98-107); Creatinine, Serum 0.71 mg/dL (0.70-1.30); EST Glomerular Filtration Rate 127 mL/min (>60); Est Glom Filt Rate - Afr Amer 153 mL/min (>60); Globulin 3.7 g/dL (2.2-4.2); Glucose 244 mg/dL (74-106); Potassium 3.6 mmol/L (3.5-5.1); Protein, Total 5.8 g/dL (6.4-8.2); Sodium Level 136 mmol/L (136-145)
[2021-08-17] MEDS: Enoxaparin 30 MG/0.3 ML Syringe SC ×2 (08:05→21:04)
[2021-08-17] MEDS: dexAMETHasone 2 MG TABLET 6 MG PO (08:05)
[2021-08-17] MEDS: Insulin Lispro 100 UNIT/ML INSULN.PEN 22 UNIT SC ×3 (08:06→16:42)
[2021-08-17] MEDS: Insulin Lispro 100 UNIT/ML INSULN.PEN SC ×4 (08:06→21:05)
[2021-08-17] MEDS: Acetaminophen 325 MG Tablet 650 MG PO (08:17)
[2021-08-17] MEDS: 0.9% Normal Saline 1,000 ML 60 ML IV (11:38)
[2021-08-17 11:50] LABS: Bedside Glucose 198 mg/dL (70-110)
[2021-08-17 11:56] LABS: Bedside Glucose 335 mg/dL (70-110)
--- NOTE | 2021-08-17 16:20 | PN.HOSP_ITS ---
Subjective Subjective Patient seen and examined. He was upset this morning to because he was wondering why he was still in the hospital and wants to be discharged home. He feels his shortness of breath is improved and states he needs to go home to take care of his animals. Review of symptoms otherwise negative.He is on 3L of oxygen. Objective Data Objective Data Vital Signs: Vital Signs Temp Pulse Resp BP Pulse Ox 96.6 F L 71 18 101/74 91 08/17/21 14:00 08/17/21 14:00 08/17/21 14:00 08/17/21 14:00 08/17/21 14:00 Oxygen Flow Rate (L/min) [ 5 AMBULATING with Oxygen #3] Oxygen Flow Rate (L/min) [ 4 AMBULATING with Oxygen #2] Oxygen Flow Rate (L/min) [ 3 AMBULATING with Oxygen #1] Oxygen Flow Rate (L/min) 3 Oxygen Delivery Method Nasal Cannula Weight: 185 lb 10.067 oz Body Mass Index (BMI) 27.3 Intake & Output: Intake and Output for Last 24 Hours 08/15/21 08/16/21 08/17/21 23:59 23:59 23:59 Intake Total 2857.67 / 3057.67 2429 / 2669 1360 / 1360 Output Total 800 / 1500 1200 / 2550 2800 / 2800 Balance 2057.67 / 1557.67 1229 / 119 -1440 / -1440 Lab / Micro Data Result Diagrams: 08/17/21 06:28 08/17/21 06:28 Labs: Laboratory Results - last 24 hr 08/16/21 17:37: POC Glucose 399 H 08/16/21 20:48: POC Glucose 331 H 08/17/21 06:28: WBC 8.3, RBC 4.44 L, Hgb 12.2 L, Hct 36.9 L, MCV 83.1, MCH 27.5, MCHC 33.1, RDW Std Deviation 42.1, RDW Coeff of Wil 13.9, Plt Count 227, MPV 9.4, Immature Gran % (Auto) 4.900 H, Neut % (Auto) 69.9, Lymph % (Auto) 16.2 L, [place] % (Auto) 8.4, Eos % (Auto) 0.0, Baso % (Auto) 0.6, Absolute Neuts (auto) 5.8, Absolute Lymphs (auto) 1.35, Nucleated RBC % 0 08/17/21 06:28: Sodium 136, Potassium 3.6, Chloride 100, Carbon Dioxide 31.0, Anion Gap 5, BUN 10, Creatinine 0.71, Estim Creat Clear Calc 130.00, Est GFR ( RD) Af Amer 153, Est GFR (MDRD) Non-Af 127, BUN/Creatinine Ratio 14.1, Glucose 244 H, Calcium 7.6 L, Total Bilirubin 0.70, AST 27, ALT 23, Alkaline Phosphatase 77, Total Protein 5.8 L, Albumin 2.1 L, Globulin 3.7, Albumin/Globulin Ratio 0.6 L 08/17/21 08:03: POC Glucose 198 H 08/17/21 11:36: POC Glucose 335 H Micro: Microbiology 08/13/21 19:42 Blood Culture (Wb) - Anticubital Left Blood Culture - Preliminary No growth in 48 hours. 08/13/21 21:15 Nasal Secretion SARS-CoV-2 Antigen (Rapid) - Final SARS-CoV-2 (COVID 19) Physical Exam Const alert, oriented x3 and no apparent distress Exam Limitations: no limitations HEENT head/scalp atraumatic and moist oral mucous membranes Head and Scalp: normocephalic Eyes PERRL and EOMs intact bilaterally Neck no lymphadenopathy and supple Resp Resp Narrative: diminished breath sounds bibasally, no wheezes or crackles. On 3L of oxygen by nasal canula Cardio regular rate, regular rhythm, S1 normal heart sound, S2 normal heart sound and no murmurs GI normal to inspection, nondistended, normoactive bowel sounds, soft to palpation, non-tender and non-distended Extremity normal to inspection, full ROM and no clubbing, cyanosis or edema Peripheral Pulses: Yes pulses 2+ throughout Skin no rashes or lesions noted Neuro oriented x3, CN's II-XII intact bilaterally and moves all extremities Sensorium / Orientation: awake and alert Psych Psych Narrative: still agitated Assessment & Plan Assessment/Plan (1) Pneumonia due to 2019-nCoV: (2) Acute respiratory failure with hypoxia: PLAN: #Acute hypoxic respiratory failure due to covid 19 pneumonia * on remdesivir and decadron * ID on board * down to 3L of oxygen today; was 87% on 5L of oxygen with ambulation. * titrate oxygen to maintain sats >90% * breathing treatment with bronchodilators. * per ID, to isolate for 20 days, starting 08/11/2021/ * #COVID 19 pneumonia: as above #Acute hypotonic hypovolemic hyponatremia: resolving. Na is 136 today #Type 2 Diabetes melllitus * on home insulin lantus 30 units QHS * ISS. Accuchecks ACHS * #Hyperlipidemia: on statin. #Hypertension: on lisinopril. DVT prophylaxis: lovenox Disposition: for likely DC tomorrow Charges/Coding Visit Charges Inpatient E&M: 16800 Subs Hosp L2
[2021-08-17 16:56] LABS: Bedside Glucose 345 mg/dL (70-110)
[2021-08-17] MEDS: Atorvastatin Calcium 80 MG Tablet PO (21:04)
[2021-08-17 21:20] LABS: Bedside Glucose 313 mg/dL (70-110)
[2021-08-18 00:45] VITALS: BP 111/77; PULSE 55; RESP 16; TEMP 36.4; O2SAT 93
--- NOTE | 2021-08-18 03:40 | NURSING ---
Pt transferred to [facility]. This RN called report to [facility] admission discharge rn.
[2021-08-18] MEDS: 0.9% Normal Saline 1,000 ML 60 ML IV (04:02)
[2021-08-18 04:03] VITALS: BP 130/82; PULSE 61; RESP 18; TEMP 36.7; O2SAT 96
[2021-08-18 07:47] LABS: Hematocrit 37.4 % (40-54); Hemoglobin 12.6 g/dL (13.0-16.5); Mean Corp Hgb Conc 33.7 g/dL (32-36); Mean Corpuscular Hgb 27.4 pg (27.0-32.0); Mean Corpuscular Volume 81.3 fL (80-94); POSITIVE COUNT YES; POSITIVE MORPHOLOGY YES; Platelet Count 277 K/mm3 (150-450); RBC Distribution Width CV 13.9 % (11.6-14.6); RBC Distribution Width SD 40.6 fl (35.1-43.9); White Blood Count 9.9 K/mm3 (4.4-11.0)
[2021-08-18 08:03] VITALS: BP 109/76; PULSE 58; RESP 18; TEMP 36.4; O2SAT 95
[2021-08-18 08:05] LABS: Differential Indicated MANUAL DIFF
[2021-08-18] MEDS: dexAMETHasone 2 MG TABLET 6 MG PO (08:11)
[2021-08-18] MEDS: Acetaminophen 325 MG Tablet 650 MG PO (08:15)
[2021-08-18] MEDS: Enoxaparin 30 MG/0.3 ML Syringe SC (08:15)
[2021-08-18 08:21] VITALS: O2SAT 95
[2021-08-18 08:29] LABS: ALB/GLOB Ratio 0.6 RATIO (0.9-2.4); AST(SGOT) 30 U/L (15-37); Alanine Aminotransfer ALT/SGPT 31 U/L (16-61); Albumin, Serum 2.2 g/dL (3.2-5.0); Alkaline Phosphatase 75 U/L (45-117); Anion Gap 7 (5-15); BUN 10 mg/dL (7-18); BUN/Creat Ratio 14.6 RATIO (10-20); Calcium,Total 8.6 mg/dL (8.5-10.1); Chloride 96 mmol/L (98-107); Creatinine, Serum 0.68 mg/dL (0.70-1.30); EST Glomerular Filtration Rate 132 mL/min (>60); Est Glom Filt Rate - Afr Amer 160 mL/min (>60); Estimated Creatinine Clearance 135.74 ml/min; Glucose 211 mg/dL (74-106); Potassium 3.4 mmol/L (3.5-5.1); Protein, Total 6.2 g/dL (6.4-8.2); Sodium Level 136 mmol/L (136-145)
[2021-08-18] MEDS: Insulin Lispro 100 UNIT/ML INSULN.PEN SC ×3 (08:39→16:51)
[2021-08-18] MEDS: Insulin Lispro 100 UNIT/ML INSULN.PEN 22 UNIT SC ×3 (08:39→16:50)
[2021-08-18 08:51] LABS: Bedside Glucose 198 mg/dL (70-110)
[2021-08-18 08:54] LABS: Lymphocyte 22 % (19-41); Metamyelocyte 1 % (0-1); Monocyte 5 % (0-10); Myelocyte 1 % (0-0); Neutrophil-Band 1 % (0-5); Neutrophil-Segmented 70 % (47-70); Platelet Estimate ADEQUATE (ADEQ); Red Cell Morphology NORM C+C NORMAL (NORM C&C); Total Cells Counted 100 (MANUAL DIFF)
[2021-08-18 08:55] LABS: Absolute Lymphocyte Count 2.17 X10^3/uL (0.83-4.51)
[2021-08-18 10:34] VITALS: O2SAT 87; O2SAT 90; O2SAT 91
--- NOTE | 2021-08-18 11:07 | CASEMGMT ---
Addendum entered by Jayne Rizvi 08/18/21 15:49: TC to [employer] who states that the O2 has not been sent out yet. This RN CM should receive a tc within an hour for ETA. Addendum entered by Jayne Rizvi 08/18/21 14:59: Pt nurse Oksana notified this RN CM that pt is now agreeable to HHC. Provided pt with a list of HHC providers including quality and resource use data and consistent with the patient?s preferred geographic region, medical needs, and insurance network. Pt has no preferred provider. RN CM made tc to [facility], [place] at this time and faxed referral. Awaiting acceptance. Addendum entered by Jayne Rizvi 08/18/21 12:46: TC to [employer] per rep pt O2 is set to go out within the hour. Addendum entered by Jayne Rizvi 08/18/21 12:33: Pt is aware that he will need to call the O2 company when he arrives home to have the O2 concentrator set up. Pt verbalizes understanding. Addendum entered by Jayne Rizvi 08/18/21 12:32: Spoke with nurse Gandhi who has concerns regarding patient going home with O2. Pt is also in need of a glucometer, made aware. Oksana also states patient is concerned with not having a way to get home. TC to volunteer services for the hospital van, they do not transport COVID patients. RN CM discussed with patient options of having [facility] for education regarding O2, assessment and DM education. Pt quickly and adamantly declines. Original Note: Pt qualifies for home O2, faxed referral to [employer] TC to them, spoke with Sena. She states once referral received, they will deliver portable to the patient in the hospital.
--- NOTE | 2021-08-18 12:34 | CASEMGMT ---
Addendum entered by Glenys Nichols 08/18/21 16:13: DORIS updated pt that [facility] will take pt home and SW discussed [employer] with pt. Addendum entered by Glenys Nichols 08/18/21 15:43: SW did provide RN with [employer] number to give to pt in the event pt needs food delivered to his home. Addendum entered by Glenys Nichols 08/18/21 15:31: SW did speak with pt about he would need to be in insolation/quarantine when he returns home. Pt states that he needed to go to the store today. SW again told pt that he will need to isolate/quarantine when he returns home. Pt asked if he could get food delivered to his home and this worker informed pt that yes he can get food delivered to his home. Pt asked how he is going to get a paycheck if he can't work. SW informed pt that he will need to check with his boss about pt having COVID and go from there. Pt states understanding. Addendum entered by Glenys Nichols 08/18/21 13:12: DORIS placed a call to [employer] and spoke with Halima. Halima does state pt has transportation benefits under his [facility] insurance. DORIS arranged transportation through [facility] for taxi/regular vehicle. DORIS did inform Halima that pt is COVID+, is on oxygen. [employer] [id number]. [employer] states they have anywhere between 1-4 hours to find a provider to transport pt. [employer]ima states the provider should call [facility] but if a provider doesn't call [facility] soon then this worker can call [facility] again. DORIS updated Halima that pt's oxygen is not being delivered until 2:00pm or later, transportation cannot come to get pt before Oxygen is delivered. DORIS updated RN. DORIS in to speak with pt. DORIS introduced self and role at [facility]. SW informed pt that this worker is trying to arrange transportation for pt home. Pt states he will just walk home. SW informed pt that that is not the recommendation. DORIS spoke with pt about how this worker called pt's [facility] and he does have transportation benefits. SW is not sure if pt will get a bill for COVID charges or not. Pt checked his wallet, states he has $27. Pt states he called his work/boss and asked for a truck to be delivered but states since he has to be off work, his boss will not provide truck for pt to use to get home. SW asked pt about his children, specifically about Alessio since pt reported to RN CM that Alessio lives with him and also drives. Pt states Alessio doensn't have a license, doensn't have a car. SW asked pt about his other three children. Pt states none of his children drive. SW informed pt that [facility] stated it could take 1-4 hours to get a provider for pt, this worker will update him when [facility] confirms a provider for transportation. Pt states understanding. SW updated RN. SW waiting for [facility] to find a provider to transport pt home. Original Note: Social Work Note Pt is stating he has no transportation home. DORIS reviewed chart, there is a son Alessio listed in demographics and per RN CM assessment, pt has four children total. SW asked RN to ask pt about his children transporting pt home. DORIS called [employer], they do provide transportation for COVID patients but it is an extra $50 on top of the fare almanza. SW to continue to work on transportation home. Glenys Nichols INBOUND INGREDIENT LOGISTICS SPECIALIST, INSTRUCTIONAL WRITER
--- NOTE | 2021-08-18 13:22 | DS.PCM_ITS ---
Providers Date of Admission: 08/13/21 Primary Care Physician: Dr. Paris Chilel MD Consultations 08/14/21 13:08 Consult: Infectious Disease Routine Consulting Provider: Saravanan Eisenberg Reason for Consult: covid 19, hypxoia EMERGENT Consult: No MD Notified: Yes Date Notified: 08/14/21 Time Notified: 13:08 Method of Notification: Verbal Reason For Visit: SARS COV 2 Diagnosis Discharge Diagnosis (1) Pneumonia due to 2019-nCoV: Status: Acute Code(s): U07.1 - COVID-19; J12.82 - Pneumonia due to coronavirus disease 2019 (2) Acute respiratory failure with hypoxia: Status: Acute Code(s): J96.01 - Acute respiratory failure with hypoxia Medications at Discharge Home Medications blood sugar diagnostic 07/17/19 lancets 07/17/19 pen needle, diabetic #1 box 07/19/19 atorvastatin 80 mg tablet 80 mg PO QHS 30 Days #90 tab 08/14/19 blood sugar diagnostic #100 ea 08/14/19 blood-glucose meter #1 ea 08/14/19 lancets 28 gauge #200 ea 08/14/19 insulin syringe-needle U-100 0.3 mL 31 gauge x 5/16 #100 ea 11/01/19 albuterol sulfate 90 mcg/actuation aerosol inhaler 2 puff INHALATION Q6H PRN #8.5 g 08/19/20 fenofibrate nanocrystallized 145 mg tablet 145 mg PO DAILY@0800 #90 tab 08/19/20 insulin glargine 100 unit/mL (3 mL) subcutaneous pen 30 unit SUBCUT QHS 90 Days #27 ml 08/19/20 insulin lispro 100 unit/mL subcutaneous pen 15 unit SUBCUT QAC #15 ml 08/19/20 lisinopril 2.5 mg tablet 2.5 mg PO DAILY #90 tab 08/19/20 pen needle, diabetic 31 gauge x 5/16 #100 ea 08/19/20 dexamethasone 6 mg PO DAILY #5 tab 08/18/21 Hospital Course Operations None Procedures None Summary of Care Provided Minutes Spent on Discharge: 40 Hospital Course: Patient is a 45-year-old male with a past medical history as ou tlined which includes diabetes mellitus. He was admitted through the ED on 08/13/2021 with a 4-day history of progressively worsening shortness of breath with dry cough and fatigue as well as malaise and subjective fever and chills. He also had associated diarrhea, abnormal taste and diarrhea. Patient was unvaccinated with regards to Covid. Patient tested positive for COVID-19 infection. He was admitted and managed for acute hypoxic respiratory failure and severe sepsis due to COVID-19 pneumonia. He was saturating at 82% on room air and was tachypneic as well. He required supplemental oxygen. Lactic acid was elevated but this trended down with hydration of fluid. He was started on Decadron and remdesivir. He was initially started on IV ceftriaxone and azithromycin as well. ID was consulted. Antibiotics were discontinued per ID. Patient shortness of breath gradually improved and his oxygen was gradually weaned down. He was weaned down to 3 L at time of discharge. He completed a 5- day course of remdesivir. He had walking pulse ox on day of discharge which showed that he required 3 L of oxygen with ambulation. Patient was discharged home on 08/18/2021 and is to quarantine for 20 days and symptoms started, ending on 08/30/2021. Was counseled to get the vaccine once out of isolation. He is to follow-up with his primary care doctor once he is out of isolation. Patient seen and examined prior to discharge. He was not as agitated today as previously and expressed frustration about how he could not inhale deeply with his incentive spirometer. Was explained to him that this was because of the compromised state of his lungs from Covid. Review of systems otherwise negative. Labs and vitals reviewed. Home medication reviewed and reconciled. Physical Exam Const alert, oriented x3 and no apparent distress General Appearance: cooperative Exam Limitations: no limitations HEENT normocephalic, head/scalp atraumatic and moist oral mucous membranes Eyes PERRL and EOMs intact bilaterally Neck no lymphadenopathy and supple Resp Resp Narrative: diminished breath sounds bibasally, no wheezes or crackles. On 3L of oxygen by nasal canula Cardio regular rate, regular rhythm, S1 normal heart sound, S2 normal heart sound and no murmurs GI normal to inspection, nondistended, normoactive bowel sounds, soft to palpation, non-tender and non-distended Extremity normal to inspection, full ROM and no clubbing, cyanosis or edema Skin no rashes or lesions noted Neuro oriented x3, CN's II-XII intact bilaterally and moves all extremities Sensorium / Orientation: awake and alert Psych affect normal Weight / BMI Weight Weight: 185 lb 10.067 oz Body Mass Index (BMI) 27.3 ABG / Lab / Microbiology Data Result Diagrams: 08/18/21 07:30 08/18/21 07:30 Laboratory: Laboratory Results - last 24 hr 08/17/21 16:40: POC Glucose 345 H 08/17/21 21:04: POC Glucose 313 H 08/18/21 07:30: WBC 9.9, RBC 4.60, Hgb 12.6 L, Hct 37.4 L, MCV 81.3, MCH 27.4, MCHC 33.7, RDW Std Deviation 40.6, RDW Coeff of Wil 13.9, Plt Count 277, MPV 9.0, Neut % (Auto) Not Reportable, Absolute Neuts (auto) 7.0, Absolute Lymphs (auto) 2.17, Total Counted 100, Neutrophils % (Manual) 70, Band Neutrophils % 1, Lymphocytes % (Manual) 22, Monocytes % (Manual) 5, Metamyelocytes % 1, Myelocytes % 1 H, Diff Path Review May foll, Platelet Estimate ADEQUATE, RBC Morphology NORM C+C 08/18/21 07:30: Sodium 136, Potassium 3.4 L, Chloride 96 L, Carbon Dioxide 33.0 H, Anion Gap 7, BUN 10, Creatinine 0.68 L, Estim Creat Clear Calc 135.74, Est GFR (MDRD) Af Amer 160, Est GFR (MDRD) Non-Af 132, BUN/Creatinine Ratio 14.6, Glucose 211 H, Calcium 8.6, Total Bilirubin 0.60, AST 30, ALT 31, Alkaline Phosphatase 75, Total Protein 6.2 L, Albumin 2.2 L, Globulin 4.0, Albumin/Globulin Ratio 0.6 L 08/18/21 08:09: POC Glucose 198 H Microbiology: Microbiology 08/13/21 19:42 Blood Culture (Wb) - Anticubital Left Blood Culture - Preliminary No growth in 48 hours. 08/13/21 21:15 Nasal Secretion SARS-CoV-2 Antigen (Rapid) - Final SARS-CoV-2 (COVID 19) D/C Instructions Discharge Diet: 1800 Calorie Control Diet Discharge Activity: Return to Normal Activity Weight Bearing Status: Weight bearing as tolerated Call your doctor if you observe: Shortness of breath, Dizziness, Swelling in the ankles, Chest pain and Increased palpitations (irregular heartbeat) Meaningful Use Info Meaningful Use Diagnoses (Choose all that apply): None applicable Discharge Plan Admission Admit Date/Time: 08/13/21 22:08 Primary Reason for Your Visit: acute hypoxic respiratory failure due to COVID. Attending Provider: Charity Macias Primary Care Provider: Paris Chilel Consulting Providers: Saravanan Eisenberg Instructions Patient Instructions: Coronavirus Disease 2019 (COVID-19): Overview Additional Instructions / Restrictions: remain in self isolation till August 30, 2021. Use oxygen 3L for shortness of breath as needed. Discharge Orders/Prescriptions Prescriptions: New dexamethasone 6 mg tablet 6 mg PO DAILY Qty: 5 RF: 0 Continued (DME) lancets [FreeStyle Lancets] 28 gauge misc See Rx Instructions .ROUTE .MEDSUPPLY Qty: 200 RF: 11 (DME) blood-glucose meter [FreeStyle System Kit] Kit See Rx Instructions .ROUTE .MEDSUPPLY Qty: 1 RF: 0 (DME) FreeStyle Test Strip See Rx Instructions .ROUTE .MEDSUPPLY Qty: 100 RF: 11 atorvastatin 80 mg tablet 80 mg PO QHS 30 Days Qty: 90 RF: 2 (DME) blood sugar diagnostic 1 EACH strip 0 .Route .MEDSUPPLY RF: 0 (DME) lancets 1 EACH misc 0 .Route .MEDSUPPLY RF: 0 (DME) pen needle, diabetic 1 EACH needle 1 ndl subcut ACHS Qty: 1 RF: 0 (DME) insulin syringe-needle U-100 [BD Insulin Syringe Ultra-Fine] 0.3 mL 31 gauge x 5/16 syringe See Rx Instructions .ROUTE .MEDSUPPLY Qty: 100 RF: 3 albuterol sulfate 90 mcg/actuation HFA aerosol inhaler 2 puff INHALATION Q6H PRN (Reason: Asthma) Qty: 8.5 RF: 3 fenofibrate nanocrystallized 145 mg tablet 145 mg PO DAILY@0800 Qty: 90 RF: 3 insulin glargine 100 unit/mL (3 mL) insulin pen 30 unit subcut QHS 90 Days Qty: 27 RF: 3 insulin lispro 100 unit/mL insulin pen 15 unit subcut QAC Qty: 15 RF: 3 lisinopril 2.5 mg tablet 2.5 mg PO DAILY Qty: 90 RF: 3 (DME) pen needle, diabetic [Unifine Pentips] 31 gauge x 5/16 needle See Rx Instructions .ROUTE .MEDSUPPLY Qty: 100 RF: 3 Referrals / Follow Up: Paris Chilel MD [Primary Care Provider] - Within 2 Weeks Oswaldo Kline MD [STAFF PHYSICIAN] - Within 2 Weeks Disposition Disposition (needs filled in before D/C Order can be placed): Home, Self Care Charges/Coding Visit Charges Inpatient E&M: 33532 Disch Hosp
[2021-08-18 13:50] LABS: Bedside Glucose 301 mg/dL (70-110)
[2021-08-18 14:46] VITALS: BP 115/71; PULSE 72; RESP 18; TEMP 36.4; O2SAT 93
--- NOTE | 2021-08-18 15:01 | CASEMGMT ---
Social Work Note DORIS placed a call to [facility], no provider has accepted transportation yet. [facility] to send email that this worker requested update. DORIS then received a call from Torie with [employer] [facility] stating they have no providers to provide transportation for pt. [facility] either [facility], or Lyft to take pt home. DORIS informed Torie that taxi could be arranged but pt is gonna have to pay. Paramjit again states he has no providers available to provide transportation. At this time, pt has reported that he has no family/friends to transport pt home. Pt's boss will not allow him to use business truck that he arrived to [facility] in to take pt home. Pt has no money to pay for COVID fee on top of taxi fare for taxi ride home. DORIS discussed with Concepcion Fernández, [employer], she approved to use [facility] taxi voucher to transport pt home through [employer]. DORIS asked traveling secretary to call [employer] for transportation home. [facility] to be at [facility] in about 1.5 hours to transport pt home. RN updated. DORIS asked RN to update pt. Glenys Nichols NETWORK SYSTEMS ADMINISTRATOR, MORTGAGE PROFESSIONAL
--- NOTE | 2021-08-18 15:11 | PCA ---
CALLED [facility] THEY WILL COME GET PT USING HOSPITAL VOUCHER.
[2021-08-18 17:03] LABS: Bedside Glucose 335 mg/dL (70-110)
--- NOTE | 2021-08-18 18:10 | NURSING ---
ZULMA Blevins/school secretary called oxygen company and they state the 02 should be there before 8pm. Patient made aware.
--- NOTE | 2021-08-18 20:30 | NURSING ---
Oxygen dropped off per [facility]. I also called them at [phone] to make sure that they could deliver concentrator for the pt when they get home. They advised that when the pt gets home they are to call them and they can deliver it. [facility] is now here to transport pt home.
--- NOTE | 2021-08-19 11:01 | CASEMGMT ---
TC chip Beard at [facility], she states they did accept pt for care.
[2021-08-19 14:15] LABS: Pathologist Review Reviewed
--- NOTE | 2021-08-19 14:41 | CASEMGMT ---
Addendum entered by Jayne Rizvi 08/19/21 15:37: TC to [facility], spoke with Ivy. She states that [facility] can deliver meds but they normally only take a card over the phone for payment. They are willing to make an exception for the patient. They will trf the rx from [facility] to [facility] and have the delivery staff take vila. Provided info to Ivy. TC to pt to make aware of this. He states he has the vila for the medication. Original Note: RN CM Discharge Follow Up Phone Call: LACE: 12 Strata: 3 Call Date: 08/19/21 Discharge Date: 08/18/21 Time of Call: 1433 Duration:9 min Admitting Dx:Sars Cov 2 TC received from shell Ramírez nurse last evening who states pt was delivered a suitcase type oxygen lastnight and it had to be plugged in to use. TC to [employer] prior to calling pt to verify what was delivered. Per Aurelia, a rep in [place], a sequel eclipse was delivered that provides the patient with O2 to go home and through the night. She states that pt will be given a concentrator today. RN CM completed follow up phone call after recent hospitalization. Pt states he does not know if his O2 is working. He states he feels it coming out and it is plugged in. Pt states it is getting hot at the outlet. Pt states he has not gotten his rx. He states he can't with his O2. Made him aware that it comes with a car drug room operator. He states it does not work in his car. Made pt aware that this RN CM could have medications sent to [facility] rx and they be delivered. Pt states he cannot pay other than in vila. Pt states he has no one to help him and he has no food. Made aware that he can call [employer] to have food delivered. He states that he has called them and they have delivered food but it is not enough. Pt states he wants to come back to the hospital. Asked pt if he has heard from [facility]. He states they are coming tomorrow. Asked pt if this RN CM could call his son Alessio to see if he can assist. Pt states he has no one. Pt then proceeded to yell at this RN CM and use obscenities. Made pt aware that this RN CM is trying to help him and he may not speak this way. He is agreeable to try and get his meds delivered. He is aware that if he feels unsafe at home and cannot function then he should return to the hospital.
== END 2021-08-18 20:40 | disposition home health service (06) | DRG 720 ==
LOC: ED 22:02 → PCU 22:21 → MS3 08-18 03:37
PROVIDERS: Internal Medicine; Admitting Provider Hospitalist; Emergency Provider Emergency Medicine; PCP Internal Medicine; Visit Provider Student in an Organized Health Care Education/Training Program
DX: A41.89 Other specified sepsis (principal); U07.1 COVID-19; J12.82 Pneumonia due to coronavirus disease 2019; J96.01 Acute respiratory failure with hypoxia; R65.20 Severe sepsis without septic shock; J45.909 Unspecified asthma, uncomplicated; E22.2 Syndrome of inappropriate secretion of antidiuretic hormone; E78.5 Hyperlipidemia, unspecified; I10 Essential (primary) hypertension; E11.65 Type 2 diabetes mellitus with hyperglycemia; Z79.899 Other long term (current) drug therapy; Z79.4 Long term (current) use of insulin; Z28.3 Underimmunization status; Z87.891 Personal history of nicotine dependence
CPT/HCPCS: 36415; 36600; 71045; 71275; 80048; 80053; 82803; 82962; 83036; 83605; 83930; 83935; 84145; 84300; 84550; 85025; 85379; 87040; 87426; 93005; 94762; 99285; 99406; J7030; J7040; J7050; Q9967; A4216; J0696; J1610; J2405

== ENCOUNTER 2021-08-20 09:53 | Emergency (ER) | payer MEDICAID, SELFPAY ==
[2021-08-20 09:55] VITALS: BP 119/91; PULSE 75; RESP 17; TEMP 36.8; O2SAT 99; BMI 26.6
--- NOTE | 2021-08-20 10:17 | RAD_ITS ---
STUDY: X-RAY CHEST REASON FOR EXAM: Male, 45 years old. cough covid TECHNIQUE: AP COMPARISON: 08/14/2021 FINDINGS: EKG leads project over the chest. Granular and interstitial opacities throughout both lungs overall similar since prior CT 08/14/2021. There is no demonstrated pleural abnormality. Normal size heart. Normal mediastinum and courtney. Normal visualized pulmonary arteries. Normal visualized aortic arch and descending thoracic aorta. No acute bony process. There is no demonstrated abnormality of the visualized soft tissue structures of the upper abdomen. RAD/Chest 1 View (Portable) IMPRESSION: 1. Stable multilobar infiltrates with features commonly reported with COVID. Electronically Signed: Kareem Alcala MD ([place]) at 11:10 EDT , Service support ,
--- NOTE | 2021-08-20 10:20 | EX.ED.DYSGE1 ---
HPI History of Present Illness Chief Complaint: Other, Pain/Inj Informant: patient Narrative Narrative: Patient came in by EMS. He was sent in by home health care for not being able to care for himself appropriately. He has been home after stay in the hospital for Covid. He has been home for about 2 days. He states he has not been able to change close. He has an oxygen concentrator but it does not allow him to move around much of his house. He cannot get to the bathroom easily. He cannot take a shower. If he goes to the bathroom he gets profoundly dyspneic and has a while catching up when he puts back the oxygen. He also does not have a home glucose meter or any test strips. He has not been able to check his sugar. He has his Lantus and Humalog and has been estimating what he needs. He is able to eat and drink. His breathing is not worsening but not improving. He states he has nobody at home that can help him. [facility] Medical History (Updated 08/20/21 @ 11:[address] Samir Madison MD) Asthma Diabetes Pancreatitis Home Medications blood sugar diagnostic 07/17/19 [History Last Taken Unknown] lancets 07/17/19 [History Last Taken Unknown] pen needle, diabetic #1 box 07/19/19 [Rx Last Taken Unknown] atorvastatin 80 mg tablet 80 mg PO QHS 30 Days #90 tab 08/14/19 [Rx Last Taken 01/24/20 17:00] blood sugar diagnostic #100 ea 08/14/19 [Rx Last Taken Unknown] blood-glucose meter #1 ea 08/14/19 [Rx Last Taken Unknown] lancets 28 gauge #200 ea 08/14/19 [Rx Last Taken Unknown] insulin syringe-needle U-100 0.3 mL 31 gauge x 16 #100 ea 11/01/19 [Rx Last Taken Unknown] albuterol sulfate 90 mcg/actuation aerosol inhaler 2 puff INHALATION Q6H PRN #8.5 g 08/19/20 [Rx Last Taken Unknown] fenofibrate nanocrystallized 145 mg tablet 145 mg PO DAILY@0800 #90 tab 08/19/20 [Rx Last Taken Unknown] insulin glargine 100 unit/mL (3 mL) subcutaneous pen 30 unit SUBCUT QHS 90 Days #27 ml 08/19/20 [Rx Last Taken Unknown] insulin lispro 100 unit/mL subcutaneous pen 15 unit SUBCUT QAC #15 ml 08/19/20 [Rx Last Taken Unknown] lisinopril 2.5 mg tablet 2.5 mg PO DAILY #90 tab 08/19/20 [Rx Last Taken Unknown] pen needle, diabetic 31 gauge x 5/16 #100 ea 08/19/20 [Rx Last Taken Unknown] dexamethasone 6 mg PO DAILY #5 tab 08/18/21 [Rx Last Taken Unknown] Allergy/AdvReac Type Severity Reaction Status Date / Time No Known Allergies Allergy Verified 08/13/21 17:15 Family History Father Diabetes Mother CVA (cerebral vascular accident) Seizures Hypertension Surgical History history of abscess removal Social History Smoking Status: Former smoker how long ago did patient quit smokin Months ago ( 07/01) alcohol intake: never substance use type: does not use what type of physical activity do you participate in: none seatbelt use: always do you feel safe at home: Yes ROS ROS ED Constitutional Constitutional ED: Reports chills and fever(s) ENT ENT ED: Reports rhinorrhea; Denies ear pain or sore throat Cardiovascular Cardiovascular: Denies chest pain or palpitations Respiratory/Chest Respiratory/Chest: Reports cough, dyspnea and dyspnea on exertion; Denies sputum Gastrointestinal Gastrointestinal: Denies abdominal pain, diarrhea, nausea or vomiting Genitourinary Genitourinary ED: Denies dysuria or hematuria Musculoskeletal Musculoskeletal: Reports myalgias Integumentary Denies abscess or rash Neurologic Neurologic: Denies headache(s) Endocrine Endocrinology: Reports other Details: Patient denied polyuria or polydipsia but he does have some clouding of his vision that is typical with hyperglycemia. ; Denies polydipsia or polyuria Allergic/Immunologic Allergic/Immunologic ED: Denies mouth swelling, tongue swelling or urticaria EXAM Physical Exam Const Vital Signs: 08/20/21 09:55 08/20/21 10:02 Temperature 98.2 F Temperature Source Oral Pulse Rate 75 Respiratory Rate 17 Respiratory Effort Normal Non-Labored Respiratory Pattern Normal Blood Pressure 119/91 H Blood Pressure Mean 100 Pulse Ox 99 Oxygen Delivery Method Nasal Cannula Oxygen Flow Rate (L/min) 3 Positive well nourished, well developed and unkempt General Appearance ED: unkempt and well developed HEENT Reports moist mucous membranes Eyes General Eye ED: Negative for pale conjunctiva or scleral icterus Neck No no JVD Chest Wall inspection of chest normal Resp normal respiratory effort Resp Narrative: Patient has very mild rhonchi. Overall his lungs do not sound that bad. Auscultation: rhonchi; Negative for wheezes Cardio regular rate and regular rhythm GI normal to inspection, nondistended, normoactive bowel sounds and non-tender Palpation: soft Back/Spine no CVA tenderness Neuro oriented x3 Sensorium / Orientation: alert Psych Psych Narrative: Patient was initially mildly upset that I did not know the whole story of what happened. I explained that I am familiar with some of the story of his admission but I need information in order to help him. At that point he was much more responsive and helpful. I also did look through his medications that he brought with him. He has his needles and his KwikPen for Lantus and lispro insulin. But he does not have any test strips or test meter. Appearance: unkempt Attitude: agitated Mood & Affect: anxious Skin no rashes or lesions noted MDM MDM MDM Narrative Medical decision making narrative: We also found out that the patient's water is shut off at his house. This is also an issue that makes it hard for him to care for himself. Social work is seeing him. He is willing to go to a nursing facility. There is evidently only a single facility that would be able to take him with his unique set of issues. They are working to see if this can happen. We did check some blood work. White count is elevated which is a nonspecific finding. X-ray shows chronic changes. Electrolytes do show some changes in sodium potassium. He also has a very high glucose at 595. However, his creatinine is only mildly elevated. No sign of significant dehydration. No anion gap or decreased bicarb. We will give him some fluids and insulin to work to get this glucose level down. We are pending repeat blood sugar. I expect we may need to give some further treatment. However, the patient feels well. We now find out that the story he shared with this was not the comprehensive truth. His girlfriend is willing to come over and help him. He also has a daughter that can come help him. We actually got the girlfriend on the phone. She can come over during the day however she works at night. She will help him with the blood sugar checks. They have now found his glucometer and test strips. He accidentally left his glasses at work. But they were just evidently magnifiers so for about a dollar at the drugstore they can get a new pair glasses to help him read the glucometer. He also now states that he has longer tubing for his oxygen at home. He just has not hooked it up. We also find out that the water that was shut off evidently is not shut off. It runs if you open the faucet. Patient wants to go home. He feels safe going home. All the issues that prompted him to come in and have been solved. He now has 2 people to help him at home plus visiting nurse services. Once we get the sugar down we will get him home. Patient's recheck his sugar. Was 411 and 327. That is down to his baseline. Although that is high for overall control that is his baseline. At this point we will get him home. He assures us as his does his girlfriend that all the problems that brought him in here have been resolved. Lab Data Attestation: I reviewed the patient's lab results. Labs: Laboratory Results - last 24 hr 08/20/21 08/20/21 08/20/21 10:23 10:23 14:27 WBC 13.0 H RBC 5.07 Hgb 14.0 Hct 42.4 MCV 83.6 MCH 27.6 MCHC 33.0 RDW Std Deviation 41.3 RDW Coeff of Wil 13.9 Plt Count 360 MPV 8.7 Neut % (Auto) Not Reportable Absolute Neuts (auto) 10.9 H Absolute Lymphs (auto) 1.55 Total Counted 100 Neutrophils % (Manual) 83 H Band Neutrophils % 1 Lymphocytes % (Manual) 12 L Monocytes % (Manual) 4 Platelet Estimate ADEQUATE RBC Morphology NORM C+C Sodium 131 L Potassium 5.3 H Chloride 94 L Carbon Dioxide 30.0 Anion Gap 7 BUN 18 Creatinine 1.05 Estim Creat Clear Calc 87.91 Est GFR (MDRD) Af Amer 98 Est GFR (MDRD) Non-Af 81 BUN/Creatinine Ratio 17.1 Glucose 595 H* Calcium 9.3 POC Glucose 411 H 08/20/21 14:54 WBC RBC Hgb Hct MCV MCH MCHC RDW Std Deviation RDW Coeff of Wil Plt Count MPV Neut % (Auto) Absolute Neuts (auto) Absolute Lymphs (auto) Total Counted Neutrophils % (Manual) Band Neutrophils % Lymphocytes % (Manual) Monocytes % (Manual) Platelet Estimate RBC Morphology Sodium Potassium Chloride Carbon Dioxide Anion Gap BUN Creatinine Estim Creat Clear Calc Est GFR (MDRD) Af Amer Est GFR (MDRD) Non-Af BUN/Creatinine Ratio Glucose Calcium POC Glucose 327 H Radiography Diagnostic Testing: Clinical Impression(s) from Imaging Studies Chest X-Ray 08/20/21 10:17 IMPRESSION: 1. Stable multilobar infiltrates with features commonly reported with COVID. Electronically Signed: Kareem Alcala MD ([place]) at 11:10 EDT , Service support , Discharge Plan Triage Chief Complaint: Other, Pain/Inj ED Provider: Samir Madison Dx/Rx/DC Orders Clinical Impression: Pneumonia due to 2019-nCoV, Acute hyperglycemia Instructions: Caring for Someone Who Has COVID-19 Prescriptions: No Action (DME) lancets [FreeStyle Lancets] 28 gauge misc See Rx Instructions .ROUTE .MEDSUPPLY Qty: 200 RF: 11 (DME) blood-glucose meter [FreeStyle System Kit] Kit See Rx Instructions .ROUTE .MEDSUPPLY Qty: 1 RF: 0 (DME) FreeStyle Test Strip See Rx Instructions .ROUTE .MEDSUPPLY Qty: 100 RF: 11 atorvastatin 80 mg tablet 80 mg PO QHS 30 Days Qty: 90 RF: 2 (DME) blood sugar diagnostic 1 EACH strip 0 .Route .MEDSUPPLY RF: 0 (DME) lancets 1 EACH misc 0 .Route .MEDSUPPLY RF: 0 (DME) pen needle, diabetic 1 EACH needle 1 ndl subcut ACHS Qty: 1 RF: 0 dexamethasone 6 mg tablet 6 mg PO DAILY Qty: 5 RF: 0 (DME) insulin syringe-needle U-100 [BD Insulin Syringe Ultra-Fine] 0.3 mL 31 gauge x 5/16 syringe See Rx Instructions .ROUTE .MEDSUPPLY Qty: 100 RF: 3 albuterol sulfate 90 mcg/actuation HFA aerosol inhaler 2 puff INHALATION Q6H PRN (Reason: Asthma) Qty: 8.5 RF: 3 fenofibrate nanocrystallized 145 mg tablet 145 mg PO DAILY@0800 Qty: 90 RF: 3 insulin glargine 100 unit/mL (3 mL) insulin pen 30 unit subcut QHS 90 Days Qty: 27 RF: 3 insulin lispro 100 unit/mL insulin pen 15 unit subcut QAC Qty: 15 RF: 3 lisinopril 2.5 mg tablet 2.5 mg PO DAILY Qty: 90 RF: 3 (DME) pen needle, diabetic [Unifine Pentips] 31 gauge x 5/16 needle See Rx Instructions .ROUTE .MEDSUPPLY Qty: 100 RF: 3 Primary Care Provider: Paris Chilel Referrals: Paris Chilel MD [Primary Care Provider] - 2 Days Disposition Disposition: Home, Self Care
[2021-08-20 10:35] LABS: Hematocrit 42.4 % (40-54); Mean Corpuscular Hgb 27.6 pg (27.0-32.0); Mean Corpuscular Volume 83.6 fL (80-94); Mean Platelet Vol. 8.7 fl (6.2-12.0); POSITIVE COUNT YES; POSITIVE MORPHOLOGY YES; Platelet Count 360 K/mm3 (150-450); RBC Distribution Width CV 13.9 % (11.6-14.6); RBC Distribution Width SD 41.3 fl (35.1-43.9); Red Blood Count 5.07 M/mm3 (4.6-6.2)
[2021-08-20 10:37] LABS: Differential Indicated MANUAL DIFF
[2021-08-20 10:52] LABS: Anion Gap 7 (5-15); BUN 18 mg/dL (7-18); BUN/Creat Ratio 17.1 RATIO (10-20); Calcium,Total 9.3 mg/dL (8.5-10.1); Chloride 94 mmol/L (98-107); Creatinine, Serum 1.05 mg/dL (0.70-1.30); EST Glomerular Filtration Rate 81 mL/min (>60); Est Glom Filt Rate - Afr Amer 98 mL/min (>60); Estimated Creatinine Clearance 87.91 ml/min; Glucose 595 mg/dL (74-106); Potassium 5.3 mmol/L (3.5-5.1); Sodium Level 131 mmol/L (136-145)
[2021-08-20 11:02] LABS: Lymphocyte 12 % (19-41); Monocyte 4 % (0-10); Neutrophil-Band 1 % (0-5); Neutrophil-Segmented 83 % (47-70); Platelet Estimate ADEQUATE (ADEQ); Red Cell Morphology NORM C+C NORMAL (NORM C&C); Total Cells Counted 100 (MANUAL DIFF)
[2021-08-20 11:03] LABS: Absolute Lymphocyte Count 1.55 X10^3/uL (0.83-4.51); Absolute Neutrophil Count 10.9 X10^3/uL (2.0-7.7); Lymphocyte # 1.55 X10^3/ul (0.83-4.51); Neutrophil # 10.88 X10^3/uL (2.7-7.7)
[2021-08-20] MEDS: Insulin Lispro 100 UNIT/ML INSULN.PEN 16 UNIT SC (11:15)
[2021-08-20] MEDS: 0.9% Normal Saline 1,000 ML 999 ML IV (11:15)
--- NOTE | 2021-08-20 12:05 | CM.ED ---
Addendum entered by Patricia Nina 08/20/21 15:10: DORIS completed the PASSR. DORIS updated staff. Patient then voiced his girlfriend was able to check on him and be with him except for at night. DORIS and MD met with patient. Patient had said he couldn't read prescription but said that his girlfriend would read the prescription bottle and that he would buy some cheater glasses. Patient also had told RN that his glasses were at work but he had no one that could get his glasses. Patient's girlfriend was on the phone with , DORIS and Patient. She said that she would be able to check on him. Patient then said that he has enough home oxygen supply line at home, which was opposite what he had told MD this morning. Patient asked his girlfriend if he had running water and she said it's working and she said that she got dogs the water last night. Patient said that he wanted to go home. Thus plan to discharge patient home. DORIS called Marguerite at [facility] and advised patient is going to return home. DORIS called [facility] and left voice mail message for them regarding patient being discharged home. DORIS received call from Claudia at [facility]. Patient is not current patient. Plan: Patient returned home. Patricia Nina [employer] Original Note: DORIS Note Referral Source: MD Referral Reason: Patient reports that he is not doing well at home. Of note, DORIS received phone call from Giovana Gore from [facility] stating patient lives home along and reports he has no support and patient feels he needs SNF placement. Per Home Health patient has no running water and is a hoarder. [facility] reports that patient is anxious and nervous. DORIS spoke to DORIS colleagues regarding patient's insurance and COVID positive status. DORIS spoke to Glenys on [employer] and she reports that the only accepting SNF for COVID positive patient who takes [facility] insurance, as per yesterday, was [facility], which is a one star listed SNF. Glenys advised the other 3 facilities had no beds and no anticipated discharges as of yesterday. DORIS met with patient. He reports he needs SNF. DORIS explained the only option open to him is [facility] and this conventional mortgage underwriter noted it was a 1 star facility. Patient said that he needs SNF as he is unable to manage at home. RN indicated patient had indicated he had dogs so this conventional mortgage underwriter indicated that patient would not be able to take animals and patient said that he had someone that was going to check on them while he was gone. DORIS explained that due to covid positive and insurance patient had limited options regarding placement. Patient reports no psych history or psych medication. DORIS called Marguerite at [facility]. They have beds. Marguerite said that it is not necessary for patient to have PT/OT but patient will need PASS R completed. DORIS faxed referral to the [facility]. PLan: to be determined Patricia MAHONEY
[2021-08-20 14:36] LABS: Bedside Glucose 411 mg/dL (70-110)
[2021-08-20 15:01] LABS: Bedside Glucose 327 mg/dL (70-110)
--- NOTE | 2021-08-20 15:25 | CM.ED ---
Addendum entered by Barbara Nina 08/20/21 17:57: Isela spoke to Transport and arranged for patient to be transported home. Of note, patient was also trying to contact son to see if his son could pick him up at ED and early today patient had reported no family and that he was all alone. DORIS called [facility] and spoke to call center assistant staff, Rachell. She said that she doesn't think they have Home Health for that patient. She said to call back Monday. physically impaired teacher for [facility] was [phone] Barbara MAHONEY Addendum entered by Barbara Nina 08/20/21 15:42: Pernell Weiss is attempting to secure ambulette for patient's discharge home. DORIS will remain available to assist if needed. barbara MAHONEY Original Note: DORIS Note DORIS left voice mail for CCN updating that patient was at the ED and was referred to SNF but he declined and went home. DORIS wanted CCN to be updated. Barbara MAHONEY
[2021-08-20 15:53] VITALS: BP 103/71; PULSE 76; RESP 23; O2SAT 95
--- NOTE | 2021-08-20 18:03 | CM.ED ---
Addendum entered by Patricia Nina 08/20/21 18:32: Of note, SW was completing PASSR and patient reports no psychiatric MH case management or counselor , no psych hospitalization and no psych meds. [facility] which he quantified as 10 -12 years ago. He stated that he has no POA. Original Note: DORIS Note DORIS reviewed chart and it was charted patient was accepted by [facility]. DORIS left voice mail message for [facility] advising that patient was discharged back home today for resumption of services and DORIS left call back number. Plan: Home Patricia MAHONEY
[2021-08-23 12:59] LABS: Pathologist Review Reviewed
== END 2021-08-20 16:31 | disposition home or self-care (01) ==
PROVIDERS: Emergency Provider Emergency Medicine; PCP Internal Medicine
DX: U07.1 COVID-19 (principal); J12.82 Pneumonia due to coronavirus disease 2019; Z87.891 Personal history of nicotine dependence
CPT/HCPCS: 71045; 80048; 82962; 85025; 99285

== ENCOUNTER → 2021-09-28 09:16 | Outpatient (CLI) | payer MEDICAID, SELFPAY ==
[2021-09-28 09:18] LABS: Bacteria 0 SEEN /hpf (None Seen); Mucous, Urine 0 SEEN /hpf (<or=2+); Red Blood Cells-Urine 0 SEEN /hpf (0-5); Squamous Epithelial Cells - UA 0 SEEN /hpf (0-5); White Blood Cells 0 SEEN /hpf (0-5)
[2021-09-28 12:25] LABS: Color, Urine Straw (Yellow); Glucose, Dipstick 1000 mg/dl (Normal); Ketone-Dipstick Negative (Negative); Leukocyte Esterase-Dipstick Negative /ul (Negative); Nitrite-Dipstick Negative (Negative); Occult Blood-Urine Negative /ul (Negative); Protein-Dipstick Negative (Negative); Urine Bilirubin Dipstick Negative (Negative); Urine Clarity Clear (Clear); Urine Urobilinogen Normal (Normal)
[2021-09-28 12:52] LABS: Absolute Lymphocyte Count 1.82 X10^3/uL (0.83-4.51); Absolute Neutrophil Count 7.9 X10^3/uL (2.0-7.7); Basophil# 0.05 X10^3/uL; Basophil% 0.5 % (0-1); Eosinophil# 0.05 X10^3/uL; Eosinophils% 0.5 % (0-5); Hemoglobin 14.7 g/dL (13.0-16.5); Lymphocyte # 1.82 X10^3/ul (0.83-4.51); Lymphocyte % 17.6 % (19-41); Mean Corp Hgb Conc 33.4 g/dL (32-36); Mean Corpuscular Hgb 28.5 pg (27.0-32.0); Mean Corpuscular Volume 85.3 fL (80-94); Mean Platelet Vol. 9.6 fl (6.2-12.0); Monocyte# 0.48 X10^3/uL; Monocyte% 4.6 % (0-10); NRBC Flagged by Analyzer 0 % (0-5); Neutrophil % 76.2 % (47-70); Platelet Count 267 K/mm3 (150-450); RBC Distribution Width SD 43.4 fl (35.1-43.9); Red Blood Count 5.16 M/mm3 (4.6-6.2); White Blood Count 10.4 K/mm3 (4.4-11.0)
[2021-09-28 13:54] LABS: Thyroid Stim Hormone (TSH) 0.81 uIU/mL (0.358-3.74)
[2021-09-28 13:55] LABS: ALB/GLOB Ratio 0.9 RATIO (0.9-2.4); AST(SGOT) 11 U/L (15-37); Alanine Aminotransfer ALT/SGPT 24 U/L (16-61); Albumin, Serum 3.5 g/dL (3.2-5.0); Alkaline Phosphatase 100 U/L (45-117); Anion Gap 9 (5-15); BUN 11 mg/dL (7-18); BUN/Creat Ratio 10.8 RATIO (10-20); Calcium,Total 9.1 mg/dL (8.5-10.1); Chloride 96 mmol/L (98-107); Cholesterol 220 mg/dL (200); Creatinine, Serum 1.02 mg/dL (0.70-1.30); EST Glomerular Filtration Rate 83 mL/min (>60); Est Glom Filt Rate - Afr Amer 101 mL/min (>60); Globulin 3.9 g/dL (2.2-4.2); Glucose 624 mg/dL (74-106); High Density Lipoprotein 26 mg/dL; Potassium 5.3 mmol/L (3.5-5.1); Protein, Total 7.4 g/dL (6.4-8.2); Sodium Level 128 mmol/L (136-145); Triglycerides 1118 mg/dL
[2021-09-28 16:22] LABS: Creatinine, Urine (random) < 13.00 mg/dL (NO RANGE EST.); Microalbumin,Random Urine < 5.0 mg/L (NO RANGE EST.)
== END ==
PROVIDERS: PCP Internal Medicine; Referring Provider Physician Assistant; Visit Provider Physician Assistant
DX: I10 Essential (primary) hypertension (principal); J45.909 Unspecified asthma, uncomplicated; E11.69 Type 2 diabetes mellitus with other specified complication; F41.9 Anxiety disorder, unspecified; F32.A Depression, unspecified; Z79.4 Long term (current) use of insulin
CPT/HCPCS: 36415; 80053; 80061; 81001; 82043; 82570; 84443; 85025

== ENCOUNTER 2022-04-05 16:43 | Emergency (ER) | payer MEDICAID, SELFPAY ==
[2022-04-05 16:45] VITALS: BP 125/89; PULSE 87; RESP 18; TEMP 36.6; O2SAT 99; BMI 25.4
--- NOTE | 2022-04-05 16:58 | EX.ED.DYSGE1 ---
HPI History of Present Illness Chief Complaint: Hyperglycemia Informant: patient Narrative Narrative: Patient was sent in here for hyperglycemia. He was seen at his physician's office here. He is recently moved back to the area. He had an accident that caused him to lose all his meds about 2 weeks ago so he has been off his meds. He was seen in the office. He is not really having illness symptoms. He does admit to some polyuria polydipsia and cloudy vision. He also has some abdominal cramping but is eating and drinking. All his meds were refilled today by his primary physician. But they also did blood work. They called him back because his blood sugar was about 548 and thought he should come in to get this under control. Again, he does have his medications to take at home but has not yet taken them. [facility] Medical History (Updated 04/05/22 @ 17:[address] Samir Madison MD) Asthma Diabetes Pancreatitis Home Medications albuterol sulfate 90 mcg/actuation aerosol inhaler 2 puff INHALATION Q6H PRN #8.5 g 09/28/21 [Rx Last Taken Unknown] atorvastatin 80 mg tablet 80 mg PO QHS #90 tab 04/05/22 [Rx Last Taken Unknown] blood sugar diagnostic #100 ea 04/05/22 [Rx Last Taken Unknown] blood sugar diagnostic #300 ea 04/05/22 [Rx Last Taken Unknown] blood-glucose meter #1 ea 04/05/22 [Rx Last Taken Unknown] escitalopram oxalate 10 mg tablet 10 mg PO DAILY #90 tab 04/05/22 [Rx Last Taken Unknown] gabapentin 300 mg capsule 300 mg PO QHS #30 cap 04/05/22 [Rx Last Taken Unknown] insulin glargine 100 unit/mL (3 mL) subcutaneous pen 32 unit SUBCUT QHS 90 Days #28.8 ml 04/05/22 [Rx Last Taken Unknown] insulin lispro 100 unit/mL subcutaneous pen 18 unit SUBCUT QAC #15 ml 04/05/22 [Rx Last Taken Unknown] insulin syringe-needle U-100 0.3 mL 31 gauge x 03/28 #100 ea 04/05/22 [Rx Last Taken Unknown] lancets #300 ea 04/05/22 [Rx Last Taken Unknown] lisinopril 2.5 mg tablet 2.5 mg PO DAILY #90 tab 04/05/22 [Rx Last Taken Unknown] meloxicam 15 mg tablet 15 mg PO DAILY PRN #30 tab 04/05/22 [Rx Last Taken Unknown] pen needle, diabetic 31 gauge x 03/28 #300 ea 04/05/22 [Rx Last Taken Unknown] Allergy/AdvReac Type Severity Reaction Status Date / Time No Known Allergies Allergy Verified 04/05/22 16:45 Family History Father Diabetes Mother CVA (cerebral vascular accident) Seizures Hypertension Surgical History history of abscess removal Social History Smoking Status: Former smoker how long ago did patient quit smoking: June 2019 alcohol intake: never substance use type: does not use what type of physical activity do you participate in: none seatbelt use: always do you feel safe at home: Yes ROS ROS ED Constitutional Constitutional ED: Denies chills or fever(s) Eyes Eyes: Reports blurry vision ENT ENT ED: Denies rhinorrhea Cardiovascular Cardiovascular: Denies chest pain or palpitations Respiratory/Chest Respiratory/Chest: Denies cough or dyspnea Gastrointestinal Gastrointestinal: Reports abdominal pain; Denies diarrhea, nausea or vomiting Genitourinary Genitourinary ED: Denies dysuria Musculoskeletal Musculoskeletal: Denies arthralgias or myalgias Integumentary Denies rash Neurologic Neurologic: Denies headache(s) Psychiatric Psychiatric: Denies depression Endocrine Endocrinology: Reports polydipsia and polyuria Allergic/Immunologic Allergic/Immunologic ED: Denies urticaria EXAM Physical Exam Const Vital Signs: 04/05/22 16:45 04/05/22 17:27 Temperature 97.8 F Temperature Source Temporal Pulse Rate 87 Respiratory Rate 18 Respiratory Effort Normal Non-Labored Respiratory Pattern Normal Blood Pressure 125/89 H Blood Pressure Mean 101 Pulse Ox 99 Oxygen Delivery Method Room Air Positive well nourished and well developed General Appearance ED: well developed; Negative for cyanotic or diaphoretic HEENT Reports dry mucous membranes Mouth ED: Yes dry mucous membranes Mouth: dry mucous membranes Eyes General Eye ED: Negative for pale conjunctiva or scleral icterus Neck no JVD Chest Wall inspection of chest normal Resp normal respiratory effort and clear to auscultation bilaterally Cardio regular rate, regular rhythm and no murmurs Rate: Negative for tachycardic GI normal to inspection, nondistended, normoactive bowel sounds Back/Spine no CVA tenderness Extremity normal to inspection General Extremety ED: Negative for edema or tenderness General Extremity: Negative for edema Neuro oriented x3 Sensorium / Orientation: alert Psych mental status grossly normal Skin no rashes or lesions noted MDM MDM MDM Narrative Medical decision making narrative: Patient was given 2 L of fluid. He was given 18 units of lispro which would be his normal dose. This brought him from over 500 down to 408. He had another 500 cc of fluid that was still running from the original 2 L. We gave him another 12 units of lispro and he is down to 239. He is comfortable managing this at home. He now has all his meds and needles and is comfortable managing hyper and hypoglycemia at home. Lab Data Attestation: I reviewed the patient's lab results. Labs: Laboratory Results - last 24 hr 04/05/22 04/05/22 16:55 17:57 POC Glucose > 500 H* 408 H Discharge Plan Triage Chief Complaint: Hyperglycemia ED Provider: Samir Madison Dx/Rx/DC Orders Clinical Impression: Acute hyperglycemia Instructions: ED Diabetic Hyperglycemia Prescriptions: No Action albuterol sulfate 90 mcg/actuation HFA aerosol inhaler 2 puff INHALATION Q6H PRN (Reason: Asthma) Qty: 8.5 RF: 3 atorvastatin 80 mg tablet 80 mg PO QHS Qty: 90 RF: 3 escitalopram oxalate [Lexapro] 10 mg tablet 10 mg PO DAILY Qty: 90 RF: 0 (DME) blood sugar diagnostic Strip 0 .Route .MEDSUPPLY Qty: 100 RF: 0 insulin glargine 100 unit/mL (3 mL) insulin pen 32 unit subcut QHS 90 Days Qty: 28.8 RF: 3 (DME) insulin syringe-needle U-100 [BD Insulin Syringe Ultra-Fine] 0.3 mL 31 gauge x 5/16 syringe See Rx Instructions .ROUTE .MEDSUPPLY Qty: 100 RF: 3 (DME) pen needle, diabetic [Unifine Pentips] 31 gauge x 5/16 needle See Rx Instructions .ROUTE .MEDSUPPLY Qty: 300 RF: 3 insulin lispro 100 unit/mL insulin pen 18 unit subcut QAC Qty: 15 RF: 3 gabapentin 300 mg capsule 300 mg PO QHS Qty: 30 RF: 1 lisinopril 2.5 mg tablet 2.5 mg PO DAILY Qty: 90 RF: 3 meloxicam 15 mg tablet 15 mg PO DAILY PRN (Reason: pain) Qty: 30 RF: 1 (DME) blood-glucose meter [OneTouch Ultra2 Meter] Misc See Rx Instructions .ROUTE .MEDSUPPLY Qty: 1 RF: 0 (DME) OneTouch Ultra Test Strip See Rx Instructions .ROUTE .MEDSUPPLY Qty: 300 RF: 3 (DME) lancets [OneTouch UltraSoft Lancets] Misc See Rx Instructions .ROUTE .MEDSUPPLY Qty: 300 RF: 3 Primary Care Provider: Paris Chilel Referrals: Paris Chilel MD [Primary Care Provider] - [facility] appointment Disposition Disposition: Home, Self Care
[2022-04-05 17:00] LABS: Bedside Glucose > 500 mg/dL (74-106)
[2022-04-05] MEDS: 0.9% Normal Saline 1,000 ML 1000 ML IV ×2 (17:01→17:08)
[2022-04-05] MEDS: Insulin Lispro 100 UNIT/ML INSULN.PEN 18 UNIT SC (17:08)
[2022-04-05] MEDS: Acetaminophen 500 MG Tablet PO (17:08)
[2022-04-05 18:01] LABS: Bedside Glucose 408 mg/dL (74-106)
[2022-04-05] MEDS: Insulin Lispro 100 UNIT/ML INSULN.PEN 12 UNIT SC (18:30)
[2022-04-05 19:01] LABS: Bedside Glucose 239 mg/dL (74-106)
[2022-04-05 19:04] VITALS: BP 112/72; PULSE 82; RESP 17; O2SAT 97
== END 2022-04-05 19:05 | disposition home or self-care (01) ==
PROVIDERS: Emergency Provider Emergency Medicine; PCP Internal Medicine; Visit Provider Emergency Medicine
DX: E11.65 Type 2 diabetes mellitus with hyperglycemia (principal); Z79.4 Long term (current) use of insulin; J45.909 Unspecified asthma, uncomplicated; Z79.1 Long term (current) use of non-steroidal anti-inflammatories (NSAID); K85.90 Acute pancreatitis without necrosis or infection, unspecified; E78.1 Pure hyperglyceridemia; I10 Essential (primary) hypertension; M10.9 Gout, unspecified; Z87.891 Personal history of nicotine dependence
CPT/HCPCS: 36415; 80053; 80061; 82150; 82962; 83036; 83690; 83735; 96360; 96372; 99284; J7030

== ENCOUNTER → 2022-04-05 | Outpatient (CLI) | payer MEDICAID, SELFPAY ==
[2022-04-05 15:51] LABS: Hemoglobin A1c 12.1 % (3.8-5.6)
[2022-04-05 15:59] LABS: AST(SGOT) 16 U/L (15-37); Alanine Aminotransfer ALT/SGPT 31 U/L (16-61); Albumin, Serum 3.8 g/dL (3.2-5.0); Alkaline Phosphatase 99 U/L (45-117); Amylase 29 U/L (25-115); Anion Gap 6 (5-15); BUN 23 mg/dL (7-18); BUN/Creat Ratio 20.9 RATIO (10-20); Calcium,Total 9.2 mg/dL (8.5-10.1); Chloride 95 mmol/L (98-107); Cholesterol 262 mg/dL (200); EST Glomerular Filtration Rate 76 mL/min (>60); Est Glom Filt Rate - Afr Amer 92 mL/min (>60); Globulin 3.7 g/dL (2.2-4.2); Glucose 548 mg/dL (74-106); High Density Lipoprotein 28 mg/dL; Lipase 127 U/L (73-393); Magnesium 2.1 mg/dL (1.6-2.6); Potassium 4.7 mmol/L (3.5-5.1); Protein, Total 7.5 g/dL (6.4-8.2); Sodium Level 127 mmol/L (136-145); Triglycerides 1522 mg/dL
== END | disposition home or self-care (01) ==
LOC: BIMLAB 14:04
PROVIDERS: PCP Internal Medicine; Referring Provider Physician Assistant; Visit Provider Physician Assistant
DX: K85.90 Acute pancreatitis without necrosis or infection, unspecified (principal); E11.69 Type 2 diabetes mellitus with other specified complication; Z79.4 Long term (current) use of insulin; E78.1 Pure hyperglyceridemia; I10 Essential (primary) hypertension; R10.9 Unspecified abdominal pain
CPT/HCPCS: 80061; 82150; 83036; 83690; 80053; 83735; 36415

== ENCOUNTER 2022-09-15 23:23 | Emergency (ER) | payer MEDICAID, SELFPAY ==
[2022-09-15 23:24] VITALS: BP 132/100; PULSE 80; RESP 18; TEMP 36.8; O2SAT 98; BMI 25.4
--- NOTE | 2022-09-15 23:27 | EDS_ITS ---
HPI History of Present Illness Chief Complaint: Lower Extremity Injury Narrative Narrative: 46-year-old male here for right leg pain extremity. Patient locates the pain to the right lower back. States radiates down the leg. States this started 2 days ago after moving a couch. Pain is constant, worse with movement, improved by rest. Patient denies any saddle anesthesia, urinary tension, bowel or bladder incontinence, lower extremity weakness, fever or IV drug use, no recent spinal manipulation or surgery, no recent urinary catheterization. Old chart reviewed: No recent advanced imaging of the involved extremity Last imaging of the involved extremity was in 2017 which showed no acute fracture or dislocation [facility] Medical History Asthma Diabetes Pancreatitis Home Medications albuterol sulfate 90 mcg/actuation aerosol inhaler 2 puff inhalation Q6H PRN Asthma #8.5 grams 09/28/21 [Rx Last Taken Unknown] atorvastatin 80 mg tablet 80 mg PO QHS #90 tabs 04/05/22 [Rx Last Taken Unknown] blood sugar diagnostic #100 ea 04/05/22 [Rx Last Taken Unknown] blood sugar diagnostic (OneTouch Ultra Test strips) #300 ea 04/05/22 [Rx Last Taken Unknown] blood-glucose meter (InventablesTouch Ultra2 Meter) #1 ea 04/05/22 [Rx Last Taken Unknown] escitalopram oxalate 10 mg tablet (Lexapro) 10 mg PO DAILY #90 tabs 04/05/22 [Rx Last Taken Unknown] insulin glargine 100 unit/mL (3 mL) subcutaneous pen 32 unit (0.32 mL) subcut QHS 3 months #28.8 mL 04/05/22 [Rx Last Taken Unknown] insulin lispro 100 unit/mL subcutaneous pen 18 unit (0.18 mL) subcut QAC #15 mL 04/05/22 [Rx Last Taken Unknown] insulin syringe-needle U-100 0.3 mL 31 gauge x 5/16 (BD Insulin Syringe Ultra- Fine) #100 ea 04/05/22 [Rx Last Taken Unknown] lancets (InventablesTouch UltraSoft Lancets) #300 ea 04/05/22 [Rx Last Taken Unknown] lisinopril 2.5 mg tablet 2.5 mg PO DAILY #90 tabs 04/05/22 [Rx Last Taken Unknown] pen needle, diabetic 31 gauge x 5/16 (Unifine Pentips) #300 ea 04/05/22 [Rx Last Taken Unknown] gabapentin 300 mg capsule 300 mg PO BID #60 caps 06/16/22 [Rx Last Taken Unknown] tadalafil 5 mg tablet 5 mg PO ONCE PRN sexual activity #10 tabs 06/16/22 [Rx Last Taken Unknown] prednisone 50 mg tablet 50 mg PO DAILY #5 tabs 09/15/22 [Rx Last Taken Unknown] Allergy/AdvReac Type Severity Reaction Status Date / Time No Known Allergies Allergy Verified 06/16/22 08:14 Family History Father Diabetes Mother CVA (cerebral vascular accident) Seizures Hypertension Surgical History history of abscess removal Social History Smoking Status: Current every day smoker tobacco type: e-cigarettes how long ago did patient quit smoking: June 2019 alcohol intake: never substance use type: does not use what type of physical activity do you participate in: none seatbelt use: always do you feel safe at home: Yes ROS ROS ED ROS Narrative Constitutional: Denies fever HEENT: Denies sore throat Neck: Denies neck pain Cardiovascular: Denies chest pain, syncope Respiratory: Denies shortness of breath GI: Denies nausea vomiting or abdominal pain : Denies changes in urinary habits Musculoskeletal: Endorses right leg pain, right lower back pain Neurologic: Denies numbness weakness or loss of sensation Skin denies rash EXAM Physical Exam Narrative Exam Narrative: Nursing triage notes reviewed, Vital signs reviewed Constitutional: please see mdm HENT: MMM Eyes: Pupils equal round and reactive to light, Extraocular muscles intact Neck: No stridor, no JVD, full neck ROM Lungs: Clear to auscultation, No wheezing or rales. No increased work of breathing, no conversational dyspnea, no accessory muscle use, no nasal flaring. No respiratory distress noted Heart: Regular rate and rhythm, No murmurs, No rubs and No gallops, 2+ distal pulses (radial, femoral, posterior tibial) in all extremities Abdomen: Soft, there is no tenderness, rigidity, rebound or guarding, no obvious peritoneal signs, no palpable pulsatile abdominal masses, no auscultated abdominal bruit : No CVAT Extremities: No edema Back: No midline step-offs or deformities, TTP over right lateral paraspinal muscles, TTP over piriformis muscle. Neuro: Intact sensation L1-S1 dermatomal distributions. Intact 5/5 strength in hip flexion (T12-L3). Knee extension (L2-L4). Ankle dorsiflexion (L4-L5). Ankle plantar flexion (S1). Great toe extension (L5). 2+ patellar and Achilles DTRs. Skin: No rash or lesions noted Const Vital Signs: 09/15/22 23:24 Temperature 98.2 F Temperature Source Temporal Pulse Rate 80 Respiratory Rate 18 Blood Pressure 132/100 H Blood Pressure Mean 110 Pulse Ox 98 Oxygen Delivery Method Room Air MDM MDM MDM Narrative Medical decision making narrative: 46-year-old male here with lower back pain with radiation. This in the setting of recent lifting. Likely etiology is lumbar radiculopathy or sciatica. Gave symptomatic treatment. No back pain red flags to suggest a space-occupying lesion of the spine. Patient was discharged home in stable condition with instructions to take anti-inflammatories, Tylenol, ibuprofen and follow-up this primary care physician. No indication for imaging at this time given the atraumatic nature of the patient's back pain. Treatment and Re-Evaluation Narrative: The patient presented complaining of back pain. There was no history of recent fall or trauma. There was no evidence to support genitourinary etiology. There is also no evidence to suggest vascular pathology such as AAA dissection. No fevers or other evidence to suspect infectious processes, abscess, osteomyelitis etc. The patient?s neurological exam is normal with normal motor and sensory. There is no saddle paresthesias reported and no bowel or bladder incontinence or retention. I suspect the pain is mechanical in nature. Clinical suspicion, plan of care and management was discussed with the patient. The patient was instructed to follow up with their health care provider. The patient was also instructed to return if the pain worsened, changed, or developed weakness or bowel or bladder trouble. The patient agreed with plan. I completed a structured, evidence-based clinical evaluation to screen for acute non-traumatic spinal emergencies. The patient has a normal detailed neurologic exam and a low red flag score. The evidence indicates that the patient is very low risk for an acute spinal emergency and this is consistent with my clinical intuition. The risk of further workup is higher than the likelihood of the patient having a spinal epidural abscess or other dangerous emergency spinal condition. It is, therefore, in the patient?s best interest not to do additional emergent testing at this time. Shared Decision-Making I have discussed with the patient my clinical impression and the result of an evidence-based clinical evaluation to screen for spinal epidural abscess and other spinal emergencies, as well as the risk of further testing and hospitalization. The evidence shows that the risk for an acute spinal emergency is less than 1%. Although the risk of an acute spinal emergency has not been completely eliminated, the risks of further testing likely exceed any potential benefit, and the patient agrees with not pursuing further emergent evaluation for causes of back pain at this time. Discharge Plan Triage Chief Complaint: Lower Extremity Injury ED Provider: Rico Aragon Dx/Rx/DC Orders Clinical Impression: Lumbar radiculopathy Instructions: Anatomy of a Normal Spine, Back Exercises: Lower Back Stretch Prescriptions: New prednisone 50 mg tablet 50 mg PO DAILY Qty: 5 0RF No Action albuterol sulfate 90 mcg/actuation HFA aerosol inhaler 2 puff INHALATION Q6H PRN (Reason: Asthma) Qty: 8.5 3RF atorvastatin 80 mg tablet 80 mg PO QHS Qty: 90 3RF escitalopram oxalate [Lexapro] 10 mg tablet 10 mg PO DAILY Qty: 90 0RF Rx Instructions: Take 5 mg for the first 6 days then increase to 10mg (DME) blood sugar diagnostic Strip 0 .Route .MEDSUPPLY Qty: 100 0RF Rx Instructions: check blood glucose three times daily for type 2 DM insulin glargine 100 unit/mL (3 mL) insulin pen 32 unit subcut QHS 90 Days Qty: 28.8 3RF (DME) insulin syringe-needle U-100 [BD Insulin Syringe Ultra-Fine] 0.3 mL 31 gauge x 5/16 syringe See Rx Instructions .ROUTE .MEDSUPPLY Qty: 100 3RF Rx Instructions: As directed (DME) pen needle, diabetic [Unifine Pentips] 31 gauge x 5/16 needle See Rx Instructions .ROUTE .MEDSUPPLY Qty: 300 3RF Rx Instructions: As directed QID insulin lispro 100 unit/mL insulin pen 18 unit subcut QAC Qty: 15 3RF lisinopril 2.5 mg tablet 2.5 mg PO DAILY Qty: 90 3RF (DME) blood-glucose meter [OneTouch Ultra2 Meter] [facility] [place] See Rx Instructions .ROUTE .MEDSUPPLY Qty: 1 0RF Rx Instructions: Check blood sugar 3 times a day and as needed (DME) OneTouch Ultra Test Strip See Rx Instructions .ROUTE .MEDSUPPLY Qty: 300 3RF Rx Instructions: Check Blood Sugar 3 times a day and as needed (DME) lancets [OneTouch UltraSoft Lancets] [facility] [place] See Rx Instructions .ROUTE .MEDSUPPLY Qty: 300 3RF Rx Instructions: Check blood sugar 3 times a day and as needed gabapentin 300 mg capsule 300 mg PO BID Qty: 60 3RF tadalafil 5 mg tablet 5 mg PO ONCE PRN (Reason: sexual activity) Qty: 10 0RF Rx Instructions: administer approximately 30min before sexual activity; do not use more than 1 dose per 24hrs Primary Care Provider: Paris Chilel Referrals: Paris Chilel MD [Primary Care Provider] - Activity Restrictions/Additional Instructions: Please take Tylenol, ibuprofen go to your local pharmacy or drugstore and obtain Salonpas lidocaine patches for home pain control. Please take prednisone for next 5 days. Please return if develop bowel or bladder incontinence, urinary retention, loss of sensation or movement in your extremities Disposition Disposition: Home, Self Care
[2022-09-16] MEDS: Acetaminophen 500 MG Tablet PO (00:01)
[2022-09-16] MEDS: dexAMETHasone 4 MG Tablet PO (00:01)
[2022-09-16] MEDS: Ibuprofen 200 MG Tablet 400 MG PO (00:01)
[2022-09-16] MEDS: oxyCODONE 5 MG Tablet PO (00:04)
== END 2022-09-16 00:07 | disposition home or self-care (01) ==
LOC: ED 09-16 00:02
PROVIDERS: Emergency Provider Emergency Medicine; PCP Internal Medicine; Visit Provider Emergency Medicine
DX: M54.16 Radiculopathy, lumbar region (principal); E11.9 Type 2 diabetes mellitus without complications; Z79.4 Long term (current) use of insulin; F17.290 Nicotine dependence, other tobacco product, uncomplicated; J45.909 Unspecified asthma, uncomplicated; Z79.899 Other long term (current) drug therapy
CPT/HCPCS: 99283

== ENCOUNTER 2022-11-11 19:18 | Emergency (ER) | payer MEDICAID, SELFPAY ==
[2022-11-11 19:19] VITALS: BP 121/84; PULSE 106; RESP 18; TEMP 36.2; O2SAT 97; BMI 26.4
--- NOTE | 2022-11-11 19:27 | CM.ED ---
Addendum entered by Patricia Nina 11/11/22 19:44: Glenys from crisis is aware of patient as she had called for patient to be escorted to the ED. At this time patient is not medically cleared. DORIS faxed face sheet to crisis. Original Note: DORIS called Crisis and updated them that patient will need to be seen. Patient is currently in triage. Patricia MAHONEY
[2022-11-11 19:45] LABS: Absolute Lymphocyte Count 3.11 X10^3/uL (0.83-4.51); Absolute Neutrophil Count 8.5 X10^3/uL (2.0-7.7); Basophil# 0.05 X10^3/uL; Basophil% 0.4 % (0-1); Eosinophil# 0.21 X10^3/uL; Eosinophils% 1.7 % (0-5); Hematocrit 48.7 % (40-54); Hemoglobin 17.8 g/dL (13.0-16.5); Lymphocyte # 3.11 X10^3/ul (0.83-4.51); Lymphocyte % 24.8 % (19-41); Mean Corp Hgb Conc 36.6 g/dL (32-36); Mean Corpuscular Hgb 30.3 pg (27.0-32.0); Mean Corpuscular Volume 82.8 fL (80-94); Mean Platelet Vol. 9.1 fl (6.2-12.0); Monocyte# 0.66 X10^3/uL; Monocyte% 5.3 % (0-10); NRBC Flagged by Analyzer 0 % (0-5); Neutrophil # 8.45 X10^3/uL (2.7-7.7); Neutrophil % 67.4 % (47-70); Platelet Count 258 K/mm3 (150-450); RBC Distribution Width CV 12.3 % (11.6-14.6); RBC Distribution Width SD 37.4 fl (35.1-43.9); Red Blood Count 5.88 M/mm3 (4.6-6.2); White Blood Count 12.5 K/mm3 (4.4-11.0)
[2022-11-11 20:32] LABS: Anion Gap 11 (5-15); BUN 21 mg/dL (7-18); BUN/Creat Ratio 23.9 RATIO (10-20); Calcium,Total 8.7 mg/dL (8.5-10.1); Chloride 95 mmol/L (98-107); Creatinine, Serum 0.88 mg/dL (0.70-1.30); EST Glomerular Filtration Rate 99 mL/min (>60); Est Glom Filt Rate - Afr Amer 119 mL/min (>60); Glucose 436 mg/dL (74-106); Potassium 3.8 mmol/L (3.5-5.1); Sodium Level 128 mmol/L (136-145)
[2022-11-11 20:51] LABS: Alcohol, Blood (Medical)-Serum < 3.0 mg/dL
[2022-11-11 22:26] LABS: Amphetamine Urine VISTA NEGATIVE (<1000 ng/mL); Barbiturate Urine VISTA NEGATIVE (< 200 ng/mL); Benzodiazepine Urine VISTA NEGATIVE (< 200 ng/mL); Cocaine Urine VISTA NEGATIVE (< 300 ng/mL); Ecstacy Urine VISTA NEGATIVE (< 500 ng/mL); Methadone Urine VISTA NEGATIVE (< 300 ng/mL); PCP Urine VISTA NEGATIVE (< 25 ng/mL); THC Urine VISTA NEGATIVE (< 50 ng/mL); Vista UDS pH Range 5
--- NOTE | 2022-11-11 23:05 | ED.RN ---
per Dr. Thompson no need for sitter at this time
--- NOTE | 2022-11-12 01:21 | ED.RN ---
nursing staff called into the back yousif due to patient become verbally upset and wanting to leave. nursing staff spoke with patient who advised that hes going to leave and you cant make him stop. advised patient that he is pink slipped and that he has to be seen by crisis and they are suggesting patient being placed. patient threatening to beat nursing staff and they cant hold him there against his will. patient advised that he is pink slipped and explained the progress. dr. mera in the room with patient and order given for [facility] trotter. [place] police called up because patient threatening to assault staff if we attempt to give him medication. once [place] police arrived willing to receive shot without assistance. [place] police remained in the room with patient speaking with him
[2022-11-12] MEDS: Ziprasidone IM 20 MG/ML VIAL IM ×2 (01:24→09:32)
--- NOTE | 2022-11-12 01:45 | NURSING ---
CRISIS CALLED AND STATED THAT HE IS PENDING AT [facility].
[2022-11-12 03:18] VITALS: RESP 14
[2022-11-12 03:27] LABS: Bacteria 0 SEEN /hpf (None Seen); Mucous, Urine 0 SEEN /hpf (<or=2+); Red Blood Cells-Urine 0 SEEN /hpf (0-5); Squamous Epithelial Cells - UA 0 SEEN /hpf (0-5)
[2022-11-12 03:30] LABS: Color, Urine Yellow (Yellow); Glucose, Dipstick 1000 mg/dl (Normal); Ketone-Dipstick 15 mg/dl (Negative); Leukocyte Esterase-Dipstick 25 /ul (Negative); Nitrite-Dipstick Negative (Negative); Occult Blood-Urine Negative /ul (Negative); Protein-Dipstick Negative (Negative); Urine Bilirubin Dipstick Negative (Negative); Urine Clarity Clear (Clear); Urine Urobilinogen Normal (Normal)
[2022-11-12 03:36] LABS: White Blood Cells 5-10 SEEN /hpf (0-5)
--- NOTE | 2022-11-12 04:18 | EX.ED.DYSGE1 ---
HPI History of Present Illness Chief Complaint: Suicidal Narrative Narrative: Patient is a 46-year-old male with past medical history of diabetes. He reports that he tried to overdose on medication roughly around and states it was done intentionally in a suicide attempt. He states no family members came over for [place] and he has been having increased depression and feeling alone. He states secondary to this today he thought he would overdose on all of his psychiatric medication. He reports that he recognizes was abnormal and therefore contacted crisis center who therefore called police to bring him into the hospital for evaluation. [facility] Medical History Asthma Diabetes Pancreatitis Home Medications atorvastatin 80 mg tablet 80 mg PO QHS #90 tabs 04/05/22 [Rx Last Taken Unknown] blood sugar diagnostic #100 ea 04/05/22 [Rx Last Taken Unknown] blood sugar diagnostic (OneTouch Ultra Test strips) #300 ea 04/05/22 [Rx Last Taken Unknown] blood-glucose meter (OneTouch Ultra2 Meter) #1 ea 04/05/22 [Rx Last Taken Unknown] escitalopram oxalate 10 mg tablet (Lexapro) 10 mg PO DAILY #90 tabs 04/05/22 [Rx Last Taken Unknown] insulin syringe-needle U-100 0.3 mL 31 gauge x 5/16 (BD Insulin Syringe Ultra-Fine) #100 ea 04/05/22 [Rx Last Taken Unknown] lancets (OneTouch UltraSoft Lancets) #300 ea 04/05/22 [Rx Last Taken Unknown] pen needle, diabetic 31 gauge x 5/16 (Unifine Pentips) #300 ea 04/05/22 [Rx Last Taken Unknown] gabapentin 300 mg capsule 300 mg PO BID #60 caps 06/16/22 [Rx Last Taken Unknown] tadalafil 5 mg tablet 5 mg PO ONCE PRN sexual activity #10 tabs 06/16/22 [Rx Last Taken Unknown] prednisone 50 mg tablet 50 mg PO DAILY #5 tabs 09/15/22 [Rx Last Taken Unknown] insulin glargine 100 unit/mL (3 mL) subcutaneous pen 32 unit (0.32 mL) subcut QHS 3 months #28.8 mL 10/11/22 [Rx Last Taken Unknown] insulin lispro 100 unit/mL subcutaneous pen 18 unit (0.18 mL) subcut QA #45 mL 10/11/22 [Rx Last Taken Unknown] lisinopril 2.5 mg tablet 2.5 mg PO DAILY #90 tabs 10/11/22 [Rx Last Taken Unknown] albuterol sulfate 90 mcg/actuation aerosol inhaler 2 puff inhalation Q6H PRN Asthma #8.5 grams 10/24/22 [Rx Last Taken Unknown] Allergy/AdvReac Type Severity Reaction Status Date / Time No Known Allergies Allergy Verified 11/11/22 19:23 Family History Father Diabetes Mother CVA (cerebral vascular accident) Seizures Hypertension Surgical History history of abscess removal Social History Smoking Status: Current every day smoker tobacco type: cigarettes and e-cigarettes how long ago did patient quit smoking: June 2019 alcohol intake: never substance use type: does not use what type of physical activity do you participate in: none seatbelt use: always do you feel safe at home: Yes ROS ROS ED Constitutional Constitutional ED: Denies chills or fever(s) Eyes Eyes: Denies change in vision ENT ENT ED: Denies sore throat Cardiovascular Cardiovascular: Denies chest pain Respiratory/Chest Respiratory/Chest: Denies cough or dyspnea Gastrointestinal Gastrointestinal: Denies abdominal pain, diarrhea, nausea or vomiting Genitourinary Genitourinary ED: Denies dysuria Musculoskeletal Musculoskeletal: Denies myalgias Integumentary Denies rash Neurologic Neurologic: Denies headache(s) Psychiatric Psychiatric: Reports depression, suicidal ideation and suicidal thoughts Hematologic/Lymphatic Hematologic/Lymphatic: Denies easy bleeding or easy bruising EXAM Physical Exam Const Vital Signs: 11/11/22 19:19 11/12/22 03:18 Temperature 97.1 F L Temperature Source Temporal Pulse Rate 106 H Respiratory Rate 18 14 Blood Pressure 121/84 H Blood Pressure Mean 96 Pulse Ox 97 Oxygen Delivery Method Room Air Positive well nourished and well developed General Appearance ED: well developed Eyes PERRL and EOMs intact bilaterally Neck supple Resp normal respiratory effort and clear to auscultation bilaterally Cardio regular rate and regular rhythm GI normal to inspection, nondistended, normoactive bowel sounds, non-tender, non-distended and no masses Auscultation: normoactive bowel sounds Palpation: soft Extremity normal to inspection Neuro oriented x3 and CN's II-XII intact bilaterally Sensorium / Orientation: alert Psych Psych Narrative: Patient has depression with suicidal ideation and a plan to overdose Skin no rashes or lesions noted MDM MDM MDM Narrative Medical decision making narrative: Patient presented to the ER with stable vitals and in no acute distress. Because of his previous suicide attempt and today suicidal ideation with plan a psychiatric work-up was performed. The patient's work-up did show hyperglycemia consistent with his history of diabetes but there is no signs of DKA. He was medically cleared and evaluated by crisis center. They agree that with his suicidal ideation with plan today as well as his previous suicide attempt that he is not safe for home and therefore recommend placement. Therefore patient replaced in a psychiatric hospital to ensure his safety because of his persistent suicidal ideation with plan. The patient was informed of his need for placement and became angry and at this time had received 20 mg of IM Geodon for sedation Please note from an emergency room standpoint the patient has been medically cleared for transfer/placement to a psychiatric hospital Lab Data Attestation: I reviewed the patient's lab results. Labs: Laboratory Results - last 24 hr 11/11/22 11/11/22 11/11/22 19:30 19:30 19:30 WBC 12.5 H RBC 5.88 Hgb 17.8 H Hct 48.7 MCV 82.8 MCH 30.3 MCHC 36.6 H RDW Std Deviation 37.4 RDW Coeff of Wil 12.3 Plt Count 258 MPV 9.1 Immature Gran % (Auto) 0.400 Neut % (Auto) 67.4 Lymph % (Auto) 24.8 [place] % (Auto) 5.3 Eos % (Auto) 1.7 Baso % (Auto) 0.4 Absolute Neuts (auto) 8.5 H Absolute Lymphs (auto) 3.11 Nucleated RBC % 0 Sodium 128 L Potassium 3.8 Chloride 95 L Carbon Dioxide 22.0 Anion Gap 11 BUN 21 H Creatinine 0.88 Estim Creat Clear Calc 100.40 Est GFR (MDRD) Af Amer 119 Est GFR (MDRD) Non-Af 99 BUN/Creatinine Ratio 23.9 H Glucose 436 H Calcium 8.7 Urine Color Urine Clarity Urine pH Ur Specific [place] Urine Protein Urine Glucose (UA) Urine Ketones Urine Occult Blood Urine Nitrite Urine Bilirubin Urine Urobilinogen Ur Leukocyte Esterase Urine RBC Urine WBC Ur Squamous Epith Cells Urine Bacteria Urine Mucus Urine Opiates Screen Urine Methadone Screen Ur Barbiturates Screen Ur Phencyclidine Scrn Ur Amphetamines Screen MDMA (Ecstasy) Screen U Benzodiazepines Scrn Urine Cocaine Screen U Cannabinoids Screen Ur Drug Screen Comment Ethyl Alcohol < 3.0 11/11/22 11/11/22 21:50 21:50 WBC RBC Hgb Hct MCV MCH MCHC RDW Std Deviation RDW Coeff of Wil Plt Count MPV Immature Gran % (Auto) Neut % (Auto) Lymph % (Auto) [place] % (Auto) Eos % (Auto) Baso % (Auto) Absolute Neuts (auto) Absolute Lymphs (auto) Nucleated RBC % Sodium Potassium Chloride Carbon Dioxide Anion Gap BUN Creatinine Estim Creat Clear Calc Est GFR (MDRD) Af Amer Est GFR (MDRD) Non-Af BUN/Creatinine Ratio Glucose Calcium Urine Color Yellow Urine Clarity Clear Urine pH 5.0 Ur Specific [place] 1.020 Urine Protein Negative Urine Glucose (UA) 1000 H Urine Ketones 15 H Urine Occult Blood Negative Urine Nitrite Negative Urine Bilirubin Negative Urine Urobilinogen Normal Ur Leukocyte Esterase 25 H Urine RBC 0 SEEN Urine WBC 5-10 SEEN Ur Squamous Epith Cells 0 SEEN Urine Bacteria 0 SEEN Urine Mucus 0 SEEN Urine Opiates Screen NEGATIVE Urine Methadone Screen NEGATIVE Ur Barbiturates Screen NEGATIVE Ur Phencyclidine Scrn NEGATIVE Ur Amphetamines Screen NEGATIVE MDMA (Ecstasy) Screen NEGATIVE U Benzodiazepines Scrn NEGATIVE Urine Cocaine Screen NEGATIVE U Cannabinoids Screen NEGATIVE Ur Drug Screen Comment Ethyl Alcohol Discharge Plan Triage Chief Complaint: Suicidal ED Provider: Paramjit Thompson Dx/Rx/DC Orders Clinical Impression: Depression with suicidal ideation, Diabetes mellitus, type II, Hyperglycemia Prescriptions: No Action atorvastatin 80 mg tablet 80 mg PO QHS Qty: 90 3RF escitalopram oxalate [Lexapro] 10 mg tablet 10 mg PO DAILY Qty: 90 0RF Rx Instructions: Take 5 mg for the first 6 days then increase to 10mg (DME) blood sugar diagnostic Strip 0 .Route .MEDSUPPLY Qty: 100 0RF Rx Instructions: check blood glucose three times daily for type 2 DM (DME) insulin syringe-needle U-100 [BD Insulin Syringe Ultra-Fine] 0.3 mL 31 gauge x 5/16 syringe See Rx Instructions .ROUTE .MEDSUPPLY Qty: 100 3RF Rx Instructions: As directed (DME) pen needle, diabetic [Unifine Pentips] 31 gauge x 5/16 needle See Rx Instructions .ROUTE .MEDSUPPLY Qty: 300 3RF Rx Instructions: As directed QID (DME) blood-glucose meter [OneTouch Ultra2 Meter[place] [facility] [place]ructions .ROUTE .MEDSUPPLY Qty: 1 0RF Rx Instructions: Check blood sugar 3 times a day and as needed (DME) OneTouch Ultra Test Strip See Rx Instructions .ROUTE .MEDSUPPLY Qty: 300 3RF Rx Instructions: Check Blood Sugar 3 times a day and as needed (DME) lancets [OneTouch UltraSoft Lancets[place] [facility] [place] Instructions .ROUTE .MEDSUPPLY Qty: 300 3RF Rx Instructions: Check blood sugar 3 times a day and as needed gabapentin 300 mg capsule 300 mg PO BID Qty: 60 3RF tadalafil 5 mg tablet 5 mg PO ONCE PRN (Reason: sexual activity) Qty: 10 0RF Rx Instructions: administer approximately 30min before sexual activity; do not use more than 1 dose per 24hrs prednisone 50 mg tablet 50 mg PO DAILY Qty: 5 0RF lisinopril 2.5 mg tablet 2.5 mg PO DAILY Qty: 90 1RF insulin lispro 100 unit/mL insulin pen 18 unit subcut QAC Qty: 45 1RF insulin glargine 100 unit/mL (3 mL) insulin pen 32 unit subcut QHS 90 Days Qty: 28.8 1RF albuterol sulfate 90 mcg/actuation HFA aerosol inhaler 2 puff INHALATION Q6H PRN (Reason: Asthma) Qty: 8.5 3RF Primary Care Provider: Paris Chilel Referrals: Paris Chilel MD [Primary Care Provider] - Disposition Disposition: Psychiatric Hospital or Unit [facility]
[2022-11-12 04:45] VITALS: PULSE 14
[2022-11-12 08:00] VITALS: BP 109/81; PULSE 92; RESP 16; O2SAT 96
[2022-11-12 08:56] VITALS: BP 109/81; PULSE 92; RESP 16; TEMP 36.2; O2SAT 96
--- NOTE | 2022-11-12 09:00 | CM.ED ---
Per Fawn, ED RN patient has been accepted at [facility]. Patricia MAHONEY
--- NOTE | 2022-11-12 09:43 | ED.RN ---
physicians amb service here and when pt awoke to use bathroom prior to going to [place] pt instantly sat up to side of bed and started yelling, i told them i aint going to [place]! my family cant go all the way down there! i told that bitch that last night! martha wpred and security in to help deescalate pt. supervisor frame sample and pattern germaine and green house manager on unit. order for repeat dose sergo per . will monitor pt for 1hr then will reacess. will update [facility].
--- NOTE | 2022-11-12 09:44 | ED.RN ---
[facility] ARRIVED TO TRANSPORT PT TO [facility]. PT IS REFUSING TO GO TO [place], WILL NOT GO WITH [facility] AND IS THREATENING ANYONE THAT TRIES TO MAKE HIM GO. PT IS STATING HE HAS NO FREEDOMS TO SMOKE AT [facility] AND WILL NOT GO. SECURITY, HRO AND STAFF ARE IN THE ROOM AND PT WILL NOT DE ESCALATE. MEDICATION IS ORDERED, PHYSICIANS IS AWARE WE WILL NEED TO MONITOR PT FOR 1 HR. PT WAS THEN MEDICATED.
--- NOTE | 2022-11-12 09:51 | ED.RN ---
[facility] WAS NOTIFIED OF PT STATUS AND IS AWARE WE ARE MONITORING PT FOR A HOUR AND THEN WILL BE TRANSPORTING HIM TO THEM.
--- NOTE | 2022-11-12 09:56 | ED.RN ---
[facility]YS[facility]ANS ETA 1030
== END 2022-11-12 11:14 ==
PROVIDERS: Emergency Provider Emergency Medicine; PCP Internal Medicine; Visit Provider Emergency Medicine
DX: R45.851 Suicidal ideations (principal); E11.65 Type 2 diabetes mellitus with hyperglycemia; F17.210 Nicotine dependence, cigarettes, uncomplicated; F32.A Depression, unspecified; J45.909 Unspecified asthma, uncomplicated; F17.290 Nicotine dependence, other tobacco product, uncomplicated
CPT/HCPCS: 80048; 80307; 81001; 82077; 85025; 87811; 96372; 99285; J3486

== ENCOUNTER 2023-01-29 18:29 | Emergency (ER) | payer MEDICAID, SELFPAY ==
[2023-01-29 18:30] VITALS: BP 136/91; PULSE 86; RESP 18; TEMP 36.1; O2SAT 98; BMI 24.6
[2023-01-29] MEDS: Amox/Clavulanate 875 MG Tablet PO (19:26)
--- NOTE | 2023-01-29 19:27 | ED.VIS.DENTA ---
HPI History of Present Illness Chief Complaint: Dental Narrative Narrative: 47-year-old male presenting with dental pain. He states that he has had a fracture in his tooth his right mandible. It broke off yesterday. He states he tried ibuprofen and this has not helped. He has not called for dentist. He denies facial swelling, difficulty swallowing or breathing. No fever or chills. Patient has had dental problems in the past. He is partially edentulous. [facility] Medical History Asthma Diabetes Pancreatitis Home Medications atorvastatin 80 mg tablet 80 mg PO QHS #90 tabs 04/05/22 [Rx Last Taken Unknown] blood sugar diagnostic #100 ea 04/05/22 [Rx Last Taken Unknown] blood sugar diagnostic (OneTouch Ultra Test strips) #300 ea 04/05/22 [Rx Last Taken Unknown] blood-glucose meter (OneTouch Ultra2 Meter) #1 ea 04/05/22 [Rx Last Taken Unknown] escitalopram oxalate 10 mg tablet (Lexapro) 10 mg PO DAILY #90 tabs 04/05/22 [Rx Last Taken Unknown] insulin syringe-needle U-100 0.3 mL 31 gauge x 5/16 (BD Insulin Syringe Ultra-Fine) #100 ea 04/05/22 [Rx Last Taken Unknown] lancets (OneTouch UltraSoft Lancets) #300 ea 04/05/22 [Rx Last Taken Unknown] pen needle, diabetic 31 gauge x 5/16 (Unifine Pentips) #300 ea 04/05/22 [Rx Last Taken Unknown] gabapentin 300 mg capsule 300 mg PO BID #60 caps 06/16/22 [Rx Last Taken Unknown] tadalafil 5 mg tablet 5 mg PO ONCE PRN sexual activity #10 tabs 06/16/22 [Rx Last Taken Unknown] insulin glargine 100 unit/mL (3 mL) subcutaneous pen 32 unit (0.32 mL) subcut QHS 3 months #28.8 mL 10/11/22 [Rx Last Taken Unknown] insulin lispro 100 unit/mL subcutaneous pen 18 unit (0.18 mL) subcut QAC #45 mL 10/11/22 [Rx Last Taken Unknown] lisinopril 2.5 mg tablet 2.5 mg PO DAILY #90 tabs 10/11/22 [Rx Last Taken Unknown] albuterol sulfate 90 mcg/actuation aerosol inhaler 2 puff inhalation Q6H PRN Asthma #8.5 grams 10/24/22 [Rx Last Taken Unknown] amoxicillin 500 mg-potassium clavulanate 125 mg tablet (Augmentin) 1 tab PO BID #20 tabs 01/29/23 [Rx Last Taken Unknown] lidocaine HCl 2 % mucosal solution (Lidocaine Viscous) 1 applic mucous membrane TID #600 mL 01/29/23 [Rx Last Taken Unknown] naproxen 500 mg tablet (Naprosyn) 500 mg PO BID PRN pain #20 tabs 01/29/23 [Rx Last Taken Unknown] oxycodone 5 mg tablet 5 mg PO Q6H PRN breakthrough pain, severe 2 days #6 tabs 01/29/23 [Rx Last Taken Unknown] Allergy/AdvReac Type Severity Reaction Status Date / Time No Known Allergies Allergy Verified 01/29/23 18:29 Family History Father Diabetes Mother CVA (cerebral vascular accident) Seizures Hypertension Surgical History history of abscess removal Social History Smoking Status: Current every day smoker tobacco type: cigarettes and e-cigarettes how long ago did patient quit smoking: June 2019 alcohol intake: never substance use type: does not use what type of physical activity do you participate in: none seatbelt use: always do you feel safe at home: Yes ROS ROS ED Constitutional Constitutional ED: Denies chills, fever(s) or sweats Eyes Eyes: Denies blurry vision or change in vision ENT ENT ED: Reports other Details: Dental pain ; Denies ear pain or sore throat Cardiovascular Cardiovascular: Denies chest pain, palpitations or racing heartbeat Respiratory/Chest Respiratory/Chest: Denies cough, dyspnea or sputum Gastrointestinal Gastrointestinal: Denies abdominal pain, constipation, diarrhea, nausea or vomiting Genitourinary Genitourinary ED: Denies dysuria, hematuria or urinary frequency Musculoskeletal Musculoskeletal: Denies arthralgias, myalgias or neck pain Integumentary Denies abscess, Abrasions or rash Neurologic Neurologic: Denies headache(s), paresthesias or weakness Psychiatric Psychiatric: Denies anxiety, depression, suicidal ideation or suicidal thoughts Endocrine Endocrinology: Denies polydipsia or polyuria EXAM Physical Exam Const Vital Signs: 01/29/23 18:30 Temperature 97.0 F L Temperature Source Temporal Pulse Rate 86 Respiratory Rate 18 Blood Pressure 136/91 H Blood Pressure Mean 106 Pulse Ox 98 Oxygen Delivery Method Room Air Positive well nourished General Appearance ED: NAD HEENT HEENT Narrative: Patient partially edentulous and is difficult to know exactly which tooth this is its left but its approximately #29. It does look like a piece is broken off the anterior portion. There is no pulp exposed. There is no gingival swelling or edema. No drainage. No fluctuance around the patient the tooth Eyes PERRL and EOMs intact bilaterally Neck no lymphadenopathy and supple Resp normal respiratory effort Cardio regular rate and regular rhythm Neuro oriented x3 and CN's II-XII intact bilaterally Sensorium / Orientation: alert Motor Exam: strength 5/5 throughout Psych mental status grossly normal Skin no rashes or lesions noted MDM MDM MDM Narrative Medical decision making narrative: Patient with dental pain and a piece had broken off of his tooth. I do not see any pulp exposed. There is basically a chipped off anterior portion of the tooth most consistent with a Bah 1 fracture. There is no drainage around tooth. It is tender to palpation. No sublingual or submandibular edema. Face symmetric. I suspect at least apical abscess as well. Patient was started on Augmentin for this. He is given Naprosyn 500 mg p.o. twice daily to help with pain and he is given a short supply of Percocet for breakthrough pain. This is causing him to swish and spit as needed. He is given a dental referral sheet. Patient discharged stable condition. Impression: 1. dental infection 2. Dental Discharge Plan Triage Chief Complaint: Dental ED Provider: Sean Duenas Dx/Rx/DC Orders Instructions: ED Dental Cavity, ED Dental Trauma Prescriptions: New oxycodone 5 mg tablet 5 mg PO Q6H PRN (Reason: breakthrough pain, severe) 2 Days Qty: 6 0RF naproxen [Naprosyn] 500 mg tablet 500 mg PO BID PRN (Reason: pain) Qty: 20 0RF lidocaine HCl [Lidocaine Viscous] 2 % solution 1 applic mucous membrane TID Qty: 600 0RF amoxicillin-pot clavulanate [Augmentin] 500-125 mg tablet 1 tab PO BID Qty: 20 0RF No Action atorvastatin 80 mg tablet 80 mg PO QHS Qty: 90 3RF escitalopram oxalate [Lexapro] 10 mg tablet 10 mg PO DAILY Qty: 90 0RF Rx Instructions: Take 5 mg for the first 6 days then increase to 10mg (DME) blood sugar diagnostic Strip 0 .Route .MEDSUPPLY Qty: 100 0RF Rx Instructions: check blood glucose three times daily for type 2 DM (DME) insulin syringe-needle U-100 [BD Insulin Syringe Ultra-Fine] 0.3 mL 31 gauge x 5/16 syringe See Rx Instructions .ROUTE .MEDSUPPLY Qty: 100 3RF Rx Instructions: As directed (DME) pen needle, diabetic [Unifine Pentips] 31 gauge x 5/16 needle See Rx Instructions .ROUTE .MEDSUPPLY Qty: 300 3RF Rx Instructions: As directed QID (DME) blood-glucose meter [OneTouch Ultra2 Meter] [facility] [place] .ROUTE .MEDSUPPLY Qty: 1 0RF Rx Instructions: Check blood sugar 3 times a day and as needed (DME) OneTouch Ultra Test Strip See Rx Instructions .ROUTE .MEDSUPPLY Qty: 300 3RF Rx Instructions: Check Blood Sugar 3 times a day and as needed (DME) lancets [OneTouch UltraSoft Lancets] [facility] [place] .ROUTE .MEDSUPPLY Qty: 300 3RF Rx Instructions: Check blood sugar 3 times a day and as needed gabapentin 300 mg capsule 300 mg PO BID Qty: 60 3RF tadalafil 5 mg tablet 5 mg PO ONCE PRN (Reason: sexual activity) Qty: 10 0RF Rx Instructions: administer approximately 30min before sexual activity; do not use more than 1 dose per 24hrs lisinopril 2.5 mg tablet 2.5 mg PO DAILY Qty: 90 1RF insulin lispro 100 unit/mL insulin pen 18 unit subcut QAC Qty: 45 1RF insulin glargine 100 unit/mL (3 mL) insulin pen 32 unit subcut QHS 90 Days Qty: 28.8 1RF albuterol sulfate 90 mcg/actuation HFA aerosol inhaler 2 puff INHALATION Q6H PRN (Reason: Asthma) Qty: 8.5 3RF Primary Care Provider: Paris Chilel Referrals: Paris Chilel MD [Primary Care Provider] - Disposition Disposition: Home, Self Care
[2023-01-29] MEDS: oxyCODONE 5 MG Tablet PO (19:29)
[2023-01-29 19:32] VITALS: BP 110/75; PULSE 88; RESP 16
== END 2023-01-29 19:33 | disposition home or self-care (01) ==
PROVIDERS: Emergency Provider Student in an Organized Health Care Education/Training Program; PCP Internal Medicine; Visit Provider Student in an Organized Health Care Education/Training Program
DX: K04.7 Periapical abscess without sinus (principal); F17.210 Nicotine dependence, cigarettes, uncomplicated
CPT/HCPCS: 99283

== ENCOUNTER 2025-01-22 19:23 | Observation (INO) | payer MEDICAID, SELFPAY ==
[2025-01-22 19:24] VITALS: BP 117/83; PULSE 109; RESP 20; TEMP 36.1; O2SAT 98
[2025-01-22 20:40] VITALS: BMI 20.8
[2025-01-22] MEDS: 0.9% Normal Saline (1000mL) 1,000 ML 999 ML IV ×2 (21:00→22:04)
--- NOTE | 2025-01-22 21:04 | EKG12_ITS ---
Test Reason : Blood Pressure : */* mmHG Vent. Rate : 81 BPM Atrial Rate : 81 BPM P-R Int : 152 ms QRS Dur : 78 ms QT Int : 374 ms P-R-T Axes : 24 6 46 degrees QTcB Int : 434 ms Normal sinus rhythm Inferior infarct , age undetermined Abnormal ECG Confirmed by DIONNA SALVADOR, ODILIA ([id number]), commercial production editor PACO GLASS ([id number]) on 01/27/2025 11:01:46 AM Referred By: Confirmed By: ODILIA VILLAREAL MD
--- NOTE | 2025-01-22 21:04 | EKG12_ITS ---
Test Reason : Blood Pressure : */* mmHG Vent. Rate : 81 BPM Atrial Rate : 81 BPM P-R Int : 152 ms QRS Dur : 78 ms QT Int : 374 ms P-R-T Axes : 24 6 46 degrees QTcB Int : 434 ms Normal sinus rhythm Inferior infarct , age undetermined Abnormal ECG Confirmed by DIONNA SALVADOR, ODILIA ([id number]), science editor PACO GLASS ([id number]) on 01/27/2025 11:01:46 AM Referred By: Confirmed By: ODILIA VILLAREAL MD
[2025-01-22 21:06] LABS: Bedside Glucose > 500 mg/dL (74-106)
--- NOTE | 2025-01-22 21:09 | EDS_ITS ---
HPI History of Present Illness Chief Complaint: Hyperglycemia Narrative Narrative: 49-year-old male past medical history of diabetes, neuropathy of his bilateral lower extremities, usually takes gabapentin 300 mg 3 times a day and Lantus 24 units every evening, presents with elevated blood sugars and bilateral leg pain. He states that he ran out of his insulin 2 days ago. They had been okay ranging from the 160s to slightly higher for the last few days, but when he called the squad [employer], his blood sugar shot up into the 600s. He complains of bilateral lower extremity pain, no nausea or vomiting, no other symptoms. He states that he has to be seen by his primary care provider before they would refill his insulin. [facility] Medical History Neuropathy Asthma Pancreatitis Diabetes Home Medications ?Medication ?Instructions ?Recorded ?Last Taken ?Type atorvastatin 80 mg tablet 80 mg PO QHS #90 tabs Unknown Rx blood sugar diagnostic #100 ea 04/05/22 Unknown Rx blood sugar diagnostic (OneTouch #300 ea 04/05/22 Unkn own Rx Ultra Test strips) blood-glucose meter (OneTouch #1 ea 04/05/22 Unknown R x Ultra2 Meter) escitalopram oxalate 10 mg tablet 10 mg PO DAILY #90 t abs 04/05/22 Unknown Rx (Lexapro) lancets (OneTouch UltraSoft #300 ea 04/05/22 Unknown R x Lancets) pen needle, diabetic 31 gauge x #300 ea 04/05/22 Unkno wn Rx 5/16 (Unifine Pentips) tadalafil 5 mg tablet 5 mg PO ONCE PRN sexual acti vity 06/16/22 Unknown Rx #10 tabs lisinopril 2.5 mg tablet 2.5 mg PO DAILY #90 tabs Unknown Rx albuterol sulfate 90 mcg/actuation 2 puff inhalation Q 6H PRN Asthma 10/24/22 Unknown Rx aerosol inhaler #8.5 grams oxycodone 5 mg tablet 5 mg PO Q6H PRN breakthrough pain, 01/29/23 Unknown Rx severe 2 days #6 tabs insulin syringe-needle U-100 0.3 #100 ea 05/15/23 Unkn own Rx mL 31 gauge x 5/16 (BD Insulin Syringe Ultra-Fine) gabapentin 300 mg capsule 300 mg PO Q8H 01/22/25 Unkno wn History insulin glargine 100 unit/mL (3 24 unit subcut QHS 11/06 Unknown History mL) subcutaneous pen Allergy/AdvReac Type Severity Reaction Status Date / Time No Known Allergies Allergy Verified 01/22/25 19:24 Family History Father Diabetes Mother CVA (cerebral vascular accident) Seizures Hypertension Surgical History history of abscess removal Social History Smoking Status: Current every day smoker tobacco type: cigarettes and e- cigarettes how long ago did patient quit smoking: June 2019 alcohol intake: never substance use type: does not use what type of physical activity do you participate in: none seatbelt use: always do you feel safe at home: Yes ROS ROS ED ROS Narrative Review of systems positive for elevated blood sugars and bilateral lower extremity pain from diabetic neuropathy. No fevers or chills, no nausea or vomiting. No exacerbating or alleviating factors. Out of gabapentin and Lantus 24 units daily for the last 2 days. EXAM Physical Exam Narrative Exam Narrative: Afebrile. Vital signs noted. Nontoxic-appearing. Cardiovascular examination reveals a mild tachycardia. Lungs are clear to auscultation bilaterally. Abdomen soft and nontender with positive bowel sounds. No guarding or rebound. Neurovascular intact bilateral lower extremities, moves both lower extremities. Const Vital Signs: 01/22/25 19:24 01/22/25 20:40 01/22/25 21:24 Temperature 97 F L Temperature Source Temporal Pulse Rate 109 H 85 Respiratory Rate 20 H 15 Respiratory Effort Normal Non-Labored Respiratory Pattern Normal Blood Pressure 117/83 H 122/87 H Blood Pressure Mean 94 98 Pulse Ox 98 98 Oxygen Delivery Method Room Air Room Air MDM MDM MDM Narrative Medical decision making narrative: Differential diagnosis includes diabetic ketoacidosis versus hyperglycemia versus other electrolyte imbalance. As he has been out of his medications and is unable to procure any, I discussed patient with social work. DKA rule out was instituted and basic laboratory work drawn. He was bolused normal saline. While he has something for his neuropathic pain, he was given 300 mg of gabapentin, but he states this will take too long to work. While I do not feel narcotic pain medication is indicated, he requested Toradol. Initial bgklr-bh-maig glucose was greater than 500. I reviewed his laboratory work and he has normal white count of 9.2, hemoglobin 13.7 with hematocrit 39.1. Platelet count 219. Review of his CMP shows low sodium of 125 with normal potassium of 4.3. However I think this is secondary to his elevated blood sugar of 773. Anion gap slightly elevated at 16. Howeve r, beta hydroxybutyrate is 0.0. Given his elevated blood sugar, he was started on insulin drip at 0.05 units/kg/h. Additionally, urinalysis shows no evidence of ketones or infection. I do not feel antibiotics are indicated. I discussed the patient with Dr. Helton for admission to the ICU. He would like at least a VBG to begin with to establish his pH. This was ordered. Disposition is adm it to the ICU in guarded condition. Critical care time 31 minutes. History & Record Review Discussion w/independent historian: Patient Lab Data Attestation: I reviewed the patient's lab results. Labs: Laboratory Results - last 24 hr 01/22/25 01/22/25 01/22/25 20:49 21:00 21:00 WBC 9.2 RBC 4.88 Hgb 13.7 Hct 39.1 L MCV 80.1 MCH 28.1 MCHC 35.0 RDW Std Deviation 38.8 RDW Coeff of Wil 13.4 Plt Count 219 MPV 9.2 Immature Gran % (Auto) 0.200 Neut % (Auto) 61.1 Lymph % (Auto) 28.3 [place] % (Auto) 7.6 Eos % (Auto) 2.3 Baso % (Auto) 0.5 Absolute Neuts (auto) 5.6 Absolute Lymphs (auto) 2.61 Nucleated RBC % 0 Sodium 125 L Cancelled Potassium 4.3 Chloride Carbon Dioxide Anion Gap BUN Creatinine Estim Creat Clear Calc Est GFR (MDRD) Non-Af BUN/Creatinine Ratio Glucose Calcium Total Bilirubin AST ALT Alkaline Phosphatase Total Protein Albumin Globulin Albumin/Globulin Ratio b-Hydroxybutyric mmol/L Urine Color Urine Clarity Urine pH Ur Specific Bailey Urine Protein Urine Glucose (UA) Urine Ketones Urine Occult Blood Urine Nitrite Urine Bilirubin Urine Urobilinogen Ur Leukocyte Esterase Urine RBC Urine WBC Ur Squamous Epith Cells Urine Bacteria Urine Mucus POC Glucose > 500 H* 01/22/25 01/22/25 01/22/25 21:00 21:00 21:00 WBC RBC Hgb Hct MCV MCH MCHC RDW Std Deviation RDW Coeff of Wil Plt Count MPV Immature Gran % (Auto) Neut % (Auto) Lymph % (Auto) [place] % (Auto) Eos % (Auto) Baso % (Auto) Absolute Neuts (auto) Absolute Lymphs (auto) Nucleated RBC % Sodium Potassium Cancelled Chloride 88 L Cancelled Carbon Dioxide 21.3 Cancelled Anion Gap 16 H BUN Creatinine Estim Creat Clear Calc Est GFR (MDRD) Non-Af BUN/Creatinine Ratio Glucose Calcium Total Bilirubin AST ALT Alkaline Phosphatase Total Protein Albumin Globulin Albumin/Globulin Ratio b-Hydroxybutyric mmol/L Urine Color Urine Clarity Urine pH Ur Specific Bailey Urine Protein Urine Glucose (UA) Urine Ketones Urine Occult Blood Urine Nitrite Urine Bilirubin Urine Urobilinogen Ur Leukocyte Esterase Urine RBC Urine WBC Ur Squamous Epith Cells Urine Bacteria Urine Mucus POC Glucose 01/22/25 01/22/25 01/22/25 21:00 21:00 21:00 WBC RBC Hgb Hct MCV MCH MCHC RDW Std Deviation RDW Coeff of Wil Plt Count MPV Immature Gran % (Auto) Neut % (Auto) Lymph % (Auto) [place] % (Auto) Eos % (Auto) Baso % (Auto) Absolute Neuts (auto) Absolute Lymphs (auto) Nucleated RBC % Sodium Potassium Chloride Carbon Dioxide Anion Gap Cancelled BUN 13 Cancelled Creatinine 1.06 Cancelled Estim Creat Clear Calc 79.83 Est GFR (MDRD) Non-Af BUN/Creatinine Ratio Glucose Calcium Total Bilirubin AST ALT Alkaline Phosphatase Total Protein Albumin Globulin Albumin/Globulin Ratio b-Hydroxybutyric mmol/L Urine Color Urine Clarity Urine pH Ur Specific Bailey Urine Protein Urine Glucose (UA) Urine Ketones Urine Occult Blood Urine Nitrite Urine Bilirubin Urine Urobilinogen Ur Leukocyte Esterase Urine RBC Urine WBC Ur Squamous Epith Cells Urine Bacteria Urine Mucus POC Glucose 01/22/25 01/22/25 01/22/25 21:00 21:00 21:00 WBC RBC Hgb Hct MCV MCH MCHC RDW Std Deviation RDW Coeff of Wil Plt Count MPV Immature Gran % (Auto) Neut % (Auto) Lymph % (Auto) [place] % (Auto) Eos % (Auto) Baso % (Auto) Absolute Neuts (auto) Absolute Lymphs (auto) Nucleated RBC % Sodium Potassium Chloride Carbon Dioxide Anion Gap BUN Creatinine Estim Creat Clear Calc Cancelled Est GFR (MDRD) Non-Af 85 Cancelled BUN/Creatinine Ratio 12.3 Cancelled Glucose 773 H* Calcium Total Bilirubin AST ALT Alkaline Phosphatase Total Protein Albumin Globulin Albumin/Globulin Ratio b-Hydroxybutyric mmol/L Urine Color Urine Clarity Urine pH Ur Specific Bailey Urine Protein Urine Glucose (UA) Urine Ketones Urine Occult Blood Urine Nitrite Urine Bilirubin Urine Urobilinogen Ur Leukocyte Esterase Urine RBC Urine WBC Ur Squamous Epith Cells Urine Bacteria Urine Mucus POC Glucose 01/22/25 01/22/25 01/22/25 21:00 21:00 21:15 WBC RBC Hgb Hct MCV MCH MCHC RDW Std Deviation RDW Coeff of Wil Plt Count MPV Immature Gran % (Auto) Neut % (Auto) Lymph % (Auto) [place] % (Auto) Eos % (Auto) Baso % (Auto) Absolute Neuts (auto) Absolute Lymphs (auto) Nucleated RBC % Sodium Potassium Chloride Carbon Dioxide Anion Gap BUN Creatinine Estim Creat Clear Calc Est GFR (MDRD) Non-Af BUN/Creatinine Ratio Glucose Cancelled Calcium 9.2 Cancelled Total Bilirubin 0.33 AST 18 ALT 30 Alkaline Phosphatase 105 Total Protein 6.7 Albumin 3.8 Globulin 2.9 Albumin/Globulin Ratio 1.3 b-Hydroxybutyric mmol/L 0.0 Urine Color Yellow Urine Clarity Clear Urine pH 6.5 Ur Specific Bailey 1.010 Urine Protein Negative Urine Glucose (UA) 1000 H Urine Ketones Negative Urine Occult Blood Negative Urine Nitrite Negative Urine Bilirubin Negative Urine Urobilinogen Normal Ur Leukocyte Esterase Negative Urine RBC 0-5 SEEN Urine WBC 0 SEEN Ur Squamous Epith Cells 0 SEEN Urine Bacteria 0 SEEN Urine Mucus 0 SEEN POC Glucose Management Discussion w/another healthcare provider: Hospitalist Critical Care Time Critical Care Time: Yes Critical care time (excluding procedures): 30-74 minutes (31), Including time spent:, Discussing w/Patient &/or Family/Board Lining Machine Operator, Discussing w/Consultants, Arranging Admission or Transfer and Performing Direct Patient Care at Bedside Discharge Plan Dx/Rx/DC Orders Clinical Impression: Diabetes mellitus with nonketotic hyperosmolarity, Has run out of medications, Hyponatremia, Diabetic neuropathy, painful Disposition Disposition: [facility]
[2025-01-22] MEDS: Gabapentin 300 MG Capsule PO (21:13)
[2025-01-22] MEDS: Ketorolac 15 MG/ML Vial IV ×2 (21:13→23:01)
[2025-01-22 21:18] LABS: Absolute Lymphocyte Count 2.61 X10^3/uL (0.83-4.51); Absolute Neutrophil Count 5.6 X10^3/uL (2.0-7.7); Basophil# 0.05 X10^3/uL; Basophil% 0.5 % (0-1); Eosinophil# 0.21 X10^3/uL; Eosinophils% 2.3 % (0-5); Hematocrit 39.1 % (40-54); Hemoglobin 13.7 g/dL (13.0-16.5); Lymphocyte # 2.61 X10^3/ul (0.83-4.51); Lymphocyte % 28.3 % (19-41); Mean Corpuscular Hgb 28.1 pg (27.0-32.0); Mean Corpuscular Volume 80.1 fL (80-94); Mean Platelet Vol. 9.2 fl (6.2-12.0); Monocyte% 7.6 % (0-10); NRBC Flagged by Analyzer 0 % (0-5); Neutrophil # 5.64 X10^3/uL (2.7-7.7); Neutrophil % 61.1 % (47-70); Platelet Count 219 K/mm3 (150-450); RBC Distribution Width CV 13.4 % (11.6-14.6); RBC Distribution Width SD 38.8 fl (35.1-43.9); Red Blood Count 4.88 M/mm3 (4.6-6.2); White Blood Count 9.2 K/mm3 (4.4-11.0)
[2025-01-22 21:24] VITALS: BP 122/87; PULSE 85; RESP 15; O2SAT 98
[2025-01-22 21:24] LABS: Bacteria 0 SEEN /hpf (None Seen); Mucous, Urine 0 SEEN /hpf (<or=2+); Squamous Epithelial Cells - UA 0 SEEN /hpf (0-5); White Blood Cells 0 SEEN /hpf (0-5)
[2025-01-22 21:25] LABS: Color, Urine Yellow (Yellow); Glucose, Dipstick 1000 mg/dl (Normal); Ketone-Dipstick Negative (Negative); Leukocyte Esterase-Dipstick Negative /ul (Negative); Nitrite-Dipstick Negative (Negative); Occult Blood-Urine Negative /ul (Negative); Protein-Dipstick Negative (Negative); Urine Bilirubin Dipstick Negative (Negative); Urine Clarity Clear (Clear); Urine Urobilinogen Normal (Normal); Urine pH 6.5 (5.0 - 8.0)
[2025-01-22 21:37] LABS: Red Blood Cells-Urine 0-5 SEEN /hpf (0-5)
--- NOTE | 2025-01-22 21:50 | CM.ED ---
Social Work Patient notified SW that he was unable to get his medication filled until next week as he has not seen his PCP for an extended period of time. When asked, patient stated that his physician did not have walk in hours and he had no way of being seen earlier. Patient given information for [facility], patient stated he would go to clinic early tomorrow morning. Rashida Aaron, PUSHCART PEDDLER, FRAME SAMPLE AND PATTERN SUPERVISOR
--- NOTE | 2025-01-22 21:50 | CM.ED ---
Social Work Patient notified SW that he was unable to get his medication filled until next week as he has not seen his PCP for an extended period of time. When asked, patient stated that his physician did not have walk in hours and he had no way of being seen earlier. Patient given information for [facility], patient stated he would go to clinic early tomorrow morning. Rashida Aaron, NURSE PRACTITIONER ADULT, FLEET DISPATCH MANAGER
[2025-01-22 22:37] LABS: ALB/GLOB Ratio 1.3 RATIO (0.9-2.4); AST(SGOT) 18 U/L (<=37); Alanine Aminotransfer ALT/SGPT 30 U/L (<=46); Albumin, Serum 3.8 g/dL (3.5-5.0); Alkaline Phosphatase 105 U/L (40-129); Anion Gap 16 (5-15); BUN 13 mg/dL (4-19); BUN/Creat Ratio 12.3 RATIO (10-20); Calcium,Total 9.2 mg/dL (7.6-11.0); Carbon Dioxide 21.3 mmol/L (21.0-32.0); Chloride 88 mmol/L (98-108); Creatinine, Serum 1.06 mg/dL (0.70-1.20); EST Glomerular Filtration Rate 85 (>60); Estimated Creatinine Clearance 79.83 ml/min (50-250); Globulin 2.9 g/dL (2.2-4.2); Glucose 773 mg/dL (70-99); Potassium 4.3 mmol/L (3.3-5.1); Protein, Total 6.7 g/dL (5.9-8.4); Sodium Level 125 mmol/L (133-145); Total Bilirubin 0.33 mg/dL (0.00-1.30)
--- NOTE | 2025-01-22 22:49 | PCM.HP.STD ---
[facility] - General General Date of Admission: 01/22/25 Date of Service: 01/15/25 Chief Complaint: Hyperglycemia after running out of insulin 2 days ago. [facility] Narrative MICHAEL DIGGS, is a 49 M with a past medical history of essential hypertension; on lisinopril, hyperlipidemia; on atorvastatin, history of severe hypertriglyceridemia; previously on fenofibrate, former tobacco abuse (quit 2018), DM-2; uncontrolled with hyperglycemia on insulin glargine 24 units SQ at bedtime, diabetic polyneuropathy; on gabapentin 3 times daily, history of asthma; on as needed albuterol, history of erectile dysfunction; on tadalafil as needed, depression with history of suicidal ideation; on escitalopram, history of COVID-19 (2020), history of SIADH; with acute hyponatremia (2020), history of submandibular abscess x 3, history of acute sinusitis and history of acute pancreatitis who presents to [facility] ER complaining of hyperglycemia. Mr. Diggs reports his symptoms began approximately 2 days ago when he stopped taking his insulin glargine because he ran out. His sugars at initially been ranging in the 160 mg/dL range but have trended higher and higher over the past few days to be greater than 600 mg/dL so he activated EMS to come in for further evaluation and treatment. He also complains of bilateral lower extremity pain consistent with worsening neuropathy. He states he contacted his primary care provider but he alleges they would not refill his insulin until he came to the office. There was no report of fever, chills, nausea, vomiting, abdominal pain, diarrhea, constipation, chest pain, shortness of breath or headache. In the ER he was noted to have a critically elevated blood glucose of 773 mg/dL present on admission with an undetectable beta-hydroxybutyrate and a mildly elevated anion gap of 16 consistent with HONK and he was then admitted to the ICU for ongoing care including insulin drip for a stay that is expected to extend beyond 2 midnights. [facility] Medical History Neuropathy Asthma Pancreatitis Diabetes Home Medications ?Medication ?Instructions ?Recorded ?Last Taken ?Type atorvastatin 80 mg tablet 80 mg PO QHS #90 tabs 04/05/22 Unknown Rx blood sugar diagnostic #100 ea 04/05/22 Unknown Rx blood sugar diagnostic (OneTouch #300 ea 04/05/22 Unknown Rx Ultra Test strips) blood-glucose meter (OneTouch #1 ea 04/05/22 Unknown Rx Ultra2 Meter) escitalopram oxalate 10 mg tablet 10 mg PO DAILY #90 tabs 04/05/22 Unknown Rx (Lexapro) lancets (OneTouch UltraSoft #300 ea 04/05/22 Unknown Rx Lancets) pen needle, diabetic 31 gauge x #300 ea 04/05/22 Unknown Rx 5/16 (Unifine Pentips) tadalafil 5 mg tablet 5 mg PO ONCE PRN sexual activity 06/16/22 Unknown Rx #10 tabs lisinopril 2.5 mg tablet 2.5 mg PO DAILY #90 tabs 10/11/22 Unknown Rx albuterol sulfate 90 mcg/actuation 2 puff inhalation Q6H PRN Asthma 10/24/22 Unknown Rx aerosol inhaler #8.5 grams oxycodone 5 mg tablet 5 mg PO Q6H PRN breakthrough pain, 01/29/23 Unknown Rx severe 2 days #6 tabs insulin syringe-needle U-100 0.3 #100 ea 05/15/23 Unknown Rx mL 31 gauge x 5/16 (BD Insulin Syringe Ultra-Fine) gabapentin 300 mg capsule 300 mg PO Q8H 01/22/25 Unknown History insulin glargine 100 unit/mL (3 24 unit subcut QHS 01/22/25 Unknown History mL) subcutaneous pen Allergy/AdvReac Type Severity Reaction Status Date / Time No Known Allergies Allergy Verified 01/22/25 19:24 Family History Father Diabetes Mother CVA (cerebral vascular accident) Seizures Hypertension Surgical History history of abscess removal Social History Smoking Status: Current every day smoker tobacco type: cigarettes and e-cigarettes how long ago did patient quit smoking: June 2019 alcohol intake: never substance use type: does not use what type of physical activity do you participate in: none seatbelt use: always do you feel safe at home: Yes ROS ROS Narrative Review of Systems: Constitutional: Patient denies fever or chills. Eyes: Patient denies changes in vision or discharge from eyes. ENT: Patient denies runny nose, sore throat or ear pain. Resp: Patient denies shortness of breath or cough. CV: Patient denies chest pain, palpitations, heart racing or lower extremity edema. GI: Patient denies abdominal pain, nausea, vomiting, diarrhea or constipation. : Patient admits to polyuria but he denies dysuria or hematuria. MSK: Patient admits to lower extremity pain attributed to neuropathy as per HPI. Skin: Patient denies rash, abscess, wounds or jaundice. Psych: Patient denies symptoms of uncontrolled depression or anxiety. Neuro: Patient denies headache, paresthesias or focal neurologic deficits. Allergy: Patient denies lip swelling, tongue swelling or urticaria. Hematology: Patient denies easy bleeding or easy bruisability. Endocrinology: Patient admits to polyuria and polydipsia but he denies polyphagia. 14 point ROS otherwise negative save for positives noted above in HPI. Vital Signs Vital Signs Vital Signs: 01/22/25 19:24 01/22/25 20:40 01/22/25 21:24 Temperature 97 F L Temperature Source Temporal Pulse Rate 109 H 85 Respiratory Rate 20 H 15 Respiratory Effort Normal Non-Labored Respiratory Pattern Normal Blood Pressure 117/83 H 122/87 H Blood Pressure Mean 94 98 Pulse Ox 98 98 Oxygen Delivery Method Room Air Room Air Weight Weight: 149 lb 4.047 oz Body Mass Index (BMI) 20.8 Physical Exam Const alert, oriented x3, no apparent distress and average body habitus General Appearance: cooperative HEENT normocephalic, head/scalp atraumatic and hearing grossly normal bilaterally HEENT Narrative: Mucous membranes dry. Eyes PERRL, EOMs intact bilaterally and conjunctivae normal Neck no lymphadenopathy and supple Resp normal respiratory effort, no retractions, no use of accessory muscles and clear to auscultation bilaterally Cardio regular rate and regular rhythm GI normal to inspection, nondistended, normoactive bowel sounds, soft to palpation, non-tender and non-distended Extremity normal to inspection, full ROM and no clubbing, cyanosis or edema Skin Skin Narrative: Patient has no evidence of rash, abscess, wounds or jaundice. Neuro oriented x3, CN's II-XII intact bilaterally, moves all extremities and no focal motor deficits Sensorium / Orientation: awake, alert, oriented to person, oriented to place and oriented to time Speech: speech normal Psych affect normal Results Medical Records Data Attestation: I reviewed the patient's medical records Lab / Micro Data Attestation: I reviewed the patient's lab results. 01/22/25 21:00 01/22/25 21:00 Labs: Laboratory Results - last 24 hr 01/22/25 20:49: POC Glucose > 500 H* 01/22/25 21:00: WBC 9.2, RBC 4.88, Hgb 13.7, Hct 39.1 L, MCV 80.1, MCH 28.1, MCHC 35.0, RDW Std Deviation 38.8, RDW Coeff of Wil 13.4, Plt Count 219, MPV 9.2, Immature Gran % (Auto) 0.200, Neut % (Auto) 61.1, Lymph % (Auto) 28.3, [place] % (Auto) 7.6, Eos % (Auto) 2.3, Baso % (Auto) 0.5, Absolute Neuts (auto) 5.6, Absolute Lymphs (auto) 2.61, Nucleated RBC % 0, Sodium 125 L 01/22/25 21:00: Sodium Cancelled, Potassium 4.3 01/22/25 21:00: Potassium Cancelled, Chloride 88 L 01/22/25 21:00: Chloride Cancelled, Carbon Dioxide 21.3 01/22/25 21:00: Carbon Dioxide Cancelled, Anion Gap 16 H 01/22/25 21:00: Anion Gap Cancelled, BUN 13 01/22/25 21:00: BUN Cancelled, Creatinine 1.06 01/22/25 21:00: Creatinine Cancelled, Estim Creat Clear Calc 79.83 01/22/25 21:00: Estim Creat Clear Calc Cancelled, Est GFR (MDRD) Non-Af 85 01/22/25 21:00: Est GFR (MDRD) Non-Af Cancelled, BUN/Creatinine Ratio 12.3 01/22/25 21:00: BUN/Creatinine Ratio Cancelled, Glucose 773 H* 01/22/25 21:00: Glucose Cancelled, Calcium 9.2 01/22/25 21:00: Calcium Cancelled, Total Bilirubin 0.33, AST 18, ALT 30, Alkaline Phosphatase 105, Total Protein 6.7, Albumin 3.8, Globulin 2.9, Albumin/Globulin Ratio 1.3, b-Hydroxybutyric mmol/L 0.0 01/22/25 21:15: Urine Color Yellow, Urine Clarity Clear, Urine pH 6.5, Ur Specific [place] 1.010, Urine Protein Negative, Urine Glucose (UA) 1000 H, Urine Ketones Negative, Urine Occult Blood Negative, Urine Nitrite Negative, Urine Bilirubin Negative, Urine Urobilinogen Normal, Ur Leukocyte Esterase Negative, Urine RBC 0-5 SEEN, Urine WBC 0 SEEN, Ur Squamous Epith Cells 0 SEEN, Urine Bacteria 0 SEEN, Urine Mucus 0 SEEN Assessment & Plan Assessment/Plan (1) Hyperosmolar non-ketotic state due to type 2 diabetes mellitus: (2) Medical non-compliance: (3) Diabetic neuropathy, painful: (4) Essential hypertension: PLAN: Plan 1. HONK; with critically elevated blood glucose of 773 mg/dL present on admission with an undetectable beta-hydroxybutyrate, mildly elevated anion gap of 16 and VBG revealing pH of 7.38 present on admission - Admit to ICU for treatment with insulin drip under non-DKA protocol. Vigorously volume resuscitate. Check hemoglobin A1c to objectively evaluate quality of diabetic control. 2. Medical Noncompliance with insulin glargine used to treat DM-2; uncontrolled with hyperglycemia triggering #1 - Patient will be strongly encouraged to take his insulin as prescribed to prevent serial readmission. Check UDS with poor decision making. 3. Diabetic polyneuropathy; on gabapentin 3 times daily complicating #1 & #2 - Resume gabapentin as previous plus give ketorolac IV prn for [id number] (level 1-5/10) pain or fever. Give morphine IV prn for severe (level 6-10/10) pain. 4. Essential Hypertension; on lisinopril - Maintain current treatment plus give prn IV hydralazine for systolic blood pressure > 160mmHg. 5. Hyperlipidemia; on atorvastatin - Resume statin. 6. History of severe hypertriglyceridemia; previously on fenofibrate - Check triglycerides to confirm this agent should be restarted. 7. Former tobacco abuse (allegedly quit 2018) - Noted. 8. History of asthma; on as needed albuterol - Stable with no evidence of acute flare at this time. Continue prn albuterol. 9. History of erectile dysfunction; on tadalafil as needed - This agent will be held while inpatient. 10. Depression with history of suicidal ideation; on escitalopram - Resume current therapy with no current complaints relating to SI or HI. 11. History of COVID-19 (2020) - Noted. 12. History of SIADH; with acute hyponatremia (2020) - Stable with no evidence of recurrence. Low sodium of 125 mmol/L present on admission due to pseudohyponatremia and is actually in normal range by calculation. 13. History of submandibular abscess x 3 - Stable with no signs of recurrence. 14. History of acute sinusitis - Noted with no evidence of recurrence at this time. 15. History of acute pancreatitis - Noted. 16. DVT/GI prophylaxis - Lovenox 40 mg sq daily. Pantoprazole 40 mg IV daily. Total time: Approximately (but not less than) 75 minutes. Charges/Coding Visit Charges Inpatient E&M: 81627 Init Hosp L3
--- NOTE | 2025-01-22 22:52 | ED.RN ---
Time of called at 2251, verified by 2RNs. Dr. Ramirez updated.
--- NOTE | 2025-01-22 22:52 | ED.RN ---
Time of called at 2251, verified by 2RNs. Dr. Ramirez updated.
[2025-01-22 23:00] VITALS: BP 121/77; PULSE 81; RESP 17; O2SAT 98
[2025-01-22] MEDS: Insulin Lispro 100 UNIT in 0.9% Normal Saline (100mL Bag) 99 ML CONT INF (23:13)
[2025-01-22 23:15] LABS: Blood Gas Specimen Type VEN; O2 Delivery Device Room Air; SITE Not entered; VBG BASE EXCESS 1 mmol/L (-1.0-3.5); VBG Bicarbonate 26 mmol/L (22-26); VBG PO2 57 mmHg (25-40); VBG SO2 88 % (50-70); VBG TCO2 27 mmol/L (23-33); VBG pCO2 43.7 mmHg (41-51); VBG pH 7.38 (7.32-7.42)
[2025-01-22 23:16] VITALS: BP 121/77; PULSE 76; RESP 19; TEMP 36.8; O2SAT 96
[2025-01-22 23:21] LABS: Bedside Glucose > 500 mg/dL (74-106)
[2025-01-22 23:55] VITALS: BP 124/58; PULSE 76; RESP 19; O2SAT 96
[2025-01-23] VITALS (13 sets, daily range): BP systolic 105–153; BP diastolic 54–90; PULSE 62–92; RESP 13–17; TEMP 36.8–36.9; O2SAT 93–98; BMI 20.8
[2025-01-23 00:02] LABS: Magnesium 1.9 mg/dL (1.5-2.2)
[2025-01-23] MEDS: KCL 20MEQ in 0.9% NS 20 MEQ/1,000 ML IV.SOLN. 150 MEQ IV ×2 (00:07→04:21)
[2025-01-23] MEDS: 0.9% Saline Lock 10 ML Syringe IV (00:08)
[2025-01-23] MEDS: Morphine 2 MG/ML Syringe IV ×3 (00:09→09:10)
[2025-01-23] MEDS: Pantoprazole Sodium 40 MG in 0.9% Normal Saline (100mL MB+) 100 ML 330 MG IV (00:14)
[2025-01-23 00:33] LABS: Bedside Glucose 462 mg/dL (74-106)
[2025-01-23 00:43] LABS: Hemoglobin A1c 14.7 % (<=5.6)
[2025-01-23 00:44] LABS: Alcohol, Blood (Medical)-Serum < 10.1 mg/dL (<=10.0); Lactic Acid 1.2 mmol/L (0.0-2.0)
[2025-01-23 01:00] LABS: Vitamin B12 579 pg/mL (180-914)
[2025-01-23 01:15] LABS: Bedside Glucose 357 mg/dL (74-106)
[2025-01-23 02:05] LABS: Amphetamine Urine NEGATIVE (<1000 ng/mL); Barbiturate Urine NEGATIVE (< 200 ng/mL); Benzodiazepine Urine NEGATIVE (< 200 ng/mL); Buprenorphine Urine NEGATIVE (< 200 ng/mL); Cocaine Urine NEGATIVE (< 300 ng/mL); Fentanyl, Urine NEGATIVE; Methadone Urine NEGATIVE (< 300 ng/mL); Opiates Urine NEGATIVE (< 300 ng/mL); Oxycodone, Urine NEGATIVE (< 100 ng/mL); PCP Urine NEGATIVE (< 25 ng/mL); THC Urine NEGATIVE (< 50 ng/mL)
[2025-01-23 02:19] LABS: Bedside Glucose 338 mg/dL (74-106)
[2025-01-23 03:23] LABS: Bedside Glucose 296 mg/dL (74-106)
[2025-01-23] MEDS: Gabapentin 300 MG Capsule PO (04:18)
[2025-01-23 04:23] LABS: Bedside Glucose 290 mg/dL (74-106)
[2025-01-23 04:46] LABS: Absolute Lymphocyte Count 3.07 X10^3/uL (0.83-4.51); Absolute Neutrophil Count 4.4 X10^3/uL (2.0-7.7); Basophil# 0.04 X10^3/uL; Basophil% 0.5 % (0-1); Eosinophil# 0.37 X10^3/uL; Eosinophils% 4.3 % (0-5); Hematocrit 33.4 % (40-54); Hemoglobin 11.4 g/dL (13.0-16.5); Lymphocyte # 3.07 X10^3/ul (0.83-4.51); Lymphocyte % 35.7 % (19-41); Mean Corp Hgb Conc 34.1 g/dL (32-36); Mean Corpuscular Hgb 27.7 pg (27.0-32.0); Mean Corpuscular Volume 81.3 fL (80-94); Monocyte# 0.65 X10^3/uL; Monocyte% 7.6 % (0-10); NRBC Flagged by Analyzer 0 % (0-5); Neutrophil # 4.44 X10^3/uL (2.7-7.7); Neutrophil % 51.7 % (47-70); Platelet Count 168 K/mm3 (150-450); RBC Distribution Width CV 13.4 % (11.6-14.6); RBC Distribution Width SD 39.6 fl (35.1-43.9); Red Blood Count 4.11 M/mm3 (4.6-6.2); White Blood Count 8.6 K/mm3 (4.4-11.0)
[2025-01-23 05:21] LABS: Bedside Glucose 215 mg/dL (74-106)
[2025-01-23 05:35] LABS: Phosphorus 2.4 mg/dL (2.7-4.5); Thyroid Stim Hormone (TSH) 0.943 uIU/mL (0.300-4.200)
[2025-01-23 06:21] LABS: Bedside Glucose 255 mg/dL (74-106)
[2025-01-23 06:24] LABS: Cholesterol 153 mg/dL (<=200); High Density Lipoprotein 30 mg/dL; Low Density Lipoprotein Calc. 64 mg/dL; Triglycerides 294 mg/dL; Very Low Density Lipoprotein 59 mg/dL (5-40); cholesterol:hdl ratio screen 5.08
[2025-01-23 06:26] LABS: ALB/GLOB Ratio 1.4 RATIO (0.9-2.4); AST(SGOT) 23 U/L (<=37); Alanine Aminotransfer ALT/SGPT 23 U/L (<=46); Albumin, Serum 2.9 g/dL (3.5-5.0); Alkaline Phosphatase 70 U/L (40-129); Anion Gap 7 (5-15); BUN 10 mg/dL (4-19); BUN/Creat Ratio 19.1 RATIO (10-20); Calcium,Total 7.2 mg/dL (7.6-11.0); Carbon Dioxide 19.4 mmol/L (21.0-32.0); Chloride 111 mmol/L (98-108); Creatinine, Serum 0.54 mg/dL (0.70-1.20); EST Glomerular Filtration Rate 122 (>60); Estimated Creatinine Clearance 156.71 ml/min (50-250); Globulin 2.2 g/dL (2.2-4.2); Glucose 236 mg/dL (70-99); Potassium 6.4 mmol/L (3.3-5.1); Protein, Total 5.1 g/dL (5.9-8.4); Sodium Level 138 mmol/L (133-145); Total Bilirubin 0.26 mg/dL (0.00-1.30)
--- NOTE | 2025-01-23 06:57 | PN.HOSP_ITS ---
Reason for Visit Reason for Visit: Diagnoses Type 2 diabetes mellitus with hyperosmolarity without nonketotic hyperglycemic- hyperosmolar coma ([facility]) (01/22/25) Type 2 diabetes mellitus with diabetic neuropathy, unspecified (01/22/25) Essential (primary) hypertension (01/22/25) Patient's noncompliance with other medical treatment and regimen due to unspecified reason (01/22/25) Subjective Subjective Feeling well. States that he ran out of insulin 2 days prior to admission. Objective Data Objective Data Vital Signs: Vital Signs Temp Pulse Resp BP Pulse Ox O2 Del Method 36.9 C 67 14 124/90 H 94 Room Air 01/23/25 03:00 01/23/25 06:00 01/23/25 06:00 01/23/25 06:00 01/23/25 06:00 01/23/25 06:00 Oxygen Delivery Method Room Air Weight: 67.7 kg Body Mass Index (BMI) 20.8 Intake & Output: Intake and Output for Last 24 Hours 01/21/25 01/22/25 01/23/25 23:59 23:59 23:59 Intake Total 1999 759.81 / 759.81 Output Total 800 / 800 Balance 1999 -40.19 / -40.19 Lab / Micro Data 01/23/25 04:15 01/23/25 06:43 Labs: Laboratory Results - last 24 hr 01/22/25 20:49: POC Glucose > 500 H* 01/22/25 21:00: WBC 9.2, RBC 4.88, Hgb 13.7, Hct 39.1 L, MCV 80.1, MCH 28.1, MCHC 35.0, RDW Std Deviation 38.8, RDW Coeff of Wil 13.4, Plt Count 219, MPV 9.2, Immature Gran % (Auto) 0.200, Neut % (Auto) 61.1, Lymph % (Auto) 28.3, [place] % (Auto) 7.6, Eos % (Auto) 2.3, Baso % (Auto) 0.5, Absolute Neuts (auto) 5.6, Absolute Lymphs (auto) 2.61, Nucleated RBC % 0, Sodium 125 L 01/22/25 21:00: Sodium Cancelled, Potassium 4.3 01/22/25 21:00: Potassium Cancelled, Chloride 88 L 01/22/25 21:00: Chloride Cancelled, Carbon Dioxide 21.3 01/22/25 21:00: Carbon Dioxide Cancelled, Anion Gap 16 H 01/22/25 21:00: Anion Gap Cancelled, BUN 13 01/22/25 21:00: BUN Cancelled, Creatinine 1.06 01/22/25 21:00: Creatinine Cancelled, Estim Creat Clear Calc 79.83 01/22/25 21:00: Estim Creat Clear Calc Cancelled, Est GFR (MDRD) Non-Af 85 01/22/25 21:00: Est GFR (MDRD) Non-Af Cancelled, BUN/Creatinine Ratio 12.3 01/22/25 21:00: BUN/Creatinine Ratio Cancelled, Glucose 773 H* 01/22/25 21:00: Glucose Cancelled, Calcium 9.2 01/22/25 21:00: Calcium Cancelled, Magnesium 1.9, Total Bilirubin 0.33, AST 18, ALT 30, Alkaline Phosphatase 105, Total Protein 6.7, Albumin 3.8, Globulin 2.9, Albumin/Globulin Ratio 1.3, b-Hydroxybutyric mmol/L 0.0 01/22/25 21:15: Urine Color Yellow, Urine Clarity Clear, Urine pH 6.5, Ur Specific [place] 1.010, Urine Protein Negative, Urine Glucose (UA) 1000 H, Urine Ketones Negative, Urine Occult Blood Negative, Urine Nitrite Negative, Urine Bilirubin Negative, Urine Urobilinogen Normal, Ur Leukocyte Esterase Negative, Urine RBC 0-5 SEEN, Urine WBC 0 SEEN, Ur Squamous Epith Cells 0 SEEN, Urine Bacteria 0 SEEN, Urine Mucus 0 SEEN 01/22/25 23:03: POC Glucose > 500 H* 01/23/25 00:00: Hemoglobin A1c 14.7, Lactic Acid 1.2, Vitamin B12 579, Serum Folate 15.10, Ethyl Alcohol < 10.1 01/23/25 00:06: POC Glucose 462 H* 01/23/25 00:57: POC Glucose 357 H 01/23/25 01:03: Urine Opiates Screen NEGATIVE, U Buprenorphine Qual NEGATIVE, Ur Oxycodone Screen NEGATIVE, Urine Methadone Screen NEGATIVE, Urine Fentanyl Screen NEGATIVE, Ur Barbiturates Screen NEGATIVE, Ur Phencyclidine Scrn NEGATIVE, Ur Amphetamines Screen NEGATIVE, U Benzodiazepines Scrn NEGATIVE, Urine Cocaine Screen NEGATIVE, U Cannabinoids Screen NEGATIVE 01/23/25 01:59: POC Glucose 338 H 01/23/25 03:05: POC Glucose 296 H 01/23/25 04:04: POC Glucose 290 H 01/23/25 04:15: WBC 8.6, RBC 4.11 L, Hgb 11.4 L, Hct 33.4 L, MCV 81.3, MCH 27.7, MCHC 34.1, RDW Std Deviation 39.6, RDW Coeff of Wil 13.4, Plt Count 168, MPV 9.0, Immature Gran % (Auto) 0.200, Neut % (Auto) 51.7, Lymph % (Auto) 35.7, [place] % (Auto) 7.6, Eos % (Auto) 4.3, Baso % (Auto) 0.5, Absolute Neuts (auto) 4.4, Absolute Lymphs (auto) 3.07, Nucleated RBC % 0, Sodium 138, Potassium 6.4 H*, C hloride 111 H, Carbon Dioxide 19.4 L, Anion Gap 7, BUN 10, Creatinine 0.54 L, Estim Creat Clear Calc 156.71, Est GFR (MDRD) Non-Af 122, BUN/Creatinine Ratio 19.1, Glucose 236 H, Calcium 7.2 L, Phosphorus 2.4 L, Total Bilirubin 0.26, AST 23, ALT 23, Alkaline Phosphatase 70, Total Protein 5.1 L, Albumin 2.9 L, Globulin 2.2, Albumin/Globulin Ratio 1.4, Triglycerides 294 H, Cholesterol 153, LDL Cholesterol, Calc 64, VLDL Cholesterol 59 H, HDL Cholesterol 30 L, Cholesterol/HDL Ratio 5.08, TSH 0.943 01/23/25 05:03: POC Glucose 215 H 01/23/25 06:02: POC Glucose 255 H ABG Data ABG results: ABG 01/22/25 23:12 Specimen Type KOBY Sample Site Not entered VBG pH 7.38 VBG pO2 57 H VBG HCO3 26 VBG Total CO2 27 VBG O2 Sat (Calc) 88 H VBG Base Excess 1 POC Mix VBG pCO2 Pt Tmp 43.7 O2 Delivery Device Room Air Physical Exam Const alert and no apparent distress Resp normal respiratory effort, no retractions, no use of accessory muscles and clear to auscultation bilaterally Cardio regular rate, regular rhythm, S1 normal heart sound and S2 normal heart sound GI normal to inspection, nondistended, normoactive bowel sounds, soft to palpation, non-tender and non-distended Extremity normal to inspection and full ROM Neuro Sensorium / Orientation: awake and alert Assessment & Plan Assessment/Plan (1) Hyperosmolar non-ketotic state due to type 2 diabetes mellitus: PLAN: Patient states that he ran out of insulin 2 days prior to admission but sounds like his blood sugars were likely uncontrolled even with him being on the Lantus with a hemoglobin of nearly 14. Was taking Lantus 24 units at night but will change out to 20 twice daily. PLAN: Plan Chronic conditions: * Diabetic neuropathy gabapentin * HTN: lisinopril * HLP: atorvastatin VTE prophylaxis: LMWH.
[2025-01-23 07:08] LABS: Bedside Glucose 216 mg/dL (74-106)
[2025-01-23 08:02] LABS: Anion Gap 10 (5-15); BUN 12 mg/dL (4-19); BUN/Creat Ratio 20.5 RATIO (10-20); Calcium,Total 8.5 mg/dL (7.6-11.0); Carbon Dioxide 23.4 mmol/L (21.0-32.0); Chloride 103 mmol/L (98-108); Creatinine, Serum 0.59 mg/dL (0.70-1.20); EST Glomerular Filtration Rate 118 (>60); Estimated Creatinine Clearance 143.43 ml/min (50-250); Glucose 223 mg/dL (70-99); Potassium 3.8 mmol/L (3.3-5.1); Sodium Level 136 mmol/L (133-145)
[2025-01-23] MEDS: Escitalopram Oxalate 10 MG Tablet PO (08:30)
[2025-01-23] MEDS: Lisinopril 2.5 MG Tablet PO (08:30)
[2025-01-23] MEDS: Enoxaparin 40 MG/0.4 ML Syringe SC (08:31)
[2025-01-23 08:52] LABS: Bedside Glucose 188 mg/dL (74-106)
[2025-01-23] MEDS: Insulin Glargine-YFGN 100 UNIT/ML Pen 20 UNIT SC (09:05)
[2025-01-23] MEDS: Ketorolac 15 MG/ML Vial IV (09:10)
--- NOTE | 2025-01-23 10:41 | PCM.DC.SUM ---
Providers Date of Admission: 01/22/25 Primary Care Physician: Dr. Paris Chilel MD Reason For Visit: HONK, MEDICAL NONCOMPLIANCE AND PAINFUL NEUROPATHY Diagnosis Discharge Diagnosis (1) Hyperosmolar non-ketotic state due to type 2 diabetes mellitus: Status: Acute Code(s): E11.00 - Type 2 diabetes mellitus with hyperosmolarity without nonketotic hyperglycemic-hyperosmolar coma ([facility]) Plan: Patient states that he ran out of insulin 2 days prior to admission but sounds like his blood sugars were likely uncontrolled even with him being on the Lantus with a hemoglobin of nearly 14. Was taking Lantus 24 units at night but will change out to 20 twice daily. Plan Chronic conditions: Diabetic neuropathy: Patient asking for gabapentin. Review of [place]AR[place] shows is not received for lately. Will give him a 10-day supply. HTN: lisinopril HLP: atorvastatin VTE prophylaxis: LMWH. Medications at Discharge Home Medications atorvastatin 80 mg tablet 80 mg PO QHS #90 tabs 04/05/22 blood sugar diagnostic #100 ea 04/05/22 blood sugar diagnostic (OneTouch Ultra Test strips) #300 ea 04/05/22 blood-glucose meter (OneTouch Ultra2 Meter) #1 ea 04/05/22 escitalopram oxalate 10 mg tablet (Lexapro) 10 mg PO DAILY #90 tabs 04/05/22 lancets (OneTouch UltraSoft Lancets) #300 ea 04/05/22 pen needle, diabetic 31 gauge x 5/16 (Unifine Pentips) #300 ea 04/05/22 tadalafil 5 mg tablet 5 mg PO ONCE PRN sexual activity #10 tabs 06/16/22 lisinopril 2.5 mg tablet 2.5 mg PO DAILY #90 tabs 10/11/22 albuterol sulfate 90 mcg/actuation aerosol inhaler 2 puff inhalation Q6H PRN Asthma #8.5 grams 10/24/22 insulin syringe-needle U-100 0.3 mL 31 gauge x 5/16 (BD Insulin Syringe Ultra-Fine) #100 ea 05/15/23 gabapentin 300 mg capsule 300 mg PO Q8H #30 caps 01/23/25 insulin glargine-yfgn 100 unit/mL (3 mL) subcutaneous pen 20 unit (0.2 mL) subcut BID #15 mL 01/23/25 Hospital Course Operations None Procedures None Summary of Care Provided Minutes Spent on Discharge: 32 Weight / BMI Weight Weight: 67.7 kg Body Mass Index (BMI) 20.8 ABG / Lab / Microbiology Data 01/23/25 04:15 01/23/25 06:43 Laboratory: Laboratory Results - last 24 hr 01/22/25 20:49: POC Glucose > 500 H* 01/22/25 21:00: WBC 9.2, RBC 4.88, Hgb 13.7, Hct 39.1 L, MCV 80.1, MCH 28.1, MCHC 35.0, RDW Std Deviation 38.8, RDW Coeff of Wil 13.4, Plt Count 219, MPV 9.2, Immature Gran % (Auto) 0.200, Neut % (Auto) 61.1, Lymph % (Auto) 28.3, [place] % (Auto) 7.6, Eos % (Auto) 2.3, Baso % (Auto) 0.5, Absolute Neuts (auto) 5.6, Absolute Lymphs (auto) 2.61, Nucleated RBC % 0, Sodium 125 L 01/22/25 21:00: Sodium Cancelled, Potassium 4.3 01/22/25 21:00: Potassium Cancelled, Chloride 88 L 01/22/25 21:00: Chloride Cancelled, Carbon Dioxide 21.3 01/22/25 21:00: Carbon Dioxide Cancelled, Anion Gap 16 H 01/22/25 21:00: Anion Gap Cancelled, BUN 13 01/22/25 21:00: BUN Cancelled, Creatinine 1.06 01/22/25 21:00: Creatinine Cancelled, Estim Creat Clear Calc 79.83 01/22/25 21:00: Estim Creat Clear Calc Cancelled, Est GFR (MDRD) Non-Af 85 01/22/25 21:00: Est GFR (MDRD) Non-Af Cancelled, BUN/Creatinine Ratio 12.3 01/22/25 21:00: BUN/Creatinine Ratio Cancelled, Glucose 773 H* 01/22/25 21:00: Glucose Cancelled, Calcium 9.2 01/22/25 21:00: Calcium Cancelled, Magnesium 1.9, Total Bilirubin 0.33, AST 18, ALT 30, Alkaline Phosphatase 105, Total Protein 6.7, Albumin 3.8, Globulin 2.9, Albumin/Globulin Ratio 1.3, b-Hydroxybutyric mmol/L 0.0 01/22/25 21:15: Urine Color Yellow, Urine Clarity Clear, Urine pH 6.5, Ur Specific [place] 1.010, Urine Protein Negative, Urine Glucose (UA) 1000 H, Urine Ketones Negative, Urine Occult Blood Negative, Urine Nitrite Negative, Urine Bilirubin Negative, Urine Urobilinogen Normal, Ur Leukocyte Esterase Negative, Urine RBC 0-5 SEEN, Urine WBC 0 SEEN, Ur Squamous Epith Cells 0 SEEN, Urine Bacteria 0 SEEN, Urine Mucus 0 SEEN 01/22/25 23:03: POC Glucose > 500 H* 01/23/25 00:00: Hemoglobin A1c 14.7, Lactic Acid 1.2, Vitamin B12 579, Serum Folate 15.10, Ethyl Alcohol < 10.1 01/23/25 00:06: POC Glucose 462 H* 01/23/25 00:57: POC Glucose 357 H 01/23/25 01:03: Urine Opiates Screen NEGATIVE, U Buprenorphine Qual NEGATIVE, Ur Oxycodone Screen NEGATIVE, Urine Methadone Screen NEGATIVE, Urine Fentanyl Screen NEGATIVE, Ur Barbiturates Screen NEGATIVE, Ur Phencyclidine Scrn NEGATIVE, Ur Amphetamines Screen NEGATIVE, U Benzodiazepines Scrn NEGATIVE, Urine Cocaine Screen NEGATIVE, U Cannabinoids Screen NEGATIVE 01/23/25 01:59: POC Glucose 338 H 01/23/25 03:05: POC Glucose 296 H 01/23/25 04:04: POC Glucose 290 H 01/23/25 04:15: WBC 8.6, RBC 4.11 L, Hgb 11.4 L, Hct 33.4 L, MCV 81.3, MCH 27.7, MCHC 34.1, RDW Std Deviation 39.6, RDW Coeff of Wil 13.4, Plt Count 168, MPV 9.0, Immature Gran % (Auto) 0.200, Neut % (Auto) 51.7, Lymph % (Auto) 35.7, [place] % (Auto) 7.6, Eos % (Auto) 4.3, Baso % (Auto) 0.5, Absolute Neuts (auto) 4.4, Absolute Lymphs (auto) 3.07, Nucleated RBC % 0, Sodium 138, Potassium 6.4 H*, Chloride 111 H, Carbon Dioxide 19.4 L, Anion Gap 7, BUN 10, Creatinine 0.54 L, Estim Creat Clear Calc 156.71, Est GFR (MDRD) Non-Af 122, BUN/Creatinine Ratio 19.1, Glucose 236 H, Calcium 7.2 L, Phosphorus 2.4 L, Total Bilirubin 0.26, AST 23, ALT 23, Alkaline Phosphatase 70, Total Protein 5.1 L, Albumin 2.9 L, Globulin 2.2, Albumin/Globulin Ratio 1.4, Triglycerides 294 H, Cholesterol 153, LDL Cholesterol, Calc 64, VLDL Cholesterol 59 H, HDL Cholesterol 30 L, Cholesterol/HDL Ratio 5.08, TSH 0.943 01/23/25 05:03: POC Glucose 215 H 01/23/25 06:02: POC Glucose 255 H 01/23/25 06:43: Sodium 136, Potassium 3.8, Chloride 103, Carbon Dioxide 23.4, Anion Gap 10, BUN 12, Creatinine 0.59 L, Estim Creat Clear Calc 143.43, Est GFR (MDRD) Non-Af 118, BUN/Creatinine Ratio 20.5 H, Glucose 223 H, Calcium 8.5 01/23/25 06:50: POC Glucose 216 H 01/23/25 08:33: POC Glucose 188 H ABG: ABG 01/22/25 23:12 Specimen Type KOBY Sample Site Not entered VBG pH 7.38 VBG pO2 57 H VBG HCO3 26 VBG Total CO2 27 VBG O2 Sat (Calc) 88 H VBG Base Excess 1 POC Mix VBG pCO2 Pt Tmp 43.7 O2 Delivery Device Room Air D/C Instructions Discharge Diet: 2000 Calorie Control Diet DC O2, CPAP, BIPAP Needs Home O2 Discharge instructions: No Meaningful Use Info Meaningful Use Meaningful Use Diagnoses (Choose all that apply): None applicable Ischemic Stroke Statin Dosing Therapy Reference: STATIN DOSE THERAPY REFERENCE: * Patients > 75 years receive moderate or high dose statin therapy. * Patients 75 years or YOUNGER should receive HIGH intensity statin dose unless contraindicated. You will be required to document reason for non-treatment if statin daily dose does not meet guidelines. HIGH DOSE STATIN THERAPY DAILY Atorvastatin > than or = to 40 mg Rosuvastatin > than or = to 20 mg Amlodipine + Atorvastatin > than or = to 2.5/40 mg Ezetimibe + Simvastatin 10/80 mg Simvastatin 80mg Discharge Plan Admission Admit Date/Time: 01/22/25 23:22 Primary Reason for Your Visit: Diabetic ketoacidosis Attending Provider: Mike Haile Primary Care Provider: Paris Chilel Consulting Providers: Scout Ortega Instructions Patient Instructions: Diabetes Serving Portion Sizes, Diabetes Support, Diabetes Inspect Feet Discharge Orders/Prescriptions Prescriptions: New insulin glargine-yfgn 100 unit/mL (3 mL) Insulin Pen 20 unit subcut BID Qty: 15 0RF Continued atorvastatin 80 mg tablet 80 mg PO QHS Qty: 90 3RF escitalopram oxalate [Lexapro] 10 mg tablet 10 mg PO DAILY Qty: 90 0RF Rx Instructions: Take 5 mg for the first 6 days then increase to 10mg (DME) blood sugar diagnostic Strip 0 .Route .MEDSUPPLY Qty: 100 0RF Rx Instructions: check blood glucose three times daily for type 2 DM (DME) pen needle, diabetic [Unifine Pentips] 31 gauge x 5/16 needle See Rx Instructions .ROUTE .MEDSUPPLY Qty: 300 3RF Rx Instructions: As directed QID (DME) blood-glucose meter [OneTouch Ultra2 Meter] [facility] See Rx Instructions .ROUTE .MEDSUPPLY Qty: 1 0RF Rx Instructions: Check blood sugar 3 times a day and as needed (DME) OneTouch Ultra Test Strip See Rx Instructions .ROUTE .MEDSUPPLY Qty: 300 3RF Rx Instructions: Check Blood Sugar 3 times a day and as needed (DME) lancets [OneTouch UltraSoft Lancets] [facility] See Rx Instructions .ROUTE .MEDSUPPLY Qty: 300 3RF Rx Instructions: Check blood sugar 3 times a day and as needed tadalafil 5 mg tablet 5 mg PO ONCE PRN (Reason: sexual activity) Qty: 10 0RF Rx Instructions: administer approximately 30min before sexual activity; do not use more than 1 dose per 24hrs lisinopril 2.5 mg tablet 2.5 mg PO DAILY Qty: 90 1RF albuterol sulfate 90 mcg/actuation HFA aerosol inhaler 2 puff INHALATION Q6H PRN (Reason: Asthma) Qty: 8.5 3RF (DME) insulin syringe-needle U-100 [BD Insulin Syringe Ultra-Fine] 0.3 mL 31 gauge x 5/16 syringe See Rx Instructions .ROUTE .MEDSUPPLY Qty: 100 3RF Rx Instructions: As directed Changed gabapentin 300 mg capsule 300 mg PO Q8H Qty: 30 0RF Discontinued oxycodone 5 mg tablet 5 mg PO Q6H PRN (Reason: breakthrough pain, severe) 2 Days Qty: 6 0RF insulin glargine 100 unit/mL (3 mL) insulin pen 24 unit subcut QHS Referrals / Follow Up: Paris Chilel MD [Primary Care Provider] - Within 2 Weeks Disposition Disposition (needs filled in before D/C Order can be placed): Home, Self Care Charges/Coding Visit Charges Inpatient E&M: 20846 Disch Hosp >30min
--- NOTE | 2025-01-23 10:55 | CASEMGMT ---
Social Work Pt admitted with no health insurance. Pt did meet with Aliza from [facility] who assisted pt in completing application for Medicaid with [facility]. SW met with pt to provide additional resources. Pt states that he has been staying at the [facility] at time of hospitalization and plans to return there upon discharge. Pt states [facility]. SW discussed additional community resources and provided written information on Prescription assistance programs, [employer], [employer], [employer] and the [employer] card. Pt states that he uses the [employer] system for transportation and SW provided pt with a schedule of bus stops. Pt states that he will use the bus when he discharges. SW spoke with pt regarding filling insulin at time of discharge. Pt states that he has no money to fill insulin prescription. Prescription assistance program at [facility] can be used to assist pt in obtaining his insulin. Pt also stating that he gets confused with taking meds and is inquiring about help with getting a med box and setting up meds. SEBASTIÁN Kong
--- NOTE | 2025-01-23 10:55 | CASEMGMT ---
Social Work Pt admitted with no health insurance. Pt did meet with Aliza from [facility] who assisted pt in completing application for Medicaid with [facility]. SW met with pt to provide additional resources. Pt states that he has been staying at the [facility] at time of hospitalization and plans to return there upon discharge. Pt states [facility] also [facility]. SW discussed additional community resources and provided written information on Prescription assistance programs, [employer], [employer], [employer] and the [employer] card. Pt states that he uses the [employer] system for transportation and SW provided pt with a schedule of bus stops. Pt states that he will use the bus when he discharges. SW spoke with pt regarding filling insulin at time of discharge. Pt states that he has no money to fill insulin prescription. Prescription assistance program at [facility] can be used to assist pt in obtaining his insulin. Pt also stating that he gets confused with taking meds and is inquiring about help with getting a med box and setting up meds. SEBASTIÁN Kong
--- NOTE | 2025-01-23 11:25 | PHA.DC_ITS ---
Pharmacy IN Med Reconciliation Pharmacy Service has performed discharge medication reconciliation for this patient. The patient's discharge medication list was reviewed for discrepancies and discrepancies were resolved. Medications at Discharge Home Medications atorvastatin 80 mg tablet 80 mg PO QHS #90 tabs 04/05/22 blood sugar diagnostic #100 ea 04/05/22 blood sugar diagnostic (OneTouch Ultra Test strips) #300 ea 04/05/22 blood-glucose meter (OneTouch Ultra2 Meter) #1 ea 04/05/22 escitalopram oxalate 10 mg tablet (Lexapro) 10 mg PO DAILY #90 tabs 04/05/22 lancets (OneTouch UltraSoft Lancets) #300 ea 04/05/22 pen needle, diabetic 31 gauge x 5/16 (Unifine Pentips) #300 ea 04/05/22 tadalafil 5 mg tablet 5 mg PO ONCE PRN sexual activity #10 tabs 06/16/22 lisinopril 2.5 mg tablet 2.5 mg PO DAILY #90 tabs 10/11/22 albuterol sulfate 90 mcg/actuation aerosol inhaler 2 puff inhalation Q6H PRN Asthma #8.5 grams 10/24/22 insulin syringe-needle U-100 0.3 mL 31 gauge x 5/16 (BD Insulin Syringe Ultra- Fine) #100 ea 05/15/23 gabapentin 300 mg capsule 300 mg PO Q8H #30 caps 01/23/25 insulin glargine-yfgn 100 unit/mL (3 mL) subcutaneous pen 20 unit (0.2 mL) subcut BID #15 mL 01/23/25
--- NOTE | 2025-01-23 11:35 | CASEMGMT ---
Patient updated by social work that patient is requesting assistance with medication organization. ANTONIO CLAY in to speak with patient. ANTONIO CLAY inquired if patient is able to fill pill organizer if he would be supplied one, patient states he could. ANTONIO CLAY called Care Management Director and received approval for pill organizer through [facility] with his medications. ANTONIO CLAY called [facility] Retail pharmacy and spoke with Yang and he said with approval they can supply organizer to patient. ANTONIO CLAY updated patient. Patient had no further questions or concerns.
--- NOTE | 2025-01-23 11:35 | CASEMGMT ---
Patient updated by social work that patient is requesting assistance with medication organization. ANTONIO CLAY in to speak with patient. ANTONIO CLAY inquired if patient is able to fill pill organizer if he would be supplied one, patient states he could. ANTONIO CLAY called Care Management Director and received approval for pill organizer through [facility] with his medications. ANTONIO CLAY called [facility] Retail pharmacy and spoke with Yang and he said with approval they can supply organizer to patient. ANTONIO CLAY updated patient. Patient had no further questions or concerns.
== END 2025-01-23 13:15 | disposition home or self-care (01) | DRG 639 ==
LOC: ED 22:54 → ICU 01-23 00:46
PROVIDERS: Admitting Provider Internal Medicine; Emergency Provider Emergency Medicine; PCP Internal Medicine
DX: E11.00 Type 2 diabetes mellitus with hyperosmolarity without nonketotic hyperglycemic-hyperosmolar coma (NKHHC) (principal); E11.42 Type 2 diabetes mellitus with diabetic polyneuropathy; Z79.4 Long term (current) use of insulin; I10 Essential (primary) hypertension; J45.909 Unspecified asthma, uncomplicated; E78.5 Hyperlipidemia, unspecified; Z87.891 Personal history of nicotine dependence; Z86.16 Personal history of COVID-19; Z79.51 Long term (current) use of inhaled steroids; Z79.899 Other long term (current) drug therapy; Z91.199 Patient's noncompliance with other medical treatment and regimen due to unspecified reason; E87.1 Hypo-osmolality and hyponatremia; F32.A Depression, unspecified
CPT/HCPCS: 80048; 80053; 80061; 80307; 81001; 82010; 82077; 82607; 82746; 82803; 82962; 83036; 83605; 83735; 84100; 84443; 85025; 93005; 96365; 96366; 96368; 96375; 96376; 99285; 99406; A4216

== ENCOUNTER 2025-02-04 12:47 | Emergency (ER) | payer MEDICAID, SELFPAY ==
[2025-02-04 12:47] VITALS: BP 126/84; PULSE 110; RESP 18; TEMP 36.2; O2SAT 98; BMI 22.4
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
[2025-02-04 13:35] LABS: Absolute Lymphocyte Count 1.99 X10^3/uL (0.83-4.51); Absolute Neutrophil Count 7.3 X10^3/uL (2.0-7.7); Basophil# 0.04 X10^3/uL; Basophil% 0.4 % (0-1); Hematocrit 44.6 % (40-54); Hemoglobin 15.2 g/dL (13.0-16.5); Lymphocyte # 1.99 X10^3/ul (0.83-4.51); Lymphocyte % 19.8 % (19-41); Mean Corp Hgb Conc 34.1 g/dL (32-36); Mean Corpuscular Hgb 28.4 pg (27.0-32.0); Mean Corpuscular Volume 83.2 fL (80-94); Mean Platelet Vol. 8.8 fl (6.2-12.0); Monocyte# 0.56 X10^3/uL; Monocyte% 5.6 % (0-10); NRBC Flagged by Analyzer 0 % (0-5); Neutrophil % 72.8 % (47-70); Platelet Count 259 K/mm3 (150-450); RBC Distribution Width CV 13.7 % (11.6-14.6); RBC Distribution Width SD 41.5 fl (35.1-43.9); Red Blood Count 5.36 M/mm3 (4.6-6.2)
[2025-02-04 14:38] LABS: Bacteria 0 SEEN /hpf (None Seen); Mucous, Urine 0 SEEN /hpf (<or=2+); Squamous Epithelial Cells - UA 0 SEEN /hpf (0-5); White Blood Cells 0 SEEN /hpf (0-5)
[2025-02-04 14:42] LABS: AST(SGOT) 21 U/L (<=37); Alanine Aminotransfer ALT/SGPT 24 U/L (<=46); Albumin, Serum 3.8 g/dL (3.5-5.0); Alkaline Phosphatase 94 U/L (40-129); Anion Gap 13 (5-15); BUN 18 mg/dL (4-19); BUN/Creat Ratio 23.7 RATIO (10-20); Bilirubin, Direct 0.25 mg/dL (0.00-0.30); Calcium,Total 8.8 mg/dL (7.6-11.0); Carbon Dioxide 19.7 mmol/L (21.0-32.0); Chloride 95 mmol/L (98-108); Creatinine, Serum 0.78 mg/dL (0.70-1.20); EST Glomerular Filtration Rate 109 (>60); Estimated Creatinine Clearance 113.94 ml/min (50-250); Globulin 2.8 g/dL (2.2-4.2); Glucose 397 mg/dL (70-99); Potassium 3.9 mmol/L (3.3-5.1); Protein, Total 6.7 g/dL (5.9-8.4); Sodium Level 127 mmol/L (133-145)
[2025-02-04 14:52] LABS: Color, Urine Straw (Yellow); Glucose, Dipstick 1000 mg/dl (Normal); Ketone-Dipstick 5 mg/dl (Negative); Leukocyte Esterase-Dipstick Negative /ul (Negative); Nitrite-Dipstick Negative (Negative); Occult Blood-Urine Negative /ul (Negative); Protein-Dipstick 30 mg/dl (Negative); Specific Gravity, Urine 1.015 (1.002-1.030); Urine Bilirubin Dipstick Negative (Negative); Urine Clarity Clear (Clear); Urine Urobilinogen Normal (Normal)
[2025-02-04 15:03] LABS: Red Blood Cells-Urine 0 SEEN /hpf (0-5)
[2025-02-04 15:24] LABS: Alcohol, Blood (Medical)-Serum < 10.1 mg/dL (<=10.0)
--- NOTE | 2025-02-04 15:26 | PCA ---
[facility] ACCEPTED JUST NEEDS MEDICALLY CLEARED FIRST
[2025-02-04 15:27] LABS: Amphetamine Urine PRESUMPTIVE POSITIVE (<1000 ng/mL); Barbiturate Urine NEGATIVE (< 200 ng/mL); Benzodiazepine Urine NEGATIVE (< 200 ng/mL); Buprenorphine Urine NEGATIVE (< 200 ng/mL); Cocaine Urine NEGATIVE (< 300 ng/mL); Fentanyl, Urine NEGATIVE; Methadone Urine NEGATIVE (< 300 ng/mL); Opiates Urine NEGATIVE (< 300 ng/mL); Oxycodone, Urine NEGATIVE (< 100 ng/mL); PCP Urine NEGATIVE (< 25 ng/mL); THC Urine NEGATIVE (< 50 ng/mL)
[2025-02-04] MEDS: Insulin Glargine-YFGN 100 UNIT/ML Pen 20 UNIT SC (15:30)
--- NOTE | 2025-02-04 15:34 | PCA ---
FAXED INFO TO [id number]
[2025-02-04 16:25] LABS: Bedside Glucose 450 mg/dL (74-106)
[2025-02-04] MEDS: Insulin Lispro 100 UNIT/ML INSULN.PEN 10 UNIT SC ×2 (16:53→18:00)
[2025-02-04] MEDS: 0.9% Normal Saline (1000mL) 1,000 ML 999 ML IV (17:58)
--- NOTE | 2025-02-04 18:01 | CM.ED ---
Social work Called and spoke with Daniel at Crisis ([phone]) to update that patient's blood glucose level is high and staff are working to bring it down. Daniel aware of possibility of patient being admitted if unable to get blood glucose lowered in ED. Daniel stated understanding and awaiting further communication from [facility] ED SW professor of biochemistry when available. Tammy Christian, BLOCKING MACHINE OPERATOR, BONE CHAR OPERATOR
--- NOTE | 2025-02-04 18:05 | ED.RN ---
This RN bedside to give patient fluids and insulin. Patient upset saying that he's been in pain. Patient explained that this RN will ask the doctor for pain meds. Patient threatening to walk out of ER. Patient informed that he is pink slipped and that he cannot leave the ER. Patient continues to make threats to leave to leave ER if he does not get pain meds. This RN explained again that the patient is pink slipped and that security will be bedside if the patient attempts to leave the ER. Sitter bedside. Rut, chargeback analyst notified of threats to leave from patient. Dr. Alvarez notified of patient request for pain medication.
[2025-02-04] MEDS: Insulin Lispro 100 UNIT/ML INSULN.PEN 6 UNIT SC (18:59)
[2025-02-04] MEDS: 0.9% Normal Saline (1000mL) 1,000 ML 1000 ML IV (18:59)
[2025-02-04 19:04] LABS: Bedside Glucose 305 mg/dL (74-106)
[2025-02-04 19:04] LABS: Bedside Glucose 489 mg/dL (74-106)
[2025-02-04 19:04] LABS: Bedside Glucose > 500 mg/dL (74-106)
[2025-02-04 19:10] VITALS: BP 92/72; PULSE 100; RESP 18; O2SAT 96
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
[2025-02-04] MEDS: Lorazepam 2 MG/ML WCH Syringe IV (19:19)
[2025-02-04 20:00] VITALS: BP 106/76; PULSE 85; RESP 16; O2SAT 98
[2025-02-04 20:34] LABS: Anion Gap 10 (5-15); BUN 19 mg/dL (4-19); BUN/Creat Ratio 29.8 RATIO (10-20); Calcium,Total 8.6 mg/dL (7.6-11.0); Carbon Dioxide 21.2 mmol/L (21.0-32.0); Chloride 108 mmol/L (98-108); Creatinine, Serum 0.64 mg/dL (0.70-1.20); EST Glomerular Filtration Rate 115 (>60); Estimated Creatinine Clearance 138.87 ml/min (50-250); Glucose 152 mg/dL (70-99); Potassium 3.1 mmol/L (3.3-5.1); Sodium Level 139 mmol/L (133-145)
--- NOTE | 2025-02-04 21:44 | ED.RN ---
ONCE MEDICAL CLEARANCE WAS DONE THIS ART SPECIALIST CALLED [facility] IN [place] TO NOTIFY THEM AND FAX INFORMATION TO THEM, THEY GAVE ACCEPTING INFORMATION. THIS ART SPECIALIST CALLED FOR A RIDE THROUGH PHYSICIANS AND ETA THEY GAVE WAS 60-90 MINUTES. CHARGE NURSE REMINDED THIS ART SPECIALIST ABOUT RESTRAINTS AND HAVING TO WAIT BEFORE FACILITY ACCEPTED, SHE ASKED ME TO CALL [facility] AND CLARIFY AVAILABLE TIME FOR TRANSPORT. LATASHA AT [facility] TOLD ME THAT IF IN ONE HOUR PT BEHAVIOR IS STILL GOOD, THEN WE CAN PROCEED WITH TRANSPORT AND ACCEPTING ETA HAS NOT CHANGED.
[2025-02-04] MEDS: Potassium Chloride Oral Soln 20 MEQ/15 ML UDC 40 MEQ PO (21:52)
[2025-02-04 22:22] VITALS: BP 106/76; PULSE 85; RESP 16; TEMP 36.7; O2SAT 98
[2025-02-04 22:49] LABS: Bedside Glucose 210 mg/dL (74-106)
== END 2025-02-04 22:46 ==
PROVIDERS: Surgery; Emergency Provider Emergency Medicine; PCP Internal Medicine; Visit Provider Emergency Medicine
DX: F32.A Depression, unspecified (principal); E11.65 Type 2 diabetes mellitus with hyperglycemia; E11.40 Type 2 diabetes mellitus with diabetic neuropathy, unspecified; R45.851 Suicidal ideations; I10 Essential (primary) hypertension; F17.200 Nicotine dependence, unspecified, uncomplicated; Z79.51 Long term (current) use of inhaled steroids; Z79.899 Other long term (current) drug therapy
CPT/HCPCS: 80048; 80076; 80307; 81001; 82077; 82962; 85025; 96361; 96374; 96376; 99285; A4216

== ENCOUNTER 2025-02-09 19:16 | Inpatient (IN) | payer MEDICAID, SELFPAY ==
[2025-02-09] VITALS (12 sets, daily range): BP systolic 105–125; BP diastolic 67–87; PULSE 87–100; RESP 12–24; TEMP 36.6–36.7; O2SAT 91–98; BMI 22.7; BMI 22.8
[2025-02-09] MEDS: 0.9% Normal Saline (1000mL) 1,000 ML 999 ML IV ×2 (19:49→21:04)
[2025-02-09] MEDS: Ondansetron 4 MG/2 ML Vial IV (19:49)
[2025-02-09] MEDS: Ketorolac 15 MG/ML Vial IV (19:50)
[2025-02-09 20:00] LABS: Bacteria 0 SEEN /hpf (None Seen); Mucous, Urine 0 SEEN /hpf (<or=2+); Red Blood Cells-Urine 0 SEEN /hpf (0-5); Squamous Epithelial Cells - UA 0 SEEN /hpf (0-5); White Blood Cells 0 SEEN /hpf (0-5)
[2025-02-09 20:11] LABS: Color, Urine Yellow (Yellow); Glucose, Dipstick 1000 mg/dl (Normal); Ketone-Dipstick Negative (Negative); Leukocyte Esterase-Dipstick Negative /ul (Negative); Nitrite-Dipstick Negative (Negative); Occult Blood-Urine Negative /ul (Negative); Protein-Dipstick Negative (Negative); Urine Bilirubin Dipstick Negative (Negative); Urine Clarity Clear (Clear); Urine Urobilinogen Normal (Normal)
[2025-02-09 20:13] LABS: Absolute Lymphocyte Count 3.33 X10^3/uL (0.83-4.51); Absolute Neutrophil Count 6.8 X10^3/uL (2.0-7.7); Basophil# 0.04 X10^3/uL; Basophil% 0.4 % (0-1); Eosinophil# 0.31 X10^3/uL; Eosinophils% 2.7 % (0-5); Hematocrit 42.6 % (40-54); Hemoglobin 14.6 g/dL (13.0-16.5); Lymphocyte # 3.33 X10^3/ul (0.83-4.51); Lymphocyte % 29.4 % (19-41); Mean Corp Hgb Conc 34.3 g/dL (32-36); Mean Corpuscular Hgb 28.5 pg (27.0-32.0); Mean Corpuscular Volume 83.2 fL (80-94); Mean Platelet Vol. 9.3 fl (6.2-12.0); Monocyte# 0.83 X10^3/uL; Monocyte% 7.3 % (0-10); NRBC Flagged by Analyzer 0 % (0-5); Neutrophil # 6.77 X10^3/uL (2.7-7.7); Neutrophil % 59.9 % (47-70); Platelet Count 281 K/mm3 (150-450); RBC Distribution Width CV 13.2 % (11.6-14.6); Red Blood Count 5.12 M/mm3 (4.6-6.2); White Blood Count 11.3 K/mm3 (4.4-11.0)
[2025-02-09 20:20] LABS: Lipase 38 U/L (13-75)
[2025-02-09] MEDS: Famotidine 200 MG/20 ML MDV 20 MG in 0.9% Normal Saline (Pres. free 8 ML 300 MG IV (20:30)
[2025-02-09] MEDS: Morphine 4 MG/ML Syringe IV (20:30)
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
[2025-02-09 21:00] LABS: ALB/GLOB Ratio 1.5 RATIO (0.9-2.4); AST(SGOT) 56 U/L (<=37); Alanine Aminotransfer ALT/SGPT 44 U/L (<=46); Albumin, Serum 4.1 g/dL (3.5-5.0); Alkaline Phosphatase 99 U/L (40-129); Anion Gap 14 (5-15); BUN 24 mg/dL (4-19); BUN/Creat Ratio 26.1 RATIO (10-20); Calcium,Total 9.9 mg/dL (7.6-11.0); Carbon Dioxide 24.8 mmol/L (21.0-32.0); Chloride 90 mmol/L (98-108); Creatinine, Serum 0.91 mg/dL (0.70-1.20); EST Glomerular Filtration Rate 103 (>60); Globulin 2.8 g/dL (2.2-4.2); Glucose 700 mg/dL (70-99); Potassium 5.1 mmol/L (3.3-5.1); Protein, Total 6.9 g/dL (5.9-8.4); Sodium Level 129 mmol/L (133-145)
[2025-02-09] MEDS: Insulin Lispro 100 UNIT/ML INSULN.PEN 10 UNIT SC (21:06)
[2025-02-09] MEDS: Gabapentin 300 MG Capsule PO ×2 (21:43)
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
[2025-02-09 22:06] LABS: Bedside Glucose > 500 mg/dL (74-106)
[2025-02-09] MEDS: Insulin Lispro 100 UNIT in 0.9% Normal Saline (100mL Bag) 99 ML 7.2 UNIT CONT INF (22:14)
--- NOTE | 2025-02-09 22:23 | ED.RN ---
report called Eve hernandez ICU.
[2025-02-09 22:29] LABS: BETA-HYDROXYBUTYRATE 0.2 mmol/L (0.0-0.3)
[2025-02-09] MEDS: Lactated Ringers 1,000 ML 175 ML IV (22:53)
[2025-02-09 23:08] LABS: Magnesium 1.8 mg/dL (1.5-2.2)
[2025-02-09 23:30] LABS: Alcohol, Blood (Medical)-Serum < 10.1 mg/dL (<=10.0)
[2025-02-09] MEDS: Morphine 2 MG/ML Syringe IV (23:43)
[2025-02-09] MEDS: 0.9% Saline Lock 10 ML Syringe IV (23:43)
[2025-02-09 23:44] LABS: Anion Gap 11 (5-15); BUN 24 mg/dL (4-19); BUN/Creat Ratio 30.4 RATIO (10-20); Calcium,Total 8.9 mg/dL (7.6-11.0); Carbon Dioxide 21.9 mmol/L (21.0-32.0); Chloride 100 mmol/L (98-108); Creatinine, Serum 0.79 mg/dL (0.70-1.20); EST Glomerular Filtration Rate 108 (>60); Estimated Creatinine Clearance 114.24 ml/min (50-250); Glucose 371 mg/dL (70-99); Potassium 4.4 mmol/L (3.3-5.1); Sodium Level 133 mmol/L (133-145)
[2025-02-09] MEDS: 0.9% Normal Saline (100mL Bag) 100 ML 15 ML IV (23:44)
[2025-02-09] MEDS: Pantoprazole Sodium 40 MG in 0.9% Normal Saline (100mL MB+) 100 ML 330 MG IV (23:44)
[2025-02-09] MEDS: Insulin Lispro 100 UNIT in 0.9% Normal Saline (100mL Bag) 99 ML CONT INF (23:50)
[2025-02-10] VITALS (17 sets, daily range): BP systolic 105–123; BP diastolic 68–87; PULSE 72–92; RESP 12–18; TEMP 36.2–37.6; O2SAT 92–98; BMI 23.5
[2025-02-10 01:08] LABS: Bedside Glucose 162 mg/dL (74-106)
[2025-02-10] MEDS: Insulin Glargine-YFGN 100 UNIT/ML Pen 24 UNIT SC ×2 (01:17→09:22)
[2025-02-10] MEDS: Lactated Ringers 1,000 ML 175 ML IV (04:36)
[2025-02-10] MEDS: Gabapentin 300 MG Capsule PO ×3 (05:08→20:19)
[2025-02-10 05:16] LABS: Absolute Lymphocyte Count 4.03 X10^3/uL (0.83-4.51); Absolute Neutrophil Count 5.4 X10^3/uL (2.0-7.7); Basophil# 0.06 X10^3/uL; Basophil% 0.6 % (0-1); Eosinophils% 4.6 % (0-5); Hematocrit 37.7 % (40-54); Hemoglobin 13.1 g/dL (13.0-16.5); Lymphocyte # 4.03 X10^3/ul (0.83-4.51); Mean Corp Hgb Conc 34.7 g/dL (32-36); Mean Corpuscular Hgb 28.4 pg (27.0-32.0); Mean Corpuscular Volume 81.6 fL (80-94); Mean Platelet Vol. 8.6 fl (6.2-12.0); Monocyte# 0.84 X10^3/uL; Monocyte% 7.7 % (0-10); NRBC Flagged by Analyzer 0 % (0-5); Neutrophil # 5.43 X10^3/uL (2.7-7.7); Neutrophil % 49.8 % (47-70); POSITIVE MORPHOLOGY YES; Platelet Count 220 K/mm3 (150-450); RBC Distribution Width CV 13.3 % (11.6-14.6); RBC Distribution Width SD 39.6 fl (35.1-43.9); Red Blood Count 4.62 M/mm3 (4.6-6.2); White Blood Count 10.9 K/mm3 (4.4-11.0)
[2025-02-10 05:49] LABS: Blood Gas Specimen Type VEN; O2 Delivery Device Room Air; SITE Not entered; VBG BASE EXCESS 1 mmol/L (-1.0-3.5); VBG Bicarbonate 27 mmol/L (22-26); VBG PO2 40 mmHg (25-40); VBG SO2 72 % (50-70); VBG TCO2 28 mmol/L (23-33); VBG pCO2 47.8 mmHg (41-51); VBG pH 7.36 (7.32-7.42)
[2025-02-10 05:50] LABS: Differential Indicated SCAN CRITERIA MET
[2025-02-10 05:58] LABS: Atypical Lymphocyte 1+ %
[2025-02-10 06:09] LABS: Amphetamine Urine NEGATIVE (<1000 ng/mL); Barbiturate Urine NEGATIVE (< 200 ng/mL); Benzodiazepine Urine NEGATIVE (< 200 ng/mL); Buprenorphine Urine NEGATIVE (< 200 ng/mL); Cocaine Urine NEGATIVE (< 300 ng/mL); Fentanyl, Urine NEGATIVE; Methadone Urine NEGATIVE (< 300 ng/mL); Opiates Urine PRESUMPTIVE POSITIVE (< 300 ng/mL); Oxycodone, Urine NEGATIVE (< 100 ng/mL); PCP Urine NEGATIVE (< 25 ng/mL); THC Urine NEGATIVE (< 50 ng/mL)
[2025-02-10 06:24] LABS: ALB/GLOB Ratio 1.3 RATIO (0.9-2.4); AST(SGOT) 36 U/L (<=37); Alanine Aminotransfer ALT/SGPT 43 U/L (<=46); Albumin, Serum 3.4 g/dL (3.5-5.0); Alkaline Phosphatase 77 U/L (40-129); Anion Gap 10 (5-15); BUN 22 mg/dL (4-19); BUN/Creat Ratio 31.1 RATIO (10-20); Calcium,Total 8.8 mg/dL (7.6-11.0); Carbon Dioxide 23.4 mmol/L (21.0-32.0); Chloride 101 mmol/L (98-108); Cholesterol 118 mg/dL (<=200); EST Glomerular Filtration Rate 112 (>60); Estimated Creatinine Clearance 130.36 ml/min (50-250); Globulin 2.6 g/dL (2.2-4.2); Glucose 193 mg/dL (70-99); High Density Lipoprotein 39 mg/dL; Low Density Lipoprotein Calc. 60 mg/dL; Phosphorus 4.2 mg/dL (2.7-4.5); Potassium 4.3 mmol/L (3.3-5.1); Sodium Level 135 mmol/L (133-145); Total Bilirubin 0.63 mg/dL (0.00-1.30); Triglycerides 98 mg/dL; Very Low Density Lipoprotein 20 mg/dL (5-40); cholesterol:hdl ratio screen 3.05
--- NOTE | 2025-02-10 07:27 | PN.HOSP_ITS ---
Reason for Visit Reason for Visit: Diagnoses Type 2 diabetes mellitus with diabetic neuropathy, unspecified (02/09/25) Type 2 diabetes mellitus with hyperglycemia (02/09/25) Depression, unspecified (02/09/25) Essential (primary) hypertension (02/09/25) Suicidal ideations (02/09/25) Patient's other noncompliance with medication regimen for other reason (02/09/25) Objective Data Objective Data Vital Signs: Vital Signs Temp Pulse Resp BP Pulse Ox O2 Del Method 97.2 F L 81 13 121/82 H 93 Room Air 02/10/25 04:00 02/10/25 07:00 02/10/25 07:00 02/10/25 07:00 02/10/25 07:00 02/10/25 07:00 Oxygen Delivery Method Room Air Weight: 164 lb 0.383 oz Body Mass Index (BMI) 23.5 Intake & Output: Intake and Output for Last 24 Hours 02/08/25 02/09/25 02/10/25 23:59 23:59 23:59 Intake Total 2021.88 / 2021.88 1434.35 / 1434.35 Output Total 750 / 750 300 / 300 Balance 1271.88 / 1271.88 1134.35 / 1134.35 Lab / Micro Data 02/10/25 05:05 02/10/25 05:05 Labs: Laboratory Results - last 24 hr 02/09/25 19:34: WBC 11.3 H, RBC 5.12, Hgb 14.6, Hct 42.6, MCV 83.2, MCH 28.5, MCHC 34.3, RDW Std Deviation 40.0, RDW Coeff of Wil 13.2, Plt Count 281, MPV 9.3, Immature Gran % (Auto) 0.300, Neut % (Auto) 59.9, Lymph % (Auto) 29.4, [place] % (Auto) 7.3, Eos % (Auto) 2.7, Baso % (Auto) 0.4, Absolute Neuts (auto) 6.8, Absolute Lymphs (auto) 3.33, Nucleated RBC % 0, Sodium 129 L, Potassium 5.1, C hloride 90 L, Carbon Dioxide 24.8, Anion Gap 14, BUN 24 H, Creatinine 0.91, Estim Creat Clear Calc 98.90, Est GFR (MDRD) Non-Af 103, BUN/Creatinine Ratio 26.1 H, Glucose 700 H*, Calcium 9.9, Magnesium 1.8, Total Bilirubin 0.50, AST 56 H, ALT 44, Alkaline Phosphatase 99, Total Protein 6.9, Albumin 4.1, Globulin 2.8, Albumin/Globulin Ratio 1.5, Lipase 38, b-Hydroxybutyric mmol/L 0.2, Urine Color Yellow, Urine Clarity Clear, Urine pH 6.0, Ur Specific [place] 1.010, Urine Protein Negative, Urine Glucose (UA) 1000 H, Urine Ketones Negative, Urine Occult Blood Negative, Urine Nitrite Negative, Urine Bilirubin Negative, Urine Urobilinogen Normal, Ur Leukocyte Esterase Negative, Urine RBC 0 SEEN, Urine WBC 0 SEEN, Ur Squamous Epith Cells 0 SEEN, Urine Bacteria 0 SEEN, Urine Mucus 0 SEEN 02/09/25 21:47: POC Glucose > 500 H* 02/09/25 22:50: Ethyl Alcohol < 10.1 02/09/25 23:00: Sodium 133, Potassium 4.4, Chloride 100, Carbon Dioxide 21.9, Anion Gap 11, BUN 24 H, Creatinine 0.79, Estim Creat Clear Calc 114.24, Est GFR (MDRD) Non-Af 108, BUN/Creatinine Ratio 30.4 H, Glucose 371 H, Calcium 8.9 02/10/25 00:50: POC Glucose 162 H 02/10/25 05:05: WBC 10.9, RBC 4.62, Hgb 13.1, Hct 37.7 L, MCV 81.6, MCH 28.4, MCHC 34.7, RDW Std Deviation 39.6, RDW Coeff of Wil 13.3, Plt Count 220, MPV 8.6, Immature Gran % (Auto) 0.300, Neut % (Auto) 49.8, Lymph % (Auto) 37.0, [place] % (Auto) 7.7, Eos % (Auto) 4.6, Baso % (Auto) 0.6, Absolute Neuts (auto) 5.4, Absolute Lymphs (auto) 4.03, Nucleated RBC % 0, Atypical Lymphocytes 1+, Sodium 135, Potassium 4.3, Chloride 101, Carbon Dioxide 23.4, Anion Gap 10, BUN 22 H, Creatinine 0.70, Estim Creat Clear Calc 130.36, Est GFR (MDRD) Non-Af 112, B UN/Creatinine Ratio 31.1 H, Glucose 193 H, Calcium 8.8, Phosphorus 4.2, Total Bilirubin 0.63, AST 36, ALT 43, Alkaline Phosphatase 77, Total Protein 6.0, A lbumin 3.4 L, Globulin 2.6, Albumin/Globulin Ratio 1.3, Triglycerides 98, Cholesterol 118, LDL Cholesterol, Calc 60, VLDL Cholesterol 20, HDL Cholesterol 39 L, Cholesterol/HDL Ratio 3.05, TSH 1.910 02/10/25 05:30: Urine Opiates Screen PRESUMPTIVE POSITIVE, U Buprenorphine Qual NEGATIVE, Ur Oxycodone Screen NEGATIVE, Urine Methadone Screen NEGATIVE, Urine Fentanyl Screen NEGATIVE, Ur Barbiturates Screen NEGATIVE, Ur Phencyclidine Scrn NEGATIVE, Ur Amphetamines Screen NEGATIVE, U Benzodiazepines Scrn NEGATIVE, Urine Cocaine Screen NEGATIVE, U Cannabinoids Screen NEGATIVE ABG Data ABG results: ABG 02/10/25 05:45 Specimen Type KOBY Sample Site Not entered VBG pH 7.36 VBG pO2 40 VBG HCO3 27 H VBG Total CO2 28 VBG O2 Sat (Calc) 72 H VBG Base Excess 1 POC Mix VBG pCO2 Pt Tmp 47.8 O2 Delivery Device Room Air Physical Exam Narrative Seen and examined. Patient was admitted about 2 weeks ago for similar diagnosis, HHS/hyperosmolar nonketotic hyperglycemic state. History of nonadherence Denies abdominal pain nausea or vomiting. No fever, flulike symptoms or dysuria Physical exam General: Alert, Oriented x3, Cooperative HEENT: Atraumatic, PERRLA, EOMI, Normocephalic Oral: No Gingival or Mucosal Lesions/ Ulcerations Neck: Supple, No JVD, Negative Carotid Bruits Chest wall/Lungs: Air entry diminished in bilateral lung bases. No crepitation/rhonchi Cardiovascular: Regular rate, Regular Rhythm, Normal S1, Normal S2, No M/G/R Abdomen: Bowel Sounds Present, Soft, Non Tender, Non-Distended : No dysuria. No renal angle tenderness. No suprapubic tenderness. Extremities: No edema, Capillary Refill Less than 3 Seconds Skin: No rashes, No breakdown Musculoskeletal: No Tenderness to Palpation of Joints or Extremities. ROM full Neurological: Cranial nerves II-XII grossly intact, DTR 2+/4. No acute focal neurological deficit. Psych/Mental Status: Normal Affect, Appropriate. Assessment & Plan Assessment/Plan (1) Hyperglycemia due to diabetes mellitus: (2) History of medication noncompliance: (3) Depression with suicidal ideation: (4) Diabetic neuropathy, painful: (5) Hypertension: QUALIFIERS: Hypertension type: essential hypertension Qualified Code(s): I10 - Essential (primary) hypertension PLAN: Plan 1. Hyperosmolar hyperglycemic state with history of type II diabetic mellitus complicated diabetic neuropathy on gabapentin: Patient glucose on admission was critically high, 700 mg/dL, undetectable beta hydroxybutyrate, AG 16, VBG, pH 7.38. Patient was vigorously dehydrated. Accu-Chek before meals and at bedtime with Humalog sliding scale coverage and hypoglycemia protocol. Started on Lantus and scheduled Humalog insulin, titrate the dose as per Accu-Cheks. Transfer to [facility] floor. 2. Essential Hypertension; on lisinopril - Maintain current treatment plus give prn IV hydralazine for systolic blood pressure > 160mmHg. 3. Hyperlipidemia; on atorvastatin - Resume statin. Patient also had hypertriglyceridemia and was on fenofibrate in the past. 4. Chronic stable asthma: Patient quit smoking in 2019. Other comorbidities include chronic depression with history of suicidal ideation, ED, DVT/GI prophylaxis - Lovenox 40 mg sq daily. Pantoprazole 40 mg IV daily. Charges/Coding Visit Charges Inpatient E&M: 00371 Subs Hosp L2
[2025-02-10] MEDS: 0.9% Saline Lock 10 ML Syringe IV ×2 (07:49→15:35)
[2025-02-10] MEDS: Morphine 2 MG/ML Syringe IV ×2 (07:50→20:19)
[2025-02-10 07:56] LABS: Bedside Glucose 261 mg/dL (74-106)
[2025-02-10] MEDS: Lisinopril 2.5 MG Tablet PO (09:22)
[2025-02-10] MEDS: Enoxaparin 40 MG/0.4 ML Syringe SC (09:22)
[2025-02-10] MEDS: Lactated Ringers 2,000 ML 100 ML IV (10:22)
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
[2025-02-10] MEDS: Insulin Lispro 100 UNIT/ML INSULN.PEN 10 UNIT SC ×2 (11:18→17:07)
[2025-02-10 11:38] LABS: Bedside Glucose 337 mg/dL (74-106)
--- NOTE | 2025-02-10 11:52 | CASEMGMT ---
Social Work Pt completed SDOH w/SW. Pt does have a steady place to live, is staying w/a friend. SW provided transportation resources. Pt states plans to walk home at d/c, SW let him know we can see f we can get him a ride w/the hospital van. SW let RN know to notify SW or CM, or call hospital van when pt is d/c. SW also checked in w/pt regarding MH follow up, he is following up at [facility]. SW remains available for any additional resources. SERGE Durant
[2025-02-10 13:22] LABS: Anion Gap 10 (5-15); BUN 16 mg/dL (4-19); BUN/Creat Ratio 24.6 RATIO (10-20); Calcium,Total 8.2 mg/dL (7.6-11.0); Chloride 100 mmol/L (98-108); Creatinine, Serum 0.63 mg/dL (0.70-1.20); EST Glomerular Filtration Rate 116 (>60); Estimated Creatinine Clearance 144.84 ml/min (50-250); Glucose 352 mg/dL (70-99); Potassium 4.3 mmol/L (3.3-5.1); Sodium Level 131 mmol/L (133-145)
[2025-02-10] MEDS: Ketorolac 15 MG/ML Vial IV (15:34)
[2025-02-10 17:44] LABS: Bedside Glucose 296 mg/dL (74-106)
[2025-02-10] MEDS: Insulin Glargine-YFGN 100 UNIT/ML Pen 10 UNIT SC (20:33)
[2025-02-10] MEDS: Atorvastatin Calcium 80 MG Tablet PO (20:34)
[2025-02-11 00:28] LABS: Bedside Glucose 338 mg/dL (74-106)
[2025-02-11] MEDS: Morphine 2 MG/ML Syringe IV (01:13)
[2025-02-11 02:11] VITALS: BP 125/83; PULSE 75; RESP 14; TEMP 36.4; O2SAT 98
[2025-02-11 05:08] VITALS: BMI 23.6
[2025-02-11] MEDS: Gabapentin 300 MG Capsule PO (05:35)
[2025-02-11] MEDS: Lactated Ringers 2,000 ML 100 ML IV (05:36)
[2025-02-11 06:57] LABS: Hemoglobin A1c 14.9 % (<=5.6)
[2025-02-11 07:01] LABS: Anion Gap 8 (5-15); BUN 12 mg/dL (4-19); BUN/Creat Ratio 18.7 RATIO (10-20); Calcium,Total 8.7 mg/dL (7.6-11.0); Carbon Dioxide 28.3 mmol/L (21.0-32.0); Chloride 101 mmol/L (98-108); Creatinine, Serum 0.63 mg/dL (0.70-1.20); EST Glomerular Filtration Rate 116 (>60); Estimated Creatinine Clearance 144.84 ml/min (50-250); Glucose 196 mg/dL (70-99); Sodium Level 137 mmol/L (133-145)
[2025-02-11 08:12] LABS: Phosphorus 2.8 mg/dL (2.7-4.5)
[2025-02-11 08:15] VITALS: O2SAT 97
[2025-02-11 09:06] VITALS: BP 124/78; PULSE 78; RESP 16; TEMP 36.8; O2SAT 98
[2025-02-11] MEDS: Insulin Glargine-YFGN 100 UNIT/ML Pen 24 UNIT SC (09:11)
[2025-02-11] MEDS: Insulin Lispro 100 UNIT/ML INSULN.PEN 10 UNIT SC ×2 (09:11→11:13)
[2025-02-11] MEDS: Lisinopril 2.5 MG Tablet PO (09:12)
[2025-02-11] MEDS: Enoxaparin 40 MG/0.4 ML Syringe SC (09:12)
[2025-02-11] MEDS: Ketorolac 15 MG/ML Vial IV (09:14)
--- NOTE | 2025-02-11 10:59 | DCINST_ITS ---
Discharge Instructions Diet Discharge Diet: 1800 Calorie Control Diet DC O2, CPAP, BIPAP needs Home O2 Discharge instructions: No Dressing / Incision Discharge Activity: Return to Normal Activity Weight Bearing Status: Weight bearing as tolerated Dressing / Incision Call your doctor if you observe: Fever of 101 or Higher, Coldness, Increased Pain, Numbness or Tingling, Change in Color, Inability to urinate, Inability to have a bowel movement, Shortness of breath, Dizziness, Fainting spells, Swelling in the ankles, Chest pain, Prolonged hiccupping, Increased palpitations (irregular heartbeat) and Calf discomfort Follow Up Care When: IN 2 WEEKS Test Results: Test results from this visit will be discussed in further detail at your follow- up appointment, if applicable. Discharge Plan Admission Admit Date/Time: 02/09/25 22:02 Primary Reason for Your Visit: HHS, DM type 2 Attending Provider: Michael Joseph Primary Care Provider: Paris Chilel Consulting Providers: Scout Ortega Discharge Orders/Prescriptions Prescriptions: New insulin glargine-yfgn 100 unit/mL (3 mL) Insulin Pen 25 unit subcut DAILY 30 Days Qty: 15 4RF insulin lispro [Humalog KwikPen Insulin] 100 unit/mL Insulin Pen 10 unit subcut TIDAC 30 Days Qty: 15 3RF insulin glargine-yfgn 100 unit/mL (3 mL) Insulin Pen 15 unit subcut QHS Qty: 0 0RF (DME) lancets [Fingerstix Lancets] [facility] See Rx Instructions .Route Qty: 300 0RF Rx Instructions: As directed Continued (DME) blood sugar diagnostic Strip 0 .Route .MEDSUPPLY Qty: 100 0RF Rx Instructions: check blood glucose three times daily for type 2 DM (DME) pen needle, diabetic [Unifine Pentips] 31 gauge x 5/16 needle See Rx Instructions .ROUTE .MEDSUPPLY Qty: 300 3RF Rx Instructions: As directed QID (DME) blood-glucose meter [OneTouch Ultra2 Meter] Mis See Rx Instructions .ROUTE .MEDSUPPLY Qty: 1 0RF Rx Instructions: Check blood sugar 3 times a day and as needed atorvastatin 80 mg tablet 80 mg PO QHS 90 Days Qty: 90 1RF (DME) OneTouch Ultra Test Strip See Rx Instructions .ROUTE .MEDSUPPLY Qty: 300 3RF Rx Instructions: Check Blood Sugar 3 times a day and as needed gabapentin 300 mg capsule 300 mg PO Q8H Qty: 30 0RF (DME) insulin syringe-needle U-100 [BD Insulin Syringe Ultra-Fine] 0.3 mL 31 gauge x 5/16 syringe See Rx Instructions .ROUTE .MEDSUPPLY Qty: 100 3RF Rx Instructions: As directed lisinopril 2.5 mg tablet 2.5 mg PO DAILY 90 Days Qty: 90 1RF Trulicity 3 mg/0.5 mL pen injector 3 mg SUBCUT QWEEK 30 Days Qty: 2 1RF Rx Instructions: on monday (DME) pen needle, diabetic 29 gauge needle See Rx Instructions .Route Qty: 100 0RF Rx Instructions: As directed albuterol sulfate 90 mcg/actuation HFA aerosol inhaler 2 puff INHALATION Q6H PRN (Reason: Asthma) Qty: 8.5 3RF Discontinued (DME) lancets [OneTouch UltraSoft Lancets] Misc See Rx Instructions .ROUTE .MEDSUPPLY Qty: 300 3RF Rx Instructions: Check blood sugar 3 times a day and as needed insulin glargine-yfgn 100 unit/mL (3 mL) Insulin Pen 24 unit subcut BID Referrals / Follow Up: Paris Chilel MD [Primary Care Provider] - Within 2 Weeks (Patient has bilateral numbness of hand possible carpal tunnel syndrome) Disposition Disposition (needs filled in before D/C Order can be placed): Home, Self Care
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
--- NOTE | 2025-02-11 11:37 | CASEMGMT ---
Addendum entered by Latesha Ashford 02/11/25 11:45: Social Work SW spoke w/pt, he has a ride now, so does not need van transport. SW cancelled the van transport. SERGE Durant Original Note: Social Work Pt ready for discharge, SW set up van transport for 3:15pm. SW will let pt's RN know. SERGE Durant
--- NOTE | 2025-02-11 11:51 | CASEMGMT ---
Addendum entered by Marina Hernandes 02/11/25 11:54: Pt RN aware. Original Note: Pt has an order for DC placed. TC to [facility]. [facility] states that they have received all of the pts new Rxs and that they are covered by the pts insurance and that they will deliver the medications and equipment to the bedside once they are ready. No further needs identified.
[2025-02-11 12:14] LABS: Bedside Glucose 230 mg/dL (74-106)
== END 2025-02-11 13:06 | disposition home or self-care (01) | DRG 420 ==
LOC: ED 20:01 → MS3 22:06 → ICU 22:15 → MS3 02-10 16:01
PROVIDERS: Physician Assistant; Admitting Provider Internal Medicine; Emergency Provider Emergency Medicine; PCP Internal Medicine; Visit Provider Internal Medicine
DX: E11.00 Type 2 diabetes mellitus with hyperosmolarity without nonketotic hyperglycemic-hyperosmolar coma (NKHHC) (principal); E87.1 Hypo-osmolality and hyponatremia; I11.0 Hypertensive heart disease with heart failure; I50.9 Heart failure, unspecified; F32.A Depression, unspecified; J45.909 Unspecified asthma, uncomplicated; E11.40 Type 2 diabetes mellitus with diabetic neuropathy, unspecified; F17.210 Nicotine dependence, cigarettes, uncomplicated; E78.5 Hyperlipidemia, unspecified; Z79.4 Long term (current) use of insulin; F17.290 Nicotine dependence, other tobacco product, uncomplicated; E86.0 Dehydration; R45.851 Suicidal ideations; Z83.3 Family history of diabetes mellitus; Z82.49 Family history of ischemic heart disease and other diseases of the circulatory system; Z86.16 Personal history of COVID-19; Z91.148 Patient's other noncompliance with medication regimen for other reason; R10.13 Epigastric pain; Z79.899 Other long term (current) drug therapy; T38.3X6A Underdosing of insulin and oral hypoglycemic [antidiabetic] drugs, initial encounter; Z79.02 Long term (current) use of antithrombotics/antiplatelets
CPT/HCPCS: 36415; 80048; 80053; 80061; 80307; 81001; 82010; 82077; 82803; 82962; 83036; 83690; 83735; 84100; 84443; 85025; 97161; 97165; 97802; 99285; A4216; J2405

== ENCOUNTER 2025-02-12 04:01 | Emergency (ER) | payer MEDICAID, SELFPAY ==
[2025-02-12 04:02] VITALS: BP 134/95; PULSE 102; RESP 18; TEMP 36.4; O2SAT 99; BMI 24.1
[2025-02-12] MEDS: Fluorescein 1 MG STRIP 1 STRIP RIGHT EYE (04:05)
[2025-02-12] MEDS: Tetracaine 0.5% Ophthalmic Bottle 1 DRP RIGHT EYE (04:05)
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
[2025-02-12 04:26] VITALS: BP 127/91; PULSE 96; RESP 18; TEMP 36.4; O2SAT 98
[2025-02-12] MEDS: Bacitracin/Polymin B Sulfate 3.5 GM OPTH.TUBE 1 APPLIC LEFT EYE (04:39)
== END 2025-02-12 04:42 | disposition home or self-care (01) ==
PROVIDERS: Emergency Provider Emergency Medicine; PCP Internal Medicine; Visit Provider Emergency Medicine
DX: H10.9 Unspecified conjunctivitis (principal); I11.0 Hypertensive heart disease with heart failure; I50.9 Heart failure, unspecified; E11.40 Type 2 diabetes mellitus with diabetic neuropathy, unspecified; F17.210 Nicotine dependence, cigarettes, uncomplicated; F17.290 Nicotine dependence, other tobacco product, uncomplicated
CPT/HCPCS: 99284; A4216